=== PATIENT | male | born 1945 | race Caucasian/White ===

== ENCOUNTER → 2017-03-19 16:00 | Outpatient (REF) | payer MEDICARE, OTHER, SELFPAY | LOC: OLS.ACH 16:00 | PROVIDERS: Visit Provider Family Medicine | DX: R48.2 Apraxia (principal) | CPT/HCPCS: 87804 ==

== ENCOUNTER → 2017-07-16 05:00 | Outpatient (REF) | payer MEDICARE, OTHER, SELFPAY ==
[2017-07-16 08:48] LABS: ALB/GLOB Ratio 1.1 RATIO (0.9-2.4); AST(SGOT) 19 U/L (15-37); Alanine Aminotransfer ALT/SGPT 24 U/L (16-61); Albumin, Serum 3.1 g/dL (3.2-5.0); Alkaline Phosphatase 86 U/L (45-117); Anion Gap 7 (5-15); BUN 8 mg/dL (7-18); BUN/Creat Ratio 10.9 RATIO (10-20); Calcium,Total 7.8 mg/dL (8.5-10.1); Chloride 103 mmol/L (98-107); Cholesterol 119 mg/dL (200); Creatinine, Serum 0.74 mg/dL (0.70-1.30); EST Glomerular Filtration Rate 111 mL/min (>60); Est Glom Filt Rate - Afr Amer 135 mL/min (>60); Globulin 2.8 g/dL (2.2-4.2); Glucose 85 mg/dL (74-106); High Density Lipoprotein 38 mg/dL; Potassium 4.1 mmol/L (3.5-5.1); Protein, Total 5.9 g/dL (6.4-8.2); Sodium Level 137 mmol/L (136-145); Triglycerides 84 mg/dL; Very Low Density Lipoprotein 17 mg/dL (5-40)
== END ==
LOC: OLS.ACH 05:00
PROVIDERS: Visit Provider Family Medicine
DX: G35 Multiple sclerosis (principal); E78.00 Pure hypercholesterolemia, unspecified
CPT/HCPCS: 36415; 80053; 80061

== ENCOUNTER 2017-11-07 12:42 | Emergency (ER) | payer MEDICARE, OTHER, MEDICAID, SELFPAY ==
[2017-11-07 12:43] VITALS: BP 149/93; PULSE 58; RESP 18; TEMP 36.6; O2SAT 93; BMI 33.5
--- NOTE | 2017-11-07 13:00 | ED.DCSUM_ITS ---
- ER Visit Summary Date of Service: 11/07/17 Chief Complaint: Fall, head injury with LOC History of Present Illness: The patient is a 72 M who presents after a fall. [facility]mate tried to push his wheelchair and push the patient out of his wheelchair. He did hit the right side of his head on the floor. There was about 30 seconds of loss of consciousness per [facility] staff. Patient complains of minimal pain to the right side of the head. No neck pain. Denies any other symptoms. He does not take any blood thinning medications. Physical Examination: Vital signs reviewed. HEENT exam unremarkable. Head is nontender. Heart is regular rate and rhythm without murmurs. Lungs are clear to auscultation. Abdomen is soft and nontender. Extremities reveal no edema. Skin exam normal. Neurologic exam reveals diffuse muscle weakness secondary to his chronic medical conditions but nothing new. Test Results: CAT scan of the head reveals chronic changes with no acute findings Emergency Department Course and Treatment: Patient had no symptoms here in the emergency department. CAT scan reveals nothing acute. He will be discharged back to his facility Treatment Plan: [] Disposition: Discharge Impression: Concussion with loss of consciousness This note was generated with [employer] dictation software. It may contain incorrect words, spelling, and punctuation that were not noted in review of the chart prior to signing ED Disposition - Plan for ED Patient: Chief Complaint: LOC Referrals: Ricki Eaton MD [Primary Care Provider] -
--- NOTE | 2017-11-07 13:10 | CT_ITS ---
STUDY: CT BRAIN WITHOUT CONTRAST REASON FOR EXAM: Male, 72 years old. Trauma, head injury, status post fall from wheelchair RADIATION DOSAGE (If Supplied By Facility): CTDIvol = ( 44.99 ) mGy, DLP = ( 897.35 ) mGycm TECHNIQUE: Transaxial CT imaging of the brain was performed without administration of intravenous contrast material. Sagittal and coronal reconstructed images are provided and reviewed. Individualized dose optimization techniques were used for this CT. COMPARISON: None. FINDINGS: Normal soft tissue structures. Normal calvarium. The skull appears somewhat scaphocephalic. There is mild cerebral atrophy with widening of the extra-axial spaces and ventricular dilatation. There are areas of decreased attenuation within the white matter tracts of the supratentorial brain, consistent with microvascular disease changes. Normal basal ganglia and thalami. Normal brainstem. Normal cerebellum. There is no intracranial hemorrhage. There are no findings of an acute ischemic infarction. Normal visualized paranasal sinuses. CT/Brain/Head without Contrast IMPRESSION: Chronic involutional changes. No acute intracranial abnormality. Electronically Signed: Michael Woodward DO at 13:48 EDT Tel , Service support ,
--- NOTE | 2017-11-07 13:58 | ED.DEP ---
ED Disposition - Plan for ED Patient: Disposition: Home or Assisted Living Chief Complaint: LOC Instructions: ED Concussion Referrals: Ricki Eaton MD [Primary Care Provider] -
[2017-11-07 14:04] VITALS: BP 143/81; PULSE 64; RESP 18; O2SAT 94
[2017-11-07 15:25] VITALS: BP 140/80; PULSE 65; RESP 18
== END 2017-11-07 18:00 | disposition home or self-care (01) ==
PROVIDERS: Emergency Provider Emergency Medicine; Family Provider Family Medicine; PCP Family Medicine
DX: S06.0X1A Concussion with loss of consciousness of 30 minutes or less, initial encounter (principal); R40.2410 Glasgow coma scale score 13-15, unspecified time; W05.0XXA Fall from non-moving wheelchair, initial encounter; Y93.9 Activity, unspecified; Y92.129 Unspecified place in nursing home as the place of occurrence of the external cause; K21.9 Gastro-esophageal reflux disease without esophagitis; E78.00 Pure hypercholesterolemia, unspecified; F41.9 Anxiety disorder, unspecified; N40.0 Benign prostatic hyperplasia without lower urinary tract symptoms; G35 Multiple sclerosis; Z79.899 Other long term (current) drug therapy
CPT/HCPCS: 70450; 99284

== ENCOUNTER → 2018-01-14 05:00 | Outpatient (REF) | payer MEDICARE, OTHER, MEDICAID, SELFPAY ==
[2018-01-14 09:48] LABS: ALB/GLOB Ratio 0.9 RATIO (0.9-2.4); AST(SGOT) 16 U/L (15-37); Alanine Aminotransfer ALT/SGPT 24 U/L (16-61); Albumin, Serum 3.1 g/dL (3.2-5.0); Alkaline Phosphatase 97 U/L (45-117); Anion Gap 7 (5-15); BUN 12 mg/dL (7-18); BUN/Creat Ratio 15.4 RATIO (10-20); Calcium,Total 8.3 mg/dL (8.5-10.1); Chloride 103 mmol/L (98-107); Cholesterol 121 mg/dL (200); Creatinine, Serum 0.78 mg/dL (0.70-1.30); EST Glomerular Filtration Rate 104 mL/min (>60); Est Glom Filt Rate - Afr Amer 126 mL/min (>60); Globulin 3.3 g/dL (2.2-4.2); Glucose 90 mg/dL (74-106); High Density Lipoprotein 40 mg/dL; Potassium 3.9 mmol/L (3.5-5.1); Protein, Total 6.4 g/dL (6.4-8.2); Sodium Level 138 mmol/L (136-145); Triglycerides 71 mg/dL; Very Low Density Lipoprotein 14 mg/dL (5-40)
[2018-01-14 10:00] LABS: Vitamin D,25 Hydroxy 65.2 ng/mL (29.95-100.01)
== END ==
LOC: OLS.ACH 05:00
PROVIDERS: Visit Provider Family Medicine
DX: G35 Multiple sclerosis (principal); E78.00 Pure hypercholesterolemia, unspecified; M81.0 Age-related osteoporosis without current pathological fracture
CPT/HCPCS: 36415; 80053; 80061; 82306

== ENCOUNTER → 2018-07-15 04:00 | Outpatient (REF) | payer MEDICARE, OTHER, MEDICAID, SELFPAY ==
[2018-07-15 08:37] LABS: AST(SGOT) 19 U/L (15-37); Alanine Aminotransfer ALT/SGPT 27 U/L (16-61); Albumin, Serum 3.1 g/dL (3.2-5.0); Alkaline Phosphatase 92 U/L (45-117); Anion Gap 7 (5-15); BUN 10 mg/dL (7-18); BUN/Creat Ratio 12.7 RATIO (10-20); Calcium,Total 8.1 mg/dL (8.5-10.1); Chloride 102 mmol/L (98-107); Cholesterol 115 mg/dL (200); Creatinine, Serum 0.78 mg/dL (0.70-1.30); EST Glomerular Filtration Rate 103 mL/min (>60); Est Glom Filt Rate - Afr Amer 125 mL/min (>60); Globulin 3.2 g/dL (2.2-4.2); Glucose 89 mg/dL (74-106); High Density Lipoprotein 38 mg/dL; Potassium 3.9 mmol/L (3.5-5.1); Protein, Total 6.3 g/dL (6.4-8.2); Sodium Level 136 mmol/L (136-145); Triglycerides 68 mg/dL; Very Low Density Lipoprotein 14 mg/dL (5-40)
== END ==
LOC: OLS.ACH 04:00
PROVIDERS: Visit Provider Family Medicine
DX: G35 Multiple sclerosis (principal); E78.00 Pure hypercholesterolemia, unspecified
CPT/HCPCS: 36415; 80053; 80061

== ENCOUNTER → 2018-12-12 05:00 | Outpatient (REF) | payer MEDICARE, OTHER, MEDICAID, SELFPAY ==
[2018-12-12 09:51] LABS: Hematocrit 43.8 % (40-54); Hemoglobin 14.1 g/dL (13.0-16.5); Mean Corp Hgb Conc 32.2 g/dL (32-36); Mean Corpuscular Hgb 30.5 pg (27.0-32.0); Mean Corpuscular Volume 94.8 fL (80-94); Platelet Count 249 K/mm3 (150-450); RBC Distribution Width SD 41.6 fl (35.1-43.9); Red Blood Count 4.62 M/mm3 (4.6-6.2); White Blood Count 12.5 K/mm3 (4.4-11.0)
[2018-12-12 10:07] LABS: ALB/GLOB Ratio 0.9 RATIO (0.9-2.4); AST(SGOT) 18 U/L (15-37); Alanine Aminotransfer ALT/SGPT 23 U/L (16-61); Albumin, Serum 3.3 g/dL (3.2-5.0); Alkaline Phosphatase 99 U/L (45-117); Anion Gap 7 (5-15); BUN 9 mg/dL (7-18); BUN/Creat Ratio 12.4 RATIO (10-20); Calcium,Total 8.4 mg/dL (8.5-10.1); Chloride 103 mmol/L (98-107); Creatinine, Serum 0.73 mg/dL (0.70-1.30); EST Glomerular Filtration Rate 113 mL/min (>60); Est Glom Filt Rate - Afr Amer 136 mL/min (>60); Globulin 3.6 g/dL (2.2-4.2); Glucose 89 mg/dL (74-106); Potassium 3.6 mmol/L (3.5-5.1); Protein, Total 6.9 g/dL (6.4-8.2); Sodium Level 137 mmol/L (136-145)
[2018-12-12 11:22] LABS: Color, Urine Yellow (Yellow); Glucose, Dipstick Normal (Normal); Ketone-Dipstick Negative (Negative); Leukocyte Esterase-Dipstick 500 /ul (Negative); Nitrite-Dipstick Negative (Negative); Occult Blood-Urine 25 /ul (Negative); Protein-Dipstick Negative (Negative); Urine Bilirubin Dipstick Negative (Negative); Urine Clarity Sl. Cloudy (Clear); Urine Urobilinogen Normal (Normal)
== END ==
LOC: OLS.ACH 05:00
PROVIDERS: Visit Provider Family Medicine
DX: N39.41 Urge incontinence (principal); M62.81 Muscle weakness (generalized)
CPT/HCPCS: 36415; 80053; 81002; 85027; 87077; 87086; 87088; 87186

== ENCOUNTER → 2018-12-24 04:10 | Outpatient (REF) | payer MEDICARE, OTHER, MEDICAID, SELFPAY ==
[2018-12-23 09:04] VITALS: BMI 33.5
[2018-12-24 07:26] LABS: Color, Urine Yellow (Yellow); Glucose, Dipstick Normal (Normal); Ketone-Dipstick Negative (Negative); Leukocyte Esterase-Dipstick 100 /ul (Negative); Nitrite-Dipstick Negative (Negative); Occult Blood-Urine Negative /ul (Negative); Protein-Dipstick Negative (Negative); Urine Bilirubin Dipstick Negative (Negative); Urine Clarity Clear (Clear); Urine Urobilinogen Normal (Normal)
== END ==
LOC: OLS.ACH 04:10
PROVIDERS: Visit Provider Family Medicine
DX: N39.41 Urge incontinence (principal)
CPT/HCPCS: 81002; 87086

== ENCOUNTER 2018-12-27 15:45 | Emergency (ER) | payer MEDICARE, MEDICAID, SELFPAY ==
[2018-12-27 15:45] VITALS: BMI 33.6
[2018-12-27 15:46] VITALS: BP 138/84; PULSE 60; RESP 12; TEMP 36.4; O2SAT 96; BMI 35.6
--- NOTE | 2018-12-27 16:05 | ED.DCSUM_ITS ---
History of Present Illness Chief Complaint: Abd Pain Informant: Patient, Significant Other Limited by: Dementia Onset: Today Context: Sudden Onset Timing: Continuous Quality: Pain Location: Base of the skull to his ankles Current Severity: Mild Maximum Severity: Moderate Worsened by: Unknown Relieved by: Nothing Associated Symptoms: Unable to determine Narrative: Patient is a 73-year-old male scheduled for cholecystectomy on January 02, 2019. He has history of cholelithiasis with acute on chronic cholecystitis. Plan was to observe and allow for inflammation to improve prior to surgery per Dr. Roy does most recent note. States he is not always accurate with his description and location of pain. He apparently had pancakes with butter this morning. Uncertain what he had for lunch. states he is also been on a bland diet. He resides at nursing facility. She states she lives in an apartment near the nursing facility. Prior similar symptoms: Yes Recent Illness/Hospitalization: No - Past Medical History (1) History of cholelithiasis Status: Acute (2) Depression Status: Chronic (3) HLD (hyperlipidemia) Status: Chronic (4) Multiple sclerosis Status: Chronic (5) Osteoporosis Status: Chronic (6) Urinary incontinence Status: Chronic Past Medical History - Allergies and Home Meds Allergies/Adverse Reactions: Allergies Phenothiazines Allergy (Verified 12/27/18 15:50) Unknown prochlorperazine [From Compazine] Allergy (Verified 12/27/18 15:50) Unknown Sulfa (Sulfonamide Antibiotics) Allergy (Verified 12/27/18 15:50) Unknown Primary Care Physician: Ricki Eaton MD [Primary Care Provider] - Prior records reviewed: Yes Surgical History: noncontributory Lives: [facility] Smoking Status: Never smoker Alcohol: None Drugs: None Review of Systems ROS: Unable to Obtain - Patient reports pain from the base of his skull to his ankles. There is been no documented vomiting. There is no documented diarrhea. He is not a good informant. Physical Exam Vital Signs/Narrative: Vital Signs Temp Pulse Resp BP Pulse Ox 12/27/18 15:46 97.6 F L 60 12 138/84 H 96 Inital Vital Signs reviewed: Yes General: Well nourished, Well developed, Obese, No Acute Distress Head: Normocephalic, Atraumatic Eyes: Perrl, EOMI. Negative for: Pale conjunctiva, Scleral icterus ENT: Moist mucous membranes, No rhinorrhea, TM's clear Neck: Supple, Nontender, No lymphadenopathy, No JVD Cardiovascular: Regular rate, Regular rhythm, No murmurs, Normal S1, Normal S2 Respiratory: No distress, CTA bilaterally, Chest nontender Abdomen: Soft, Nontender, Nondistended, Normal bowel sounds Back: Nontender, Normal Inspection. Negative for: CVA tenderness Extremities: Nontender, No edema. Negative for: Tenderness, Edema Skin: Normal color, No rash, No Trauma. Negative for: Cyanosis, Diaphoresis, Jaundice Neurological: Cranial nerves II-XII grossly intact, Normal Strength, Normal Sensation, Disoriented - According to he is normally disoriented.. Negative for: Oriented x3 Psychological: Normal affect, Normal Mood Diagnostic/Tx/Re-eval Laboratory Results 12/27/18 12/27/18 15:50 15:50 WBC 8.3 RBC 4.20 L Hgb 13.0 Hct 39.8 L MCV 94.8 H MCH 31.0 MCHC 32.7 RDW Std Deviation 41.2 RDW Coeff of Shawn 11.9 Plt Count 341 MPV 9.6 Immature Gran % (Auto) 0.200 Neut % (Auto) 54.9 Lymph % (Auto) 32.8 [place] % (Auto) 7.5 Eos % (Auto) 3.5 Baso % (Auto) 1.1 H Absolute Neuts (auto) 4.5 Absolute Lymphs (auto) 2.71 Nucleated RBC % 0 Total Bilirubin 1.00 Direct Bilirubin 0.27 AST 19 ALT 32 Alkaline Phosphatase 95 Total Protein 6.7 Albumin 3.3 Globulin 3.4 Lipase 55 L White count, liver enzymes and lipase are all normal. Call was placed to the surgeon. - Medical Decision Making Since patient not a reliable informant will obtain baseline blood work and discuss case with surgeon since states plan was to operate on him today. This was discussed with his surgeon, Dr. roy. Since white count is normal as well as liver enzymes and lipase with a benign exam he will be discharged back to [facility] and plan is cholecystectomy as scheduled for January 02. ED Disposition - Plan for ED Patient: Disposition: Home or Assisted Living Diagnosis: Acute pain, Cholelithiasis Referrals: Ricki Eaton MD [Primary Care Provider] - Andrea Roy MD [STAFF PHYSICIAN] - Keep Darshan appointment
[2018-12-27 16:09] VITALS: BP 140/70; PULSE 65; RESP 14; O2SAT 94
[2018-12-27 16:25] LABS: Absolute Lymphocyte Count 2.71 X10^3/uL (0.83-4.51); Absolute Neutrophil Count 4.5 X10^3/uL (2.0-7.7); Basophil# 0.09 X10^3/uL; Basophil% 1.1 % (0-1); Eosinophil# 0.29 X10^3/uL; Eosinophils% 3.5 % (0-5); Hematocrit 39.8 % (40-54); Lymphocyte # 2.71 X10^3/ul (4.0); Lymphocyte % 32.8 % (19-41); Mean Corp Hgb Conc 32.7 g/dL (32-36); Mean Corpuscular Volume 94.8 fL (80-94); Mean Platelet Vol. 9.6 fl (6.2-12.0); Monocyte# 0.62 X10^3/uL; Monocyte% 7.5 % (0-10); NRBC Flagged by Analyzer 0 % (0-5); Neutrophil # 4.54 X10^3/uL (2.7-7.7); Neutrophil % 54.9 % (47-70); Platelet Count 341 K/mm3 (150-450); RBC Distribution Width CV 11.9 % (11.6-14.6); RBC Distribution Width SD 41.2 fl (35.1-43.9); White Blood Count 8.3 K/mm3 (4.4-11.0)
[2018-12-27 16:36] LABS: AST(SGOT) 19 U/L (15-37); Alanine Aminotransfer ALT/SGPT 32 U/L (16-61); Albumin, Serum 3.3 g/dL (3.2-5.0); Alkaline Phosphatase 95 U/L (45-117); Bilirubin, Direct 0.27 mg/dL (0.00-0.30); Globulin 3.4 g/dL (2.2-4.2); Lipase 55 U/L (73-393); Protein, Total 6.7 g/dL (6.4-8.2)
--- NOTE | 2018-12-27 16:59 | ED.VISSUMM ---
- ER Visit Summary Date of Service: 12/27/18 Chief Complaint: [] History of Present Illness: The patient is a 73 M [] Physical Examination: [] Test Results: [] Emergency Department Course and Treatment: [] Treatment Plan: [] Disposition: [] Impression: [] This note was generated with [employer] dictation software. It may contain incorrect words, spelling, and punctuation that were not noted in review of the chart prior to signing ED Disposition - Plan for ED Patient: Disposition: Home or Assisted Living Diagnosis: Acute pain, Cholelithiasis Instructions: BILIARY COLIC with Gallstone (Confirmed) Referrals: Andrea Parra MD [STAFF PHYSICIAN] - Keep Darshan appointment Ricki Eaton MD [Primary Care Provider] -
[2018-12-27 17:23] VITALS: BP 141/78; BP 142/70; PULSE 62; PULSE 65; RESP 14; O2SAT 94; O2SAT 96
--- NOTE | 2018-12-27 17:25 | NURSING ---
CALLED [facility] FOR RIDE TO [facility].
== END 2018-12-27 18:06 | disposition home or self-care (01) ==
PROVIDERS: Emergency Provider Emergency Medicine; Family Provider Family Medicine; PCP Family Medicine
DX: K80.12 Calculus of gallbladder with acute and chronic cholecystitis without obstruction (principal); E66.9 Obesity, unspecified; F32.9 Major depressive disorder, single episode, unspecified; E78.5 Hyperlipidemia, unspecified; G35 Multiple sclerosis; M81.0 Age-related osteoporosis without current pathological fracture; F03.90 Unspecified dementia, unspecified severity, without behavioral disturbance, psychotic disturbance, mood disturbance, and anxiety; Z90.49 Acquired absence of other specified parts of digestive tract; Z79.899 Other long term (current) drug therapy
CPT/HCPCS: 80076; 83690; 85025; 99285; A4216

== ENCOUNTER 2019-01-02 09:00 | Observation (INO) | payer MEDICARE, MEDICAID, OTHER, SELFPAY ==
[2018-12-23 08:54] VITALS: BMI 33.6
--- NOTE | 2018-12-24 01:12 | HP_ITS ---
Intake Vital Signs 12/23/18 Body Mass Index (BMI) 33.5 12/23/18 Height 5 ft 7 in 12/23/18 Weight: 215 lb 12/23/18 Body Mass Index (BMI) 33.6 12/23/18 Blood Pressure 120/72 12/23/18 Blood Pressure Location Rt brachial 12/23/18 Respiratory Rate 18 Intake Visit Reasons: Gallstone US 12/16 Mobile X to bring Chief Complaint: fever Allergies Phenothiazines Allergy (Verified 12/23/18 08:51) Unknown prochlorperazine [From Compazine] Allergy (Verified 12/23/18 08:51) Unknown Sulfa (Sulfonamide Antibiotics) Allergy (Verified 12/23/18 08:51) Unknown Medications Atorvastatin Calcium [Lipitor] 10 mg PO QHS 03/31/16 [History Confirmed 12/23/18] Baclofen 10 mg PO TID 03/31/16 [History Confirmed 12/23/18] Cranberry 400 mg PO BID 03/31/16 [History Confirmed 12/23/18] Ergocalciferol [Vitamin D] 50,000 unit PO Q7D 03/31/16 [History Confirmed 12/23/18] Fluoxetine HCl 60 mg PO DAILY 03/31/16 [History Confirmed 12/23/18] Fluticasone 0.05% [Flonase Nasal [place]] 2 spray NASAL DAILY 03/31/16 [History Confirmed 12/23/18] Multivitamin [Daily Multiple Vitamin] 1 ea PO DAILY 03/31/16 [History Confirmed 12/23/18] Oxybutynin Chloride [Ditropan Xl] 10 mg PO DAILY 03/31/16 [History Confirmed 12/23/18] Polyethylene Glycol 3350 [Miralax] 17 gm PO DAILY 03/31/16 [History Confirmed 12/23/18] Quetiapine Fumarate [Seroquel] 12.5 mg PO BID 03/31/16 [History Confirmed 12/23/18] Quetiapine Fumarate [Seroquel] 25 mg PO QHS 03/31/16 [History Confirmed 12/23/18] Ranitidine [Zantac] 50 mg PO BID 03/31/16 [History Confirmed 12/23/18] Senna [Senokot] 2 tab PO QHS 03/31/16 [History Confirmed 12/23/18] Bisacodyl [Dulcolax] 10 mg RECTAL DAILY PRN PRN 11/26/16 [History Confirmed 12/23/18] Brompheniramine/Pseudoephed/Dm [Bromfed Dm Cough Syrup] 5 - 10 ml PO Q4H 11/26/16 [History Confirmed 12/23/18] Loperamide [Imodium] 2 mg PO Q6H PRN PRN 11/26/16 [History Confirmed 12/23/18] Magnesium Hydroxide [Milk Of Magnesia] 60 ml PO DAILY PRN PRN 11/26/16 [History Confirmed 12/23/18] Clonazepam [Klonopin] 0.5 mg PO BID #20 tab 11/27/16 [Rx] Oxycodone HCl/Acetaminophen [Percocet 5-325] 1 - 2 tab PO Q4H PRN PRN #20 tab 11/27/16 [Rx Confirmed 12/23/18] PFSH Medical History Leukocytosis (Acute) Fever (Acute) Urinary incontinence (Chronic) Osteoporosis (Chronic) Multiple sclerosis (Chronic) HLD (hyperlipidemia) (Chronic) Depression (Chronic) Surgical History s/p lipoma removal (Acute) s/p sebaceous cysts removal (Acute) s/p throat cyst removal (Acute) Family History Father Heart disease Social History (Updated 12/24/18 @ 13:12 by Andrea Parra MD) Smoking Status: Never smoker alcohol intake: never HPI HPI HPI: EYAL PRATT, is a 73 M who presents to the office today for HPI HPI Surgical H&P: Yes HPI: EYAL PRATT, is a 73 M who presents to the office today for gallstones. Patient recently had right upper quadrant pain. He says this has resolved. He said it was after eating that this happened and it was sharp in his right upper quadrant. 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 Cardio Cardiovascular: No murmur, pacemaker, heart disease, atrial fibrillation, high blood pressure, heart attack, heart stent, palpitations, shortness of breat with exertion or chest pain Psych Psychiatric: Yes depression and anxiety Resp Respiratory: No shortness of breath, No sleep apnea, No cough, No COPD, No asthma, No emphysema, No wheezing Gastro Gastrointestinal: Yes abdominal pain, No nausea or vomiting, No diarrhea, No constipation, No blood in stool, No acid reflux, No hemorrhoids, No ulcers, Yes gallbladder problem, No black,tarry stools Dat Hematologic: No blood thinners Exam Const General: cooperative, other (Left-sided paralysis) Orientation: alert, oriented x3 Resp Effort & Inspection: normal respiratory effort Auscultation: clear to auscultation bilaterally Cardio Rate: regular rate Rhythm: regular rhythm Heart Sounds: no murmurs GI Inspection: non-distended Palpation: soft, nontender Assessment & Plan Problems 1. Calculus of gallbladder with chronic cholecystitis without obstruction K80.10 Plan The patient had right upper quadrant pain and at that time he did have leukocytosis. The patient had ultrasound which showed a large gallstone with thickened gallbladder wall. Currently the patient is not experiencing any pain. He likely had acute cholecystitis. I will allow a few more weeks for the inflammation to subside and then perform a cholecystectomy. I advised the patient that if he experiences any further right upper quadrant pain or nausea or vomiting he should present to the emergency room immediately. I discussed the procedure in detail with the patient. I discussed the risks, benefits, and alternatives of the procedure. I discussed the risks including but not limited to bleeding, infection, injury to surrounding organs such as the liver, bile duct, bowels. I did discuss the possibility of having to convert to an open procedure as well as the possibility that if any injuries occurred this may necessitate further surgery at a tertiary care center. Andrea Parra MD Pager: [facility] [address] [place] [address], [address] [place] [address] Office: Coding Level of Care Code Off vis,new,level 3 Diagnoses Calculus of gallbladder with chronic cholecystitis without obstruction K80.10 ??Cholelithiasis location: gallbladder ??Cholecystitis presence: with cholecystitis ??Cholecystitis acuity: chronic ??Biliary obstruction: without biliary obstruction 12/24/18 1312 <Electronically signed by Andrea Calab wilmer MD> Date _ Andrea Parra MD I have re-examined the patient. There are no clinical changes since date of exam.
[2019-01-02] VITALS (12 sets, daily range): BP systolic 114–171; BP diastolic 63–103; PULSE 59–99; RESP 16–18; TEMP 35.9–36.7; O2SAT 93–100; BMI 33.6
--- NOTE | 2019-01-02 05:38 | EKG12_ITS ---
Test Reason : PRE OP Blood Pressure : / mmHG Vent. Rate : 056 BPM Atrial Rate : 056 BPM P-R Int : 328 ms QRS Dur : 106 ms QT Int : 456 ms P-R-T Axes : 072 -40 013 degrees QTc Int : 440 ms Sinus bradycardia with 1st degree A-V block Left axis deviation Septal infarct (cited on or before 02-JAN-2019) Abnormal ECG When compared with ECG of 12-MAR-2002 09:14, QRS duration has increased Questionable change in initial forces of Septal leads Confirmed by IRA MARTINEZ ([id number]), editor at large NICOLE SNYDER ([id number]) on 01/07/2019 1:31:47 PM Referred By: Andrea Parra Confirmed By:IRA MARTINEZ
[2019-01-02] MEDS: Lactated Ringers 1,000 ML 100 ML IV (06:19)
--- NOTE | 2019-01-02 07:30 | RAD_ITS ---
STUDY: INTRAOPERATIVE CHOLANGIOGRAM. REASON FOR EXAM: Male, 73 years old. Laparoscopic cholecystectomy. FLUOROSCOPY TIME (if supplied): ( 17.5 seconds ) minutes/seconds TECHNIQUE: The surgeon performed an intraoperative cholangiogram. Imaging was submitted. COMPARISON: None. FINDINGS: The common bile duct is not dilated. No intraluminal filling defect is seen. There is free flow of contrast into the duodenum. The visualized intrahepatic biliary ducts are unremarkable as well. Status post vertebroplasty of the L1 and L2 vertebrae. RAD/Cholangiogram/ O R,Initial IMPRESSION: Unremarkable intraoperative glandular. Electronically Signed: Steven Gonzalez, at 10:06 EDT , Service support ,
--- NOTE | 2019-01-02 07:30 | GALL_PTH ---
PATIENT: EYAL PRATT LOC: MS3 U#:[id number] AGE/SX: 73/M ROOM: OR304 RE01/02/[address]: Dr. Andrea Parra MD : [id number] BED: 1 DIS: 01/03/2019 SPEC #: [id number] RECD: 01/02/19 09:18 STATUS: SHIREEN ASTRID #: [id number] MARILYN: 01/02/19 07:[address]: Andrea Parra DEPT: SURGICAL PATHOLOGY RECD BY: Tom Du ENTERED: 01/02/19 09:34 SP TYPE: ADRI SEVILLA DR: Dr. Ricki Eaton MD Tissues: Gallbladder, NOS Procedures: Surgery Specimen Level III HEADER OPERATION: Laparoscopic cholecystectomy with IOC PRE-OP DIAGNOSIS: Calculus of gallbladder with chronic cholecystitis TISSUE SUBMITTED: Gallbladder MICROSCOPIC DIAGNOSIS Gallbladder, cholecystectomy: Mild chronic cholecystitis and cholelithiasis. SJ:toma 01/03/19 MICROSCOPIC DESCRIPTION Slides are reviewed. GROSS DESCRIPTION Received is one container labeled with the patient's name and designated gallbladder. The specimen consists of a gallbladder measuring 8.5 cm in length and up to 3.5 cm in diameter. The external surface is pink-flores, smooth and glistening for the most part. Focally it is granular, hemorrhagic and contains cautery artifact. The gallbladder contains green-yellow mucoid bile and multiple black irregular stones and stone fragments measuring in aggregate 1 x 1 x 0.4 cm and 0.1 to 0.8 cm in greatest dimension. The mucosa also shows several yellowish streaks consistent with cholesterolosis. The mucosa is bile-stained and without any mass lesions. The gallbladder wall measures up to 0.3 cm in thickness. A focal area of increased subserosal fat is noted. Infant Babysitter sections from the gallbladder and the cystic duct are submitted in one cassette. / DIANA:toma 01/02/19 TC:3 CPT: 24106
--- NOTE | 2019-01-02 09:03 | OP.PCM_ITS ---
Problem List (1) History of cholelithiasis Status: Acute Report of Operation Date of Procedure: 01/02/19 Pre-Operative Diagnosis: Cholelithiasis Post-Operative Diagnosis: Cholelithiasis Surgery/Procedure Performed:: Laparoscopic cholecystectomy with cholangiogram Description of Surgical Findings:: Patient had a very distended colon including the transverse and sigmoid colon. Partially inflamed gallbladder. Specimen's removed: Gallbladder and contents Description of Procedure: After obtaining informed consent patient was brought back to the operating room. General anesthesia was induced. The abdomen was prepped and draped in usual sterile fashion. A small midline incision was made superior to the umbilicus and deepened to the level of fascia. The fascia was elevated and incised. Next the peritoneum was elevated and incised in the same fashion. Finger sweep was performed and the Newton trocar was placed into the abdomen. The balloon was inflated. The abdomen was inflated to 15 mmHg. Next a camera was introduced into the abdomen and the abdomen was inspected. The patient had a very distended sigmoid and transverse colon. Next under direct visualization three 5-mm ports were placed one subxiphoid and 2 subcostal. Next the gallbladder was elevated and retracted toward the right shoulder. The peritoneum was stripped from the gallbladder. The infundibulum was located and retracted laterally. Next the triangle of Calot was dissected and the cystic duct and cystic artery were identified. Cholangiograms were performed. The Foreman clamp was used to clamp across the infundibulum and the catheter needle was inserted into the gallbladder. Under fluoroscopy contrast was instilled into the gallbladder and the common duct, cystic duct as well as proximal hepatic ducts were identified. There was good filling of the duodenum. There were no filling defects noted in the common bile duct. The clamp was removed as well as the needle and the infundibulum was grasped once more. Three hemolock clips were placed across the cystic duct. The cystic duct was then divided leaving 2 clips on the stump. The cystic artery was clipped and divided in the same fashion. The hook cautery was then used to take the gallbladder off of the gallbladder bed. Hemostasis was obtained. Some bleeding did start in the tissue that was initially dissected free from the gallbladder. In order to better inspect this an additional 5 mm port was placed in the right upper quadrant. Fan retractor was used to retract the omentum and fat inferiorly. The oozing was identified from the fat of the omentum. This eventually slowed down. Gallbladder fossa was irrigated and no active bleeding or bile leakage was noted. Next the camera switched to a 5 mm camera and introduced in the subxiphoid port. An Endopouch bag was placed through the umbilical port and the gallbladder was placed into it. The gallbladder was then removed through the umbilical incision. The camera was then reinserted through the umbilical port. The gallbladder fossa was inspected once more and noted to be hemostatic with no leaking bile. Surg icel powder was injected into the gallbladder fossa and surrounding area. The abdomen was suctioned dry. The 5 mm ports were removed under direct visualization. The umbilical port was then removed and the air was removed from the abdomen. Next using an 0 Vicryl suture the umbilical fascia was closed in a [id number] fashion. The umbilical port site was irrigated local anesthetic was administered to all the incisions. All the incisions were closed with interrupted subcuticular 4-0 Monocryl sutures followed by Steri-Strips and dressings. The patient was awoken and taken to PACU in stable condition. - Admit VTE Documentation VTE Mechan Device Prophylaxis: SCD's
[2019-01-02] MEDS: 0.9% Normal Saline 1,000 ML 75 ML IV (12:05)
[2019-01-02] MEDS: Polyethylene Glycol 3350 17 GM PACKET PO (12:09)
[2019-01-02] MEDS: Tolterodine Tartrate 2 MG CAP.SA PO (12:10)
[2019-01-02] MEDS: Acetaminophen 325 MG Tablet 650 MG PO ×2 (12:11→19:55)
[2019-01-02] MEDS: BENZOCAINE/MENTHOL 1 LOZENGE MUCOUS MEM (14:24)
[2019-01-02] MEDS: Baclofen 10 MG Tablet PO ×2 (14:24→22:56)
--- NOTE | 2019-01-02 14:27 | CASEMGMT ---
Addendum entered by A[place]lia Yoder 01/02/19 15:30: LION met with pt. Pt's present in room. Pt's states pt doesn't have his hearing aides in so this worker will have to get close. LION introduced self and role at [facility] to pt. Pt is alert and orientated x3. Pt confirms that he came from [facility] and his plan is to return. Pt states that Giorgio who runs the transportation for [facility] will be transporting pt back to [facility]. Pt denied additional needs or concerns at this time. LION faxed updated clinicals to [facility]. Plan: Return to [facility] once medically cleared [place] Yoder MSW, WEB APPLICATIONS ADMINISTRATOR Original Note: Social Work Note Pt is listed as being from [facility]. LION placed a call to Felecia at [facility] and asked for update on pt. LION received message from Felecia stating pt is [facility]. Felecia would like to see what pt's needs will be at discharge. LION placed transfer to extended care facility document on pt's chart. Plan: LION will follow up with pt tomorrow to confirm discharge plans. Pt was just admitted to floor today. Pt can likely return to [facility] [place] [facility] [place]. [place] Yoder FEED IN WORKER, WEB APPLICATIONS ADMINISTRATOR
[2019-01-02] MEDS: oxyCODONE 5 MG Tablet PO (15:19)
[2019-01-02] MEDS: clonazePAM 0.5 MG Tablet PO (22:56)
[2019-01-02] MEDS: Atorvastatin Calcium 10 MG Tablet PO (22:56)
[2019-01-02] MEDS: QUEtiapine 25 MG Tablet PO (22:57)
[2019-01-02] MEDS: Senna Tablet 2 TABLET PO (22:57)
[2019-01-03] MEDS: Ondansetron 4 MG/2 ML Vial IV (00:03)
[2019-01-03] MEDS: Fluticasone 0.05% 1 SPRAY NASAL.SRY 2 SPRAY NASAL (00:03)
[2019-01-03] MEDS: oxyCODONE 5 MG Tablet PO ×2 (00:14→14:05)
[2019-01-03] MEDS: 0.9% Normal Saline 1,000 ML 75 ML IV (00:22)
[2019-01-03 00:25] VITALS: BP 122/73; PULSE 85; RESP 18; TEMP 36.4; O2SAT 95
[2019-01-03 03:33] VITALS: BP 104/57; PULSE 77; RESP 18; TEMP 36.7; O2SAT 94
[2019-01-03] MEDS: Baclofen 10 MG Tablet PO ×2 (06:30→14:05)
[2019-01-03 06:38] LABS: Absolute Lymphocyte Count 3.36 X10^3/uL (0.83-4.51); Absolute Neutrophil Count 6.8 X10^3/uL (2.0-7.7); Basophil# 0.03 X10^3/uL; Basophil% 0.3 % (0-1); Eosinophil# 0.03 X10^3/uL; Eosinophils% 0.3 % (0-5); Hematocrit 37.3 % (40-54); Hemoglobin 12.2 g/dL (13.0-16.5); Lymphocyte # 3.36 X10^3/ul (4.0); Lymphocyte % 30.1 % (19-41); Mean Corp Hgb Conc 32.7 g/dL (32-36); Mean Corpuscular Hgb 30.9 pg (27.0-32.0); Mean Corpuscular Volume 94.4 fL (80-94); Mean Platelet Vol. 9.9 fl (6.2-12.0); Monocyte# 0.93 X10^3/uL; Monocyte% 8.3 % (0-10); NRBC Flagged by Analyzer 0 % (0-5); Neutrophil # 6.79 X10^3/uL (2.7-7.7); Neutrophil % 60.7 % (47-70); Platelet Count 286 K/mm3 (150-450); RBC Distribution Width CV 12.1 % (11.6-14.6); RBC Distribution Width SD 42.2 fl (35.1-43.9); Red Blood Count 3.95 M/mm3 (4.6-6.2); White Blood Count 11.2 K/mm3 (4.4-11.0)
[2019-01-03 06:52] LABS: ALB/GLOB Ratio 0.9 RATIO (0.9-2.4); AST(SGOT) 39 U/L (15-37); Alanine Aminotransfer ALT/SGPT 59 U/L (16-61); Albumin, Serum 2.8 g/dL (3.2-5.0); Alkaline Phosphatase 97 U/L (45-117); Anion Gap 9 (5-15); BUN 9 mg/dL (7-18); BUN/Creat Ratio 11.8 RATIO (10-20); Calcium,Total 7.8 mg/dL (8.5-10.1); Chloride 101 mmol/L (98-107); Creatinine, Serum 0.76 mg/dL (0.70-1.30); EST Glomerular Filtration Rate 106 mL/min (>60); Est Glom Filt Rate - Afr Amer 128 mL/min (>60); Estimated Creatinine Clearance 62.43 ml/min; Globulin 3.1 g/dL (2.2-4.2); Glucose 104 mg/dL (74-106); Potassium 4.1 mmol/L (3.5-5.1); Protein, Total 5.9 g/dL (6.4-8.2); Sodium Level 134 mmol/L (136-145)
[2019-01-03 09:30] VITALS: BP 114/69; PULSE 66; RESP 20; TEMP 36.8; O2SAT 93
--- NOTE | 2019-01-03 09:54 | CASEMGMT ---
ELI SCANLON NOTE: ELI SCANLON to room to discuss LUCIO form with pt. Pt resting in bed. Awake/alert/oriented. Reviewed LUCIO form with pt and he denies having any questions. LUCIO form signed by pt and placed on chart. Copy given to pt. Marquita MORTENSEN RN CM
--- NOTE | 2019-01-03 10:01 | DCINST_ITS ---
Discharge Diet: Light diet - advance as tolerated Discharge Activity: Return to Normal Activity, May Shower Additional Activity Instructions:: Pain medication may cause nausea. You should typically eat light foods as you take your pain medications. Pain medication may also cause constipation. If this is a problem for you, please discuss with your doctor. Call your doctor if your incision/area has: Continuous Slow Oozing, Sudden Increased Bleeding, Increased Pain/ Swelling, Increased Redness, Foul Smelling Discharge, Fever of 101 or Higher Call your doctor if you observe: Fever of 101 or Higher Suture Line Care: Avoid Pulling/Pushing, Avoid Pinching/Bending Additional Dressing/Incision Instructions:: Leave operative bandaids on for 2 days. When you remove dressing, leave Steri-Strips on until your follow-up appointment, or until the Steri-Strips fall off on their own. Allergies/Adverse Reactions: Allergies Phenothiazines Allergy (Verified 01/02/19 05:49) Unknown prochlorperazine [From Compazine] Allergy (Verified 01/02/19 05:49) Unknown Sulfa (Sulfonamide Antibiotics) Allergy (Verified 01/02/19 05:49) Unknown Medications to take at Discharge Atorvastatin Calcium [Lipitor] 10 mg PO QHS 03/31/16 Baclofen 10 mg PO TID 03/31/16 Cranberry 400 mg PO BID 03/31/16 Ergocalciferol [Vitamin D] 50,000 unit PO Q7D 03/31/16 Fluoxetine HCl 60 mg PO DAILY 03/31/16 Fluticasone 0.05% [Flonase Nasal [place]] 2 spray NASAL QHS 03/31/16 Multivitamin [Daily Multiple Vitamin] 1 ea PO DAILY 03/31/16 Oxybutynin Chloride [Ditropan Xl] 10 mg PO DAILY 03/31/16 Polyethylene Glycol 3350 [Miralax] 17 gm PO DAILY 03/31/16 Quetiapine Fumarate [Seroquel] 12.5 mg PO DAILY 03/31/16 Quetiapine Fumarate [Seroquel] 25 mg PO QHS 03/31/16 Senna [Senokot] 2 tab PO QHS 03/31/16 Bisacodyl [Dulcolax] 10 mg RECTAL DAILY PRN PRN 11/26/16 Magnesium Hydroxide [Milk Of Magnesia] 60 ml PO DAILY PRN PRN 11/26/16 Clonazepam [Klonopin] 0.5 mg PO BID #20 tab 11/27/16 Acetaminophen [Tylenol] 650 mg PO Q6H PRN 12/30/18 Ondansetron HCl [Zofran] 4 mg PO Q6H PRN 12/30/18 Oxycodone [Oxyir] 5 mg PO Q6H PRN PRN 5 Days #40 tab 01/03/19 The following prescriptions were given: Oxycodone [Oxyir] 5 mg PO Q6H PRN PRN 5 Days #40 tab PRN Reason: Pain Score 6-10/10 Prescription Printed Primary Care Physician: Ricki Eaton MD [Primary Care Provider] - Test Results: Test results from this visit will be discussed in further detail at your follow- up appointment, if applicable. Please Follow Up With: Andrea Parra MD When: Please call to schedule 2 week follow up appointment. [phone]
--- NOTE | 2019-01-03 10:02 | PCM.TXEXTCAR ---
- Diet 01/02/19 09:01 Diet: Regular Diet - Wound(s) ABDOMEN Wound Type: Surgical Incision Dressing Change: Dry Sterile Dressing - Therapies Physical Therapy: Eval and Treat Occupational Therapy: Eval and Treat - Problem/Diagnosis (1) History of cholelithiasis Status: Acute Current Visit: No - Allergies/Procedures Done in Hospital Allergies/Adverse Reactions: Allergies Phenothiazines Allergy (Verified 01/02/19 05:49) Unknown prochlorperazine [From Compazine] Allergy (Verified 01/02/19 05:49) Unknown Sulfa (Sulfonamide Antibiotics) Allergy (Verified 01/02/19 05:49) Unknown Procedures: - - Laparoscopic cholecystectomy - Type of Care/Length of Stay Estimated LOS: More Than 30 Days Type of Care Needed: Retirement/Assisted Living Rehab Potential: Fair Prognosis: Good - Additional Orders/Day of Discharge Day of Discharge: 01/03/19 - Follow Up Care Primary Care Physician: Ricki Eaton MD [Primary Care Provider] - Please Follow Up With: Andrea Parra MD When: Please call to schedule 2 week follow up appointment. [phone]
[2019-01-03] MEDS: QUEtiapine 25 MG Tablet 12.5 MG PO (10:04)
[2019-01-03] MEDS: clonazePAM 0.5 MG Tablet PO (10:04)
[2019-01-03] MEDS: Tolterodine Tartrate 2 MG CAP.SA PO (10:04)
[2019-01-03] MEDS: Polyethylene Glycol 3350 17 GM PACKET PO (10:06)
[2019-01-03] MEDS: Acetaminophen 325 MG Tablet 650 MG PO (10:06)
[2019-01-03] MEDS: Menthol/Lanolin/Calamine/Znox 113 GM Tube 1 APPLIC TOPICAL (10:08)
[2019-01-03 10:34] VITALS: RESP 20; O2SAT 93
--- NOTE | 2019-01-03 10:37 | PCM.PN.SRG ---
Subjective: Patient appears to be doing well this morning. He is tolerating a diet with no nausea or vomiting. He says his abdominal pain is well controlled. - Physical Exam General: Alert, Oriented x3 Lungs: Normal air movement Abdomen: Soft, Non Tender, Non-Distended Vital Signs Temp Pulse Resp BP Pulse Ox 98.3 F 66 20 H 114/69 93 01/03/19 09:30 01/03/19 09:30 01/03/19 09:30 01/03/19 09:30 01/03/19 09:30 Oxygen Flow Rate (L/min) 1 Oxygen Delivery Method Room Air Weight: 215 lb Body Mass Index (BMI) 33.6 Intake and Output for Last 24 Hours 01/01/19 01/02/19 01/03/19 23:59 23:59 23:59 Intake Total 789.58 / 1689.58 2972.5 / 2972.5 Balance 789.58 / 1689.58 2972.5 / 2972.5 Laboratory Tests Past 24 Hrs 01/03/19 01/03/19 06:03 06:03 WBC 11.2 H RBC 3.95 L Hgb 12.2 L Hct 37.3 L MCV 94.4 H MCH 30.9 MCHC 32.7 RDW Std Deviation 42.2 RDW Coeff of Shawn 12.1 Plt Count 286 MPV 9.9 Immature Gran % (Auto) 0.300 Neut % (Auto) 60.7 Lymph % (Auto) 30.1 [place] % (Auto) 8.3 Eos % (Auto) 0.3 Baso % (Auto) 0.3 Absolute Neuts (auto) 6.8 Absolute Lymphs (auto) 3.36 Nucleated RBC % 0 Sodium 134 L Potassium 4.1 Chloride 101 Carbon Dioxide 24.0 Anion Gap 9 BUN 9 Creatinine 0.76 Estim Creat Clear Calc 62.43 Est GFR (MDRD) Af Amer 128 Est GFR (MDRD) Non-Af 106 BUN/Creatinine Ratio 11.8 Glucose 104 Calcium 7.8 L Total Bilirubin 1.20 H AST 39 H ALT 59 Alkaline Phosphatase 97 Total Protein 5.9 L Albumin 2.8 L Globulin 3.1 Albumin/Globulin Ratio 0.9 Medical Necessity - Tobacco Use Smoking Status: Never smoker Tobacco Use: Non-smoker Assessment/Plan All Active Problems (Last Reviewed 12/23/18 @ 08:53 by Carla Baxter) History of cholelithiasis (Acute) Paralysis (Acute) Leukocytosis (Acute) Fever (Acute) 73-year-old male status post laparoscopic cholecystectomy 1. Patient appears to be doing well and his labs are stable this morning. I will DC the patient back to his senior care. Andrea Parra MD Pager: [facility] [address] [place] [address] [address] [place] [address] Office:
--- NOTE | 2019-01-03 12:40 | CASEMGMT ---
Addendum entered by Aurelia Yoder 01/03/19 15:17: SW updated pt on transportation time. Pt gave this worker permission to call his to update her. SW placed a call to pt's Katie and updated her that pt is being discharged today and on transportation time. Original Note: Social Work Note Pt is discharging back to [facility] today terminologist. LION faxed completed discharge paperwork to [facility] including transfer to extended care facility, signed medication list and any scripts. Original in SNF folder and copy on pt's chart. LION spoke with RN who states pt is jessica lift and needs cot transportation. LION placed a call to [facility] and arranged transportation via cot for 4:00pm. Transportation form on SNF folder and copy on pt's chart. RN updated on transportation time. LION placed a call to Felecia at [facility] and updated her on discharge today and transportation time. Plan: Return to [facility] intermediate skilled today with [facility] transporting via cot at 4:00pm Aurelia Yoder ANIMAL CARE TAKER, SPORTS LEADERSHIP INSTRUCTOR
[2019-01-03 13:47] VITALS: BP 104/60; PULSE 76; RESP 18; TEMP 36.9; O2SAT 93
[2019-01-03] MEDS: BENZOCAINE/MENTHOL 1 LOZENGE MUCOUS MEM (14:05)
== END 2019-01-03 16:20 | disposition skilled nursing facility (03) ==
LOC: MS3 11:05 → SDC 11:46 → MS3 01-03 09:59
PROVIDERS: Admitting Provider Surgery; Family Provider Family Medicine; PCP Family Medicine; Referring Provider Surgery; Visit Provider Surgery
PROC: (CPT 47610; principal; 2019-01-02 07:10)
DX: K80.10 Calculus of gallbladder with chronic cholecystitis without obstruction (principal); G35 Multiple sclerosis; E78.5 Hyperlipidemia, unspecified; F32.9 Major depressive disorder, single episode, unspecified; R32 Unspecified urinary incontinence; Z79.899 Other long term (current) drug therapy; F41.9 Anxiety disorder, unspecified; F25.9 Schizoaffective disorder, unspecified
CPT/HCPCS: 47563; 36415; 74300; 76000; 80053; 85025; 88304; 93005; 96361; 96365; 96366; 96375; 99218; J7030; J7120; G0378; G0379; J2405

== ENCOUNTER → 2019-01-20 05:00 | Outpatient (REF) | payer MEDICARE, OTHER, MEDICAID, SELFPAY ==
[2019-01-02 10:49] VITALS: BMI 33.6
[2019-01-20 08:44] LABS: ALB/GLOB Ratio 0.8 RATIO (0.9-2.4); AST(SGOT) 14 U/L (15-37); Alanine Aminotransfer ALT/SGPT 25 U/L (16-61); Alkaline Phosphatase 104 U/L (45-117); Anion Gap 7 (5-15); BUN 10 mg/dL (7-18); BUN/Creat Ratio 14.5 RATIO (10-20); Calcium,Total 8.3 mg/dL (8.5-10.1); Chloride 101 mmol/L (98-107); Cholesterol 121 mg/dL (200); Creatinine, Serum 0.69 mg/dL (0.70-1.30); EST Glomerular Filtration Rate 120 mL/min (>60); Est Glom Filt Rate - Afr Amer 145 mL/min (>60); Globulin 3.6 g/dL (2.2-4.2); Glucose 92 mg/dL (74-106); High Density Lipoprotein 42 mg/dL; Potassium 3.8 mmol/L (3.5-5.1); Protein, Total 6.6 g/dL (6.4-8.2); Sodium Level 134 mmol/L (136-145); Triglycerides 52 mg/dL; Very Low Density Lipoprotein 10 mg/dL (5-40)
[2019-01-20 09:04] LABS: Vitamin D,25 Hydroxy 67.1 ng/mL (29.95-100.01)
== END ==
LOC: OLS.ACH 05:00
PROVIDERS: Visit Provider Family Medicine
DX: G35 Multiple sclerosis (principal); E78.00 Pure hypercholesterolemia, unspecified; M81.0 Age-related osteoporosis without current pathological fracture
CPT/HCPCS: 36415; 80053; 80061; 82306

== ENCOUNTER → 2019-02-12 11:50 | Outpatient (REF) | payer MEDICARE, OTHER, MEDICAID, SELFPAY ==
[2019-01-02 10:49] VITALS: BMI 33.6
[2019-02-12 13:10] LABS: Hematocrit 41.8 % (40-54); Mean Corp Hgb Conc 33.5 g/dL (32-36); Mean Corpuscular Volume 95.7 fL (80-94); Mean Platelet Vol. 9.3 fl (6.2-12.0); Platelet Count 282 K/mm3 (150-450); RBC Distribution Width CV 12.5 % (11.6-14.6); RBC Distribution Width SD 43.4 fl (35.1-43.9); Red Blood Count 4.37 M/mm3 (4.6-6.2); White Blood Count 18.2 K/mm3 (4.4-11.0)
[2019-02-12 13:21] LABS: ALB/GLOB Ratio 0.8 RATIO (0.9-2.4); AST(SGOT) 12 U/L (15-37); Alanine Aminotransfer ALT/SGPT 17 U/L (16-61); Alkaline Phosphatase 101 U/L (45-117); Anion Gap 4 (5-15); BUN 9 mg/dL (7-18); BUN/Creat Ratio 10.8 RATIO (10-20); Calcium,Total 8.3 mg/dL (8.5-10.1); Chloride 101 mmol/L (98-107); Creatinine, Serum 0.83 mg/dL (0.70-1.30); EST Glomerular Filtration Rate 96 mL/min (>60); Est Glom Filt Rate - Afr Amer 117 mL/min (>60); Globulin 3.7 g/dL (2.2-4.2); Glucose 117 mg/dL (74-106); Potassium 4.1 mmol/L (3.5-5.1); Protein, Total 6.7 g/dL (6.4-8.2); Sodium Level 133 mmol/L (136-145)
[2019-02-12 16:11] LABS: Color, Urine Yellow (Yellow); Glucose, Dipstick Normal (Normal); Ketone-Dipstick Negative (Negative); Leukocyte Esterase-Dipstick 500 /ul (Negative); Nitrite-Dipstick Negative (Negative); Occult Blood-Urine 150 /ul (Negative); Protein-Dipstick 30 mg/dl (Negative); Urine Bilirubin Dipstick Negative (Negative); Urine Clarity Cloudy (Clear); Urine Urobilinogen Normal (Normal)
[2019-02-12 18:46] LABS: Absolute Lymphocyte Count 2.52 X10^3/uL (0.83-4.51); Absolute Neutrophil Count 13.7 X10^3/uL (2.0-7.7); Basophil# 0.07 X10^3/uL; Basophil% 0.4 % (0-1); Eosinophil# 0.15 X10^3/uL; Eosinophils% 0.8 % (0-5); Lymphocyte # 2.52 X10^3/ul (4.0); Lymphocyte % 14.2 % (19-41); Monocyte% 7.3 % (0-10); NRBC Flagged by Analyzer 0 % (0-5); Neutrophil # 13.67 X10^3/uL (2.7-7.7); Neutrophil % 76.9 % (47-70)
== END ==
LOC: OLS.ACH 11:50
PROVIDERS: Visit Provider Family Medicine
DX: N31.9 Neuromuscular dysfunction of bladder, unspecified (principal); R50.9 Fever, unspecified; D72.829 Elevated white blood cell count, unspecified
CPT/HCPCS: 36415; 80053; 81002; 85025; 87077; 87086; 87088; 87186; 87804

== ENCOUNTER → 2019-06-21 19:00 | Outpatient (REF) | payer MEDICARE, OTHER, MEDICAID, SELFPAY ==
[2019-01-02 10:49] VITALS: BMI 33.6
[2019-06-21 19:38] LABS: Hematocrit 40.2 % (40-54); Hemoglobin 13.5 g/dL (13.0-16.5); Mean Corp Hgb Conc 33.6 g/dL (32-36); Mean Corpuscular Hgb 32.2 pg (27.0-32.0); Mean Corpuscular Volume 95.9 fL (80-94); Mean Platelet Vol. 9.8 fl (6.2-12.0); Platelet Count 265 K/mm3 (150-450); RBC Distribution Width CV 11.9 % (11.6-14.6); RBC Distribution Width SD 41.8 fl (35.1-43.9); Red Blood Count 4.19 M/mm3 (4.6-6.2); White Blood Count 22.5 K/mm3 (4.4-11.0)
[2019-06-21 19:49] LABS: ALB/GLOB Ratio 0.9 RATIO (0.9-2.4); AST(SGOT) 16 U/L (15-37); Alanine Aminotransfer ALT/SGPT 23 U/L (16-61); Alkaline Phosphatase 101 U/L (45-117); Anion Gap 5 (5-15); BUN 11 mg/dL (7-18); BUN/Creat Ratio 14.3 RATIO (10-20); Calcium,Total 8.2 mg/dL (8.5-10.1); Chloride 102 mmol/L (98-107); Creatinine, Serum 0.77 mg/dL (0.70-1.30); EST Glomerular Filtration Rate 106 mL/min (>60); Est Glom Filt Rate - Afr Amer 128 mL/min (>60); Globulin 3.5 g/dL (2.2-4.2); Glucose 110 mg/dL (74-106); Potassium 4.1 mmol/L (3.5-5.1); Protein, Total 6.5 g/dL (6.4-8.2); Sodium Level 133 mmol/L (136-145)
[2019-06-21 19:56] LABS: Color, Urine Yellow (Yellow); Glucose, Dipstick Normal (Normal); Ketone-Dipstick Negative (Negative); Leukocyte Esterase-Dipstick 500 /ul (Negative); Nitrite-Dipstick Positive (Negative); Occult Blood-Urine 150 /ul (Negative); Protein-Dipstick 100 mg/dl (Negative); Urine Bilirubin Dipstick Negative (Negative); Urine Clarity Cloudy (Clear); Urine Urobilinogen Normal (Normal); Urine pH 6.5 (5.0 - 8.0)
== END ==
LOC: OLS.ACH 19:00
PROVIDERS: PCP Family Medicine; Visit Provider Family Medicine
DX: G35 Multiple sclerosis (principal); R11.10 Vomiting, unspecified; R41.82 Altered mental status, unspecified
CPT/HCPCS: 36415; 80053; 81002; 85027; 87077; 87086; 87088; 87186

== ENCOUNTER → 2019-06-24 05:00 | Outpatient (REF) | payer MEDICARE, OTHER, MEDICAID, SELFPAY ==
[2019-01-02 10:49] VITALS: BMI 33.6
[2019-06-24 07:46] LABS: Absolute Lymphocyte Count 2.84 X10^3/uL (0.83-4.51); Absolute Neutrophil Count 4.4 X10^3/uL (2.0-7.7); Basophil# 0.07 X10^3/uL; Basophil% 0.8 % (0-1); Eosinophil# 0.39 X10^3/uL; Eosinophils% 4.6 % (0-5); Hematocrit 38.1 % (40-54); Hemoglobin 12.7 g/dL (13.0-16.5); Lymphocyte # 2.84 X10^3/ul (4.0); Lymphocyte % 33.7 % (19-41); Mean Corp Hgb Conc 33.3 g/dL (32-36); Mean Corpuscular Hgb 31.2 pg (27.0-32.0); Mean Corpuscular Volume 93.6 fL (80-94); Mean Platelet Vol. 10.1 fl (6.2-12.0); Monocyte# 0.68 X10^3/uL; Monocyte% 8.1 % (0-10); NRBC Flagged by Analyzer 0 % (0-5); Neutrophil # 4.42 X10^3/uL (2.7-7.7); Neutrophil % 52.4 % (47-70); Platelet Count 262 K/mm3 (150-450); RBC Distribution Width CV 11.9 % (11.6-14.6); RBC Distribution Width SD 41.1 fl (35.1-43.9); Red Blood Count 4.07 M/mm3 (4.6-6.2); White Blood Count 8.4 K/mm3 (4.4-11.0)
== END ==
LOC: OLS.ACH 05:00
PROVIDERS: PCP Family Medicine; Referring Provider Family Medicine; Visit Provider Family Medicine
DX: D72.829 Elevated white blood cell count, unspecified (principal); N39.0 Urinary tract infection, site not specified
CPT/HCPCS: 36415; 85025

== ENCOUNTER → 2019-07-21 04:00 | Outpatient (REF) | payer MEDICARE, OTHER, SELFPAY ==
[2019-01-02 10:49] VITALS: BMI 33.6
[2019-07-21 07:38] LABS: AST(SGOT) 24 U/L (15-37); Alanine Aminotransfer ALT/SGPT 35 U/L (16-61); Alkaline Phosphatase 91 U/L (45-117); Anion Gap 7 (5-15); BUN 8 mg/dL (7-18); BUN/Creat Ratio 11.3 RATIO (10-20); Calcium,Total 8.1 mg/dL (8.5-10.1); Chloride 104 mmol/L (98-107); Cholesterol 122 mg/dL (200); Creatinine, Serum 0.71 mg/dL (0.70-1.30); EST Glomerular Filtration Rate 115 mL/min (>60); Est Glom Filt Rate - Afr Amer 140 mL/min (>60); Globulin 3.1 g/dL (2.2-4.2); Glucose 93 mg/dL (74-106); High Density Lipoprotein 41 mg/dL; Potassium 3.8 mmol/L (3.5-5.1); Protein, Total 6.1 g/dL (6.4-8.2); Sodium Level 137 mmol/L (136-145); Triglycerides 73 mg/dL; Very Low Density Lipoprotein 15 mg/dL (5-40)
== END ==
LOC: OLS.ACH 04:00
PROVIDERS: PCP Family Medicine; Visit Provider Family Medicine
DX: G35 Multiple sclerosis (principal); E78.00 Pure hypercholesterolemia, unspecified
CPT/HCPCS: 36415; 80053; 80061

== ENCOUNTER → 2019-08-18 14:40 | Outpatient (REF) | payer MEDICARE, OTHER, MEDICAID, SELFPAY ==
[2019-01-02 10:49] VITALS: BMI 33.6
[2019-08-18 15:50] LABS: Hematocrit 40.7 % (40-54); Hemoglobin 13.1 g/dL (13.0-16.5); Mean Corp Hgb Conc 32.2 g/dL (32-36); Mean Corpuscular Hgb 31.1 pg (27.0-32.0); Mean Corpuscular Volume 96.7 fL (80-94); Mean Platelet Vol. 10.3 fl (6.2-12.0); Platelet Count 269 K/mm3 (150-450); RBC Distribution Width SD 42.6 fl (35.1-43.9); Red Blood Count 4.21 M/mm3 (4.6-6.2); White Blood Count 6.3 K/mm3 (4.4-11.0)
[2019-08-18 16:09] LABS: ALB/GLOB Ratio 0.9 RATIO (0.9-2.4); AST(SGOT) 19 U/L (15-37); Alanine Aminotransfer ALT/SGPT 25 U/L (16-61); Albumin, Serum 3.1 g/dL (3.2-5.0); Alkaline Phosphatase 92 U/L (45-117); Anion Gap 3 (5-15); BUN 11 mg/dL (7-18); BUN/Creat Ratio 13.5 RATIO (10-20); Calcium,Total 8.4 mg/dL (8.5-10.1); Chloride 104 mmol/L (98-107); Creatinine, Serum 0.82 mg/dL (0.70-1.30); EST Glomerular Filtration Rate 99 mL/min (>60); Est Glom Filt Rate - Afr Amer 119 mL/min (>60); Globulin 3.6 g/dL (2.2-4.2); Glucose 94 mg/dL (74-106); Potassium 4.2 mmol/L (3.5-5.1); Protein, Total 6.7 g/dL (6.4-8.2); Sodium Level 136 mmol/L (136-145)
== END ==
LOC: OLS.ACH 14:40
PROVIDERS: PCP Family Medicine; Visit Provider Family Medicine
DX: N31.9 Neuromuscular dysfunction of bladder, unspecified (principal); N40.1 Benign prostatic hyperplasia with lower urinary tract symptoms
CPT/HCPCS: 36415; 80053; 85027

== ENCOUNTER → 2019-12-17 | Outpatient (REF) | payer MEDICARE, OTHER, MEDICAID, SELFPAY ==
[2019-01-02 10:49] VITALS: BMI 33.6
== END | disposition home or self-care (01) ==
LOC: LABSPEC 08:00
PROVIDERS: PCP Family Medicine; Referring Provider Family Medicine; Visit Provider Family Medicine
DX: Z11.59 Encounter for screening for other viral diseases (principal)
CPT/HCPCS: 87635; U0003

== ENCOUNTER → 2019-12-24 05:00 | Outpatient (REF) | payer MEDICARE, OTHER, MEDICAID, SELFPAY ==
[2019-01-02 10:49] VITALS: BMI 33.6
== END ==
LOC: OLS.ACH 05:00
PROVIDERS: PCP Family Medicine; Visit Provider Family Medicine
DX: Z11.59 Encounter for screening for other viral diseases (principal)
CPT/HCPCS: 87635; U0003

== ENCOUNTER → 2019-12-29 10:00 | Outpatient (REF) | payer MEDICARE, OTHER, MEDICAID, SELFPAY ==
[2019-01-02 10:49] VITALS: BMI 33.6
== END ==
LOC: OLS.ACH 10:00
PROVIDERS: PCP Family Medicine; Visit Provider Family Medicine
DX: Z11.59 Encounter for screening for other viral diseases (principal)
CPT/HCPCS: 87635; U0003

== ENCOUNTER → 2020-01-02 14:27 | Outpatient (REF) | payer MEDICARE, OTHER, MEDICAID, SELFPAY ==
[2019-01-02 10:49] VITALS: BMI 33.6
== END ==
LOC: OLS.ACH 14:27
PROVIDERS: PCP Family Medicine; Referring Provider Family Medicine; Visit Provider Family Medicine
DX: Z03.818 Encounter for observation for suspected exposure to other biological agents ruled out (principal)
CPT/HCPCS: 87635; U0003

== ENCOUNTER → 2020-01-05 08:00 | Outpatient (REF) | payer MEDICARE, OTHER, MEDICAID, SELFPAY ==
[2019-01-02 10:49] VITALS: BMI 33.6
== END ==
LOC: OLS.ACH 08:00
PROVIDERS: Referring Provider Family Medicine; Visit Provider Family Medicine
DX: Z03.818 Encounter for observation for suspected exposure to other biological agents ruled out (principal)
CPT/HCPCS: 87635; U0003

== ENCOUNTER → 2020-01-09 12:34 | Outpatient (REF) | payer MEDICARE, OTHER, MEDICAID, SELFPAY ==
[2019-01-02 10:49] VITALS: BMI 33.6
== END ==
LOC: OLS.ACH 12:34
PROVIDERS: Referring Provider Family Medicine; Visit Provider Family Medicine
DX: Z03.818 Encounter for observation for suspected exposure to other biological agents ruled out (principal)
CPT/HCPCS: 87635; U0003

== ENCOUNTER → 2020-01-12 15:49 | Outpatient (REF) | payer MEDICARE, OTHER, MEDICAID, SELFPAY ==
[2019-01-02 10:49] VITALS: BMI 33.6
== END ==
LOC: OLS.ACH 15:49
PROVIDERS: Visit Provider Family Medicine
DX: Z03.818 Encounter for observation for suspected exposure to other biological agents ruled out (principal)
CPT/HCPCS: 87635; U0003

== ENCOUNTER → 2020-01-16 10:01 | Outpatient (REF) | payer MEDICARE, OTHER, MEDICAID, SELFPAY ==
[2019-01-02 10:49] VITALS: BMI 33.6
== END ==
LOC: OLS.ACH 10:01
PROVIDERS: Family Medicine; Referring Provider Family Medicine; Visit Provider Family Medicine
DX: Z03.818 Encounter for observation for suspected exposure to other biological agents ruled out (principal)
CPT/HCPCS: 87635; U0003

== ENCOUNTER → 2020-01-19 04:00 | Outpatient (REF) | payer MEDICARE, OTHER, MEDICAID, SELFPAY ==
[2019-01-02 10:49] VITALS: BMI 33.6
[2020-01-19 09:01] LABS: ALB/GLOB Ratio 0.9 RATIO (0.9-2.4); AST(SGOT) 19 U/L (15-37); Alanine Aminotransfer ALT/SGPT 28 U/L (16-61); Alkaline Phosphatase 97 U/L (45-117); Anion Gap 5 (5-15); BUN 10 mg/dL (7-18); BUN/Creat Ratio 13.4 RATIO (10-20); Calcium,Total 8.3 mg/dL (8.5-10.1); Chloride 104 mmol/L (98-107); Cholesterol 132 mg/dL (200); Creatinine, Serum 0.75 mg/dL (0.70-1.30); EST Glomerular Filtration Rate 109 mL/min (>60); Est Glom Filt Rate - Afr Amer 132 mL/min (>60); Globulin 3.4 g/dL (2.2-4.2); Glucose 88 mg/dL (74-106); High Density Lipoprotein 42 mg/dL; Potassium 3.7 mmol/L (3.5-5.1); Protein, Total 6.4 g/dL (6.4-8.2); Sodium Level 138 mmol/L (136-145); Triglycerides 85 mg/dL; Very Low Density Lipoprotein 17 mg/dL (5-40)
[2020-01-19 11:02] LABS: Vitamin D,25 Hydroxy 81.5 ng/mL
== END ==
LOC: OLS.ACH 04:00
PROVIDERS: Referring Provider Family Medicine; Visit Provider Family Medicine
DX: G35 Multiple sclerosis (principal); E78.00 Pure hypercholesterolemia, unspecified; M81.0 Age-related osteoporosis without current pathological fracture
CPT/HCPCS: 36415; 80053; 80061; 82306

== ENCOUNTER → 2020-01-20 10:45 | Outpatient (REF) | payer MEDICARE, OTHER, MEDICAID, SELFPAY ==
[2019-01-02 10:49] VITALS: BMI 33.6
== END ==
LOC: OLS.ACH 10:45
PROVIDERS: Family Medicine; Referring Provider Family Medicine; Visit Provider Family Medicine
DX: Z03.818 Encounter for observation for suspected exposure to other biological agents ruled out (principal)
CPT/HCPCS: 87635; U0003

== ENCOUNTER → 2020-01-23 11:26 | Outpatient (REF) | payer MEDICARE, OTHER, MEDICAID, SELFPAY ==
[2019-01-02 10:49] VITALS: BMI 33.6
== END ==
LOC: OLS.ACH 11:26
PROVIDERS: Referring Provider Family Medicine; Visit Provider Family Medicine
DX: Z03.818 Encounter for observation for suspected exposure to other biological agents ruled out (principal)
CPT/HCPCS: 87635; U0003

== ENCOUNTER → 2020-01-27 16:04 | Outpatient (REF) | payer MEDICARE, OTHER, MEDICAID, SELFPAY ==
[2019-01-02 10:49] VITALS: BMI 33.6
== END ==
LOC: OLS.ACH 16:04
PROVIDERS: Visit Provider Family Medicine
DX: Z03.818 Encounter for observation for suspected exposure to other biological agents ruled out (principal)
CPT/HCPCS: 87635; U0003

== ENCOUNTER → 2020-02-03 07:51 | Outpatient (REF) | payer MEDICARE, OTHER, MEDICAID, SELFPAY ==
[2019-01-02 10:49] VITALS: BMI 33.6
== END ==
LOC: OLS.ACH 07:51
PROVIDERS: Referring Provider Family Medicine; Visit Provider Family Medicine
DX: Z03.818 Encounter for observation for suspected exposure to other biological agents ruled out (principal)
CPT/HCPCS: 87635; U0003

== ENCOUNTER → 2020-02-10 13:21 | Outpatient (REF) | payer MEDICARE, OTHER, MEDICAID, SELFPAY ==
[2019-01-02 10:49] VITALS: BMI 33.6
== END ==
LOC: OLS.ACH 13:21
PROVIDERS: Visit Provider Family Medicine
DX: Z03.818 Encounter for observation for suspected exposure to other biological agents ruled out (principal)
CPT/HCPCS: 87635; U0003

== ENCOUNTER → 2020-02-17 12:06 | Outpatient (REF) | payer MEDICARE, OTHER, MEDICAID, SELFPAY ==
[2019-01-02 10:49] VITALS: BMI 33.6
== END ==
LOC: OLS.ACH 12:06
PROVIDERS: PCP Family Medicine; Referring Provider Family Medicine; Visit Provider Family Medicine
DX: Z03.818 Encounter for observation for suspected exposure to other biological agents ruled out (principal)
CPT/HCPCS: 87635; U0003

== ENCOUNTER → 2020-03-02 10:21 | Outpatient (REF) | payer MEDICARE, OTHER, MEDICAID, SELFPAY ==
[2019-01-02 10:49] VITALS: BMI 33.6
== END ==
LOC: OLS.ACH 10:21
PROVIDERS: PCP Family Medicine; Referring Provider Family Medicine; Visit Provider Family Medicine
DX: Z03.818 Encounter for observation for suspected exposure to other biological agents ruled out (principal)
CPT/HCPCS: 87635; U0003

== ENCOUNTER → 2020-03-16 08:16 | Outpatient (REF) | payer MEDICARE, OTHER, MEDICAID, SELFPAY ==
[2019-01-02 10:49] VITALS: BMI 33.6
== END ==
LOC: OLS.ACH 08:16
PROVIDERS: PCP Family Medicine; Referring Provider Family Medicine; Visit Provider Family Medicine
DX: Z03.818 Encounter for observation for suspected exposure to other biological agents ruled out (principal)
CPT/HCPCS: 87635; U0003

== ENCOUNTER → 2020-03-30 07:42 | Outpatient (REF) | payer MEDICARE, OTHER, MEDICAID, SELFPAY ==
[2019-01-02 10:49] VITALS: BMI 33.6
== END ==
LOC: OLS.ACH 07:42
PROVIDERS: PCP Family Medicine; Referring Provider Family Medicine; Visit Provider Family Medicine
DX: Z03.818 Encounter for observation for suspected exposure to other biological agents ruled out (principal)
CPT/HCPCS: 87635; U0003

== ENCOUNTER → 2020-04-20 04:47 | Outpatient (REF) | payer MEDICARE, OTHER, MEDICAID, SELFPAY ==
[2019-01-02 10:49] VITALS: BMI 33.6
[2020-04-21 07:40] LABS: Bacteria 0 SEEN /hpf (None Seen); Mucous, Urine 0 SEEN /hpf (<or=2+); Red Blood Cells-Urine 0 SEEN /hpf (0-5); Squamous Epithelial Cells - UA 0 SEEN /hpf (0-5); White Blood Cells 0 SEEN /hpf (0-5)
[2020-04-21 07:54] LABS: Color, Urine Yellow (Yellow); Glucose, Dipstick Normal (Normal); Ketone-Dipstick Negative (Negative); Leukocyte Esterase-Dipstick Negative /ul (Negative); Nitrite-Dipstick Negative (Negative); Occult Blood-Urine Negative /ul (Negative); Protein-Dipstick Negative (Negative); Specific Gravity, Urine 1.005 (1.002-1.030); Urine Bilirubin Dipstick Negative (Negative); Urine Clarity Clear (Clear); Urine Urobilinogen Normal (Normal)
== END ==
LOC: OLS.ACH 04:47
PROVIDERS: PCP Family Medicine; Referring Provider Family Medicine; Visit Provider Family Medicine
DX: N39.0 Urinary tract infection, site not specified (principal)
CPT/HCPCS: 81001; 87086

== ENCOUNTER → 2020-04-28 05:00 | Outpatient (REF) | payer MEDICARE, OTHER, MEDICAID, SELFPAY ==
[2019-01-02 10:49] VITALS: BMI 33.6
[2020-04-28 07:04] LABS: Absolute Lymphocyte Count 3.99 X10^3/uL (0.83-4.51); Absolute Neutrophil Count 5.8 X10^3/uL (2.0-7.7); Basophil# 0.04 X10^3/uL; Basophil% 0.4 % (0-1); Eosinophil# 0.18 X10^3/uL; Eosinophils% 1.7 % (0-5); Hematocrit 39.8 % (40-54); Hemoglobin 13.2 g/dL (13.0-16.5); Lymphocyte # 3.99 X10^3/ul (4.0); Lymphocyte % 36.8 % (19-41); Mean Corp Hgb Conc 33.2 g/dL (32-36); Mean Corpuscular Hgb 31.1 pg (27.0-32.0); Mean Corpuscular Volume 93.9 fL (80-94); Mean Platelet Vol. 9.3 fl (6.2-12.0); Monocyte# 0.81 X10^3/uL; Monocyte% 7.5 % (0-10); NRBC Flagged by Analyzer 0 % (0-5); Neutrophil # 5.76 X10^3/uL (2.7-7.7); Platelet Count 417 K/mm3 (150-450); RBC Distribution Width CV 11.8 % (11.6-14.6); RBC Distribution Width SD 40.6 fl (35.1-43.9); Red Blood Count 4.24 M/mm3 (4.6-6.2); White Blood Count 10.8 K/mm3 (4.4-11.0)
[2020-04-28 07:31] LABS: ALB/GLOB Ratio 0.7 RATIO (0.9-2.4); AST(SGOT) 12 U/L (15-37); Alanine Aminotransfer ALT/SGPT 17 U/L (16-61); Albumin, Serum 2.5 g/dL (3.2-5.0); Alkaline Phosphatase 114 U/L (45-117); Anion Gap 5 (5-15); BUN 12 mg/dL (7-18); BUN/Creat Ratio 17.5 RATIO (10-20); Calcium,Total 7.9 mg/dL (8.5-10.1); Chloride 102 mmol/L (98-107); Creatinine, Serum 0.68 mg/dL (0.70-1.30); EST Glomerular Filtration Rate 120 mL/min (>60); Est Glom Filt Rate - Afr Amer 146 mL/min (>60); Globulin 3.4 g/dL (2.2-4.2); Glucose 82 mg/dL (74-106); Potassium 3.7 mmol/L (3.5-5.1); Protein, Total 5.9 g/dL (6.4-8.2); Sodium Level 134 mmol/L (136-145)
== END ==
LOC: OLS.ACH 05:00
PROVIDERS: PCP Family Medicine; Referring Provider Family Medicine; Visit Provider Family Medicine
DX: Z79.899 Other long term (current) drug therapy (principal); Z86.16 Personal history of COVID-19
CPT/HCPCS: 36415; 80053; 85025

== ENCOUNTER 2020-05-06 19:28 | Emergency (ER) | payer MEDICARE, OTHER, MEDICAID, SELFPAY ==
[2019-01-02 10:49] VITALS: BMI 33.6
[2020-05-06] VITALS (7 sets, daily range): BP systolic 115–143; BP diastolic 71–82; PULSE 64–68; RESP 16–18; TEMP 36.3; O2SAT 96–98; BMI 36.3
--- NOTE | 2020-05-06 19:38 | EKG12_ITS ---
Test Reason : CP Blood Pressure : / mmHG Vent. Rate : 063 BPM Atrial Rate : 063 BPM P-R Int : 286 ms QRS Dur : 124 ms QT Int : 454 ms P-R-T Axes : 069 -42 048 degrees QTc Int : 464 ms Sinus rhythm with 1st degree A-V block Left axis deviation Left bundle branch block Abnormal ECG Confirmed by CHARLOTTE MCCRARY, CRISTINA ([id number]), tape editor CELE SOLIS ([id number]) on 05/07/2020 11:26:25 AM Referred By: DEONNA Confirmed By:CRISTINA PORTER MD
--- NOTE | 2020-05-06 19:45 | ED.DCSUM_ITS ---
- ER Visit Summary Date of Service: 05/06/20 Chief Complaint: Chest pain History of Present Illness: The patient is a 75 M who presents with chest pain. The pain started 2 days ago. He describes an intermittent tightness and heaviness in his chest. Is in the substernal region. It does not radiate. Nothing makes it better or worse. He denies any shortness of breath, nausea or vomiting. He did test positive for coronavirus on April 12 but has improved. He denies any cough or shortness of breath currently. He is a DNR Comfort Care arrest. He lives in a long-term. He has a history of MS and has neurologic deficits at baseline. Physical Examination: Vital signs reviewed. HEENT exam unremarkable. Heart is regular rate and rhythm without murmurs. Lungs are clear to auscultation. Abdomen is soft and nontender. Extremities reveal no edema. Skin exam normal. Neurologic exam shows diffuse overall weakness of the legs. His left arm is contractured. He does answer all questions appropriately. Test Results: EKG is normal sinus rhythm with rate of 63. Patient is a left bundle branch block. There are no other ST changes. EKG is unchanged from previous one performed in December 2018. Chest x-ray is unremarkable. Laboratory studies are unremarkable aside for a sodium of 133 and a glucose of 118. Troponin is normal Emergency Department Course and Treatment: The patient was given aspirin. I calculated his heart score and it comes out to 4, mostly due to his age and his 1 risk factor. However, he has had 2 days of pain and I doubt that this is cardiac in nature. I will order a repeat troponin in 3 hours. If this repeat troponin is negative I feel the patient can be discharged back to his facility as he has no cardiovascular history. She will be signed out to the oncoming physician for reevaluation. Treatment Plan: [] Disposition: Pending Impression: Chest pain This note was generated with [employer] dictation software. It may contain incorrect words, spelling, and punctuation that were not noted in review of the chart prior to signing ED Disposition - Plan for ED Patient: Referrals: Gamal Correa [[facility]] -
--- NOTE | 2020-05-06 19:50 | RAD_ITS ---
STUDY: X-RAY CHEST REASON FOR EXAM: Male, 75 years old. Patient with constant chest pain that started a couple days ago. TECHNIQUE: Single frontal view of the chest. COMPARISON: 11/27/2015. FINDINGS: There is no new focal consolidation. There is stable perihilar fullness. Normal size heart. Normal visualized aortic arch and descending thoracic aorta. There are diffuse degenerative changes of the visualized thoracic spine. Normal visualized ribs, clavicles, and shoulders. There is no demonstrated abnormality of the visualized soft tissue structures of the upper abdomen. RAD/Chest 1 View (Portable) IMPRESSION: No acute cardiopulmonary processes. Electronically Signed: Ramona Rubi MD at 20:20 EST Tel , Service support ,
[2020-05-06] MEDS: Aspirin 81 MG TAB.CHEW 324 MG PO (20:10)
[2020-05-06 20:22] LABS: Absolute Lymphocyte Count 1.96 X10^3/uL (0.83-4.51); Absolute Neutrophil Count 5.6 X10^3/uL (2.0-7.7); Basophil# 0.03 X10^3/uL; Basophil% 0.4 % (0-1); Eosinophil# 0.14 X10^3/uL; Eosinophils% 1.7 % (0-5); Hematocrit 42.3 % (40-54); Hemoglobin 13.8 g/dL (13.0-16.5); Lymphocyte # 1.96 X10^3/ul (4.0); Lymphocyte % 23.6 % (19-41); Mean Corp Hgb Conc 32.6 g/dL (32-36); Mean Corpuscular Hgb 30.8 pg (27.0-32.0); Mean Corpuscular Volume 94.4 fL (80-94); Mean Platelet Vol. 9.5 fl (6.2-12.0); NRBC Flagged by Analyzer 0 % (0-5); Neutrophil # 5.63 X10^3/uL (2.7-7.7); Neutrophil % 67.9 % (47-70); Platelet Count 311 K/mm3 (150-450); RBC Distribution Width CV 11.9 % (11.6-14.6); RBC Distribution Width SD 41.1 fl (35.1-43.9); Red Blood Count 4.48 M/mm3 (4.6-6.2); White Blood Count 8.3 K/mm3 (4.4-11.0)
[2020-05-06 20:39] LABS: Anion Gap 5 (5-15); BUN 14 mg/dL (7-18); BUN/Creat Ratio 16.6 RATIO (10-20); Calcium,Total 8.9 mg/dL (8.5-10.1); Chloride 101 mmol/L (98-107); Creatinine, Serum 0.84 mg/dL (0.70-1.30); EST Glomerular Filtration Rate 95 mL/min (>60); Est Glom Filt Rate - Afr Amer 115 mL/min (>60); Estimated Creatinine Clearance 72.13 ml/min; Glucose 118 mg/dL (74-106); Potassium 4.1 mmol/L (3.5-5.1); Sodium Level 133 mmol/L (136-145)
[2020-05-07 01:25] VITALS: PULSE 68; RESP 18
== END 2020-05-07 02:12 | disposition home or self-care (01) ==
PROVIDERS: Emergency Provider Emergency Medicine; PCP Family Medicine
DX: R07.89 Other chest pain (principal); I44.7 Left bundle-branch block, unspecified; G35 Multiple sclerosis; K21.9 Gastro-esophageal reflux disease without esophagitis; E78.00 Pure hypercholesterolemia, unspecified; Z66 Do not resuscitate; Z86.16 Personal history of COVID-19; Z79.82 Long term (current) use of aspirin; Z79.899 Other long term (current) drug therapy
CPT/HCPCS: 71045; 80048; 84484; 85025; 93005; 99285; A4216

== ENCOUNTER → 2020-07-19 04:00 | Outpatient (REF) | payer MEDICARE, OTHER, SELFPAY ==
[2020-05-19 10:22] VITALS: BMI 36.3
[2020-07-19 08:02] LABS: AST(SGOT) 18 U/L (15-37); Alanine Aminotransfer ALT/SGPT 20 U/L (16-61); Albumin, Serum 2.9 g/dL (3.2-5.0); Alkaline Phosphatase 96 U/L (45-117); Anion Gap 5 (5-15); BUN 9 mg/dL (7-18); BUN/Creat Ratio 12.9 RATIO (10-20); Calcium,Total 8.1 mg/dL (8.5-10.1); Chloride 102 mmol/L (98-107); Cholesterol 126 mg/dL (200); EST Glomerular Filtration Rate 118 mL/min (>60); Est Glom Filt Rate - Afr Amer 143 mL/min (>60); Glucose 89 mg/dL (74-106); High Density Lipoprotein 42 mg/dL; Protein, Total 5.9 g/dL (6.4-8.2); Sodium Level 134 mmol/L (136-145); Triglycerides 71 mg/dL; Very Low Density Lipoprotein 14 mg/dL (5-40)
== END ==
LOC: OLS.ACH 04:00
PROVIDERS: PCP Family Medicine; Visit Provider Family Medicine
DX: G35 Multiple sclerosis (principal); E78.00 Pure hypercholesterolemia, unspecified
CPT/HCPCS: 36415; 80053; 80061

== ENCOUNTER → 2020-10-28 05:00 | Outpatient (REF) | payer MEDICARE, OTHER, SELFPAY ==
[2020-05-19 10:22] VITALS: BMI 36.3
[2020-10-28 08:14] LABS: Hematocrit 37.7 % (40-54); Hemoglobin 12.6 g/dL (13.0-16.5); Mean Corp Hgb Conc 33.4 g/dL (32-36); Mean Corpuscular Hgb 31.1 pg (27.0-32.0); Mean Corpuscular Volume 93.1 fL (80-94); Mean Platelet Vol. 9.9 fl (6.2-12.0); Platelet Count 295 K/mm3 (150-450); RBC Distribution Width CV 12.3 % (11.6-14.6); RBC Distribution Width SD 42.2 fl (35.1-43.9); Red Blood Count 4.05 M/mm3 (4.6-6.2)
[2020-10-28 08:30] LABS: ALB/GLOB Ratio 0.9 RATIO (0.9-2.4); AST(SGOT) 19 U/L (15-37); Alanine Aminotransfer ALT/SGPT 34 U/L (16-61); Alkaline Phosphatase 93 U/L (45-117); Anion Gap 8 (5-15); BUN 10 mg/dL (7-18); BUN/Creat Ratio 14.8 RATIO (10-20); Chloride 97 mmol/L (98-107); Creatinine, Serum 0.68 mg/dL (0.70-1.30); EST Glomerular Filtration Rate 122 mL/min (>60); Est Glom Filt Rate - Afr Amer 148 mL/min (>60); Globulin 3.2 g/dL (2.2-4.2); Glucose 91 mg/dL (74-106); Potassium 3.4 mmol/L (3.5-5.1); Protein, Total 6.2 g/dL (6.4-8.2); Sodium Level 132 mmol/L (136-145)
== END ==
LOC: OLS.ACH 05:00
PROVIDERS: PCP Family Medicine; Referring Provider Family Medicine; Visit Provider Family Medicine
DX: R53.83 Other fatigue (principal); Z79.899 Other long term (current) drug therapy
CPT/HCPCS: 36415; 80053; 85027

== ENCOUNTER 2020-11-05 12:19 | Emergency (ER) | payer MEDICARE, OTHER, MEDICAID, SELFPAY ==
[2020-05-19 10:22] VITALS: BMI 36.3
[2020-11-05 12:20] VITALS: BP 143/85; PULSE 67; RESP 16; TEMP 36.6; O2SAT 96; BMI 30.1
[2020-11-05] MEDS: Acetaminophen 325 MG Tablet 650 MG PO (12:35)
--- NOTE | 2020-11-05 12:35 | EDS_ITS ---
HPI History of Present Illness Chief Complaint: Head Injury Informant: patient and EMS Onset/Context/Timing Onset: Today (JPTA) Mechanism/Context: Fall Location of pain/injuries: - (head) Current Severity: Mild Maximum Severity: Mild Worsened by: nothing Relieved by: nothing Associated Symptoms Associated Symptoms: Negative for Parasthesias and Weakness Narrative Narrative: Patient has left hemiparesis and is wheelchair-bound, his wheelchair broke when he put his right hand on it, causing him to fall out of it today and hit his head on the floor. He thinks he might of blacked out briefly. He denies any other injuries, his head hurts though. [facility] Medical History (Updated 11/05/20 @ 15:[address] Kilo Taylor MD) Depression Fever First degree AV block History of cholelithiasis History of COVID-19 (04/12/20) HLD (hyperlipidemia) Left bundle branch block Leukocytosis Multiple sclerosis Osteoporosis Paralysis Schizophrenia Urinary incontinence Home Medications atorvastatin 10 mg PO QHS 03/31/16 [History Last Taken 04/04/16] baclofen 10 mg PO TID 03/31/16 [History Last Taken 11/25/16 20:00] cranberry 400 mg PO BID 03/31/16 [History Last Taken 11/25/16 20:00] ergocalciferol (vitamin D2) 50,000 unit PO Q7D 03/31/16 [History Last Taken 11/19/16] fluoxetine 60 mg PO DAILY 03/31/16 [History Last Taken 04/04/16] fluticasone propionate 2 spray NASAL QHS 03/31/16 [History Last Taken 04/04/16] multivitamin 1 ea PO DAILY 03/31/16 [History Last Taken 11/25/16] quetiapine 37.5 mg PO QHS 03/31/16 [History Last Taken 11/25/16 20:00] sennosides 2 tab PO QHS 03/31/16 [History Last Taken 11/25/16] bisacodyl 10 mg RECTAL DAILY PRN PRN 11/26/16 [History Last Taken Unknown] magnesium hydroxide 60 ml PO DAILY PRN PRN 11/26/16 [History Last Taken Unknown] clonazepam 0.5 mg PO BID #20 tab 11/27/16 [Rx Last Taken Unknown] acetaminophen 650 mg PO Q6H PRN 12/30/18 [History Last Taken Unknown] ondansetron HCl 4 mg PO Q6H PRN 12/30/18 [History Last Taken Unknown] ascorbic acid (vitamin C) 500 mg PO DAILY 05/06/20 [History Last Taken Unknown] aspirin 325 mg PO DAILY 05/06/20 [History Last Taken Unknown] calcium carbonate-vitamin D3 2 ea PO DAILY 05/06/20 [History Last Taken Unknown] aeju-liwH-quqcnvl-FOS-bromeln 30 ml PO DAILY 05/06/20 [History Last Taken Unknown] dextromethorphan-guaifenesin 10 ml PO Q6H PRN 05/06/20 [History Last Taken Unknown] famotidine 40 mg PO DAILY 05/06/20 [History Last Taken Unknown] loperamide 2 mg PO BID PRN 05/06/20 [History Last Taken Unknown] meclizine 25 mg PO Q8H PRN 05/06/20 [History Last Taken Unknown] melatonin-pyridoxine HCl (B6) 1 ea PO QHS PRN 05/06/20 [History Last Taken Unknown] menthol-aloe vera extract 49 gm TP BID 05/06/20 [History Last Taken Unknown] silodosin 8 mg PO QHS 05/06/20 [History Last Taken Unknown] simethicone 180 mg PO 4X/DAY PRN 05/06/20 [History Last Taken Unknown] zinc 1 tab PO DAILY 05/06/20 [History Last Taken Unknown] Allergy/AdvReac Type Severity Reaction Status Date / Time Phenothiazines Allergy Unknown Verified 11/05/20 12:28 prochlorperazine Allergy Unknown Verified 11/05/20 12:28 [From Compazine] Sulfa (Sulfonamide Allergy Unknown Verified 11/05/20 12:28 Antibiotics) Family History Father Heart disease Surgical History History of laparoscopic cholecystectomy (~12/2018) Status post excision of lipoma Social History Smoking Status: Former smoker alcohol intake: never ROS ROS ED Constitutional Constitutional ED: Denies chills or fever(s) Eyes Eyes: Denies change in vision or diplopia ENT ENT ED: Denies ear pain, epistaxis, facial pain or rhinorrhea Cardiovascular Cardiovascular: Denies chest pain or palpitations Respiratory/Chest Respiratory/Chest: Denies cough or dyspnea Gastrointestinal Gastrointestinal: Denies abdominal pain, diarrhea, melena, nausea or vomiting Genitourinary Genitourinary ED: Denies dysuria or hematuria Musculoskeletal Musculoskeletal: Denies back pain, extremity pain or neck pain Integumentary Denies abscess, Abrasions, laceration or rash Neurologic Neurologic: Reports headache(s) and weakness; Denies confusion or paresthesias EXAM Physical Exam Const Vital Signs: 11/05/20 12:20 11/05/20 12:36 Temperature 98 F Temperature Source Temporal Pulse Rate 67 Respiratory Rate 16 Respiratory Effort Normal Non-Labored Respiratory Depth Normal Respiratory Pattern Normal Blood Pressure 143/85 H Blood Pressure Mean 104 Pulse Ox 96 Oxygen Delivery Method Room Air Positive well nourished and well developed General Appearance ED: well developed and NAD HEENT Reports TM's clear and nasal mucous membranes and turbinates normal HEENT Narrative: Contusion and tenderness right parietal scalp without crepitance or depression or laceration. No hematoma. Face and Sinus: Negative for facial tenderness Tympanic Membrane ED: Yes TM's clear Eyes PERRL and EOMs intact bilaterally Visual Acuity: other Other Details: no entrapment or pain with extraocular movements Neck full ROM and supple General: Negative for tenderness Chest Wall inspection of chest normal and palpation of chest normal Chest: symmetrical chest wall rise; Negative for crepitus or tenderness Resp normal respiratory effort and clear to auscultation bilaterally Percussion: other equal BS bilat Cardio no murmurs Rate: regular rate Rhythm: regular rhythm GI normal to inspection, nondistended, normoactive bowel sounds, soft to palpation and non-tender Back/Spine normal ROM Cervical Spine: Negative for cervical spine tenderness Thoracic Spine / Upper Back: Negative for thoracic spinal tenderness Lumbar Spine / Lower Back: Negative for lumbar spinal tenderness Extremity normal to inspection and full ROM General Extremety ED: Negative for tenderness Neuro oriented x3, CN's II-XII intact bilaterally and no sensory deficits noted Neuro Narrative: Left hemiparesis Salvatore Coma Scale: document GCS findings Spontaneous Obeys Commands Oriented 15 Sensorium / Orientation: awake and alert Psych mental status grossly normal and thought process normal Skin no wounds Lesions: no lesions Rashes: no rashes MDM MDM MDM Narrative Medical decision making narrative: CT head was obtained and is negative. Patient's headache was treated, he has no other clinical injuries and is stable for discharge back to his halfway. Radiography Diagnostic Testing: Radiology Impression Brain CT 11/05/20 12:45 IMPRESSION: Chronic involutional changes of the brain. Electronically Signed: Yoel Perla MD at 13:30 EDT Tel , Service support , Discharge Plan Triage Chief Complaint: Head Injury ED Provider: Kilo Taylor Dx/Rx/DC Orders Clinical Impression: Closed head injury, Accidental fall from wheelchair Instructions: ED Head Injury (Adult) Prescriptions: No Action multivitamin 1 EACH tablet 1 ea PO DAILY RF: 0 quetiapine 25 MG tablet 37.5 mg PO QHS RF: 0 sennosides 1 TABLET tablet 2 tab PO QHS RF: 0 atorvastatin 10 MG tablet 10 mg PO QHS RF: 0 baclofen 10 MG tablet 10 mg PO TID RF: 0 fluoxetine 20 MG tablet 60 mg PO DAILY RF: 0 cranberry 400 MG capsule 400 mg PO BID RF: 0 ergocalciferol (vitamin D2) 50,000 UNIT capsule 50,000 unit PO Q7D RF: 0 fluticasone propionate 1 SPRAY spray,suspension 2 spray NASAL QHS RF: 0 magnesium hydroxide 30 ML suspension 60 ml PO DAILY PRN PRN (Reason: Constipation) RF: 0 bisacodyl 10 MG suppository 10 mg RECTAL DAILY PRN PRN (Reason: Constipation) RF: 0 clonazepam 0.5 MG tablet 0.5 mg PO BID Qty: 20 RF: 0 acetaminophen 325 MG tablet 650 mg PO Q6H PRN (Reason: Pain Score 1-10/10) RF: 0 ondansetron HCl 4 MG tablet 4 mg PO Q6H PRN (Reason: Nausea) RF: 0 loperamide 2 MG capsule 2 mg PO BID PRN (Reason: Diarrhea) RF: 0 aspirin 325 MG tablet 325 mg PO DAILY RF: 0 simethicone 180 MG capsule 180 mg PO 4X/DAY PRN (Reason: Gas) RF: 0 famotidine 40 MG tablet 40 mg PO DAILY RF: 0 dextromethorphan-guaifenesin 5 ML syrup 10 ml PO Q6H PRN (Reason: Cough) RF: 0 meclizine 25 MG tablet 25 mg PO Q8H PRN (Reason: Vertigo) RF: 0 zinc 50 MG tablet 1 tab PO DAILY RF: 0 melatonin-pyridoxine HCl (B6) 1 EACH tablet 1 ea PO QHS PRN (Reason: Sleep) RF: 0 calcium carbonate-vitamin D3 1 EACH tablet,chewable 2 ea PO DAILY RF: 0 wnce-ozhD-wjlhkly-FOS-bromeln 3,875 MG/30 ML liquid 30 ml PO DAILY RF: 0 silodosin 8 MG capsule 8 mg PO QHS RF: 0 menthol-aloe vera extract 49 GM gel 49 gm TP BID RF: 0 ascorbic acid (vitamin C) 500 MG capsule 500 mg PO DAILY RF: 0 Primary Care Provider: Ricki Eaton Referrals: Ricki Eaton MD [Primary Care Provider] - 1 Week if not improving Disposition Disposition: Home, Self Care
--- NOTE | 2020-11-05 12:45 | CT_ITS ---
STUDY: CT BRAIN WITHOUT CONTRAST REASON FOR EXAM: Male, 75 years old. injury RADIATION DOSAGE (If Supplied By Facility): CTDIvol = ( 44.99 ) mGy, DLP = ( 931.09 ) mGycm TECHNIQUE: Transaxial CT imaging of the brain was performed without administration of intravenous contrast material. Individualized dose optimization techniques were used for this CT. COMPARISON: 11/07/2017 FINDINGS: Normal soft tissue structures. Normal calvarium. There is mild cerebral atrophy with widening of the extra-axial spaces and ventricular dilatation. There are areas of decreased attenuation within the white matter tracts of the supratentorial brain, consistent with microvascular disease changes. Normal basal ganglia and thalami. Normal brainstem. Normal cerebellum. There is no intracranial hemorrhage. There are no findings of an acute ischemic infarction. Normal visualized paranasal sinuses. CT/Brain/Head without Contrast IMPRESSION: Chronic involutional changes of the brain. Electronically Signed: Yoel Perla MD at 13:30 EDT Tel , Service support ,
[2020-11-05 15:25] VITALS: BP 141/75; PULSE 64; RESP 16
== END 2020-11-05 17:13 | disposition home or self-care (01) ==
PROVIDERS: Emergency Provider Emergency Medicine; PCP Family Medicine
DX: S00.03XA Contusion of scalp, initial encounter (principal); W05.0XXA Fall from non-moving wheelchair, initial encounter; Y93.9 Activity, unspecified; Y92.9 Unspecified place or not applicable; G81.94 Hemiplegia, unspecified affecting left nondominant side; E78.5 Hyperlipidemia, unspecified; F20.9 Schizophrenia, unspecified; F32.9 Major depressive disorder, single episode, unspecified; G35 Multiple sclerosis; I44.7 Left bundle-branch block, unspecified; M81.0 Age-related osteoporosis without current pathological fracture; Z99.3 Dependence on wheelchair; Z87.19 Personal history of other diseases of the digestive system; Z86.16 Personal history of COVID-19; Z79.82 Long term (current) use of aspirin; Z79.899 Other long term (current) drug therapy; Z87.891 Personal history of nicotine dependence
CPT/HCPCS: 70450; 99283

== ENCOUNTER → 2020-11-16 00:30 | Outpatient (REF) | payer MEDICARE, OTHER, MEDICAID, SELFPAY ==
[2020-11-05 12:20] VITALS: BMI 30.1
[2020-11-16 07:31] LABS: Mucous, Urine 0 SEEN /hpf (<or=2+); Red Blood Cells-Urine 0 SEEN /hpf (0-5)
[2020-11-16 07:42] LABS: Color, Urine Yellow (Yellow); Glucose, Dipstick Normal (Normal); Ketone-Dipstick Negative (Negative); Leukocyte Esterase-Dipstick 500 /ul (Negative); Nitrite-Dipstick Positive (Negative); Occult Blood-Urine 10 /ul (Negative); Protein-Dipstick Negative (Negative); Urine Bilirubin Dipstick Negative (Negative); Urine Clarity Sl. Cloudy (Clear); Urine Urobilinogen Normal (Normal)
[2020-11-16 07:49] LABS: Bacteria 2+ /hpf (None Seen); Squamous Epithelial Cells - UA 0-5 SEEN /hpf (0-5); White Blood Cells 25-50 SEEN /hpf (0-5)
== END ==
LOC: OLS.ACH 00:30
PROVIDERS: PCP Family Medicine; Visit Provider Family Medicine
DX: G35 Multiple sclerosis (principal); Z79.899 Other long term (current) drug therapy
CPT/HCPCS: 81001; 87077; 87086; 87088; 87186

== ENCOUNTER → 2021-01-03 05:00 | Outpatient (REF) | payer MEDICARE, OTHER, MEDICAID, SELFPAY ==
[2021-01-03 09:15] LABS: ALB/GLOB Ratio 0.7 RATIO (0.9-2.4); AST(SGOT) 18 U/L (15-37); Alanine Aminotransfer ALT/SGPT 38 U/L (16-61); Albumin, Serum 2.7 g/dL (3.2-5.0); Alkaline Phosphatase 194 U/L (45-117); Anion Gap 8 (5-15); BUN 14 mg/dL (7-18); BUN/Creat Ratio 21.4 RATIO (10-20); Calcium,Total 8.4 mg/dL (8.5-10.1); Chloride 97 mmol/L (98-107); Cholesterol 169 mg/dL (200); Creatinine, Serum 0.65 mg/dL (0.70-1.30); EST Glomerular Filtration Rate 126 mL/min (>60); Est Glom Filt Rate - Afr Amer 153 mL/min (>60); Glucose 87 mg/dL (74-106); High Density Lipoprotein 51 mg/dL; Protein, Total 6.7 g/dL (6.4-8.2); Sodium Level 132 mmol/L (136-145); Triglycerides 75 mg/dL; Very Low Density Lipoprotein 15 mg/dL (5-40)
== END ==
LOC: OLS.ACH 05:00
PROVIDERS: PCP Family Medicine; Visit Provider Family Medicine
DX: G35 Multiple sclerosis (principal); E78.00 Pure hypercholesterolemia, unspecified
CPT/HCPCS: 36415; 80053; 80061

== ENCOUNTER → 2021-01-05 07:15 | Outpatient (REF) | payer MEDICARE, OTHER, MEDICAID, SELFPAY ==
[2021-01-05 10:09] LABS: Prealbumin 26.8 mg/dL (20.0-40.0)
== END ==
LOC: OLS.ACH 07:15
PROVIDERS: PCP Family Medicine; Visit Provider Family Medicine
DX: N40.1 Benign prostatic hyperplasia with lower urinary tract symptoms (principal); E78.00 Pure hypercholesterolemia, unspecified
CPT/HCPCS: 36415; 84134

== ENCOUNTER → 2021-01-17 04:00 | Outpatient (REF) | payer MEDICARE, OTHER, MEDICAID, SELFPAY ==
[2021-01-17 10:59] LABS: Vitamin D,25 Hydroxy 71.4 ng/mL
== END ==
LOC: OLS.ACH 04:00
PROVIDERS: PCP Family Medicine; Visit Provider Family Medicine
DX: E55.9 Vitamin D deficiency, unspecified (principal)
CPT/HCPCS: 36415; 82306

== ENCOUNTER → 2021-06-20 | Outpatient (REF) | payer MEDICARE, OTHER, MEDICAID, SELFPAY ==
[2021-06-20 09:17] LABS: ALB/GLOB Ratio 0.9 RATIO (0.9-2.4); AST(SGOT) 21 U/L (15-37); Alanine Aminotransfer ALT/SGPT 30 U/L (16-61); Albumin, Serum 2.9 g/dL (3.2-5.0); Alkaline Phosphatase 80 U/L (45-117); Anion Gap 3 (5-15); BUN 12 mg/dL (7-18); BUN/Creat Ratio 15.7 RATIO (10-20); Calcium,Total 8.4 mg/dL (8.5-10.1); Chloride 104 mmol/L (98-107); Cholesterol 137 mg/dL (200); Creatinine, Serum 0.76 mg/dL (0.70-1.30); EST Glomerular Filtration Rate 106 mL/min (>60); Est Glom Filt Rate - Afr Amer 128 mL/min (>60); Globulin 3.2 g/dL (2.2-4.2); Glucose 102 mg/dL (74-106); High Density Lipoprotein 32 mg/dL; Potassium 3.8 mmol/L (3.5-5.1); Protein, Total 6.1 g/dL (6.4-8.2); Sodium Level 134 mmol/L (136-145); Triglycerides 112 mg/dL; Very Low Density Lipoprotein 22 mg/dL (5-40)
== END | disposition home or self-care (01) ==
LOC: OLS.ACH 05:00
PROVIDERS: PCP Family Medicine; Visit Provider Family Medicine
DX: E78.00 Pure hypercholesterolemia, unspecified (principal); G35 Multiple sclerosis
CPT/HCPCS: 36415; 80053; 80061

== ENCOUNTER → 2021-12-06 | Outpatient (REF) | payer MEDICARE, OTHER, MEDICAID, SELFPAY ==
[2021-12-06 09:58] LABS: Albumin, Serum 2.9 g/dL (3.2-5.0); BUN 11 mg/dL (7-18); BUN/Creat Ratio 15.5 RATIO (10-20); Creatinine, Serum 0.71 mg/dL (0.70-1.30); EST Glomerular Filtration Rate 115 mL/min (>60); Est Glom Filt Rate - Afr Amer 139 mL/min (>60); Glucose 81 mg/dL (74-106); Protein, Total 6.3 g/dL (6.4-8.2)
[2021-12-06 09:59] LABS: ALB/GLOB Ratio 0.9 RATIO (0.9-2.4); AST(SGOT) 20 U/L (15-37); Alanine Aminotransfer ALT/SGPT 27 U/L (16-61); Alkaline Phosphatase 76 U/L (45-117); Anion Gap 11 (5-15); Calcium,Total 8.2 mg/dL (8.5-10.1); Chloride 101 mmol/L (98-107); Cholesterol 124 mg/dL (200); Globulin 3.4 g/dL (2.2-4.2); High Density Lipoprotein 33 mg/dL; Potassium 3.8 mmol/L (3.5-5.1); Sodium Level 138 mmol/L (136-145); Triglycerides 125 mg/dL; Very Low Density Lipoprotein 25 mg/dL (5-40)
== END ==
LOC: OLS.ACH 05:00
PROVIDERS: PCP Family Medicine; Visit Provider Family Medicine
DX: G35 Multiple sclerosis (principal); F20.9 Schizophrenia, unspecified; E78.00 Pure hypercholesterolemia, unspecified
CPT/HCPCS: 36415; 80053; 80061

== ENCOUNTER → 2022-01-16 | Outpatient (REF) | payer MEDICARE, OTHER, MEDICAID, SELFPAY ==
[2022-01-16 08:38] LABS: Vitamin D,25 Hydroxy 80.1 ng/mL
== END ==
LOC: OLS.ACH 05:00
PROVIDERS: PCP Family Medicine; Visit Provider Family Medicine
DX: E55.9 Vitamin D deficiency, unspecified (principal)
CPT/HCPCS: 36415; 82306

== ENCOUNTER → 2022-01-19 | Outpatient (CLI) | payer MEDICARE, OTHER, MEDICAID, SELFPAY ==
--- NOTE | 2022-01-19 13:32 | CT_ITS ---
EXAM: CT HEAD WITHOUT INTRAVENOUS CONTRAST CLINICAL INDICATION: PAIN W SERGO LIFT TECHNIQUE: Multiple axial images were obtained of the head without intravenous contrast. This CT exam was performed using one or more of the following dose reduction techniques: automated exposure control, adjustment of the mA and/or kV according to patient size, and/or use of iterative reconstruction technique. This report was created using [employer] report generation technology. RADIATION DOSE: CTDIvol = 44.99 mGy, DLP = 964.84 mGy-cm COMPARISON: CT head without contrast 11/05/2020. FINDINGS: BRAIN AND EXTRA-AXIAL SPACES: Hypodensities in the white matter of both cerebral hemispheres are chronic white matter ischemic changes. No intra- or extra-axial hemorrhage. No intracranial mass or mass effect. Posterior fossa structures are unremarkable. Ventricles are appropriate for age. No hydrocephalus. Basal cisterns are patent. BONES/JOINTS: Unremarkable. No discrete lytic or blastic abnormalities. SINUSES: Unremarkable as visualized. Clear. MASTOID AIR CELLS: Unremarkable. Clear. ORBITS: Visualized globes, extraocular muscles, optic nerves and retrobulbar fat appear unremarkable. OTHER FINDINGS: Markedly tilted head positioning. CT/Brain/Head without Contrast IMPRESSION: 1. No acute findings in the head/brain. 2. Chronic white matter ischemic changes in both cerebral hemispheres. 3. No interval change when compared to 11/04/2020. Electronically Signed: Serafin Herman MD at 15:01 EDT ,
== END | disposition home or self-care (01) ==
PROVIDERS: PCP Family Medicine; Referring Provider Family Medicine; Visit Provider Family Medicine
DX: R51.9 Headache, unspecified (principal)
CPT/HCPCS: 70450

== ENCOUNTER → 2022-02-16 | Outpatient (REF) | payer MEDICARE, OTHER, MEDICAID, SELFPAY ==
[2022-02-16 09:14] LABS: Erythrocyte Sedimentation Rate 37 mm/hr (0-20)
[2022-02-16 09:23] LABS: CRP 7.41 mg/L (0.0-3.0)
[2022-02-16 09:45] LABS: Vitamin B12 572 pg/mL (211-911)
== END ==
LOC: OLS.ACH 05:00
PROVIDERS: PCP Family Medicine; Visit Provider Family Medicine
DX: R51.9 Headache, unspecified (principal)
CPT/HCPCS: 36415; 82607; 85652; 86140

== ENCOUNTER → 2022-04-04 | Outpatient (CLI) | payer MEDICARE, OTHER, MEDICAID, SELFPAY ==
--- NOTE | 2022-04-04 08:30 | MRI_ITS ---
HISTORY: Headache, history of multiple sclerosis. TECHNIQUE: Multiplanar and multisequence MR images of the brain were obtained without contrast. 287 images. COMPARISON: CT 01/19/2022. FINDINGS: Motion artifact lowers the sensitivity of examination. BRAIN PARENCHYMA: Moderate foci and small zones of increased T2 FLAIR signal in the bilateral cerebral white matter and in the christopher. No abnormal focus of restricted diffusion. No acute intracranial hemorrhage identified. CSF SPACES: Generalized volume loss. No significant midline shift or other mass effect.No extra-axial fluid collection. VASCULAR SYSTEM: Major intracranial flow voids are maintained. PARANASAL SINUSES AND MASTOID AIR CELLS: No significant air fluid levels. ORBITS: Symmetric contents. MRI/Brain without Contrast IMPRESSION: Moderate chronic involutional and white matter changes, which may be secondary to chronic small vessel ischemic gliosis or sequela of demyelinating disease. No evidence for acute infarct. Electronically Signed: Lynette Gutiérrez MD at 11:36 EST ,
== END | disposition home or self-care (01) ==
PROVIDERS: PCP Family Medicine; Referring Provider Psychiatry & Neurology Neurology; Visit Provider Psychiatry & Neurology Neurology
DX: R51.9 Headache, unspecified (principal)
CPT/HCPCS: 70551

== ENCOUNTER → 2022-05-22 | Outpatient (REF) | payer MEDICARE, OTHER, MEDICAID, SELFPAY ==
[2022-05-22 07:44] LABS: ALB/GLOB Ratio 0.9 RATIO (0.9-2.4); AST(SGOT) 18 U/L (15-37); Alanine Aminotransfer ALT/SGPT 25 U/L (16-61); Albumin, Serum 2.9 g/dL (3.2-5.0); Alkaline Phosphatase 74 U/L (45-117); Anion Gap 6 (5-15); BUN 12 mg/dL (7-18); BUN/Creat Ratio 16.8 RATIO (10-20); Calcium,Total 8.6 mg/dL (8.5-10.1); Chloride 103 mmol/L (98-107); Cholesterol 129 mg/dL (200); Creatinine, Serum 0.71 mg/dL (0.70-1.30); EST Glomerular Filtration Rate 114 mL/min (>60); Est Glom Filt Rate - Afr Amer 138 mL/min (>60); Globulin 3.1 g/dL (2.2-4.2); Glucose 95 mg/dL (74-106); High Density Lipoprotein 37 mg/dL; Potassium 3.9 mmol/L (3.5-5.1); Sodium Level 137 mmol/L (136-145); Triglycerides 107 mg/dL; Very Low Density Lipoprotein 21 mg/dL (5-40)
[2022-05-23 05:19] LABS: Prealbumin 23.9 mg/dL (20.0-40.0)
== END ==
LOC: OLS.ACH 05:00
PROVIDERS: PCP Family Medicine; Visit Provider Family Medicine
DX: G35 Multiple sclerosis (principal); E78.00 Pure hypercholesterolemia, unspecified
CPT/HCPCS: 36415; 80053; 80061; 84134

== ENCOUNTER → 2022-07-11 | Outpatient (REF) | payer MEDICARE, OTHER, MEDICAID, SELFPAY ==
[2022-07-11 18:07] LABS: Hematocrit 41.1 % (40-54); Hemoglobin 13.3 g/dL (13.0-16.5); Mean Corp Hgb Conc 32.4 g/dL (32-36); Mean Corpuscular Hgb 31.9 pg (27.0-32.0); Mean Corpuscular Volume 98.6 fL (80-94); Mean Platelet Vol. 9.5 fl (6.2-12.0); Platelet Count 331 K/mm3 (150-450); RBC Distribution Width CV 11.9 % (11.6-14.6); RBC Distribution Width SD 43.1 fl (35.1-43.9); Red Blood Count 4.17 M/mm3 (4.6-6.2); White Blood Count 9.1 K/mm3 (4.4-11.0)
[2022-07-11 18:51] LABS: ALB/GLOB Ratio 0.9 RATIO (0.9-2.4); AST(SGOT) 22 U/L (15-37); Alanine Aminotransfer ALT/SGPT 31 U/L (16-61); Albumin, Serum 3.3 g/dL (3.2-5.0); Alkaline Phosphatase 80 U/L (45-117); Anion Gap 5 (5-15); BUN 14 mg/dL (7-18); BUN/Creat Ratio 19.9 RATIO (10-20); Calcium,Total 8.6 mg/dL (8.5-10.1); Chloride 101 mmol/L (98-107); EST Glomerular Filtration Rate 116 mL/min (>60); Est Glom Filt Rate - Afr Amer 140 mL/min (>60); Globulin 3.5 g/dL (2.2-4.2); Glucose 107 mg/dL (74-106); Potassium 4.2 mmol/L (3.5-5.1); Protein, Total 6.8 g/dL (6.4-8.2); Sodium Level 133 mmol/L (136-145)
== END ==
LOC: OLS.ACH 16:55
PROVIDERS: PCP Family Medicine; Visit Provider Family Medicine
DX: N40.1 Benign prostatic hyperplasia with lower urinary tract symptoms (principal); I44.7 Left bundle-branch block, unspecified
CPT/HCPCS: 36415; 80053; 85027

== ENCOUNTER → 2022-11-06 | Outpatient (REF) | payer MEDICARE, OTHER, MEDICAID, SELFPAY ==
[2022-11-06 10:27] LABS: ALB/GLOB Ratio 0.8 RATIO (0.9-2.4); AST(SGOT) 18 U/L (15-37); Alanine Aminotransfer ALT/SGPT 30 U/L (16-61); Albumin, Serum 2.8 g/dL (3.2-5.0); Alkaline Phosphatase 74 U/L (45-117); Anion Gap 5 (5-15); BUN 15 mg/dL (7-18); BUN/Creat Ratio 20.9 RATIO (10-20); Calcium,Total 8.2 mg/dL (8.5-10.1); Chloride 102 mmol/L (98-107); Cholesterol 129 mg/dL (200); Creatinine, Serum 0.72 mg/dL (0.70-1.30); EST Glomerular Filtration Rate 113 mL/min (>60); Est Glom Filt Rate - Afr Amer 137 mL/min (>60); Globulin 3.6 g/dL (2.2-4.2); Glucose 90 mg/dL (74-106); High Density Lipoprotein 38 mg/dL; Protein, Total 6.4 g/dL (6.4-8.2); Sodium Level 133 mmol/L (136-145); Triglycerides 153 mg/dL; Very Low Density Lipoprotein 31 mg/dL (5-40)
== END ==
LOC: OLS.ACH 04:00
PROVIDERS: PCP Family Medicine; Referring Provider Family Medicine; Visit Provider Family Medicine
DX: E78.00 Pure hypercholesterolemia, unspecified (principal); G35 Multiple sclerosis
CPT/HCPCS: 36415; 80053; 80061

== ENCOUNTER → 2022-12-15 | Outpatient (REF) | payer MEDICARE, OTHER, MEDICAID, SELFPAY ==
[2022-12-15 18:47] LABS: Mucous, Urine 0 SEEN /hpf (<or=2+); Squamous Epithelial Cells - UA 0 SEEN /hpf (0-5)
[2022-12-15 18:54] LABS: Hematocrit 38.6 % (40-54); Hemoglobin 12.5 g/dL (13.0-16.5); Mean Corp Hgb Conc 32.4 g/dL (32-36); Mean Corpuscular Volume 98.7 fL (80-94); Mean Platelet Vol. 9.7 fl (6.2-12.0); Platelet Count 325 K/mm3 (150-450); RBC Distribution Width SD 43.6 fl (35.1-43.9); Red Blood Count 3.91 M/mm3 (4.6-6.2)
[2022-12-15 18:55] LABS: Color, Urine Yellow (Yellow); Glucose, Dipstick Normal (Normal); Ketone-Dipstick Negative (Negative); Leukocyte Esterase-Dipstick 500 /ul (Negative); Nitrite-Dipstick Positive (Negative); Occult Blood-Urine 25 /ul (Negative); Protein-Dipstick 30 mg/dl (Negative); Specific Gravity, Urine 1.015 (1.002-1.030); Urine Bilirubin Dipstick Negative (Negative); Urine Clarity Cloudy (Clear); Urine Urobilinogen Normal (Normal)
[2022-12-15 19:05] LABS: Bacteria 2+ /hpf (None Seen); White Blood Cells >100 SEEN /hpf (0-5)
[2022-12-15 19:06] LABS: Red Blood Cells-Urine 0-5 SEEN /hpf (0-5)
== END ==
LOC: OLS.ACH 18:00
PROVIDERS: PCP Family Medicine; Visit Provider Family Medicine
DX: N39.41 Urge incontinence (principal); Z86.14 Personal history of Methicillin resistant Staphylococcus aureus infection
CPT/HCPCS: 36415; 81001; 85027

== ENCOUNTER → 2023-01-15 | Outpatient (REF) | payer MEDICARE, OTHER, MEDICAID, SELFPAY | LOC: OLS.ACH 04:00 | PROVIDERS: PCP Family Medicine; Referring Provider Family Medicine; Visit Provider Family Medicine | DX: M81.0 Age-related osteoporosis without current pathological fracture (principal) | CPT/HCPCS: 36415; 82306 ==

== ENCOUNTER → 2023-04-23 | Outpatient (REF) | payer MEDICARE, OTHER, MEDICAID, SELFPAY ==
--- OUTSIDE RECORDS SUMMARY | 2023-04-23 05:13 | XMS RPT_ITS | CCD ---
Author Name Unknown Address [address] [place] [address] Organization [facility] Care Team Providers Care Processor [employer] Name Role Phone Uma MCCRARY, Ricki Trinh Primary Care Provider Allergies Allergy Classification Reported Allergen(s) Allergy Type Date of Onset Reaction(s) Facility (1 source) Phenothiazine Propensity to adverse reactions to drug 1 [facility] (1 source) Prochlorperazine Drug Allergy 9 [facility] (1 source) Sulfonamides (Antibiotic) Propensity to adverse reactions to drug 9 [facility] Medications Current Medications Medication Drug Class(es) Dates Sig (Normalized) Sig (Original) acetaminophen 325 mg oral tablet (1 source) take 2 tablets by mouth every six hours as needed for pain acetaminophen (TYLENOL) 325 MG tablet Take 650 mg by mouth every 6 hours as needed for Pain 0 Active acetaminophen 325 mg / oxyCODONE hydrochloride 5 mg oral tablet (1 source) Opioid Agonist Start: 11-27-2016 oxyCODONE-acetamino phen (PERCOCET) 5-325 MG per tablet 24 hr alfuzosin hydrochloride 10 mg extended release oral tablet (1 source) alpha-Adrenergic Ashok Start: 03-17-2019 take 1 tablet by mouth once daily alfuzosin (UROXATRAL) 10 MG extended release tablet Indications: Benign prostatic hyperplasia with urinary retention Take 1 tablet by mouth daily 30 tablet 3 03/17/2019 Active atorvastatin 10 mg oral tablet (1 source) HMG-CoA Reductase Inhibitor Start: 11-27-2016 atorvastatin (LIPITOR) 10 MG tablet baclofen 10 mg oral tablet (1 source) gamma-Aminobutyric Acid-ergic Agonist Start: 11-27-2016 baclofen (LIORESAL) 10 MG tablet bisacodyl 10 mg rectal suppository (1 source) Stimulant Laxative take 10 mg rectal route once daily as needed for constipation bisacodyl (DULCOLAX) [address] 10 mg rectally daily as needed for Constipation 0 Active cephalexin 500 mg oral capsule (1 source) Cephalosporin Antibacterial Start: 11-27-2016 cephALEXin (KEFLEX) 500 MG capsule clonazePAM 0.5 mg oral tablet (1 source) Benzodiazepine Start: 10-09-2017 take 1 tablet by mouth twice daily as needed for anxiety clonazePAM (KLONOPIN) 0.5 MG tablet Indications: Anxiety Take 1 tablet by mouth 2 times daily as needed for Anxiety for up to 30 days.. 60 tablet 5 10/09/2017 Active Cranberry preparation (1 source) Non-Standardized Food Allergenic Extract, Non-Standardized Plant Allergenic Extract Start: 03-31-2016 Cranberry 400 MG CAPS TWICE A DAY 0 03/31/2016 Active CRANBERRY-VITAMIN C-INULIN PO (1 source) take 30 mL by mouth once daily CRANBERRY-VITAMIN C-INULIN PO Take 30 mLs by mouth daily 0 Active docusate sodium 50 mg / sennosides, [facility] 8.6 mg oral tablet (1 source) take 2 tablets by mouth once daily sennosides-docusate sodium (SENOKOT-S) 8.6-50 MG tablet Take 2 tablets by mouth nightly 0 Active ergocalciferol 1.25 mg oral capsule (1 source) Provitamin D2 Compound take 1 capsule by mouth every week ergocalciferol (ERGOCALCIFEROL) 1.25 MG (46405 UT) capsule Take 50,000 Units by mouth once a week 0 Active FLUoxetine 20 mg oral capsule (2 sources) Serotonin Reuptake Inhibitor take 1 capsule by mouth once daily FLUoxetine (PROZAC) 20 MG capsule Take 20 mg by mouth daily 0 Active Problems Active Problems Problem Classification Problem Date Documented Da te Episodic/Chronic Hyperplasia of prostate (1 source) Benign prostatic hypertrophy with outflow obstruction Chronic Past or Other Problems Problem Classification Problem Date Documented Da te Episodic/Chronic Urinary tract infections (1 source) Recurrent urinary tract infection Episodic Results Test Name Value Interpretation Reference Range Facil ity Encounters Encounter Date Encounter Type Care Provider Facility Start: 03-20-2019 End: 03-20-2019 Subsequent hospital visit by physician Cristhian White CNP Work Phone: [facility] Procedures Date Procedure Procedure Detail Performing Clinician Start: 03-20-2019 Us retroperitoneal r eal time w/image limited Cristhian Logan EXPLOSIVES DETONATOR - ELECTROMECHANICAL EQUIPMENT TESTER Work Phone: Plan of Treatment Date Care Activity Detail Author Start: 04-21-2019 End: 04-21-2019 Patient encounter procedure 04/21/2019 Office Visit Urology Logan Cristhian, ALIS - ELECTROMECHANICAL EQUIPMENT TESTER [address] [place] [address] [phone] [facility] [employer] [facility] Urology FABIOLA Start: 12-01-2018 Influenza vaccination Flu vaccine (#1) [facility] Work Phone: Start: 09-19-2018 Annual Wellness Visit (AWV) Annual Wellness Visit (AWV) [facility] Work Phone: Start: 2011 Pneumococcal 65+ years Vaccine (1 of 1 - PPSV23) Pneumococcal 65+ years Vaccine (1 of 1 - PPSV23) [facility] Work Phone: Start: 1996 Colon cancer screen colonoscopy Colon cancer screen colonoscopy [facility] Work Phone: Start: 1996 Shingles Vaccine (1 of 2) Shingles Vaccine (1 of 2) [facility] Work Phone: Start: 1957 DTaP/Tdap/Td vaccine (1 - Tdap) DTaP/Tdap/Td vaccine (1 - Tdap) [facility] Work Phone: Start: 1956 Lipid screen Lipid screen [facility] Work Phone: Start: 1946 AAA screen AAA screen [facility] Work Phone: Start: 1946 Hepatitis C screen Hepatitis C screen [facility] Work Phone: Payers Date Payer Category Payer Medicare MEDICARE MEDICAR E PART A AND B xxxxxxxxxxx 2014-Present [phone] [place] [address] xxxxxxxxxxx [id number] 2014 Unknown xxxxxxxxxxxx [id number] Social History Date Type Detail Facility Start: 03-17-2019 Tobacco smoking stat us [facility] Former smoker [facility] Work Phone: Start: 03-17-2019 Alcohol intake Ex-drinker (finding) [employer] Work Phone: Sex Assigned At Not on file [facility] Work Phone: Clinical Notes 05-26-2020 to 04-17-2023 Note Date & Type Note Facility 04-17-2023 Note snf visit c ompleted by provider. See progress note in [facility] 03-21-2023 Note snf visit c ompleted by provider. See progress note in [facility] 02-20-2023 Note snf visit c ompleted by provider. See progress note in [facility] 01-17-2023 Note snf visit c ompleted by provider. See progress note in [facility] 12-19-2022 Note snf visit c ompleted by provider. See progress note in [facility] 11-14-2022 Note snf visit c ompleted by provider. See progress note in [facility] 10-11-2022 Note snf visit c ompleted by provider. See progress note in [facility] 09-13-2022 Note snf visit c ompleted by provider. See progress note in [facility] 08-15-2022 Note snf visit c ompleted by provider. See progress note in [facility] 07-18-2022 Note snf visit c ompleted by provider. See progress note in [facility] 06-20-2022 Note snf visit c ompleted by provider. See progress note in [facility] 05-24-2022 Note snf visit c ompleted by provider. See progress note in senior media planner [facility] 05-26-2020 Note Patient Outreach ([place] VAMN) EYAL PRATT ([id number]) 1945 M BLD Date Time Provider Department 05/26/20 WEATHERS, BRIAN FRIAS During your visit today, we recorded the following information about you: Allergies As of Date: 05/26/2020 Noted Allergy Reaction COMPAZINE (PROCHLORPERAZINE EDISY*01/04/2005 PHENOTHIAZINES 08/15/2000 Comments: hives SULFA (SULFONAMIDE ANTIBIOTICS) 03/29/2016 16 - Unknown Date Reviewed: 12/18/2018 Reviewed by: Miriam Daniel Ma - Fully Assessed Order(s):SARS-COVID VACCINE 1ST DOSE APPT [[id number]] Order #: [id number] FUTURE Prescriptions as of 05/26/2020 Sig: MULTI-VITAMIN ORAL Take by mouth. SENNOSIDES 8.6 MG-DOCUSATE SO* Take 1 tablet by mouth once d* POLYETHYLENE GLYCOL 3350 17 G* Take 17 g by mouth once daily. LOPERAMIDE 2 MG TABLET Take 2 mg by mouth as needed. ONDANSETRON 4 MG DISINTEGRATI* Take 4 mg by mouth every 8 ho* RANITIDINE 150 MG CAPSULE Take 150 mg by mouth twice da* OXYBUTYNIN CHLORIDE ER 10 MG * Take 10 mg by mouth once aida* FLUTICASONE PROPIONATE 50 MCG* Inhale 1 Puff as instructed t* ALENDRONATE 70 MG TABLET Take 1 tablet by mouth once e* ATORVASTATIN 10 MG TABLET Take 1 tablet by mouth once d* CLONAZEPAM 0.5 MG DISINTEGRAT* Take 1 tablet by mouth twice * QUETIAPINE 25 MG TABLET Take 1 tablet by mouth three * PERCOCET ORAL Take by mouth. 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 HYPERLIPIDEMIA NEC/NOS [E78.5] 01/04/2005 OSTEOPOROSIS NOS [M81.0] 01/04/2005 CONSTIPATION NOS [K59.00] 01/04/2005 DIVERTICULITIS OF COLON W/O BLEED [K57.32] 01/04/2005 HYPERTROPHY PROSTATE W/O OBST [N40.0] 01/04/2005 HEMORRHOIDS NOS [K64.9] 01/04/2005 OVERWEIGHT [E66.9] 07/18/2005 DEBILITY NOS [R53.81] 02/07/2006 DIZZINESS AND GIDDINESS [R42] 03/15/2007 PROSTATIC DISORDER NOS [N42.9] 03/15/2007 ABNORMALITY OF GAIT [R26.9] 07/30/2008 Backache [M54.9] 01/06/2009 Sebaceous Cyst [L72.3] 06/09/2009 Vitamin D deficiency [E55.9] Vision loss [H54.7] 06/26/2012 Legally blind [H54.8] 06/26/2012 Encounter Status:Closed by KARISHMA PRODUSER on 05/31/20 [facility] documented in this encounter [facility] Work Phone: Summary Purpose Family History No Family History Records FoundNo Family History Records FoundNo Family History Records Found Advance Directives No Advanced Directives Records FoundDocuments on File Type Date Recorded Patient Chief Compliance Officer Expl anation Advance Directives and Living Will Power of Post Acute Care Nurse Additional Source Comments (unrecognized sect ion and content) No Status Records FoundNo Status Records FoundNo Status Records Found INFORMATION SOURCE (unrecogn ized section and content) DATE CREATED AUTHOR AUTHOR'S PREM ATION 04/28/2021 [facility] DATE CREATED AUTHOR AUTHOR'S ORGANIZ ATION 04/18/2023 [facility] FOR RECORDS PERTAINING TO PATIENTS WHO ARE OR HAVE BEEN ENROLLED IN A CHEMICAL DEPENDENCY/SUBSTANCEABUSE PROGRAM, SOME INFORMATION MAY BE OMITTED. This clinical summary was aggregated from multiple sources. Caution should be exercised in using it in the provision of clinical care. This summary normalizes information from multiple sources, and as a consequence, information in this document may materially change the coding, format and clinical context of patient data. In addition, data may be omitted in some cases. CLINICAL DECISIONS SHOULD BE BASED ON THE PRIMARY CLINICAL RECORDS. [employer] provides no warranty or guarantee of the accuracy or completeness of information in this document.
[2023-04-23 10:25] LABS: ALB/GLOB Ratio 0.8 RATIO (0.9-2.4); AST(SGOT) 23 U/L (15-37); Alanine Aminotransfer ALT/SGPT 33 U/L (16-61); Albumin, Serum 2.9 g/dL (3.2-5.0); Alkaline Phosphatase 81 U/L (45-117); Anion Gap 7 (5-15); BUN 14 mg/dL (7-18); BUN/Creat Ratio 20.4 RATIO (10-20); Calcium,Total 8.7 mg/dL (8.5-10.1); Chloride 102 mmol/L (98-107); Cholesterol 152 mg/dL (200); Creatinine, Serum 0.68 mg/dL (0.70-1.30); EST Glomerular Filtration Rate 119 mL/min (>60); Est Glom Filt Rate - Afr Amer 144 mL/min (>60); Globulin 3.6 g/dL (2.2-4.2); Glucose 102 mg/dL (74-106); High Density Lipoprotein 39 mg/dL; Potassium 4.1 mmol/L (3.5-5.1); Protein, Total 6.5 g/dL (6.4-8.2); Sodium Level 133 mmol/L (136-145); Triglycerides 121 mg/dL; Very Low Density Lipoprotein 24 mg/dL (5-40)
== END ==
LOC: OLS.ACH 05:00
PROVIDERS: PCP Family Medicine; Visit Provider Family Medicine
DX: G35 Multiple sclerosis (principal); E78.00 Pure hypercholesterolemia, unspecified
CPT/HCPCS: 36415; 80053; 80061

== ENCOUNTER → 2023-04-27 | Outpatient (REF) | payer MEDICARE, OTHER, MEDICAID, SELFPAY ==
[2023-04-27 10:11] LABS: Hematocrit 38.7 % (40-54); Hemoglobin 12.5 g/dL (13.0-16.5); Mean Corp Hgb Conc 32.3 g/dL (32-36); Mean Corpuscular Hgb 31.1 pg (27.0-32.0); Mean Corpuscular Volume 96.3 fL (80-94); Mean Platelet Vol. 9.6 fl (6.2-12.0); Platelet Count 303 K/mm3 (150-450); RBC Distribution Width CV 12.4 % (11.6-14.6); RBC Distribution Width SD 43.8 fl (35.1-43.9); Red Blood Count 4.02 M/mm3 (4.6-6.2); White Blood Count 7.4 K/mm3 (4.4-11.0)
[2023-04-27 10:43] LABS: Anion Gap 8 (5-15); BUN 15 mg/dL (7-18); BUN/Creat Ratio 20.6 RATIO (10-20); Calcium,Total 8.6 mg/dL (8.5-10.1); Chloride 101 mmol/L (98-107); Creatinine, Serum 0.73 mg/dL (0.70-1.30); EST Glomerular Filtration Rate 111 mL/min (>60); Est Glom Filt Rate - Afr Amer 135 mL/min (>60); Glucose 101 mg/dL (74-106); Sodium Level 131 mmol/L (136-145)
== END ==
LOC: OLS.ACH 05:00
PROVIDERS: PCP Family Medicine; Visit Provider Family Medicine
DX: N40.1 Benign prostatic hyperplasia with lower urinary tract symptoms (principal); G35 Multiple sclerosis
CPT/HCPCS: 36415; 80048; 85027

== ENCOUNTER 2023-08-13 13:57 | Inpatient (IN) | payer MEDICARE, OTHER, MEDICAID, SELFPAY ==
[2023-08-13] VITALS (14 sets, daily range): BP systolic 127–153; BP diastolic 67–89; PULSE 80–109; RESP 18–25; TEMP 36.9–37.8; O2SAT 85–100; BMI 31.8; BMI 34.1
--- NOTE | 2023-08-13 14:24 | EDS_ITS ---
HPI History of Present Illness Chief Complaint: Fever Informant: patient and SNF Narrative Narrative: Patient sent in from local ECF secondary to fever. They reported that his urine has a strong odor to it. Patient reported had a temperature of 99.1 and was given Tylenol prior to transport. Patient is unable to tell me how long he has been sick. He complains of allover body aches. He denies cough or shortness of breath. He denies vomiting or diarrhea. After looking through paperwork from the group home it appears his temperature was 101.6 with a heart rate of 105. O2 sat was 93% on 2 L. It appears the patient was given tramadol, Tylenol, and ibuprofen prior to arrival. They did note him to be hypoxic but I cannot find documentation of whether he is on oxygen at baseline. He reported he had a COVID test that was negative. [facility] Medical History (Updated 08/13/23 @ 15:[address] Janelle Bourgeois MD) BPH (benign prostatic hyperplasia) Depression Fever First degree AV block History of cholelithiasis History of COVID-19 (04/12/20) HLD (hyperlipidemia) Left bundle branch block Leukocytosis Multiple sclerosis Osteoporosis Paralysis Schizophrenia Urinary incontinence Home Medications atorvastatin 10 mg tablet 10 mg PO QHS 03/31/16 [History Last Taken 04/04/16] cranberry 400 mg capsule 400 mg PO BID 03/31/16 [History Last Taken 08/13/23] ergocalciferol (vitamin D2) 1,250 mcg (50,000 unit) capsule 50,000 unit PO Q7D 03/31/16 [History Last Taken 08/09/23] fluoxetine 20 mg tablet 80 mg PO DAILY 03/31/16 [History Last Taken 08/13/23] fluticasone propionate 50 mcg/actuation nasal spray,suspension 2 spray NASAL QHS 03/31/16 [History Last Taken 08/12/23] multivitamin 1 ea PO DAILY 03/31/16 [History Last Taken 08/13/23] quetiapine 25 mg tablet 25 mg PO QHS 03/31/16 [History Last Taken 08/13/23] sennosides 8.6 mg tablet 2 tab PO QHS 03/31/16 [History Last Taken 08/12/23] magnesium hydroxide 400 mg/5 mL oral suspension 60 ml PO DAILY PRN PRN Constipation 11/26/16 [History Last Taken Unknown] clonazepam 0.5 mg tablet 0.5 mg PO BID #20 tabs 11/27/16 [Rx Last Taken 08/13/23] acetaminophen 325 mg tablet 1,000 mg PO Q6H PRN Pain Score 1-01/0912/30/18 [History Last Taken 08/13/23] ondansetron HCl 4 mg tablet 4 mg PO Q6H PRN Nausea 12/30/18 [History Last Taken Unknown] calcium carbonate 500 mg-vitamin D3 10 mcg (400 unit) chewable tablet 2 ea PO DAILY 05/06/20 [History Last Taken 08/13/23] dextromethorphan-guaifenesin 10 mg-100 mg/5 mL oral syrup 10 ml PO Q6H PRN Cough 05/06/20 [History Last Taken Unknown] famotidine 40 mg tablet 40 mg PO DAILY 05/06/20 [History Last Taken 08/12/23] loperamide 2 mg capsule 2 mg PO BID PRN Diarrhea 05/06/20 [History Last Taken Unknown] silodosin 8 mg capsule 8 mg PO QHS 05/06/20 [History Last Taken 08/12/23] simethicone 180 mg capsule 180 mg PO 4X/DAY PRN Gas 05/06/20 [History Last Taken Unknown] cranberry conc-vit G-nfivctv-XGE-bromelain 3,875 mg/30 mL oral liquid (UTI-Stat) 30 ml PO DAILY 08/13/23 [History Last Taken 08/13/23] cyclobenzaprine 5 mg tablet 5 mg PO QHS 08/13/23 [History Last Taken 08/12/23] melatonin 3 mg capsule 3 mg PO QHS 08/13/23 [History Last Taken 08/12/23] quetiapine 50 mg tablet (Seroquel) 50 mg PO QHS 08/13/23 [History Last Taken 08/12/23] Allergy/AdvReac Type Severity Reaction Status Date / Time Phenothiazines Allergy Unknown Verified 08/13/23 14:06 prochlorperazine Allergy Unknown Verified 08/13/23 14:06 [From Compazine] Sulfa (Sulfonamide Allergy Unknown Verified 08/13/23 14:06 Antibiotics) Family History Father Heart disease Surgical History History of laparoscopic cholecystectomy (~12/2018) Status post excision of lipoma Social History Smoking Status: Former smoker alcohol intake: never ROS ROS ED Constitutional Constitutional ED: Reports fever(s); Denies chills Eyes Eyes: Denies change in vision or discharge from eye(s) ENT ENT ED: Denies discharge from eye(s), rhinorrhea or sore throat Cardiovascular Cardiovascular: Denies chest pain or palpitations Respiratory/Chest Respiratory/Chest: Denies cough or dyspnea Gastrointestinal Gastrointestinal: Denies abdominal pain, diarrhea, nausea or vomiting Musculoskeletal Musculoskeletal: Reports extremity pain and myalgias; Denies back pain Integumentary Reports rash; Denies Abrasions Neurologic Neurologic: Reports weakness; Denies headache(s) Allergic/Immunologic Allergic/Immunologic ED: Denies lip swelling or urticaria EXAM Physical Exam Const Vital Signs: 08/13/23 13:59 08/13/23 14:03 08/13/23 14:06 Temperature 98.5 F 98.5 F Temperature Source Oral Oral Pulse Rate 109 H 100 Respiratory Rate 23 H 25 H Respiratory Effort Respiratory Pattern Blood Pressure 151/70 H 151/70 H Blood Pressure Mean 97 97 Pulse Ox 85 88 93 Oxygen Delivery Method Room Air Room Air Nasal Cannula Oxygen Flow Rate (L/min) 2 08/13/23 14:07 08/13/23 14:12 08/13/23 15:11 Temperature 99.0 F Temperature Source Oral Pulse Rate 94 Respiratory Rate 24 H Respiratory Effort Normal Respiratory Pattern Normal Blood Pressure 147/75 H Blood Pressure Mean 99 Pulse Ox 100 98 Oxygen Delivery Method Nasal Cannula Nasal Cannula Oxygen Flow Rate (L/min) 3 3 08/13/23 15:11 Temperature 99.0 F Temperature Source Oral Pulse Rate 94 Respiratory Rate 24 H Respiratory Effort Respiratory Pattern Blood Pressure 147/75 H Blood Pressure Mean 99 Pulse Ox 97 Oxygen Delivery Method Nasal Cannula Oxygen Flow Rate (L/min) 3 Positive well nourished and well developed General Appearance ED: well developed HEENT Reports moist mucous membranes Eyes EOMs intact bilaterally Neck no lymphadenopathy Chest Wall inspection of chest normal and palpation of chest normal Resp normal respiratory effort and clear to auscultation bilaterally Cardio regular rate and regular rhythm GI non-tender Auscultation: normoactive bowel sounds Palpation: soft Extremity Extremity Narrative: Erythema and excessive warmth to the skin along the medial aspect of the left thigh consistent with cellulitis. Few superficial abrasions are noted along the medial proximal thigh. Neuro Neuro Narrative: Patient is alert answers questions appropriately. Skin Skin Narrative: Left lower extremity cellulitis as noted above. MDM MDM MDM Narrative Medical decision making narrative: Patient placed on cardiac nurse specialist. EKG obtained to evaluate for cardiac arrhythmia/ischemia. IV line established. Labwork obtained to evaluate for leukocytosis, anemia, and electrolyte derangement. Urinalysis obtained to evaluate for infection/hematuria. Blood and urine cultures were obtained. Swab for COVID, influenza, and RSV will be obtained. Chest x-ray obtained to evaluate for acute lung pathology, cardiac size, or mediastinal abnormality. History & Record Review Discussion w/independent historian: Patient and Family Additional record(s) reviewed:: Prior inpatient record, Prior ED visit and Prior labs Lab Data Attestation: I reviewed the patient's lab results. Labs: Laboratory Results - last 24 hr 08/13/23 08/13/23 14:15 15:10 WBC 21.6 H RBC 4.60 Hgb 14.1 Hct 44.1 MCV 95.9 H MCH 30.7 MCHC 32.0 RDW Std Deviation 42.9 RDW Coeff of Shawn 12.2 Plt Count 335 MPV 9.5 Immature Gran % (Auto) 0.800 Neut % (Auto) 83.4 H Lymph % (Auto) 9.8 L [place] % (Auto) 5.8 Eos % (Auto) 0.0 Baso % (Auto) 0.2 Absolute Neuts (auto) 18.0 H Absolute Lymphs (auto) 2.12 Nucleated RBC % 0 PT 14.9 INR 1.2 APTT 32.1 Sodium 130 L Potassium 4.1 Chloride 97 L Carbon Dioxide 26.0 Anion Gap 7 BUN 11 Creatinine 0.93 Estim Creat Clear Calc 83.89 Est GFR (MDRD) Af Amer 101 Est GFR (MDRD) Non-Af 83 BUN/Creatinine Ratio 11.8 Glucose 126 H Lactic Acid 1.9 Calcium 8.9 Total Bilirubin 1.10 H AST 22 ALT 31 Alkaline Phosphatase 96 Total Protein 7.7 Albumin 3.2 Globulin 4.5 H Albumin/Globulin Ratio 0.7 L Urine Color Yellow Urine Clarity Cloudy Urine pH 8.0 Ur Specific [place] 1.015 Urine Protein 30 H Urine Glucose (UA) Normal Urine Ketones Negative Urine Occult Blood 50 H Urine Nitrite Positive H Urine Bilirubin Negative Urine Urobilinogen Normal Ur Leukocyte Esterase 500 H Urine RBC 0-5 SEEN Urine WBC 25-50 SEEN Ur Squamous Epith Cells 0 SEEN Urine Bacteria 3+ Urine Mucus 0 SEEN Radiography Chest X-Ray - ED: 1 View, Read by ED Physician and Chronic Changes Diagnostic Testing: Clinical Impression(s) from Imaging Studies Chest X-Ray 08/13/23 14:45 IMPRESSION: No acute thoracic pathology. Electronically Signed: Bj Arzola MD at 15:06 EDT , EKG Initial EKG: Attestation: I personally reviewed and interpreted this EKG as follows: Interpretation: Sinus Rhythm (Sinus at 98 with left bundle branch block. No acute ischemia.) Treatment and Re-Evaluation :: CBC was a white count 21.6 with 83% neutrophils. Hemoglobin is 14.1. Coags are unremarkable. Chemistry studies reveal a sodium of 130 which is chronic and unchanged from patient's baseline. Renal function is normal. LFTs significant for a total bili of 1.1. Lactic acid is normal at 1.9. Urinalysis is positive for nitrites with 3+ bacteria and 25-50 white cells. Swab for COVID, influenza, and RSV is negative. Portable chest x-ray per my interpretation was chronic changes with no obvious infiltrate. Radiology interpretation reviewed and agrees. EKG is sinus rhythm with no ischemia. Blood and urine cultures are currently pending. Patient does have a history of MRSA. In light of this he is given both Rocephin and vancomycin for his UTI as well his his cellulitis of the left lower extremity. is now at bedside and test results are discussed with her. She states he is not typically on oxygen at baseline, although he advised nursing staff that he does wear intermittently. He is currently complaining of some chest heaviness. I will add troponin with repeat to be drawn in 2 hours. I will speak with hospitalist regarding admission. Discharge Plan Triage Chief Complaint: Fever ED Provider: Janelle Bourgeois Dx/Rx/DC Orders Clinical Impression: UTI (urinary tract infection), History of MRSA infection, Cellulitis Prescriptions: No Action multivitamin 1 EACH tablet 1 ea PO DAILY quetiapine 25 MG tablet 25 mg PO QHS sennosides 1 TABLET tablet 2 tab PO QHS Patient Comments: stool softener atorvastatin 10 MG tablet 10 mg PO QHS Patient Comments: cholesterol fluoxetine 20 MG tablet 80 mg PO DAILY cranberry 400 MG capsule 400 mg PO BID ergocalciferol (vitamin D2) 50,000 UNIT capsule 50,000 unit PO Q7D Patient Comments: fluticasone propionate 1 SPRAY spray,suspension 2 spray NASAL QHS magnesium hydroxide 30 ML suspension 60 ml PO DAILY PRN PRN (Reason: Constipation) clonazepam 0.5 MG tablet 0.5 mg PO BID Qty: 20 0RF acetaminophen 325 MG tablet 1,000 mg PO Q6H PRN (Reason: Pain Score 1-10/10) ondansetron HCl 4 MG tablet 4 mg PO Q6H PRN (Reason: Nausea) loperamide 2 MG capsule 2 mg PO BID PRN (Reason: Diarrhea) simethicone 180 MG capsule 180 mg PO 4X/DAY PRN (Reason: Gas) famotidine 40 MG tablet 40 mg PO DAILY dextromethorphan-guaifenesin 5 ML syrup 10 ml PO Q6H PRN (Reason: Cough) calcium carbonate-vitamin D3 1 EACH tablet,chewable 2 ea PO DAILY silodosin 8 MG capsule 8 mg PO QHS cyclobenzaprine 5 mg tablet 5 mg PO QHS melatonin 3 mg capsule 3 mg PO QHS quetiapine [Seroquel] 50 mg tablet 50 mg PO QHS UTI-Stat 3,875 mg/30 mL liquid 30 ml PO DAILY Primary Care Provider: Ricki Eaton Referrals: Ricki Eaton MD [Primary Care Provider] -
--- NOTE | 2023-08-13 14:45 | RAD_ITS ---
STUDY: X-RAY CHEST REASON FOR EXAM: Male, 78 years old. Fever TECHNIQUE: Frontal view of the chest COMPARISON: None. FINDINGS: The lungs are clear. There are no pleural effusions. There is no pneumothorax. The heart is normal in size. The visualized osseous structures are within normal limits. RAD/Chest 1 View (Portable) IMPRESSION: No acute thoracic pathology. Electronically Signed: Bj Arzola MD at 15:06 EDT ,
[2023-08-13 14:52] LABS: Absolute Lymphocyte Count 2.12 X10^3/uL (0.83-4.51); Basophil# 0.04 X10^3/uL; Basophil% 0.2 % (0-1); Eosinophil# 0.01 X10^3/uL; Hematocrit 44.1 % (40-54); Hemoglobin 14.1 g/dL (13.0-16.5); Lymphocyte # 2.12 X10^3/ul (0.83-4.51); Lymphocyte % 9.8 % (19-41); Mean Corpuscular Hgb 30.7 pg (27.0-32.0); Mean Corpuscular Volume 95.9 fL (80-94); Mean Platelet Vol. 9.5 fl (6.2-12.0); Monocyte# 1.26 X10^3/uL; Monocyte% 5.8 % (0-10); NRBC Flagged by Analyzer 0 % (0-5); Neutrophil # 17.98 X10^3/uL (2.7-7.7); Neutrophil % 83.4 % (47-70); Platelet Count 335 K/mm3 (150-450); RBC Distribution Width CV 12.2 % (11.6-14.6); RBC Distribution Width SD 42.9 fl (35.1-43.9); White Blood Count 21.6 K/mm3 (4.4-11.0)
[2023-08-13 15:03] LABS: International Normalized Ratio 1.2; Partial Thromboplast Time 32.1 Seconds (24.1-36.2); Prothrombin Time (Protime)PT. 14.9 SECONDS (11.7-14.9)
[2023-08-13 15:08] LABS: Lactic Acid 1.9 mmol/L (0.4-1.9)
[2023-08-13 15:10] LABS: ALB/GLOB Ratio 0.7 RATIO (0.9-2.4); AST(SGOT) 22 U/L (15-37); Alanine Aminotransfer ALT/SGPT 31 U/L (16-61); Albumin, Serum 3.2 g/dL (3.2-5.0); Alkaline Phosphatase 96 U/L (45-117); Anion Gap 7 (5-15); BUN 11 mg/dL (7-18); BUN/Creat Ratio 11.8 RATIO (10-20); Calcium,Total 8.9 mg/dL (8.5-10.1); Chloride 97 mmol/L (98-107); Creatinine, Serum 0.93 mg/dL (0.70-1.30); EST Glomerular Filtration Rate 83 mL/min (>60); Est Glom Filt Rate - Afr Amer 101 mL/min (>60); Estimated Creatinine Clearance 83.89 ml/min; Globulin 4.5 g/dL (2.2-4.2); Glucose 126 mg/dL (74-106); Potassium 4.1 mmol/L (3.5-5.1); Protein, Total 7.7 g/dL (6.4-8.2); Sodium Level 130 mmol/L (136-145)
[2023-08-13 15:13] LABS: Mucous, Urine 0 SEEN /hpf (<or=2+); Squamous Epithelial Cells - UA 0 SEEN /hpf (0-5)
[2023-08-13 15:20] LABS: Color, Urine Yellow (Yellow); Glucose, Dipstick Normal (Normal); Ketone-Dipstick Negative (Negative); Leukocyte Esterase-Dipstick 500 /ul (Negative); Nitrite-Dipstick Positive (Negative); Occult Blood-Urine 50 /ul (Negative); Protein-Dipstick 30 mg/dl (Negative); Specific Gravity, Urine 1.015 (1.002-1.030); Urine Bilirubin Dipstick Negative (Negative); Urine Clarity Cloudy (Clear); Urine Urobilinogen Normal (Normal)
[2023-08-13 15:27] LABS: Red Blood Cells-Urine 0-5 SEEN /hpf (0-5); White Blood Cells 25-50 SEEN /hpf (0-5)
[2023-08-13 15:30] LABS: Bacteria 3+ /hpf (None Seen)
[2023-08-13] MEDS: 0.9% Normal Saline (250mL Bag) 250 ML 15 ML IV (16:00)
[2023-08-13] MEDS: Ceftriaxone 1 GM/50 ML BAG IV (16:02)
[2023-08-13 16:27] LABS: Troponin-I HS (w/2H Reflex) 10 pg/mL (3.0-78.0)
[2023-08-13] MEDS: Acetaminophen 500 MG Tablet 1000 MG PO (16:47)
--- NOTE | 2023-08-13 16:47 | PCM.HP.STD ---
HPI - General General Date of Admission: 08/13/23 Date of Service: 08/13/23 Chief Complaint: Foul urine, confusion, fever. HPI Narrative The patient is a 78 y/o M w/ PMHx: HTN, HLD, BPH, Anxiety and Depression/Schizophrenia, Multiple sclerosis with L sided hemiparalysis, Obesity who presents to the [facility] ED on 08/13/23 with history of fever at his skilled facility with strong foul-smelling urine with elevated temperature with confusion and fatigue and body aches reported prompting transition to the ED for evaluation with reported foul-smelling urine and upon ED arrival noted left lower extremity erythema from mid thigh to mid calf region with increased warmth to touch. Workup in the ED included T98. however Tmax in the ED 100.1 5, heart rate 109, BP 151/70, respiratory rate 23, initially 85% on room air with most recent repeat vital signs with heart rate 96, BP 140 for 69, respiratory rate 25, 99% on 2 L nasal cannula, CBC with WBC 21.6, hemoglobin 14.1, platelet 335 with left shift, unremarkable coags, CMP with sodium 130, chloride 97, glucose 126, T. bili 1.10 otherwise hepatic profile unremarkable, troponin 10, lactic acid 1.9, UA with cloudy appearing urine, specific gravity 1.015, protein 30, occult blood 50, positive nitrate, leukocyte Estrace 500 with urine WBCs 25-50 with 3+ urine bacteria, urine culture pending per ED, blood culture x 2 pending per ED, rapid SARS COVID/influenza/RSV PCR negative, chest x-ray with no acute cardiopulmonary findings. In the ED patient ministered IV vancomycin, IV Rocephin 1 g x 1, Tylenol 1000 mg p.o. x 1. Most recent noted micro with urine catheterized specimen 11/16/2020 with corny bacterium, Proteus and Staphylococcus with only Staphylococcus greater than 100,000 colony-forming units but it was sensitive to vancomycin however resistant to Levaquin and and sensitive to moxifloxacin. [facility] Medical History Anxiety and depression BPH (benign prostatic hyperplasia) First degree AV block Former tobacco use Hemiparesis of left nondominant side History of COVID-19 (04/12/20) HLD (hyperlipidemia) Left bundle branch block Multiple sclerosis Obesity Osteoporosis Schizophrenia Urinary incontinence Home Medications atorvastatin 10 mg tablet 10 mg PO QHS 03/31/16 [History Last Taken 04/04/16] cranberry 400 mg capsule 400 mg PO BID 03/31/16 [History Last Taken 08/13/23] ergocalciferol (vitamin D2) 1,250 mcg (50,000 unit) capsule 50,000 unit PO Q7D 03/31/16 [History Last Taken 08/09/23] fluoxetine 20 mg tablet 80 mg PO DAILY 03/31/16 [History Last Taken 08/13/23] fluticasone propionate 50 mcg/actuation nasal spray,suspension 2 spray NASAL QHS 03/31/16 [History Last Taken 08/12/23] multivitamin 1 ea PO DAILY 03/31/16 [History Last Taken 08/13/23] quetiapine 25 mg tablet 25 mg PO QHS 03/31/16 [History Last Taken 08/13/23] sennosides 8.6 mg tablet 2 tab PO QHS 03/31/16 [History Last Taken 08/12/23] magnesium hydroxide 400 mg/5 mL oral suspension 60 ml PO DAILY PRN PRN Constipation 11/26/16 [History Last Taken Unknown] clonazepam 0.5 mg tablet 0.5 mg PO BID #20 tabs 11/27/16 [Rx Last Taken 08/13/23] acetaminophen 325 mg tablet 1,000 mg PO Q6H PRN Pain Score 1-01/0912/30/18 [History Last Taken 08/13/23] ondansetron HCl 4 mg tablet 4 mg PO Q6H PRN Nausea 12/30/18 [History Last Taken Unknown] calcium carbonate 500 mg-vitamin D3 10 mcg (400 unit) chewable tablet 2 ea PO DAILY 05/06/20 [History Last Taken 08/13/23] dextromethorphan-guaifenesin 10 mg-100 mg/5 mL oral syrup 10 ml PO Q6H PRN Cough 05/06/20 [History Last Taken Unknown] famotidine 40 mg tablet 40 mg PO DAILY 05/06/20 [History Last Taken 08/12/23] loperamide 2 mg capsule 2 mg PO BID PRN Diarrhea 05/06/20 [History Last Taken Unknown] silodosin 8 mg capsule 8 mg PO QHS 05/06/20 [History Last Taken 08/12/23] simethicone 180 mg capsule 180 mg PO 4X/DAY PRN Gas 05/06/20 [History Last Taken Unknown] cranberry conc-vit D-avrnphf-AJU-bromelain 3,875 mg/30 mL oral liquid (UTI-Stat) 30 ml PO DAILY 08/13/23 [History Last Taken 08/13/23] cyclobenzaprine 5 mg tablet 5 mg PO QHS 08/13/23 [History Last Taken 08/12/23] melatonin 3 mg capsule 3 mg PO QHS 08/13/23 [History Last Taken 08/12/23] quetiapine 50 mg tablet (Seroquel) 50 mg PO QHS 08/13/23 [History Last Taken 08/12/23] Allergy/AdvReac Type Severity Reaction Status Date / Time Phenothiazines Allergy Unknown Verified 08/13/23 14:06 prochlorperazine Allergy Unknown Verified 08/13/23 14:06 [From Compazine] Sulfa (Sulfonamide Allergy Unknown Verified 08/13/23 14:06 Antibiotics) Family History Father Heart disease Mother No problems noted. Surgical History History of laparoscopic cholecystectomy (~12/2018) Status post excision of lipoma Social History (Updated 08/13/23 @ 19:[address] Vida Ponce MD) household members: none housing: long-term Smoking Status: Former smoker how long ago did patient quit smoking: Smoked in his youth, short-term from description, unclear daily amount. alcohol intake: never substance use type: does not use ROS ROS Narrative Admission Review of Systems: CONSTITUTIONAL: No weight loss, chills, + fever, weakness or fatigue. HEENT: Eyes: No visual loss, blurred vision, double vision or yellow sclerae. Ears, Nose, Throat: No hearing loss, sneezing, congestion, runny nose or sore throat. SKIN: No rash or itching, lesions, wounds except + notable left lower extremity erythema extending from the mid left calf to the upper thigh extending inwardly medially up toward the groin with increased warmth to touch. CARDIOVASCULAR: No chest pain, chest pressure or chest discomfort, palpitations, edema, orthopnea, syncopal events. RESPIRATORY: No shortness of breath, cough or sputum, wheezing, hemoptysis. GASTROINTESTINAL: No anorexia, nausea, vomiting or diarrhea, abdominal pain, melena, BRBPR. GENITOURINARY: No dysuria, frequency, urgency or retention. NEUROLOGICAL: + Multiple sclerosis with left-sided chronic hemiparesis. No headache, dizziness, syncope, ataxia, change in bowel or bladder control, seizure. MUSCULOSKELETAL: + muscle, back pain, joint pain or stiffness. HEMATOLOGIC: No anemia, bleeding or bruising. LYMPHATICS: No enlarged nodes. No history of splenectomy. PSYCHIATRIC: + History of anxiety and depression. ENDOCRINOLOGIC: No reports of sweating, cold or heat intolerance. No polyuria or polydipsia. ALLERGIES: + History of allergic rhinitis. Vital Signs Vital Signs Vital Signs: 08/13/23 13:59 08/13/23 14:03 08/13/23 14:06 Temperature 98.5 F 98.5 F Temperature Source Oral Oral Pulse Rate 109 H 100 Respiratory Rate 23 H 25 H Respiratory Effort Respiratory Pattern Blood Pressure 151/70 H 151/70 H Blood Pressure Mean 97 97 Pulse Ox 85 88 93 Oxygen Delivery Method Room Air Room Air Nasal Cannula Oxygen Flow Rate (L/min) 2 08/13/23 14:07 08/13/23 14:12 08/13/23 15:11 Temperature 99.0 F Temperature Source Oral Pulse Rate 94 Respiratory Rate 24 H Respiratory Effort Normal Respiratory Pattern Normal Blood Pressure 147/75 H Blood Pressure Mean 99 Pulse Ox 100 98 Oxygen Delivery Method Nasal Cannula Nasal Cannula Oxygen Flow Rate (L/min) 3 3 08/13/23 15:11 08/13/23 16:04 08/13/23 16:04 Temperature 99.0 F 100.1 F H Temperature Source Oral Oral Pulse Rate 94 98 96 Respiratory Rate 24 H 25 H 25 H Respiratory Effort Respiratory Pattern Blood Pressure 147/75 H 140/69 H 140/69 H Blood Pressure Mean 99 92 92 Pulse Ox 97 97 99 Oxygen Delivery Method Nasal Cannula Nasal Cannula Nasal Cannula Oxygen Flow Rate (L/min) 3 3 2 Weight Weight: 234 lb 12.677 oz Body Mass Index (BMI) 31.8 Physical Exam Narrative Physical Examination: General: Awake, alert, oriented x 3 and cooperative, seated upright in the ED bed in no apparent distress, fatigued appearing, hard of hearing. Skin: Normal color, normal turgor, no icterus, no cyanosis. HEENT: AT/NC, EOMI, PERRLA, mildly dry MM, no carotid bruits or JVD noted; however, thickened neck makes evaluation difficult. Lungs: Diminished, distant, mildly increased RR but no distress, no appreciated rales, ronchi or wheezing. Heart: Mildly tachycardic with regular rhythm; no gallop, rub audible. Abdomen: Soft, obese, NTTP,, distant mildly hyperactive BS, no appreciated marked distention or HSM; however, habitus makes evaluation difficult. Extremities: No cyanosis, no clubbing, mild BL ankle not marked pitting edema, see skin, LUE wrist/arm brace in place for contracture prevention. Neurological: Patient awake, alert, oriented as noted, cognitive function intact; pupils equally reactive to light and accommodation, cranial nerves grossly normal, chronic L sided hemiparesis with underlying MS, strength severely globally decreased secondary to acute presentation and underlying comorbidities. Psychiatric: Affect appears fatigued otherwise normal, no acute evidence of depressive or anxiety feelings. Results Lab / Micro Data 08/13/23 14:15 08/13/23 14:15 Labs: Laboratory Results - last 24 hr 08/13/23 14:15: WBC 21.6 H, RBC 4.60, Hgb 14.1, Hct 44.1, MCV 95.9 H, MCH 30.7, MCHC 32.0, RDW Std Deviation 42.9, RDW Coeff of Shawn 12.2, Plt Count 335, MPV 9.5, Immature Gran % (Auto) 0.800, Neut % (Auto) 83.4 H, Lymph % (Auto) 9.8 L, [place] % (Auto) 5.8, Eos % (Auto) 0.0, Baso % (Auto) 0.2, Absolute Neuts (auto) 18.0 H, Absolute Lymphs (auto) 2.12, Nucleated RBC % 0, PT 14.9, INR 1.2, APTT 32.1, Sodium 130 L, Potassium 4.1, Chloride 97 L, Carbon Dioxide 26.0, Anion Gap 7, BUN 11, Creatinine 0.93, Estim Creat Clear Calc 83.89, Est GFR (MDRD) Af Amer 101, Est GFR (MDRD) Non-Af 83, BUN/Creatinine Ratio 11.8, Glucose 126 H, Lactic Acid 1.9, Calcium 8.9, Total Bilirubin 1.10 H, AST 22, ALT 31, Alkaline Phosphatase 96, Troponin I High Sens 10, Total Protein 7.7, Albumin 3.2, Globulin 4.5 H, Albumin/Globulin Ratio 0.7 L 08/13/23 15:10: Urine Color Yellow, Urine Clarity Cloudy, Urine pH 8.0, Ur Specific [place] 1.015, Urine Protein 30 H, Urine Glucose (UA) Normal, Urine Ketones Negative, Urine Occult Blood 50 H, Urine Nitrite Positive H, Urine Bilirubin Negative, Urine Urobilinogen Normal, Ur Leukocyte Esterase 500 H, Urine RBC 0-5 SEEN, Urine WBC 25-50 SEEN, Ur Squamous Epith Cells 0 SEEN, Urine Bacteria 3+, Urine Mucus 0 SEEN Micro: Microbiology 08/13/23 14:25 Mucosa - Nasopharyngeal SARS-CoV-2, Influenza & RSV (PCR) - Final Imaging Radiology Impression Chest X-Ray 08/13/23 14:45 IMPRESSION: No acute thoracic pathology. Electronically Signed: Bj Arzola MD at 15:06 EDT Reading Location ID and State: [facility] / [place] Tel , Service support , Assessment & Plan Assessment/Plan (1) Cellulitis: (2) UTI (urinary tract infection): PLAN: Plan The patient is a 78 y/o M w/ PMHx: HTN, HLD, BPH, Anxiety and Depression/Schizophrenia, Multiple sclerosis with L sided hemiparalysis, Obesity who presents to the [facility] ED on 08/13/23 with history of fever at his skilled facility with strong foul-smelling urine with elevated temperature with confusion and fatigue and body aches reported prompting transition to the ED for evaluation with reported foul-smelling urine and upon ED arrival noted left lower extremity erythema from mid thigh to mid calf region with increased warmth to touch. #1. Acute Complicated Urinary Tract Infection and Acute LLE Cellulitis w/ Hx MRSA: Will admit to [facility] U[facility] upon ED evaluation remarkable, pending UCx, continue IVFs, monitor I/Os, continue IV Rocephin and given MRSA history will also cover with IV Vanc but de-escalate if able w/ transition as able pending sensitivities and speciation, continue affected extremity elevation above heart when seated and in bed, monitor erythema outline with VS checks, will obtain LLE duplex US to assure no DVT concurrently. Bld cx x 2 obtained in the ED. PT/OT/CM consultation for discharge planning. #2. Anxiety depression/schizophrenia unclear specific type: We will continue patient home clonazepam, fluoxetine, Seroquel home regimen however will hold for sedation as needed. #3. Multiple sclerosis w/ chronic L sided hemiparesis: Complicates presentation, will cautiously continue nightly cyclobenzaprine but hold for sedation and also continue scheduled clonazepam, offloading, PT/OT/case management consulted for discharge planning. #4. Hypertension: Noted history however per current list does not appear to be on regimen, clarifying will add if appropriate, as needed IV hydralazine in interim. #5. Hyperlipidemia: We will continue patient low-dose statin therapy. #6. Allergic rhinitis: We will continue patient home fluticasone regimen. #7. Obesity: Weight loss and lifestyle changes encouraged. #8. GERD: We will continue patient home famotidine regimen. #9. DVT prophylaxis: Lovenox. #10. CODE status: Patient CARMEN is his who is present and living will is currently in place. Discussed CODE status at length including difference between FULL code, DNR-CCA and DNR-CC status. Following discussions about the differences in these status, requested DNR-CCA, no intubation status but she notes willingness to utilize central line and pressor therapy if needed. Advanced Care Planning Face to Face Time: 16 minutes. Charges/Coding Visit Charges Inpatient E&M: 84272 Init Hosp L3 Procedures Hospitalists Procedures: 59819 Advncd Care Plan 30 Min
[2023-08-13] MEDS: Vancomycin HCl 1,500 MG in 0.9% Normal Saline (500mL Bag) 500 ML 250 MG IV (16:55)
--- NOTE | 2023-08-13 18:01 | VDLE_ITS ---
Reason For Study: swelling Procedure LEFT This is a venous duplex using B-mode, color GSV is normal. flow and spectral Doppler. CFV is compressible, spontaneous, phasic, Exam performed portable in patient room. competent, and demonstrates normal The exam was abbreviated due to the COVID 19 augmentation. protocol. FV is compressible, spontaneous, phasic, The exam was of fair technical quality due competent and demonstrates normal to pt positioning. augmentation. A preliminary report was called and/or faxed POP V is compressible, spontaneous, phasic, to MS3 charge entry clerk. competent and demonstrates normal augmentation. T/P Trunk is compressible. PTV is compressible. LT PerV is compressible. VL/Venous Duplex US, Unilateral Interpretation Summary Deep veins of the left lower extremity are patent and compressible segmentally. There is no evidence of left lower extremity deep vein thrombosis. The left great saphenous vein satish ears patent and compressible segmentally. Ordering Physician: Vida Ponce Performed By: Josep Posadas RVT
[2023-08-13 18:09] LABS: Reflex Troponin-HS? (from REC) Y
[2023-08-13 18:50] LABS: Troponin-I HS 12 pg/mL (3.0-78.0)
[2023-08-13] MEDS: 0.9% Saline Lock 10 ML Syringe IV (21:11)
[2023-08-13] MEDS: 0.9% Normal Saline (1000mL) 1,000 ML 100 ML IV (21:11)
--- NOTE | 2023-08-13 22:09 | PCM.RX.CS ---
Consult Antibiotic Management Pharmacy has been consulted to manage selected antibiotic: Vancomycin Type of Intervention Type of Consult: New start Suspected Infection Suspected Infection: Skin/Soft tissue Labs Labs: Sodium 130 mmol/L (136-145) L 08/13/23 14:15 Potassium 4.1 mmol/L (3.5-5.1) 08/13/23 14:15 Chloride 97 mmol/L (98-107) L 08/13/23 14:15 Carbon Dioxide 26.0 mmol/L (21.0-32.0) 08/13/23 14:15 Anion Gap 7 (5-15) 08/13/23 14:15 BUN 11 mg/dL (7-18) 08/13/23 14:15 Creatinine 0.93 mg/dL (0.70-1.30) 08/13/23 14:15 Est GFR (MDRD) Af Amer 101 mL/min (>60) 08/13/23 14:15 Est GFR (MDRD) Non-Af 83 mL/min (>60) 08/13/23 14:15 BUN/Creatinine Ratio 11.8 RATIO (10-20) 08/13/23 14:15 Glucose 126 mg/dL (74-106) H 08/13/23 14:15 Microbiology Microbiology: Microbiology 08/13/23 14:25 Mucosa - Nasopharyngeal SARS-CoV-2, Influenza & RSV (PCR) - Final Dosing Weight Weight used for dosin.7 kg Estimated Creatinine Clearance Estimated Creatinine Clearance: 76.9 Goal Trough Goal Trough: 15-20 mcg/mL Pharmacy Plan for Drug Dosing Pharmacy Plan for Drug Dosing: NEW START IV VANCOMYCIN Consulting Physician: Dr. Ponce Indication: LLE cellulitis (hx of MRSA) Goal Trough: 15-20 SrCr: 0.93 CrCl: 76.9 ml/min (AdjBW 81.7 kg) Comments: Received initial dose Vancomycin 1500mg x1 @ 16:55 08/13/23 Vancomycin Dose: Vancomycin 1250mg Q12H to start at 05:00 08/14/23 Pending Level: Vancomycin trough @ 04:30 08/15/23 Pharmacy Service will continue to monitor and adjust dosing as required. Follow-Up Labs Follow-Up Labs: Trough: Vancomycin (04:30 08/15/23)
[2023-08-13] MEDS: Menthol/Lanolin/Calamine/Znox 113 GM Tube 1 APPLIC TOPICAL (22:19)
[2023-08-13] MEDS: Nystatin Powder 15gm Bottle 1 APPLIC TOPICAL (22:19)
[2023-08-13] MEDS: Fluticasone 0.05% 1 SPRAY NASAL.SRY 2 SPRAY NASAL (22:20)
[2023-08-13] MEDS: cycloBENZAPRine HCl 5 MG TABLET PO (22:23)
[2023-08-13] MEDS: MELATONIN 3 MG TABLET PO (22:23)
[2023-08-13] MEDS: Atorvastatin Calcium 10 MG Tablet PO (22:23)
[2023-08-13] MEDS: clonazePAM 0.5 MG Tablet PO (22:23)
[2023-08-13] MEDS: Senna Tablet 2 TABLET PO (22:24)
[2023-08-13] MEDS: QUEtiapine 25 MG Tablet 75 MG PO (22:24)
[2023-08-13 23:32] LABS: M R Staph aureus DNA By PCR Negative (Negative); Probe Check PASS; Specimen Processing Control PASS
[2023-08-14 00:02] VITALS: BP 109/53; PULSE 74; RESP 18; TEMP 36.8; O2SAT 95
[2023-08-14 05:26] VITALS: BMI 34.0
[2023-08-14] MEDS: Vancomycin HCl 1,250 MG in 0.9% Normal Saline (250mL Bag) 250 ML 167 MG IV ×2 (05:29→17:47)
[2023-08-14 05:51] VITALS: BP 116/55; PULSE 67; RESP 18; TEMP 36.4; O2SAT 97
[2023-08-14 07:18] LABS: Absolute Lymphocyte Count 2.34 X10^3/uL (0.83-4.51); Absolute Neutrophil Count 9.5 X10^3/uL (2.0-7.7); Basophil# 0.04 X10^3/uL; Basophil% 0.3 % (0-1); Eosinophil# 0.06 X10^3/uL; Eosinophils% 0.5 % (0-5); Hematocrit 40.8 % (40-54); Hemoglobin 12.8 g/dL (13.0-16.5); Lymphocyte # 2.34 X10^3/ul (0.83-4.51); Lymphocyte % 17.6 % (19-41); Mean Corp Hgb Conc 31.4 g/dL (32-36); Mean Corpuscular Hgb 31.2 pg (27.0-32.0); Mean Corpuscular Volume 99.5 fL (80-94); Mean Platelet Vol. 9.4 fl (6.2-12.0); Monocyte# 1.29 X10^3/uL; Monocyte% 9.7 % (0-10); NRBC Flagged by Analyzer 0 % (0-5); Neutrophil # 9.54 X10^3/uL (2.7-7.7); Neutrophil % 71.4 % (47-70); Platelet Count 229 K/mm3 (150-450); RBC Distribution Width CV 12.4 % (11.6-14.6); RBC Distribution Width SD 45.6 fl (35.1-43.9); White Blood Count 13.3 K/mm3 (4.4-11.0)
[2023-08-14 07:35] VITALS: O2SAT 94
[2023-08-14 07:50] LABS: ALB/GLOB Ratio 0.8 RATIO (0.9-2.4); AST(SGOT) 28 U/L (15-37); Alanine Aminotransfer ALT/SGPT 30 U/L (16-61); Albumin, Serum 2.5 g/dL (3.2-5.0); Alkaline Phosphatase 80 U/L (45-117); Anion Gap 9 (5-15); BUN 15 mg/dL (7-18); BUN/Creat Ratio 19.1 RATIO (10-20); Calcium,Total 7.8 mg/dL (8.5-10.1); Chloride 101 mmol/L (98-107); Creatinine, Serum 0.78 mg/dL (0.70-1.30); EST Glomerular Filtration Rate 102 mL/min (>60); Est Glom Filt Rate - Afr Amer 123 mL/min (>60); Estimated Creatinine Clearance 89.38 ml/min; Globulin 3.2 g/dL (2.2-4.2); Glucose 102 mg/dL (74-106); Potassium 4.1 mmol/L (3.5-5.1); Protein, Total 5.7 g/dL (6.4-8.2); Sodium Level 130 mmol/L (136-145)
[2023-08-14 08:32] VITALS: BP 114/62; PULSE 78; RESP 18; TEMP 36.6; O2SAT 96
[2023-08-14] MEDS: 0.9% Normal Saline (1000mL) 1,000 ML 100 ML IV (08:36)
[2023-08-14] MEDS: Famotidine 20 MG Tablet 40 MG PO (08:38)
[2023-08-14] MEDS: Tamsulosin HCl 0.4 MG Capsule 0.8 MG PO (08:38)
[2023-08-14] MEDS: clonazePAM 0.5 MG Tablet PO ×2 (08:38→21:02)
[2023-08-14] MEDS: Menthol/Lanolin/Calamine/Znox 113 GM Tube 1 APPLIC TOPICAL (08:39)
[2023-08-14] MEDS: Fluoxetine HCl 40 MG CAPSULE 80 MG PO (08:39)
[2023-08-14] MEDS: Nystatin Powder 15gm Bottle 1 APPLIC TOPICAL ×2 (08:39→21:03)
[2023-08-14] MEDS: Ceftriaxone 1 GM/50 ML BAG IV (09:38)
[2023-08-14] MEDS: Enoxaparin 40 MG/0.4 ML Syringe SC (09:39)
--- NOTE | 2023-08-14 10:12 | PCM.PN.HOSP ---
Reason for Visit Reason for Visit: Diagnoses Cellulitis, unspecified (08/13/23) Urinary tract infection, site not specified (08/13/23) Objective Data Objective Data Vital Signs: Vital Signs Temp Pulse Resp BP Pulse Ox O2 Del Method O2 Flow Rate 97.8 F 78 18 114/62 96 Room Air 2 08/14/23 08:32 08/14/23 08:32 08/14/23 08:32 08/14/23 08:32 08/14/23 08:32 08/14/23 08:32 08/13/23 22:30 Oxygen Flow Rate (L/min) 2 Oxygen Delivery Method Room Air Weight: 224 lb 3.362 oz Body Mass Index (BMI) 34.0 Intake & Output: Intake and Output for Last 24 Hours 08/12/23 08/13/23 08/14/23 23:59 23:59 23:59 Intake Total 980.5 / 980.5 1415.00 / 1415.00 Output Total 400 / 400 Balance 580.5 / 580.5 1415.00 / 1415.00 Lab / Micro Data 08/14/23 06:40 08/14/23 06:40 Labs: Laboratory Results - last 24 hr 08/13/23 14:15: WBC 21.6 H, RBC 4.60, Hgb 14.1, Hct 44.1, MCV 95.9 H, MCH 30.7, MCHC 32.0, RDW Std Deviation 42.9, RDW Coeff of Shawn 12.2, Plt Count 335, MPV 9.5, Immature Gran % (Auto) 0.800, Neut % (Auto) 83.4 H, Lymph % (Auto) 9.8 L, [place] % (Auto) 5.8, Eos % (Auto) 0.0, Baso % (Auto) 0.2, Absolute Neuts (auto) 18.0 H, Absolute Lymphs (auto) 2.12, Nucleated RBC % 0, PT 14.9, INR 1.2, APTT 32.1, Sodium 130 L, Potassium 4.1, Chloride 97 L, Carbon Dioxide 26.0, Anion Gap 7, BUN 11, Creatinine 0.93, Estim Creat Clear Calc 83.89, Est GFR (MDRD) Af Amer 101, Est GFR (MDRD) Non-Af 83, BUN/Creatinine Ratio 11.8, Glucose 126 H, Lactic Acid 1.9, Calcium 8.9, Total Bilirubin 1.10 H, AST 22, ALT 31, Alkaline Phosphatase 96, Troponin I High Sens 10, Total Protein 7.7, Albumin 3.2, Globulin 4.5 H, Albumin/Globulin Ratio 0.7 L 08/13/23 15:10: Urine Color Yellow, Urine Clarity Cloudy, Urine pH 8.0, Ur Specific [place] 1.015, Urine Protein 30 H, Urine Glucose (UA) Normal, Urine Ketones Negative, Urine Occult Blood 50 H, Urine Nitrite Positive H, Urine Bilirubin Negative, Urine Urobilinogen Normal, Ur Leukocyte Esterase 500 H, Urine RBC 0-5 SEEN, Urine WBC 25-50 SEEN, Ur Squamous Epith Cells 0 SEEN, Urine Bacteria 3+, Urine Mucus 0 SEEN 08/13/23 18:24: Troponin I High Sens 12 08/13/23 21:15: MRSA (PCR) Negative 08/14/23 06:40: WBC 13.3 H, RBC 4.10 L, Hgb 12.8 L, Hct 40.8, MCV 99.5 H, MCH 31.2, MCHC 31.4 L, RDW Std Deviation 45.6 H, RDW Coeff of Shawn 12.4, Plt Count 229, MPV 9.4, Immature Gran % (Auto) 0.500, Neut % (Auto) 71.4 H, Lymph % (Auto) 17.6 L, [place] % (Auto) 9.7, Eos % (Auto) 0.5, Baso % (Auto) 0.3, Absolute Neuts (auto) 9.5 H, Absolute Lymphs (auto) 2.34, Nucleated RBC % 0, Sodium 130 L, Potassium 4.1, Chloride 101, Carbon Dioxide 20.0 L, Anion Gap 9, BUN 15, Creatinine 0.78, Estim Creat Clear Calc 89.38, Est GFR (MDRD) Af Amer 123, Est GFR (MDRD) Non-Af 102, BUN/Creatinine Ratio 19.1, Glucose 102, Calcium 7.8 L, Total Bilirubin 1.00, AST 28, ALT 30, Alkaline Phosphatase 80, Total Protein 5.7 L, Albumin 2.5 L, Globulin 3.2, Albumin/Globulin Ratio 0.8 L Micro: Microbiology 08/13/23 15:10 Urine, Catheterized Urine Culture - Preliminary Staphylococcus aureus 08/13/23 14:25 Mucosa - Nasopharyngeal SARS-CoV-2, Influenza & RSV (PCR) - Final Radiography Diagnostic Testing: Radiology Impression Chest X-Ray 08/13/23 14:45 IMPRESSION: No acute thoracic pathology. Electronically Signed: Bj Arzola MD at 15:06 EDT , Physical Exam Narrative Seen and examined. Patient has history of MS and schizophrenia. residential resident.. History of MRSA infection in the past. Wheelchair-bound. Admitted from detention for fever. Temperature 99.1 ?F. On multiple asking patient said he does not have burning micturition. He is urinary incontinent Physical exam General: Alert, Oriented x3, Cooperative HEENT: Atraumatic, PERRLA, EOMI, Normocephalic Oral: No Gingival or Mucosal Lesions/ Ulcerations Neck: Supple, No JVD, Negative Carotid Bruits Chest wall/Lungs: Air entry diminished in bilateral lung bases. No crepitation/rhonchi Cardiovascular: Regular rate, Regular Rhythm, Normal S1, Normal S2, No M/G/R Abdomen: Bowel Sounds Present, Soft, Non Tender, Non-Distended : Pure wick catheter. no dysuria. No renal angle tenderness. No suprapubic tenderness. Extremities: No edema, Capillary Refill Less than 3 Seconds Skin: Erythema and redness to the left thigh with mild tenderness and induration. Consistent with cellulitis. Musculoskeletal: No Tenderness to Palpation of Joints or Extremities Neurological: Cranial nerves II-XII grossly intact, DTR 2+/4. No acute focal neurological deficit. Psych/Mental Status: Normal Affect, Appropriate. Assessment & Plan Assessment/Plan (1) Cellulitis: (2) UTI (urinary tract infection): PLAN: Plan The patient is a 78 y/o M was admitted on 08/13/23 with history of fever at his skilled facility with strong foul-smelling urine with elevated temperature with confusion and fatigue and body aches #1. Acute Complicated Urinary Tract Infection and Acute LLE Cellulitis w/ Hx MRSA: Admitted to MedSurg floor. On IV antibiotic. Vancomycin and ceftriaxone. Improvement in the left upper thigh cellulitis. Venous duplex negative for DVT. Prelim urine culture shows Staph aureus. PT/OT/CM consultation for discharge planning. #2. Anxiety depression/schizophrenia unclear specific type: continue patient home clonazepam, fluoxetine, Seroquel home regimen however will hold for sedation as needed. #3. Multiple sclerosis w/ chronic L sided hemiparesis: Wheelchair-bound. Has not walked for many years. PT and OT and nursing care #4. Hypertension: Noted history however per current list does not appear to be on regimen, clarifying will add if appropriate, as needed IV hydralazine in interim. #5. Hyperlipidemia: We will continue patient low-dose statin therapy. #6. Allergic rhinitis: We will continue patient home fluticasone regimen. #7. Obesity: Weight loss and lifestyle changes encouraged. #8. GERD: We will continue patient home famotidine regimen. #9. DVT prophylaxis: Lovenox. #10. CODE status: Patient CARMEN is his who is present and living will is currently in place. Discussed CODE status at length including difference between FULL code, DNR-CCA and DNR-CC status. Following discussions about the differences in these status, requested DNR-CCA, no intubation status but she notes willingness to utilize central line and pressor therapy if needed. Charges/Coding Visit Charges Inpatient E&M: 07535 Subs Hosp L2
--- NOTE | 2023-08-14 11:07 | CASEMGMT ---
Social Work- SW called and left a message for pt regarding d/c plans. ZOIE Lanza
--- NOTE | 2023-08-14 11:46 | CASEMGMT ---
Social Work- SW spoke with pt who states the intent is for pt to return to [facility] upon d/c. ZOIE Lanza
--- NOTE | 2023-08-14 11:52 | CASEMGMT ---
Discharge Planning Updates sent via [facility] to [facility]. Princess Reddy DC Planning Asst.
[2023-08-14 13:56] VITALS: BP 120/60; PULSE 84; RESP 18; TEMP 36.6; O2SAT 97
[2023-08-14] MEDS: 0.9% Saline Lock 10 ML Syringe IV ×2 (15:00→17:53)
--- NOTE | 2023-08-14 15:28 | CHAPLAIN ---
Type of Pastoral Visit _x__ Initial Visit ___ Follow-up Visit ___ On-call Visit ___ General Patient Visit ___ Spiritual Assessment ___ Family Conference ___ Bereavement ___ Rapid Response ___ Code Blue ___ Other (describe below) Pastoral Care Referral From _x__ Patient ___ Family ___ Nurse ___ Physician ___ Risk Compliance Analyst ___ Core Analyst ___ Other (describe below) Sacrament/Intervention _x__ Active listening ___ Anointing ___ Congregational ___ Bereavement ___ Communion _x__ Savanna exploration ___ _x__ Life review _x__ Prayer ___ Reconciliation ___ Sacrament of Sick _x__ Supportive presence ___ Wedding ___ Other (describe below) Pastoral Comments patient is welcoming and expressive gratitude for having a line up examiner and someone to talk with during his admission; pt gives some life review and expresses his savanna journey; pt has had limited physical abilities but is grateful for support and care at this hospital; pt wants prayer and presence of line up examiner
[2023-08-14] MEDS: Ondansetron 4 MG/2 ML Vial IV (17:53)
[2023-08-14] MEDS: SimETHICONE 80 MG Chewable Tablet PO (17:53)
[2023-08-14 20:54] VITALS: BP 147/83; PULSE 93; RESP 20; TEMP 37.1; O2SAT 96
[2023-08-14] MEDS: Fluticasone 0.05% 1 SPRAY NASAL.SRY 2 SPRAY NASAL (21:02)
[2023-08-14] MEDS: cycloBENZAPRine HCl 5 MG TABLET PO (21:02)
[2023-08-14] MEDS: MELATONIN 3 MG TABLET PO (21:03)
[2023-08-14] MEDS: Senna Tablet 2 TABLET PO (21:03)
[2023-08-14] MEDS: Atorvastatin Calcium 10 MG Tablet PO (21:03)
[2023-08-14] MEDS: QUEtiapine 25 MG Tablet 75 MG PO (21:04)
[2023-08-14 22:35] VITALS: BMI 34.3
[2023-08-15 03:45] VITALS: BP 117/67; PULSE 91; RESP 18; TEMP 36.6; O2SAT 97
[2023-08-15 05:33] LABS: Vancomycin, Trough Level 12.6 ug/mL (5.0-15.0)
[2023-08-15] MEDS: Vancomycin HCl 1,500 MG in 0.9% Normal Saline (500mL Bag) 500 ML 250 MG IV ×2 (05:55→17:37)
--- NOTE | 2023-08-15 06:06 | PCM.RX.CS ---
Consult Antibiotic Management Pharmacy has been consulted to manage selected antibiotic: Vancomycin Type of Intervention Type of Consult: Follow-up Suspected Infection Suspected Infection: Skin/Soft tissue Labs Labs: Sodium 130 mmol/L (136-145) L 08/14/23 06:40 Potassium 4.1 mmol/L (3.5-5.1) 08/14/23 06:40 Chloride 101 mmol/L (98-107) 08/14/23 06:40 Carbon Dioxide 20.0 mmol/L (21.0-32.0) L 08/14/23 06:40 Anion Gap 9 (5-15) 08/14/23 06:40 BUN 15 mg/dL (7-18) 08/14/23 06:40 Creatinine 0.78 mg/dL (0.70-1.30) 08/14/23 06:40 Est GFR (MDRD) Af Amer 123 mL/min (>60) 08/14/23 06:40 Est GFR (MDRD) Non-Af 102 mL/min (>60) 08/14/23 06:40 BUN/Creatinine Ratio 19.1 RATIO (10-20) 08/14/23 06:40 Glucose 102 mg/dL (74-106) 08/14/23 06:40 Vancomycin Trough 12.6 ug/mL (5.0-15.0) 08/15/23 04:38 Microbiology Microbiology: Microbiology 08/13/23 15:10 Urine, Catheterized Urine Culture - Preliminary Staphylococcus aureus 08/13/23 14:25 Mucosa - Nasopharyngeal SARS-CoV-2, Influenza & RSV (PCR) - Final Goal Trough Goal Trough: 15-20 mcg/mL Pharmacy Plan for Drug Dosing Pharmacy Plan for Drug Dosing: VANCOMYCIN LEVEL RECEIVED Current Vancomycin Dose: Vancomycin 1250mg Q12H Number of Doses Received: 1250mg x2, 1500mg x1 Vancomycin Level: 12.6 Hours Since Last Dose: 10.5 Renal Function: sCr 0.78 Renal Function Trend: stable Vancomycin Plan/Comments: Increase Vancomycin dosing regimen to 1500mg Q12H Pending Level: Vancomycin trough @ 1730 08/16/23 Pharmacy Service will continue to monitor and adjust dosing as required.
[2023-08-15 06:58] VITALS: O2SAT 95
[2023-08-15 08:24] VITALS: BP 118/63; PULSE 89; RESP 18; TEMP 37.3; O2SAT 95
[2023-08-15] MEDS: Ceftriaxone 1 GM/50 ML BAG IV (09:52)
[2023-08-15] MEDS: Fluoxetine HCl 40 MG CAPSULE 80 MG PO (09:53)
[2023-08-15] MEDS: Famotidine 20 MG Tablet 40 MG PO (09:53)
[2023-08-15] MEDS: Menthol/Lanolin/Calamine/Znox 113 GM Tube 1 APPLIC TOPICAL ×2 (09:53→22:30)
[2023-08-15] MEDS: Nystatin Powder 15gm Bottle 1 APPLIC TOPICAL ×2 (09:54→22:30)
[2023-08-15] MEDS: Enoxaparin 40 MG/0.4 ML Syringe SC (09:54)
[2023-08-15] MEDS: Tamsulosin HCl 0.4 MG Capsule 0.8 MG PO (09:54)
[2023-08-15] MEDS: clonazePAM 0.5 MG Tablet PO ×2 (09:55→22:38)
[2023-08-15 14:42] VITALS: BP 117/65; PULSE 73; RESP 18; TEMP 36.9; O2SAT 95
--- NOTE | 2023-08-15 15:18 | PCM.PN.HOSP ---
Reason for Visit Reason for Visit: Diagnoses Cellulitis, unspecified (08/13/23) Urinary tract infection, site not specified (08/13/23) Objective Data Objective Data Vital Signs: Vital Signs Temp Pulse Resp BP Pulse Ox O2 Del Method O2 Flow Rate 98.4 F 73 18 117/65 95 Room Air 2 08/15/23 14:42 08/15/23 14:42 08/15/23 14:42 08/15/23 14:42 08/15/23 14:42 08/15/23 14:42 08/13/23 22:30 Oxygen Flow Rate (L/min) 2 Oxygen Delivery Method Room Air Weight: 226 lb 10.163 oz Body Mass Index (BMI) 34.3 Intake & Output: Intake and Output for Last 24 Hours 08/13/23 08/14/23 08/15/23 23:59 23:59 23:59 Intake Total 980.5 / 980.5 2211.67 / 2211.67 940 / 940 Output Total 400 / 400 1550 / 1550 1050 / 1050 Balance 580.5 / 580.5 661.67 / 661.67 -110 / -110 Lab / Micro Data 08/14/23 06:40 08/14/23 06:40 Labs: Laboratory Results - last 24 hr 08/15/23 04:38: Vancomycin Trough 12.6 Micro: Microbiology 08/13/23 14:30 Blood Culture (Wb) - Arm Left Blood Culture - Preliminary No growth in 48 hours. 08/13/23 14:15 Blood Culture (Wb) - Arm Right Blood Culture - Preliminary No growth in 48 hours. 08/13/23 15:10 Urine, Catheterized Urine Culture - Preliminary Staphylococcus species 08/13/23 14:25 Mucosa - Nasopharyngeal SARS-CoV-2, Influenza & RSV (PCR) - Final Physical Exam Narrative Seen and examined. present in the room. No fever. Redness pain is better. As per patient's , patient does not have indwelling Quigley catheter in shelter. Denies burning micturition. Patient has history of MS and schizophrenia. [facility] resident. History of MRSA infection in the past. Wheelchair-bound. Patient was admitted from shelter for fever. Temperature 99.1 ?F. Physical exam General: Alert, Oriented x3, Cooperative HEENT: Atraumatic, PERRLA, EOMI, Normocephalic Oral: No Gingival or Mucosal Lesions/ Ulcerations Neck: Supple, No JVD, Negative Carotid Bruits Chest wall/Lungs: Air entry diminished in bilateral lung bases. No crepitation/rhonchi Cardiovascular: Regular rate, Regular Rhythm, Normal S1, Normal S2, No M/G/R Abdomen: Bowel Sounds Present, Soft, Non Tender, Non-Distended : Pure wick catheter. no dysuria. No renal angle tenderness. No suprapubic tenderness. Extremities: No edema, Capillary Refill Less than 3 Seconds Skin: erythema over left thigh with mild tenderness and induration improving. Consistent with cellulitis. Musculoskeletal: No Tenderness to Palpation of Joints or Extremities Neurological: Cranial nerves II-XII grossly intact, DTR 2+/4. No acute focal neurological deficit. Psych/Mental Status: Normal Affect, Appropriate. Assessment & Plan Assessment/Plan (1) Cellulitis: (2) UTI (urinary tract infection): PLAN: Plan The patient is a 78 y/o M was admitted on 08/13/23 with history of fever at his skilled facility with strong foul-smelling urine with elevated temperature with confusion and fatigue and body aches #1. Acute Complicated Urinary Tract Infection and Acute LLE Cellulitis w/ Hx MRSA: Admitted to MedSurg floor. On IV antibiotic. Vancomycin and ceftriaxone. Improvement in the left upper thigh cellulitis. Venous duplex negative for DVT. Prelim urine culture shows Staph aureus. PT/OT/CM consultation for discharge planning. 08/14: Blood culture negative for 48 hours. Preliminary catheterized urine shows Staph species more than 100,000 colonies. Full culture sensitive pending. IV ceftriaxone changed to cefazolin. #2. Anxiety depression/schizophrenia unclear specific type: continue patient home clonazepam, fluoxetine, Seroquel home regimen however will hold for sedation as needed. #3. Multiple sclerosis w/ chronic L sided hemiparesis: Wheelchair-bound. Has not walked for many years. PT and OT and nursing care #4. Hypertension: Noted history however per current list does not appear to be on regimen, clarifying will add if appropriate, as needed IV hydralazine in interim. #5. Hyperlipidemia: We will continue patient low-dose statin therapy. #6. Allergic rhinitis: We will continue patient home fluticasone regimen. #7. Obesity: Weight loss and lifestyle changes encouraged. #8. GERD: We will continue patient home famotidine regimen. #9. DVT prophylaxis: Lovenox. #10. CODE status: Patient CARMEN is his who is present and living will is currently in place. Discussed CODE status at length including difference between FULL code, DNR-CCA and DNR-CC status. Following discussions about the differences in these status, requested DNR-CCA, no intubation status but she notes willingness to utilize central line and pressor therapy if needed. Microbiology Past 72 Hours 08/13/23 14:30 Blood Culture (Wb) - Arm Left Blood Culture - Preliminary No growth in 48 hours. 08/13/23 14:15 Blood Culture (Wb) - Arm Right Blood Culture - Preliminary No growth in 48 hours. 08/13/23 15:10 Urine, Catheterized Urine Culture - Preliminary Staphylococcus species 08/13/23 14:25 Mucosa - Nasopharyngeal SARS-CoV-2, Influenza & RSV (PCR) - Final Laboratory Results 08/15/23 04:38: Vancomycin Trough 12.6 Charges/Coding Visit Charges Inpatient E&M: 07518 Subs Hosp L2
[2023-08-15] MEDS: Cefazolin 1 GM/50 ML BAG IV ×2 (16:48→22:43)
[2023-08-15] MEDS: 0.9% Saline Lock 10 ML Syringe IV (16:48)
[2023-08-15 22:30] VITALS: BP 131/77; PULSE 77; RESP 18; TEMP 37.2; O2SAT 96
[2023-08-15] MEDS: cycloBENZAPRine HCl 5 MG TABLET PO (22:31)
[2023-08-15] MEDS: MELATONIN 3 MG TABLET PO (22:32)
[2023-08-15] MEDS: Atorvastatin Calcium 10 MG Tablet PO (22:32)
[2023-08-15] MEDS: Senna Tablet 2 TABLET PO (22:32)
[2023-08-15] MEDS: QUEtiapine 25 MG Tablet 75 MG PO (22:34)
[2023-08-15] MEDS: Fluticasone 0.05% 1 SPRAY NASAL.SRY 2 SPRAY NASAL (22:39)
[2023-08-15 23:48] VITALS: BMI 36.0
[2023-08-16 04:00] VITALS: BP 140/75; PULSE 70; RESP 18; TEMP 37; O2SAT 95
[2023-08-16] MEDS: Cefazolin 1 GM/50 ML BAG IV (05:04)
[2023-08-16] MEDS: Vancomycin HCl 1,500 MG in 0.9% Normal Saline (500mL Bag) 500 ML 250 MG IV (05:47)
[2023-08-16 07:56] LABS: Absolute Lymphocyte Count 3.69 X10^3/uL (0.83-4.51); Absolute Neutrophil Count 5.3 X10^3/uL (2.0-7.7); Basophil# 0.02 X10^3/uL; Basophil% 0.2 % (0-1); Eosinophil# 0.25 X10^3/uL; Eosinophils% 2.4 % (0-5); Hematocrit 33.7 % (40-54); Lymphocyte # 3.69 X10^3/ul (0.83-4.51); Mean Corp Hgb Conc 32.6 g/dL (32-36); Mean Corpuscular Hgb 31.5 pg (27.0-32.0); Mean Corpuscular Volume 96.6 fL (80-94); Mean Platelet Vol. 9.9 fl (6.2-12.0); Monocyte# 0.93 X10^3/uL; Monocyte% 9.1 % (0-10); NRBC Flagged by Analyzer 0 % (0-5); Neutrophil # 5.33 X10^3/uL (2.7-7.7); Neutrophil % 51.9 % (47-70); Platelet Count 260 K/mm3 (150-450); RBC Distribution Width CV 12.4 % (11.6-14.6); RBC Distribution Width SD 44.1 fl (35.1-43.9); Red Blood Count 3.49 M/mm3 (4.6-6.2); White Blood Count 10.3 K/mm3 (4.4-11.0)
[2023-08-16 08:23] LABS: Anion Gap 5 (5-15); BUN 11 mg/dL (7-18); BUN/Creat Ratio 14.9 RATIO (10-20); Calcium,Total 8.1 mg/dL (8.5-10.1); Chloride 102 mmol/L (98-107); Creatinine, Serum 0.74 mg/dL (0.70-1.30); EST Glomerular Filtration Rate 109 mL/min (>60); Est Glom Filt Rate - Afr Amer 132 mL/min (>60); Estimated Creatinine Clearance 92.09 ml/min; Glucose 105 mg/dL (74-106); Potassium 3.9 mmol/L (3.5-5.1); Sodium Level 131 mmol/L (136-145)
[2023-08-16] MEDS: Menthol/Lanolin/Calamine/Znox 113 GM Tube 1 APPLIC TOPICAL (08:56)
[2023-08-16] MEDS: Famotidine 20 MG Tablet 40 MG PO (08:57)
[2023-08-16] MEDS: Fluoxetine HCl 40 MG CAPSULE PO (08:57)
[2023-08-16] MEDS: Nystatin Powder 15gm Bottle 1 APPLIC TOPICAL (08:58)
[2023-08-16] MEDS: Tamsulosin HCl 0.4 MG Capsule 0.8 MG PO (08:58)
[2023-08-16] MEDS: Enoxaparin 40 MG/0.4 ML Syringe SC (08:58)
[2023-08-16] MEDS: clonazePAM 0.5 MG Tablet PO (09:05)
[2023-08-16 10:21] VITALS: BP 133/65; PULSE 86; RESP 18; TEMP 36.6; O2SAT 94
--- NOTE | 2023-08-16 11:47 | PCM.TXEXTCAR ---
Diet Diet Order/Speech Therapy: 08/13/23 20:09 Diet: Cardiac - Heart Healthy Food consistency:: Regular Liquid Consistency:: Regular/Thin Is pt able to select menu?: No Wound(s) left shoulder: Wound Type: scattered abrasions Therapies Weight Bearing: Weight bearing as tolerated Physical Therapy: Eval and Treat Occupational Therapy: Eval and Treat Speech Therapy: Eval and Treat Problem/Diagnosis (1) Cellulitis: Status: Acute Code(s): L03.90 - Cellulitis, unspecified (2) UTI (urinary tract infection): Status: Acute Code(s): N39.0 - Urinary tract infection, site not specified Plan The patient is a 78 y/o M was admitted on 08/13/23 with history of fever at his skilled facility with strong foul-smelling urine with elevated temperature with confusion and fatigue and body aches #1. Acute Complicated Urinary Tract Infection and Acute LLE Cellulitis w/ Hx MRSA: Admitted to MedSur floor. On IV antibiotic. Vancomycin and ceftriaxone. Improvement in the left upper thigh cellulitis. Venous duplex negative for DVT. Prelim urine culture shows Staph aureus. PT/OT/CM consultation for discharge planning. 08/14: Blood culture negative for 48 hours. Preliminary catheterized urine shows Staph species more than 100,000 colonies. Full culture sensitive pending. IV ceftriaxone changed to cefazolin. #2. Anxiety depression/schizophrenia unclear specific type: continue patient home clonazepam, fluoxetine, Seroquel home regimen however will hold for sedation as needed. #3. Multiple sclerosis w/ chronic L sided hemiparesis: Wheelchair-bound. Has not walked for many years. PT and OT and nursing care #4. Hypertension: Noted history however per current list does not appear to be on regimen, clarifying will add if appropriate, as needed IV hydralazine in interim. #5. Hyperlipidemia: We will continue patient low-dose statin therapy. #6. Allergic rhinitis: We will continue patient home fluticasone regimen. #7. Obesity: Weight loss and lifestyle changes encouraged. #8. GERD: We will continue patient home famotidine regimen. #9. DVT prophylaxis: Lovenox. #10. CODE status: Patient CARMEN is his who is present and living will is currently in place. Discussed CODE status at length including difference between FULL code, DNR-CCA and DNR-CC status. Following discussions about the differences in these status, requested DNR-CCA, no intubation status but she notes willingness to utilize central line and pressor therapy if needed. Microbiology Past 72 Hours 08/13/23 14:30 Blood Culture (Wb) - Arm Left Blood Culture - Preliminary No growth in 48 hours. 08/13/23 14:15 Blood Culture (Wb) - Arm Right Blood Culture - Preliminary No growth in 48 hours. 08/13/23 15:10 Urine, Catheterized Urine Culture - Preliminary Staphylococcus species 08/13/23 14:25 Mucosa - Nasopharyngeal SARS-CoV-2, Influenza & RSV (PCR) - Final Laboratory Results 08/15/23 04:38: Vancomycin Trough 12.6 Allergies/Procedures Done in Hospital Allergies Phenothiazines Allergy (Verified 08/13/23 14:06) Unknown prochlorperazine (From Compazine) Allergy (Verified 08/13/23 14:06) Unknown Sulfa (Sulfonamide Antibiotics) Allergy (Verified 08/13/23 14:06) Unknown Type of Care/Length of Stay Estimated LOS: Convalescent Care Less Than 30 days Type of Care Needed: Intermediate Rehab Potential: Fair Prognosis: Fair Additional Orders/Day of Discharge Day of Discharge: 08/16/23 Discharge Plan Admission Admit Date/Time: 08/13/23 16:55 Primary Reason for Your Visit: Cellulitis and MSSA UTI Attending Provider: Efrain Reyna Primary Care Provider: Ricki Eaton Consulting Providers: Vida Ponce Discharge Orders/Prescriptions Prescriptions: New fluoxetine 40 mg Capsule 40 mg PO DAILY Qty: 0 0RF menthol-zinc oxide [Calmoseptine] 0.44-20.6 % Ointment 1 applic topical 4X/DAY Qty: 0 0RF Protocol: *Topical Application Instructions APPLICATION INSTRUCTIONS: apply to affected region polyethylene glycol 3350 [Miralax] 17 gram/dose powder 17 g PO DAILY Qty: 510 0RF cephalexin 500 mg capsule 500 mg PO TID 7 Days Qty: 21 0RF Continued multivitamin 1 EACH tablet 1 ea PO DAILY quetiapine 25 MG tablet 25 mg PO QHS sennosides 1 TABLET tablet 2 tab PO QHS Patient Comments: stool softener atorvastatin 10 MG tablet 10 mg PO QHS Patient Comments: cholesterol cranberry 400 MG capsule 400 mg PO BID ergocalciferol (vitamin D2) 50,000 UNIT capsule 50,000 unit PO Q7D Patient Comments: fluticasone propionate 1 SPRAY spray,suspension 2 spray NASAL QHS clonazepam 0.5 MG tablet 0.5 mg PO BID Qty: 20 0RF ondansetron HCl 4 MG tablet 4 mg PO Q6H PRN (Reason: Nausea) loperamide 2 MG capsule 2 mg PO BID PRN (Reason: Diarrhea) simethicone 180 MG capsule 180 mg PO 4X/DAY PRN (Reason: Gas) famotidine 40 MG tablet 40 mg PO DAILY dextromethorphan-guaifenesin 5 ML syrup 10 ml PO Q6H PRN (Reason: Cough) calcium carbonate-vitamin D3 1 EACH tablet,chewable 2 ea PO DAILY silodosin 8 MG capsule 8 mg PO QHS cyclobenzaprine 5 mg tablet 5 mg PO QHS melatonin 3 mg capsule 3 mg PO QHS quetiapine [Seroquel] 50 mg tablet 50 mg PO QHS UTI-Stat 3,875 mg/30 mL liquid 30 ml PO DAILY Changed acetaminophen 325 MG tablet 1,000 mg PO Q8H PRN (Reason: Pain Score 1-10/10) 30 Days Qty: 0 0RF Discontinued fluoxetine 20 MG tablet 80 mg PO DAILY magnesium hydroxide 30 ML suspension 60 ml PO DAILY PRN PRN (Reason: Constipation) Referrals / Follow Up: Ricki Eaton MD [Primary Care Provider] - Within 1 Week Phil Lindsey MD [Med Staff - Active Staff] - Within 1 Month (As needed as needed for cellulitis/UTI) Disposition Disposition (needs filled in before D/C Order can be placed): NonSkilled NH/Intermed Care
--- NOTE | 2023-08-16 11:58 | PCM.DC.SUM ---
Providers Date of Admission: 08/13/23 Date of Discharge: 08/16/23 Primary Care Physician: Dr. Ricki Eaton MD Reason For Visit: COMPLICATED UTI, LLE CELLULITIS Diagnosis Discharge Diagnosis (1) Cellulitis: Status: Acute Code(s): L03.90 - Cellulitis, unspecified (2) UTI (urinary tract infection): Status: Acute Code(s): N39.0 - Urinary tract infection, site not specified Plan The patient is a 78 y/o M was admitted on 08/13/23 with history of fever at his skilled facility with strong foul-smelling urine with elevated temperature with confusion and fatigue and body aches #1. Acute Complicated Urinary Tract Infection and Acute LLE Cellulitis w/ Hx MRSA: Admitted to MedSur floor. On IV antibiotic. Vancomycin and ceftriaxone. Improvement in the left upper thigh cellulitis. Venous duplex negative for DVT. Prelim urine culture shows Staph aureus. PT/OT/CM consultation for discharge planning. 08/14: Blood culture negative for 48 hours. Preliminary catheterized urine shows Staph species more than 100,000 colonies. Full culture sensitive pending. IV ceftriaxone changed to cefazolin. 08/15 for culture report available. Urine culture shows MSSA more than 100,000 colonies. Discussed with ID. Prescription Keflex 500 mg 3 times daily for 7 more days will cover cellulitis and UTI. #2. Anxiety depression/schizophrenia unclear specific type: continue patient home clonazepam, fluoxetine, Seroquel home regimen however will hold for sedation as needed. #3. Multiple sclerosis w/ chronic L sided hemiparesis: Wheelchair-bound. Has not walked for many years. PT and OT and nursing care #4. Hypertension: Noted history however per current list does not appear to be on regimen, clarifying will add if appropriate, as needed IV hydralazine in interim. #5. Hyperlipidemia: We will continue patient low-dose statin therapy. #6. Allergic rhinitis: We will continue patient home fluticasone regimen. #7. Obesity: Weight loss and lifestyle changes encouraged. #8. GERD: We will continue patient home famotidine regimen. #9. DVT prophylaxis: Lovenox. #10. CODE status: Patient CARMEN is his who is present and living will is currently in place. Discussed CODE status at length including difference between FULL code, DNR-CCA and DNR-CC status. Following discussions about the differences in these status, requested DNR-CCA, no intubation status but she notes willingness to utilize central line and pressor therapy if needed. Discharge med list sent. Discharge medication reconciliation done. Discharge follow-up instructions completed. Discharge process discussed with the patient and all questions were answered to patient's satisfaction. Follow with PCP in 1 to 2 weeks Total time spent, exact 35 minutes on discharge meds reconciliation, examination, coordination of care with nurses and ancillary staff, review of imaging and blood test and discussion with the patient on follow-up instructions. Microbiology Past 72 Hours 08/13/23 15:10 Urine, Catheterized Urine Culture - Final Staphylococcus aureus 08/13/23 14:30 Blood Culture (Wb) - Arm Left Blood Culture - Preliminary No growth in 48 hours. 08/13/23 14:15 Blood Culture (Wb) - Arm Right Blood Culture - Preliminary No growth in 48 hours. 08/13/23 14:25 Mucosa - Nasopharyngeal SARS-CoV-2, Influenza & RSV (PCR) - Final Laboratory Results 08/16/23 06:49: WBC 10.3, RBC 3.49 L, Hgb 11.0 L, Hct 33.7 L, MCV 96.6 H, MCH 31.5, MCHC 32.6, RDW Std Deviation 44.1 H, RDW Coeff of Shawn 12.4, Plt Count 260, MPV 9.9, Immature Gran % (Auto) 0.400, Neut % (Auto) 51.9, Lymph % (Auto) 36.0, Story % (Auto) 9.1, Eos % (Auto) 2.4, Baso % (Auto) 0.2, Absolute Neuts (auto) 5.3, Absolute Lymphs (auto) 3.69, Nucleated RBC % 0, Sodium 131 L, Potassium 3.9, Chloride 102, Carbon Dioxide 24.0, Anion Gap 5, BUN 11, Creatinine 0.74, Estim Creat Clear Calc 92.09, Est GFR (MDRD) Af Amer 132, Est GFR (MDRD) Non-Af 109, BUN/Creatinine Ratio 14.9, Glucose 105, Calcium 8.1 L Medications at Discharge Home Medications atorvastatin 10 mg tablet 10 mg PO QHS 03/31/16 cranberry 400 mg capsule 400 mg PO BID 03/31/16 ergocalciferol (vitamin D2) 1,250 mcg (50,000 unit) capsule 50,000 unit PO Q7D 03/31/16 fluticasone propionate 50 mcg/actuation nasal spray,suspension 2 spray NASAL QHS 03/31/16 multivitamin 1 ea PO DAILY 03/31/16 quetiapine 25 mg tablet 25 mg PO QHS 03/31/16 sennosides 8.6 mg tablet 2 tab PO QHS 03/31/16 clonazepam 0.5 mg tablet 0.5 mg PO BID #20 tabs 11/27/16 ondansetron HCl 4 mg tablet 4 mg PO Q6H PRN Nausea 12/30/18 calcium carbonate 500 mg-vitamin D3 10 mcg (400 unit) chewable tablet 2 ea PO DAILY 05/06/20 dextromethorphan-guaifenesin 10 mg-100 mg/5 mL oral syrup 10 ml PO Q6H PRN Cough 05/06/20 famotidine 40 mg tablet 40 mg PO DAILY 05/06/20 loperamide 2 mg capsule 2 mg PO BID PRN Diarrhea 05/06/20 silodosin 8 mg capsule 8 mg PO QHS 05/06/20 simethicone 180 mg capsule 180 mg PO 4X/DAY PRN Gas 05/06/20 cranberry conc-vit H-oowcupa-WWF-bromelain 3,875 mg/30 mL oral liquid (UTI-Stat) 30 ml PO DAILY 08/13/23 cyclobenzaprine 5 mg tablet 5 mg PO QHS 08/13/23 melatonin 3 mg capsule 3 mg PO QHS 08/13/23 quetiapine 50 mg tablet (Seroquel) 50 mg PO QHS 08/13/23 acetaminophen 325 mg tablet 1,000 mg (3.0769 x 325 mg) PO Q8H PRN Pain Score 1-10/10 30 days #0 tabs 08/16/23 cephalexin 500 mg capsule 500 mg PO TID 7 days #21 caps 08/16/23 fluoxetine 40 mg capsule 40 mg PO DAILY #0 caps 08/16/23 menthol 0.44 %-zinc oxide 20.6 % topical ointment (Calmoseptine) 1 applic topical 4X/DAY #0 grams 08/16/23 polyethylene glycol 3350 17 gram/dose oral powder (Miralax) 17 g PO DAILY #510 grams 08/16/23 Physical Exam Narrative Seen and examined. No fever. Heart rate and blood pressure controlled. MSSA UTI. Redness pain is better. As per patient's , patient does not have indwelling Quigley catheter in residential. Denies burning micturition. Patient has history of MS and schizophrenia. correction resident. History of MRSA infection in the past. Wheelchair-bound. Physical exam General: Alert, Oriented x3, Cooperative HEENT: Atraumatic, PERRLA, EOMI, Normocephalic Oral: No Gingival or Mucosal Lesions/ Ulcerations Neck: Supple, No JVD, Negative Carotid Bruits Chest wall/Lungs: Air entry diminished in bilateral lung bases. No crepitation/rhonchi Cardiovascular: Regular rate, Regular Rhythm, Normal S1, Normal S2, No M/G/R Abdomen: Bowel Sounds Present, Soft, Non Tender, Non-Distended : Pure wick catheter. no dysuria. No renal angle tenderness. No suprapubic tenderness. Extremities: No edema, Capillary Refill Less than 3 Seconds Skin: erythema over left thigh with mild tenderness and induration improving. Consistent with cellulitis. Musculoskeletal: No Tenderness to Palpation of Joints or Extremities. 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 Neurological: Cranial nerves II-XII grossly intact, DTR 2+/4. No acute focal neurological deficit. Psych/Mental Status: Normal Affect, Appropriate. Weight / BMI Weight Weight: 237 lb 14.06 oz Body Mass Index (BMI) 36.0 ABG / Lab / Microbiology Data 08/16/23 06:49 08/16/23 06:49 Laboratory: Laboratory Results - last 24 hr 08/16/23 06:49: WBC 10.3, RBC 3.49 L, Hgb 11.0 L, Hct 33.7 L, MCV 96.6 H, MCH 31.5, MCHC 32.6, RDW Std Deviation 44.1 H, RDW Coeff of Shawn 12.4, Plt Count 260, MPV 9.9, Immature Gran % (Auto) 0.400, Neut % (Auto) 51.9, Lymph % (Auto) 36.0, Story % (Auto) 9.1, Eos % (Auto) 2.4, Baso % (Auto) 0.2, Absolute Neuts (auto) 5.3, Absolute Lymphs (auto) 3.69, Nucleated RBC % 0, Sodium 131 L, Potassium 3.9, Chloride 102, Carbon Dioxide 24.0, Anion Gap 5, BUN 11, Creatinine 0.74, Estim Creat Clear Calc 92.09, Est GFR (MDRD) Af Amer 132, Est GFR (MDRD) Non-Af 109, BUN/Creatinine Ratio 14.9, Glucose 105, Calcium 8.1 L Microbiology: Microbiology 08/13/23 15:10 Urine, Catheterized Urine Culture - Final Staphylococcus aureus 08/13/23 14:30 Blood Culture (Wb) - Arm Left Blood Culture - Preliminary No growth in 48 hours. 08/13/23 14:15 Blood Culture (Wb) - Arm Right Blood Culture - Preliminary No growth in 48 hours. 08/13/23 14:25 Mucosa - Nasopharyngeal SARS-CoV-2, Influenza & RSV (PCR) - Final Meaningful Use Info Meaningful Use Meaningful Use Diagnoses (Choose all that apply): None applicable Ischemic Stroke Statin Dosing Therapy Reference: STATIN DOSE THERAPY REFERENCE: * Patients > 75 years receive moderate or high dose statin therapy. * Patients 75 years or YOUNGER should receive HIGH intensity statin dose unless contraindicated. You will be required to document reason for non-treatment if statin daily dose does not meet guidelines. HIGH DOSE STATIN THERAPY DAILY Atorvastatin > than or = to 40 mg Rosuvastatin > than or = to 20 mg Amlodipine + Atorvastatin > than or = to 2.5/40 mg Ezetimibe + Simvastatin 10/80 mg Simvastatin 80mg Discharge Plan Admission Admit Date/Time: 08/13/23 16:55 Primary Reason for Your Visit: Cellulitis and MSSA UTI Attending Provider: Efrain Reyna Primary Care Provider: Ricki Eaton Consulting Providers: Vida Ponce Discharge Orders/Prescriptions Prescriptions: New fluoxetine 40 mg Capsule 40 mg PO DAILY Qty: 0 0RF menthol-zinc oxide [Calmoseptine] 0.44-20.6 % Ointment 1 applic topical 4X/DAY Qty: 0 0RF Protocol: *Topical Application Instructions APPLICATION INSTRUCTIONS: apply to affected region polyethylene glycol 3350 [Miralax] 17 gram/dose powder 17 g PO DAILY Qty: 510 0RF cephalexin 500 mg capsule 500 mg PO TID 7 Days Qty: 21 0RF Continued multivitamin 1 EACH tablet 1 ea PO DAILY quetiapine 25 MG tablet 25 mg PO QHS sennosides 1 TABLET tablet 2 tab PO QHS Patient Comments: stool softener atorvastatin 10 MG tablet 10 mg PO QHS Patient Comments: cholesterol cranberry 400 MG capsule 400 mg PO BID ergocalciferol (vitamin D2) 50,000 UNIT capsule 50,000 unit PO Q7D Patient Comments: fluticasone propionate 1 SPRAY spray,suspension 2 spray NASAL QHS clonazepam 0.5 MG tablet 0.5 mg PO BID Qty: 20 0RF ondansetron HCl 4 MG tablet 4 mg PO Q6H PRN (Reason: Nausea) loperamide 2 MG capsule 2 mg PO BID PRN (Reason: Diarrhea) simethicone 180 MG capsule 180 mg PO 4X/DAY PRN (Reason: Gas) famotidine 40 MG tablet 40 mg PO DAILY dextromethorphan-guaifenesin 5 ML syrup 10 ml PO Q6H PRN (Reason: Cough) calcium carbonate-vitamin D3 1 EACH tablet,chewable 2 ea PO DAILY silodosin 8 MG capsule 8 mg PO QHS cyclobenzaprine 5 mg tablet 5 mg PO QHS melatonin 3 mg capsule 3 mg PO QHS quetiapine [Seroquel] 50 mg tablet 50 mg PO QHS UTI-Stat 3,875 mg/30 mL liquid 30 ml PO DAILY Changed acetaminophen 325 MG tablet 1,000 mg PO Q8H PRN (Reason: Pain Score 1-10/10) 30 Days Qty: 0 0RF Discontinued fluoxetine 20 MG tablet 80 mg PO DAILY magnesium hydroxide 30 ML suspension 60 ml PO DAILY PRN PRN (Reason: Constipation) Referrals / Follow Up: Ricki Eaton MD [Primary Care Provider] - Within 1 Week Phil Lindsey MD [Med Staff - Active Staff] - Within 1 Month (As needed as needed for cellulitis/UTI) Disposition Disposition (needs filled in before D/C Order can be placed): NonSkilled NH/Intermed Care Charges/Coding Visit Charges Inpatient E&M: 52800 Disch Hosp >30min
--- NOTE | 2023-08-16 13:55 | CASEMGMT ---
Social Work- ?Physician updated and pt is ready for discharge today.?Diischarge orders to [facility] via [facility].? Transportation arranged with [facility] for 3:00pm pickup via ground ambulance.? SW met with pt and they are agreeable to discharge plan as stated above.? Pt and bedside nurse notified of discharge time. Disposition:?[facility]
[2023-08-16 15:32] VITALS: BP 151/76; PULSE 75; RESP 18; TEMP 36.8; O2SAT 98
== END 2023-08-16 15:07 | disposition skilled nursing facility (03) | DRG 603 ==
LOC: ED 14:50 → MS3 20:02
PROVIDERS: Admitting Provider Family Medicine; Emergency Provider Emergency Medicine; PCP Family Medicine; Visit Provider Internal Medicine
DX: L03.116 Cellulitis of left lower limb (principal); G81.94 Hemiplegia, unspecified affecting left nondominant side; N39.0 Urinary tract infection, site not specified; G35 Multiple sclerosis; F20.9 Schizophrenia, unspecified; I10 Essential (primary) hypertension; J30.9 Allergic rhinitis, unspecified; E78.5 Hyperlipidemia, unspecified; K21.9 Gastro-esophageal reflux disease without esophagitis; F41.8 Other specified anxiety disorders; E66.9 Obesity, unspecified; Z87.891 Personal history of nicotine dependence; Z86.16 Personal history of COVID-19; Z86.14 Personal history of Methicillin resistant Staphylococcus aureus infection; Z68.34 Body mass index [BMI] 34.0-34.9, adult; B95.61 Methicillin susceptible Staphylococcus aureus infection as the cause of diseases classified elsewhere
CPT/HCPCS: 36415; 71045; 80048; 80053; 80202; 81001; 83605; 84484; 85025; 85610; 85730; 87040; 87077; 87086; 87088; 87186; 87426; 87631; 87641; 93005; 93971; 94668; 99285; J7030; J7040; J7050; A4216; J2405

== ENCOUNTER → 2023-08-20 | Outpatient (REF) | payer MEDICARE, OTHER, MEDICAID, SELFPAY ==
[2023-08-20 10:24] LABS: Hemoglobin 11.6 g/dL (13.0-16.5); Mean Corp Hgb Conc 32.2 g/dL (32-36); Mean Corpuscular Hgb 31.4 pg (27.0-32.0); Mean Corpuscular Volume 97.3 fL (80-94); Mean Platelet Vol. 9.2 fl (6.2-12.0); Platelet Count 420 K/mm3 (150-450); RBC Distribution Width CV 12.1 % (11.6-14.6); RBC Distribution Width SD 43.2 fl (35.1-43.9); White Blood Count 9.7 K/mm3 (4.4-11.0)
[2023-08-20 10:48] LABS: ALB/GLOB Ratio 0.7 RATIO (0.9-2.4); AST(SGOT) 21 U/L (15-37); Alanine Aminotransfer ALT/SGPT 30 U/L (16-61); Albumin, Serum 2.6 g/dL (3.2-5.0); Alkaline Phosphatase 66 U/L (45-117); Anion Gap 5 (5-15); BUN 13 mg/dL (7-18); BUN/Creat Ratio 18.7 RATIO (10-20); Calcium,Total 8.7 mg/dL (8.5-10.1); Chloride 103 mmol/L (98-107); EST Glomerular Filtration Rate 117 mL/min (>60); Est Glom Filt Rate - Afr Amer 142 mL/min (>60); Globulin 3.6 g/dL (2.2-4.2); Glucose 96 mg/dL (74-106); Potassium 4.1 mmol/L (3.5-5.1); Protein, Total 6.2 g/dL (6.4-8.2); Sodium Level 134 mmol/L (136-145)
== END ==
LOC: OLS.ACH 05:00
PROVIDERS: PCP Family Medicine; Visit Provider Family Medicine
DX: L03.116 Cellulitis of left lower limb (principal); N39.0 Urinary tract infection, site not specified
CPT/HCPCS: 36415; 80053; 85027

== ENCOUNTER → 2023-08-28 05:00 | Outpatient (REF) | payer MEDICARE, OTHER, MEDICAID, SELFPAY ==
[2023-08-28 09:34] LABS: Hematocrit 38.4 % (40-54); Hemoglobin 12.3 g/dL (13.0-16.5)
== END ==
LOC: OLS.ACH 05:00
PROVIDERS: PCP Family Medicine; Visit Provider Family Medicine
DX: D64.9 Anemia, unspecified (principal)
CPT/HCPCS: 36415; 85014; 85018

== ENCOUNTER → 2023-09-19 04:00 | Outpatient (REF) | payer MEDICARE, OTHER, MEDICAID, SELFPAY ==
[2023-09-19 09:40] LABS: ALB/GLOB Ratio 0.9 RATIO (0.9-2.4); AST(SGOT) 19 U/L (15-37); Alanine Aminotransfer ALT/SGPT 25 U/L (16-61); Alkaline Phosphatase 83 U/L (45-117); Anion Gap 5 (5-15); BUN 13 mg/dL (7-18); BUN/Creat Ratio 18.4 RATIO (10-20); CPK Total, Creatine Kinase 54 U/L (39-308); Calcium,Total 8.8 mg/dL (8.5-10.1); Chloride 103 mmol/L (98-107); Creatinine, Serum 0.71 mg/dL (0.70-1.30); EST Glomerular Filtration Rate 115 mL/min (>60); Est Glom Filt Rate - Afr Amer 139 mL/min (>60); Globulin 3.5 g/dL (2.2-4.2); Glucose 93 mg/dL (74-106); Protein, Total 6.5 g/dL (6.4-8.2); Sodium Level 135 mmol/L (136-145)
[2023-09-19 10:03] LABS: Hematocrit 38.8 % (40-54); Hemoglobin 12.5 g/dL (13.0-16.5); Mean Corp Hgb Conc 32.2 g/dL (32-36); Mean Corpuscular Hgb 31.3 pg (27.0-32.0); Mean Corpuscular Volume 97.2 fL (80-94); Mean Platelet Vol. 9.9 fl (6.2-12.0); Platelet Count 331 K/mm3 (150-450); RBC Distribution Width CV 12.4 % (11.6-14.6); RBC Distribution Width SD 44.8 fl (35.1-43.9); Red Blood Count 3.99 M/mm3 (4.6-6.2); White Blood Count 8.7 K/mm3 (4.4-11.0)
== END ==
LOC: OLS.ACH 04:00
PROVIDERS: PCP Family Medicine; Referring Provider Internal Medicine; Visit Provider Internal Medicine
DX: G35 Multiple sclerosis (principal); E78.00 Pure hypercholesterolemia, unspecified; E87.1 Hypo-osmolality and hyponatremia
CPT/HCPCS: 36415; 80053; 82550; 85027

== ENCOUNTER 2023-09-25 17:09 | Emergency (ER) | payer MEDICARE, OTHER, MEDICAID, SELFPAY ==
[2023-09-25 17:10] VITALS: BP 161/88; PULSE 65; RESP 16; TEMP 36.3; O2SAT 98
[2023-09-25 17:13] VITALS: BMI 35.8
[2023-09-25 17:45] LABS: Bacteria 0 SEEN /hpf (None Seen); Mucous, Urine 0 SEEN /hpf (<or=2+); Red Blood Cells-Urine 0 SEEN /hpf (0-5); Squamous Epithelial Cells - UA 0 SEEN /hpf (0-5); White Blood Cells 0 SEEN /hpf (0-5)
[2023-09-25 17:55] LABS: Absolute Lymphocyte Count 3.24 X10^3/uL (0.83-4.51); Absolute Neutrophil Count 4.5 X10^3/uL (2.0-7.7); Basophil# 0.04 X10^3/uL; Basophil% 0.5 % (0-1); Eosinophil# 0.28 X10^3/uL; Eosinophils% 3.3 % (0-5); Hematocrit 39.8 % (40-54); Hemoglobin 12.9 g/dL (13.0-16.5); Lymphocyte # 3.24 X10^3/ul (0.83-4.51); Lymphocyte % 37.7 % (19-41); Mean Corp Hgb Conc 32.4 g/dL (32-36); Mean Corpuscular Hgb 31.2 pg (27.0-32.0); Mean Corpuscular Volume 96.1 fL (80-94); Mean Platelet Vol. 9.6 fl (6.2-12.0); Monocyte# 0.54 X10^3/uL; Monocyte% 6.3 % (0-10); NRBC Flagged by Analyzer 0 % (0-5); Neutrophil # 4.46 X10^3/uL (2.7-7.7); Neutrophil % 51.9 % (47-70); Platelet Count 330 K/mm3 (150-450); RBC Distribution Width CV 12.3 % (11.6-14.6); RBC Distribution Width SD 43.3 fl (35.1-43.9); Red Blood Count 4.14 M/mm3 (4.6-6.2); White Blood Count 8.6 K/mm3 (4.4-11.0)
[2023-09-25 17:56] LABS: Color, Urine Yellow (Yellow); Glucose, Dipstick Normal (Normal); Ketone-Dipstick Negative (Negative); Leukocyte Esterase-Dipstick 25 /ul (Negative); Nitrite-Dipstick Negative (Negative); Occult Blood-Urine Negative /ul (Negative); Protein-Dipstick Negative (Negative); Specific Gravity, Urine 1.005 (1.002-1.030); Urine Bilirubin Dipstick Negative (Negative); Urine Clarity Clear (Clear); Urine Urobilinogen Normal (Normal)
[2023-09-25 18:04] LABS: ALB/GLOB Ratio 0.8 RATIO (0.9-2.4); AST(SGOT) 22 U/L (15-37); Alanine Aminotransfer ALT/SGPT 34 U/L (16-61); Albumin, Serum 3.2 g/dL (3.2-5.0); Alkaline Phosphatase 90 U/L (45-117); Anion Gap 4 (5-15); BUN 15 mg/dL (7-18); Calcium,Total 8.7 mg/dL (8.5-10.1); Chloride 101 mmol/L (98-107); Creatinine, Serum 0.71 mg/dL (0.70-1.30); EST Glomerular Filtration Rate 114 mL/min (>60); Est Glom Filt Rate - Afr Amer 138 mL/min (>60); Estimated Creatinine Clearance 91.61 ml/min; Globulin 3.8 g/dL (2.2-4.2); Glucose 98 mg/dL (74-106); Sodium Level 132 mmol/L (136-145)
--- NOTE | 2023-09-25 18:29 | ED.VIS.GI ---
HPI HPI - GI History of Present Illness Chief Complaint: Abd Pain Informant: patient, EMS and SNF Narrative Narrative: 78-year-old male with previous medical history of multiple sclerosis left-sided paralysis and frequent UTIs presenting to the emergency room for abdominal pain. Per SNF/EMS reports patient has had abdominal pain for 4 to 5 days. Reportedly the patient underwent abdominal x-ray today that per the radiologist read shows dilated loops of air-filled large bowel. There is no increased stool burden there is no mass or pathologic calcification there is no acute osseous abnormalities or suspicious bony lesions. Impression: Findings most consistent with colonic ileus without evidence disfavor distal colonic obstruction. It is because of this x-ray that the patient was sent to the emergency room to rule out bowel obstruction patient is a DNR [employer] arrest. Patient tells me that he was given a pain medication helped but he does not know what it is. Per custodial report he received 50 mg of tramadol around noon. Patient states he was told he had a bowel movement last evening. He denies any nausea or vomiting. He states he had breakfast and dinner today. PFSH [facility] Medical History Dysphagia, pharyngeal phase GERD (gastroesophageal reflux disease) Former tobacco use Hemiparesis of left nondominant side Obesity Anxiety and depression Cellulitis UTI (urinary tract infection) BPH (benign prostatic hyperplasia) Schizophrenia First degree AV block Left bundle branch block History of COVID-19 (04/12/20) Urinary incontinence Osteoporosis Multiple sclerosis HLD (hyperlipidemia) Home Medications ?Medication ?Instructions ?Recorded ?Last Taken ?Type atorvastatin 10 mg tablet 10 mg PO QHS 03/31/16 04/04/16 History cranberry 400 mg capsule 400 mg PO BID 03/31/16 08/13/23 History ergocalciferol (vitamin D2) 1,250 50,000 unit PO Q7D 03/31/16 08/09/23 History mcg (50,000 unit) capsule fluticasone propionate 50 2 spray NASAL QHS 03/31/16 08/12/23 History mcg/actuation nasal spray,suspension multivitamin 1 ea PO DAILY 03/31/16 08/13/23 History quetiapine 25 mg tablet 25 mg PO QHS 03/31/16 08/13/23 History sennosides 8.6 mg tablet 2 tab PO QHS 03/31/16 08/12/23 History clonazepam 0.5 mg tablet 0.5 mg PO BID #20 tabs 11/27/16 08/13/23 Rx ondansetron HCl 4 mg tablet 4 mg PO Q6H PRN Nausea 12/30/18 Unknown History calcium carbonate 500 mg-vitamin 2 ea PO DAILY 05/06/20 08/13/23 History D3 10 mcg (400 unit) chewable tablet dextromethorphan-guaifenesin 10 10 ml PO Q6H PRN Cough 05/06/20 Unknown History mg-100 mg/5 mL oral syrup famotidine 40 mg tablet 40 mg PO DAILY 05/06/20 08/12/23 History loperamide 2 mg capsule 2 mg PO BID PRN Diarrhea 05/06/20 Unknown History silodosin 8 mg capsule 8 mg PO QHS 05/06/20 08/12/23 History simethicone 180 mg capsule 180 mg PO 4X/DAY PRN Gas 05/06/20 Unknown History cranberry conc-vit 30 ml PO DAILY 08/13/23 08/13/23 History B-fbgouru-JZM-bromelain 3,875 mg/30 mL oral liquid (UTI-Stat) cyclobenzaprine 5 mg tablet 5 mg PO QHS 08/13/23 08/12/23 History melatonin 3 mg capsule 3 mg PO QHS 08/13/23 08/12/23 History quetiapine 50 mg tablet (Seroquel) 50 mg PO DAILY 08/13/23 08/12/23 History acetaminophen 325 mg tablet 1,000 mg (3.0769 x 325 mg) PO Q8H 08/16/23 08/13/23 Rx PRN Pain Score 1-10/10 30 days #0 tabs menthol 0.44 %-zinc oxide 20.6 % 1 applic topical 4X/DAY #0 grams 08/16/23 Unknown Rx topical ointment (Calmoseptine) polyethylene glycol 3350 17 17 g PO DAILY #510 grams 08/16/23 Unknown Rx gram/dose oral powder (Miralax) fluoxetine 40 mg capsule 80 mg PO DAILY 09/25/23 Unknown History magnesium citrate 300 ml PO X1 PRN constipation #1 09/25/23 Unknown Rx BOTTLE tramadol 50 mg tablet 50 mg PO TID PRN PRN pain 09/25/23 Unknown History Allergy/AdvReac Type Severity Reaction Status Date / Time Phenothiazines Allergy Unknown Verified 09/25/23 17:13 prochlorperazine (From Allergy Unknown Verified 09/25/23 17:13 Compazine) Sulfa (Sulfonamide Allergy Unknown Verified 09/25/23 17:13 Antibiotics) Family History Father Heart disease Mother No problems noted. Surgical History Status post excision of lipoma History of laparoscopic cholecystectomy (~12/2018) Social History household members: none housing: custodial Smoking Status: Former smoker how long ago did patient quit smoking: Smoked in his youth, short-term from description, unclear daily amount. alcohol intake: never substance use type: does not use ROS ROS ED Constitutional Constitutional ED: Denies chills, fever(s) or weight loss Eyes Eyes: Denies change in vision or diplopia ENT ENT ED: Denies ear pain, rhinorrhea or sore throat Cardiovascular Cardiovascular: Denies chest pain, orthopnea, palpitations or racing heartbeat Respiratory/Chest Respiratory/Chest: Denies cough, dyspnea or orthopnea Gastrointestinal Gastrointestinal: Reports abdominal pain; Denies diarrhea, nausea or vomiting Genitourinary Genitourinary ED: Denies dysuria, hematuria or urinary frequency Musculoskeletal Musculoskeletal: Denies arthralgias or myalgias Integumentary Denies abscess or rash Neurologic Neurologic: Denies headache(s) or weakness Psychiatric Psychiatric: Denies anxiety, depression, suicidal ideation or suicidal thoughts Endocrine Endocrinology: Denies polydipsia, polyphagia or polyuria Allergic/Immunologic Allergic/Immunologic ED: Denies mouth swelling, tongue swelling or urticaria EXAM Physical Exam Const Vital Signs: 09/25/23 17:10 09/25/23 19:09 09/25/23 21:00 Temperature 97.4 F L 97.8 F Temperature Source Temporal Temporal Pulse Rate 65 64 87 Respiratory Rate 16 16 18 Blood Pressure 161/88 H 167/90 H 168/97 H Blood Pressure Mean 112 115 120 Pulse Ox 98 95 95 Oxygen Delivery Method Room Air Room Air Room Air Positive well nourished, well developed and obese General Appearance ED: well developed and NAD Nutritional Appearance: obese HEENT Reports normocephalic, head/scalp atraumatic and moist mucous membranes Eyes PERRL and EOMs intact bilaterally Neck no lymphadenopathy, supple and no JVD Resp normal respiratory effort and clear to auscultation bilaterally Cardio regular rate, regular rhythm and no murmurs GI normal to inspection, nondistended, normoactive bowel sounds and non-tender GI Narrative: The abdomen is not firm. I would not characterize this abdominal exam as surgical in nature. Inspection: Negative for abdominal distention Auscultation: normoactive bowel sounds Palpation: soft; Negative for tender, guarding or rebound tenderness present Back/Spine no CVA tenderness and normal ROM Extremity normal to inspection General Extremety ED: Negative for edema General Extremity: Negative for edema Neuro oriented x3 and CN's II-XII intact bilaterally Neuro Narrative: Chronic neurologic changes associated with the patient's previous medical history. Patient notes no change from baseline. Sensorium / Orientation: alert Psych mental status grossly normal Mood & Affect: Negative for depressed or tearful Skin no rashes or lesions noted and no wounds MDM MDM MDM Narrative Medical decision making narrative: Differential diagnosis includes but not limited to small bowel obstruction ileus, volvulus fecal impaction colitis perforated viscus. Basic blood work shows a white count of 8.6 hemoglobin 12.9. BMP with a glucose of 98 creatinine 0.71 with a BUN of 15 anion gap is 4 CO2 is 27 sodium noted to be 132. Urinalysis shows no obvious infection. CT of the abdomen pelvis was obtained. This does not demonstrate any obvious small bowel obstruction. No volvulus seen. There is increased stool burden with gaseous distention. Patient had a liquid bowel movement here but not the formed stool that I can see on the CT. I do not see any perforated viscus. No evidence of colitis. Patient will be given a dose of magnesium citrate. 1 dose as needed if no formed bowel movement in 12 hours. He has not had any vomiting here. Return if worsening or concerns. History & Record Review Discussion w/independent historian: Patient Lab Data Attestation: I reviewed the patient's lab results. Labs: Laboratory Results - last 24 hr 09/25/23 17:35 WBC 8.6 RBC 4.14 L Hgb 12.9 L Hct 39.8 L MCV 96.1 H MCH 31.2 MCHC 32.4 RDW Std Deviation 43.3 RDW Coeff of Shawn 12.3 Plt Count 330 MPV 9.6 Immature Gran % (Auto) 0.300 Neut % (Auto) 51.9 Lymph % (Auto) 37.7 [place] % (Auto) 6.3 Eos % (Auto) 3.3 Baso % (Auto) 0.5 Absolute Neuts (auto) 4.5 Absolute Lymphs (auto) 3.24 Nucleated RBC % 0 Sodium 132 L Potassium 4.0 Chloride 101 Carbon Dioxide 27.0 Anion Gap 4 L BUN 15 Creatinine 0.71 Estim Creat Clear Calc 91.61 Est GFR (MDRD) Af Amer 138 Est GFR (MDRD) Non-Af 114 BUN/Creatinine Ratio 21.0 H Glucose 98 Calcium 8.7 Total Bilirubin 0.70 AST 22 ALT 34 Alkaline Phosphatase 90 Total Protein 7.0 Albumin 3.2 Globulin 3.8 Albumin/Globulin Ratio 0.8 L Urine Color Yellow Urine Clarity Clear Urine pH 7.0 Ur Specific [place] 1.005 Urine Protein Negative Urine Glucose (UA) Normal Urine Ketones Negative Urine Occult Blood Negative Urine Nitrite Negative Urine Bilirubin Negative Urine Urobilinogen Normal Ur Leukocyte Esterase 25 H Urine RBC 0 SEEN Urine WBC 0 SEEN Ur Squamous Epith Cells 0 SEEN Urine Bacteria 0 SEEN Urine Mucus 0 SEEN Radiography Diagnostic Testing: Clinical Impression(s) from Imaging Studies Abdomen/Pelvis CT 09/25/23 18:36 IMPRESSION: Abundant stool. No obstruction. Electronically Signed: Kilo Whitlock MD at 21:04 EDT Reading Location ID and State: [address] [place] [address] , Service support , Discharge Plan Triage Chief Complaint: Abd Pain ED Provider: Shakir Garrido Dx/Rx/DC Orders Clinical Impression: Abdominal pain, Constipation Instructions: ED Constipation (Adult) Prescriptions: New magnesium citrate Solution 300 ml PO X1 PRN (Reason: constipation) Qty: 1 0RF No Action multivitamin 1 EACH tablet 1 ea PO DAILY quetiapine 25 MG tablet 25 mg PO QHS sennosides 1 TABLET tablet 2 tab PO QHS Patient Comments: stool softener atorvastatin 10 MG tablet 10 mg PO QHS Patient Comments: cholesterol cranberry 400 MG capsule 400 mg PO BID ergocalciferol (vitamin D2) 50,000 UNIT capsule 50,000 unit PO Q7D Patient Comments: fluticasone propionate 1 SPRAY spray,suspension 2 spray NASAL QHS clonazepam 0.5 MG tablet 0.5 mg PO BID Qty: 20 0RF ondansetron HCl 4 MG tablet 4 mg PO Q6H PRN (Reason: Nausea) loperamide 2 MG capsule 2 mg PO BID PRN (Reason: Diarrhea) simethicone 180 MG capsule 180 mg PO 4X/DAY PRN (Reason: Gas) famotidine 40 MG tablet 40 mg PO DAILY dextromethorphan-guaifenesin 5 ML syrup 10 ml PO Q6H PRN (Reason: Cough) calcium carbonate-vitamin D3 1 EACH tablet,chewable 2 ea PO DAILY silodosin 8 MG capsule 8 mg PO QHS cyclobenzaprine 5 mg tablet 5 mg PO QHS melatonin 3 mg capsule 3 mg PO QHS quetiapine [Seroquel] 50 mg tablet 50 mg PO DAILY UTI-Stat 3,875 mg/30 mL liquid 30 ml PO DAILY menthol-zinc oxide [Calmoseptine] 0.44-20.6 % Ointment 1 applic topical 4X/DAY Qty: 0 0RF Protocol: *Topical Application Instructions APPLICATION INSTRUCTIONS: apply to affected region polyethylene glycol 3350 [Miralax] 17 gram/dose powder 17 g PO DAILY Qty: 510 0RF acetaminophen 325 MG tablet 1,000 mg PO Q8H PRN (Reason: Pain Score 1-10/10) 30 Days Qty: 0 0RF tramadol 50 mg tablet 50 mg PO TID PRN PRN (Reason: pain) fluoxetine 40 mg Capsule 80 mg PO DAILY Primary Care Provider: Doroteo Peñaloza,Scott Referrals: Ricki Eaton MD [Non-Staff] - Activity Restrictions/Additional Instructions: You were given magnesium citrate here in the department. If you do not have a formed bowel movement in the next 12 hours I would recommend taking a second bottle of magnesium citrate. Print Language: Senegalese Disposition Disposition: Home, Self Care
--- NOTE | 2023-09-25 18:36 | CT_ITS ---
STUDY: CT ABDOMEN AND PELVIS WITH CONTRAST REASON FOR EXAM: Male, 78 years old. Abdominal pain concern for bowel obstruction RADIATION DOSAGE (If Supplied By Facility): CTDIvol = ( 20.32 ) mGy, DLP = ( 1346.88 ) mGycm TECHNIQUE: Transaxial images were obtained from the dome of the diaphragm to the symphysis pubis without oral contrast. IV 100mL Isovue-300 was administered. Sagittal and coronal images were reconstructed. Individualized dose optimization techniques were used for this CT. COMPARISON: None. FINDINGS: The visualized lung bases are unremarkable. The visualized portions of the heart are within normal limits. Normal liver. Normal gallbladder and extrahepatic biliary system. Normal spleen. Normal pancreas. Normal bilateral adrenal glands. Normal right kidney. There are at least 4 cysts of the left kidney measuring up to 2.5 cm. Normal visualized stomach. Normal small intestine. Normal colon. There is abundant stool. There is non-visualization of the appendix. There is diffuse atherosclerotic calcification of the abdominal aorta, without a demonstrated aneurysm. Normal inferior vena cava. Normal retroperitoneum. Normal urinary bladder. There is no free fluid in the abdomen or pelvis. Normal abdominal wall. There is degenerative change of the spine. There are compression fractures of the lower thoracic and upper lumbar spine. CT/Abdomen/Pelvis W IV Cont ONLY IMPRESSION: Abundant stool. No obstruction. Electronically Signed: Kilo Whitlock MD at 21:04 EDT ,
[2023-09-25 19:09] VITALS: BP 167/90; PULSE 64; RESP 16; TEMP 36.6; O2SAT 95
[2023-09-25 21:00] VITALS: BP 168/97; PULSE 87; RESP 18; O2SAT 95
[2023-09-25 23:00] VITALS: BP 161/92; PULSE 79; RESP 19; TEMP 36.6; O2SAT 95
--- NOTE | 2023-09-25 23:09 | ED.RN ---
Report given to [facility], Lise.
[2023-09-26 01:00] VITALS: RESP 16
[2023-09-26] MEDS: Magnesium Citrate 300 ML PO (01:37)
== END 2023-09-26 02:00 | disposition home or self-care (01) ==
PROVIDERS: Emergency Provider Emergency Medicine; PCP Internal Medicine; Visit Provider Emergency Medicine
DX: R10.9 Unspecified abdominal pain (principal); F20.9 Schizophrenia, unspecified; Z87.891 Personal history of nicotine dependence; K59.00 Constipation, unspecified; E78.5 Hyperlipidemia, unspecified; Z79.899 Other long term (current) drug therapy; F41.8 Other specified anxiety disorders; Z90.49 Acquired absence of other specified parts of digestive tract
CPT/HCPCS: 74177; 80053; 81001; 85025; 99283; Q9967; A4216

== ENCOUNTER → 2023-09-26 05:00 | Outpatient (REF) | payer MEDICARE, OTHER, MEDICAID, SELFPAY ==
[2023-09-26 08:23] LABS: Hematocrit 41.2 % (40-54); Hemoglobin 13.3 g/dL (13.0-16.5); Mean Corp Hgb Conc 32.3 g/dL (32-36); Mean Corpuscular Hgb 31.4 pg (27.0-32.0); Mean Corpuscular Volume 97.2 fL (80-94); Mean Platelet Vol. 9.8 fl (6.2-12.0); Platelet Count 334 K/mm3 (150-450); RBC Distribution Width CV 12.5 % (11.6-14.6); RBC Distribution Width SD 44.6 fl (35.1-43.9); Red Blood Count 4.24 M/mm3 (4.6-6.2); White Blood Count 8.5 K/mm3 (4.4-11.0)
[2023-09-26 08:46] LABS: ALB/GLOB Ratio 0.8 RATIO (0.9-2.4); AST(SGOT) 21 U/L (15-37); Alanine Aminotransfer ALT/SGPT 32 U/L (16-61); Albumin, Serum 3.2 g/dL (3.2-5.0); Alkaline Phosphatase 89 U/L (45-117); Anion Gap 5 (5-15); BUN 14 mg/dL (7-18); BUN/Creat Ratio 19.6 RATIO (10-20); Calcium,Total 8.7 mg/dL (8.5-10.1); Chloride 102 mmol/L (98-107); Creatinine, Serum 0.71 mg/dL (0.70-1.30); EST Glomerular Filtration Rate 114 mL/min (>60); Est Glom Filt Rate - Afr Amer 138 mL/min (>60); Globulin 3.8 g/dL (2.2-4.2); Glucose 101 mg/dL (74-106); Potassium 3.8 mmol/L (3.5-5.1); Sodium Level 134 mmol/L (136-145)
== END ==
LOC: OLS.ACH 05:00
PROVIDERS: PCP Internal Medicine; Visit Provider Internal Medicine
DX: E87.1 Hypo-osmolality and hyponatremia (principal); F29 Unspecified psychosis not due to a substance or known physiological condition; K21.9 Gastro-esophageal reflux disease without esophagitis; R10.9 Unspecified abdominal pain
CPT/HCPCS: 36415; 80053; 85027

== ENCOUNTER 2023-10-02 13:52 | Inpatient (IN) | payer MEDICARE, OTHER, MEDICAID, SELFPAY ==
[2023-10-02] VITALS (13 sets, daily range): BP systolic 138–159; BP diastolic 66–85; PULSE 65–76; RESP 16–18; TEMP 37; O2SAT 93–99; BMI 36.6
--- NOTE | 2023-10-02 14:33 | CT_ITS ---
STUDY: CT ABDOMEN AND PELVIS WITH CONTRAST REASON FOR EXAM: Male, 78 years old. abdominal distention RADIATION DOSAGE (If Supplied By Facility): CTDIvol = ( 39.65 ) mGy, DLP = ( 1802.50 ) mGycm TECHNIQUE: Transaxial images were obtained from the dome of the diaphragm to the symphysis pubis without oral contrast. IV 100mL Isovue-370 was administered. Sagittal and coronal images were reconstructed. Individualized dose optimization techniques were used for this CT. COMPARISON: 09/25/2023 FINDINGS: The visualized lung bases are unremarkable. The visualized portions of the heart are within normal limits. Normal liver. There is non-visualization of the gallbladder, which may be secondary to either contraction or a prior cholecystectomy. Normal spleen. Normal pancreas. Normal bilateral adrenal glands. Normal right kidney. Normal left kidney. Multiple small left renal cyst. Normal visualized stomach. Normal small intestine. Unusual appearance of the colon which extends superiorly into the upper abdomen with moderately dilated (6 cm) air-filled sigmoid colon and with the remainder of the colon filled with stool suggestive of a degree of obstruction possibly from sigmoid volvulus or internal hernia. No evidence of bowel wall thickening or pneumatosis to suggest ischemia. No pneumoperitoneum to 6 disc perforation. There is non-visualization of the appendix. Normal abdominal aorta. Normal inferior vena cava. Normal retroperitoneum. Normal urinary bladder. Small bilateral inguinal hernias containing fat. Chronic compression fractures of the thoracic lumbar spine treated with vertebroplasty. CT/Abdomen/Pelvis W IV Cont ONLY IMPRESSION: Suspect mild or intermittent obstruction of the sigmoid colon which is moderately distended and air-filled extending into the upper abdomen possibly from sigmoid volvulus or internal hernia. No evidence of ischemia or perforation. N.B. : The above Results were Read Back by Yoel Perla MD to Aubrey Sheikh DO, and understanding confirmed on 10/02/2023 16:27:00 (ET). Electronically Signed: Yoel Perla MD at 16:29 EDT ,
--- NOTE | 2023-10-02 14:34 | ED.VIS.GI ---
HPI HPI - GI History of Present Illness Chief Complaint: Abd Pain Detail of Chief Complaint: Constipation and abdominal distention Informant: patient and family Narrative Narrative: Patient presents to the emergency department via EMS from the [facility] with concern for abdominal distention and lack of bowel movements. Patient apparently was seen for constipation over a week ago. They have been trying enemas and got a repeat x-ray which shows worsening ileus that he was diagnosed with. Enema only producing water and no formed stool. Patient denies abdominal pain. He had no vomiting. He had no fever. He denies urinary symptoms. [facility] Medical History Dysphagia, pharyngeal phase GERD (gastroesophageal reflux disease) Former tobacco use Hemiparesis of left nondominant side Obesity Anxiety and depression Cellulitis UTI (urinary tract infection) BPH (benign prostatic hyperplasia) Schizophrenia First degree AV block Left bundle branch block History of COVID-19 (04/12/20) Urinary incontinence Osteoporosis Multiple sclerosis HLD (hyperlipidemia) Home Medications ?Medication ?Instructions ?Recorded ?Last Taken ?Type atorvastatin 10 mg tablet 10 mg PO QHS CHOLESTEROL 03/31/16 09/17/23 History fluticasone propionate 50 2 spray NASAL QHS ALLERGIES 03/31/16 10/01/23 History mcg/actuation nasal spray,suspension quetiapine 25 mg tablet 25 mg PO QHS PSYCHOSIS 03/31/16 10/01/23 History sennosides 8.6 mg tablet 2 tab PO QHS STOOL SOFTENER 03/31/16 10/01/23 History clonazepam 0.5 mg tablet 0.5 mg PO BID ANXIETY #20 tabs 11/27/16 10/02/23 Rx ondansetron HCl 4 mg tablet 4 mg PO Q6H PRN NAUSEA/VOMITING 12/30/18 Unknown History calcium carbonate 500 mg-vitamin 2 ea PO DAILY ANTACID 05/06/20 10/02/23 History D3 10 mcg (400 unit) chewable tablet famotidine 40 mg tablet 40 mg PO DAILY GI DISTRESS 05/06/20 10/02/23 History silodosin 8 mg capsule 8 mg PO QHS PROSTATE 05/06/20 10/01/23 History simethicone 180 mg capsule 180 mg PO DAILY PRN GAS 05/06/20 09/30/23 History cyclobenzaprine 5 mg tablet 5 mg PO QHS MUSCLE SPASMS 08/13/23 10/01/23 History melatonin 3 mg capsule 3 mg PO QHS INSOMNIA 08/13/23 10/01/23 History quetiapine 50 mg tablet (Seroquel) 50 mg PO QHS PSYCHOSIS 08/13/23 10/01/23 History polyethylene glycol 3350 17 17 g PO DAILY CONSTIPATION #510 08/16/23 10/02/23 Rx gram/dose oral powder (Miralax) grams fluoxetine 40 mg capsule 80 mg PO DAILY DEPRESSION 09/25/23 10/02/23 History tramadol 50 mg tablet 50 mg PO Q8H PRN PAIN 09/25/23 09/30/23 History acetaminophen 500 mg tablet 1,000 mg PO BID LEG PAIN 10/02/23 10/02/23 History (Acetaminophen Extra Strength) amino acids-protein hydrolysate 16 30 ml PO DAILY SUPPLEMENT 10/02/23 10/02/23 History gram-100 kcal/30 mL oral liquid (Liquacel) cranberry conc-vit 30 ml PO DAILY UTI PREVENTION 10/02/23 10/02/23 History G-wnraxht-DOL-bromelain 3,875 mg/30 mL oral liquid (UTI-Stat) cranberry extract 200 mg capsule 400 mg PO BID SUPPLEMENT 10/02/23 10/02/23 History magnesium hydroxide 400 mg/5 mL 60 ml PO DAILY PRN CONSTIPATION 10/02/23 09/30/23 History oral suspension (Milk of Magnesia) multivitamin (Daily-Lai tablet) 1 tab PO DAILY HEALTH MAINTENANCE 10/02/23 10/02/23 History Allergy/AdvReac Type Severity Reaction Status Date / Time Phenothiazines Allergy Unknown Verified 10/02/23 14:13 prochlorperazine (From Allergy Unknown Verified 10/02/23 14:13 Compazine) Sulfa (Sulfonamide Allergy Unknown Verified 10/02/23 14:13 Antibiotics) Family History Father Heart disease Mother No problems noted. Surgical History Status post excision of lipoma History of laparoscopic cholecystectomy (~12/2018) Social History household members: none housing: correction Smoking Status: Former smoker how long ago did patient quit smoking: Smoked in his youth, short-term from description, unclear daily amount. alcohol intake: never substance use type: does not use ROS ROS ED Review of Systems ROS Unobtainable: other Constitutional Constitutional ED: Reports lethargy; Denies chills, fever(s), sweats or weight loss Eyes Eyes: Denies blurry vision, change in vision or diplopia ENT ENT ED: Denies rhinorrhea or sore throat Cardiovascular Cardiovascular: Denies chest pain, orthopnea or racing heartbeat Respiratory/Chest Respiratory/Chest: Denies cough, dyspnea, dyspnea on exertion, orthopnea or sputum Gastrointestinal Gastrointestinal: Reports abdominal pain, constipation and other Details: Abdominal distention ; Denies diarrhea, nausea or vomiting Genitourinary Genitourinary ED: Denies dysuria, hematuria or urinary frequency Musculoskeletal Musculoskeletal: Denies arthralgias, back pain, myalgias or neck pain Integumentary Denies abscess, Abrasions or rash Neurologic Neurologic: Denies headache(s) or weakness Psychiatric Psychiatric: Denies anxiety, depression or suicidal thoughts Endocrine Endocrinology: Denies polydipsia, polyphagia or polyuria Hematologic/Lymphatic Hematologic/Lymphatic: Denies easy bleeding, easy bruising or lymphadenopathy Allergic/Immunologic Allergic/Immunologic ED: Denies mouth swelling, tongue swelling or urticaria EXAM Physical Exam Const Vital Signs: 10/02/23 14:06 10/02/23 16:00 10/02/23 18:00 Temperature 98.6 F Temperature Source Temporal Pulse Rate 67 76 76 Respiratory Rate 16 16 16 Blood Pressure 159/85 H 138/78 H 155/66 H Blood Pressure Mean 109 98 95 Pulse Ox 99 93 97 Oxygen Delivery Method Room Air 10/02/23 20:00 Temperature Temperature Source Pulse Rate 65 Respiratory Rate 17 Blood Pressure 141/74 H Blood Pressure Mean 96 Pulse Ox 96 Oxygen Delivery Method Room Air Positive well nourished and well developed General Appearance ED: well developed and NAD HEENT Reports TM's clear and moist mucous membranes normocephalic and atraumatic; Negative for trauma or tenderness Tympanic Membrane ED: Yes TM's clear Eyes PERRL and EOMs intact bilaterally General Eye ED: Negative for pale conjunctiva or scleral icterus Neck no lymphadenopathy, supple and no JVD General: Negative for tenderness Chest Wall inspection of chest normal and palpation of chest normal Chest: Negative for tenderness Resp normal respiratory effort and clear to auscultation bilaterally Effort and Inspection: Negative for respiratory distress or pain with movement Auscultation: Negative for rhonchi, wheezes or diminished lung sounds Cardio regular rate, regular rhythm, S1 normal heart sound, S2 normal heart sound and no murmurs Peripheral Pulses: pulses 2+ throughout GI normal to inspection, nondistended, normoactive bowel sounds, soft to palpation and no masses; Negative for non-tender GI Narrative: Patient with some diffuse abdominal distention. Mild diffuse tenderness. Hyperactive bowel sounds. No rebound, rigidity, or. Signs. Back/Spine no CVA tenderness and no thoracic nor lumbar tenderness Extremity normal to inspection General Extremety ED: Negative for edema General Extremity: Negative for edema Neuro oriented x3, CN's II-XII intact bilaterally, no sensory deficits noted and gait normal Sensorium / Orientation: awake, alert, oriented to person, oriented to place and oriented to time Motor Exam: strength 5/5 throughout and strength abnormal Psych mental status grossly normal Skin no rashes or lesions noted and no wounds MDM MDM MDM Narrative Medical decision making narrative: Patient presents with abdominal distention and no bowel movements. In the differential would be bowel obstruction versus ileus versus obstipation or rectal impaction. On digital rectal exam there was no stool in the rectal vault. IV line established. CBC with differential obtained for white count 7.3 with hemoglobin 13 and platelet count of 322. Chemistries unremarkable. Lactate normal at 1.2. Urinalysis was normal. CT scan of the abdomen pelvis was obtained with IV contrast which was read by radiology as abnormal: With suspected intermittent obstruction of the sigmoid colon which is moderately distended air-filled extending into the upper abdomen possibly from sigmoid volvulus or internal hernia. No evidence of perforation or ischemia. I did discuss case with general surgeon on-call Dr. Parra who discussed case with cable splicer assistant Dr. Bolaños and they evaluated the CT scan and recommended transfer to tertiary care center. Patient's would like to go to [facility]. Discussed case with the transfer center and our surgeon spoke with Dr. Hudson their surgeon and patient was accepted for transfer to their facility. Care of patient will be turned over to evening physician awaiting transfer. Lab Data Attestation: I reviewed the patient's lab results. Labs: Laboratory Results - last 24 hr 10/02/23 10/02/23 14:20 15:48 WBC 7.3 RBC 4.14 L Hgb 13.0 Hct 40.1 MCV 96.9 H MCH 31.4 MCHC 32.4 RDW Std Deviation 43.8 RDW Coeff of Shawn 12.2 Plt Count 322 MPV 9.6 Immature Gran % (Auto) 0.100 Neut % (Auto) 46.1 L Lymph % (Auto) 42.6 H Harding % (Auto) 6.8 Eos % (Auto) 4.0 Baso % (Auto) 0.4 Absolute Neuts (auto) 3.4 Absolute Lymphs (auto) 3.12 Nucleated RBC % 0 Sodium 133 L Potassium 3.9 Chloride 102 Carbon Dioxide 26.0 Anion Gap 5 BUN 15 Creatinine 0.72 Estim Creat Clear Calc 92.62 Est GFR (MDRD) Af Amer 136 Est GFR (MDRD) Non-Af 113 BUN/Creatinine Ratio 20.9 H Glucose 109 H Lactic Acid 1.2 Calcium 8.6 Total Bilirubin 0.50 AST 23 ALT 36 Alkaline Phosphatase 84 Total Protein 6.8 Albumin 3.0 L Globulin 3.8 Albumin/Globulin Ratio 0.8 L Urine Color Yellow Urine Clarity Clear Urine pH 7.0 Ur Specific [place] 1.010 Urine Protein Negative Urine Glucose (UA) Normal Urine Ketones Negative Urine Occult Blood Negative Urine Nitrite Negative Urine Bilirubin Negative Urine Urobilinogen Normal Ur Leukocyte Esterase 25 H Urine RBC 0 SEEN Urine WBC 0-5 SEEN Ur Squamous Epith Cells 0-5 SEEN Amorphous Sediment 1+ Urine Bacteria 0 SEEN Urine Mucus 0 SEEN Radiography Diagnostic Testing: Clinical Impression(s) from Imaging Studies Abdomen/Pelvis CT 10/02/23 14:33 IMPRESSION: Suspect mild or intermittent obstruction of the sigmoid colon which is moderately distended and air-filled extending into the upper abdomen possibly from sigmoid volvulus or internal hernia. No evidence of ischemia or perforation. N.B. : The above Results were Read Back by Yoel Perla MD to Aubrey Sheikh DO, and understanding confirmed on 10/02/2023 16:27:00 (ET). Electronically Signed: Yoel Perla MD at 16:29 EDT , ADDENDUM: 10/02/23 1636 IMPRESSION: Suspect mild or intermittent obstruction of the sigmoid colon which is moderately distended and air-filled extending into the upper abdomen possibly from sigmoid volvulus or internal hernia. No evidence of ischemia or perforation. N.B. : The above Results were Read Back by Yoel Perla MD to Aubrey Sheikh DO, and understanding confirmed on 10/02/2023 16:27:00 (ET). Electronically Signed: Yoel Perla MD at 16:29 EDT , Discharge Plan Triage Chief Complaint: Abd Pain ED Provider: Aubrey Sheikh Dx/Rx/DC Orders Clinical Impression: Constipation, Abdominal pain Prescriptions: No Action quetiapine 25 MG tablet 25 mg PO QHS sennosides 1 TABLET tablet 2 tab PO QHS atorvastatin 10 MG tablet 10 mg PO QHS Patient Comments: PER MAY, ON HOLD FROM 09/18/23 - 10/01/23 fluticasone propionate 1 SPRAY spray,suspension 2 spray NASAL QHS clonazepam 0.5 MG tablet 0.5 mg PO BID Qty: 20 0RF ondansetron HCl 4 MG tablet 4 mg PO Q6H PRN (Reason: NAUSEA/VOMITING ) simethicone 180 MG capsule 180 mg PO DAILY PRN (Reason: GAS) famotidine 40 MG tablet 40 mg PO DAILY calcium carbonate-vitamin D3 1 EACH tablet,chewable 2 ea PO DAILY silodosin 8 MG capsule 8 mg PO QHS multivitamin [Daily-Lai] Tablet 1 tab PO DAILY Liquacel 16-100 gram-kcal/30 mL liquid 30 ml PO DAILY UTI-Stat 3,875 mg/30 mL liquid 30 ml PO DAILY cranberry extract 200 mg capsule 400 mg PO BID acetaminophen [Acetaminophen Extra Strength] 500 mg tablet 1,000 mg PO BID magnesium hydroxide [Milk of Magnesia] 400 mg/5 mL suspension 60 ml PO DAILY PRN (Reason: CONSTIPATION ) cyclobenzaprine 5 mg tablet 5 mg PO QHS melatonin 3 mg capsule 3 mg PO QHS quetiapine [Seroquel] 50 mg tablet 50 mg PO QHS polyethylene glycol 3350 [Miralax] 17 gram/dose powder 17 g PO DAILY Qty: 510 0RF tramadol 50 mg tablet 50 mg PO Q8H PRN (Reason: PAIN ) fluoxetine 40 mg Capsule 80 mg PO DAILY Primary Care Provider: Scott Sadler Sr. Referrals: Doroteo Peñaloza,DO Scott [Primary Care Provider] - Print Language: Frisian Disposition Disposition: DC/Tx to Another Type of HCF
[2023-10-02] MEDS: 0.9% Normal Saline (1000mL) 1,000 ML 125 ML IV (14:58)
[2023-10-02 14:59] LABS: Absolute Lymphocyte Count 3.12 X10^3/uL (0.83-4.51); Absolute Neutrophil Count 3.4 X10^3/uL (2.0-7.7); Basophil# 0.03 X10^3/uL; Basophil% 0.4 % (0-1); Eosinophil# 0.29 X10^3/uL; Hematocrit 40.1 % (40-54); Lymphocyte # 3.12 X10^3/ul (0.83-4.51); Lymphocyte % 42.6 % (19-41); Mean Corp Hgb Conc 32.4 g/dL (32-36); Mean Corpuscular Hgb 31.4 pg (27.0-32.0); Mean Corpuscular Volume 96.9 fL (80-94); Mean Platelet Vol. 9.6 fl (6.2-12.0); Monocyte% 6.8 % (0-10); NRBC Flagged by Analyzer 0 % (0-5); Neutrophil # 3.38 X10^3/uL (2.7-7.7); Neutrophil % 46.1 % (47-70); Platelet Count 322 K/mm3 (150-450); RBC Distribution Width CV 12.2 % (11.6-14.6); RBC Distribution Width SD 43.8 fl (35.1-43.9); Red Blood Count 4.14 M/mm3 (4.6-6.2); White Blood Count 7.3 K/mm3 (4.4-11.0)
[2023-10-02 15:11] LABS: ALB/GLOB Ratio 0.8 RATIO (0.9-2.4); AST(SGOT) 23 U/L (15-37); Alanine Aminotransfer ALT/SGPT 36 U/L (16-61); Alkaline Phosphatase 84 U/L (45-117); Anion Gap 5 (5-15); BUN 15 mg/dL (7-18); BUN/Creat Ratio 20.9 RATIO (10-20); Calcium,Total 8.6 mg/dL (8.5-10.1); Chloride 102 mmol/L (98-107); Creatinine, Serum 0.72 mg/dL (0.70-1.30); EST Glomerular Filtration Rate 113 mL/min (>60); Est Glom Filt Rate - Afr Amer 136 mL/min (>60); Estimated Creatinine Clearance 92.62 ml/min; Globulin 3.8 g/dL (2.2-4.2); Glucose 109 mg/dL (74-106); Potassium 3.9 mmol/L (3.5-5.1); Protein, Total 6.8 g/dL (6.4-8.2); Sodium Level 133 mmol/L (136-145)
[2023-10-02 15:20] LABS: Lactic Acid 1.2 mmol/L (0.4-1.9)
[2023-10-02 15:56] LABS: Bacteria 0 SEEN /hpf (None Seen); Mucous, Urine 0 SEEN /hpf (<or=2+); Red Blood Cells-Urine 0 SEEN /hpf (0-5)
[2023-10-02 16:02] LABS: Color, Urine Yellow (Yellow); Glucose, Dipstick Normal (Normal); Ketone-Dipstick Negative (Negative); Leukocyte Esterase-Dipstick 25 /ul (Negative); Nitrite-Dipstick Negative (Negative); Occult Blood-Urine Negative /ul (Negative); Protein-Dipstick Negative (Negative); Urine Bilirubin Dipstick Negative (Negative); Urine Clarity Clear (Clear); Urine Urobilinogen Normal (Normal)
[2023-10-02 16:10] LABS: Amorphous Sediment 1+; Squamous Epithelial Cells - UA 0-5 SEEN /hpf (0-5); White Blood Cells 0-5 SEEN /hpf (0-5)
--- NOTE | 2023-10-02 17:25 | NURSING ---
CALLED [facility] FOR TRANSFER
[2023-10-02] MEDS: Morphine 4 MG/ML Syringe IV (17:30)
[2023-10-02] MEDS: Ondansetron 4 MG/2 ML Vial IV (17:30)
[2023-10-03] VITALS (31 sets, daily range): BP systolic 116–168; BP diastolic 72–99; PULSE 65–119; RESP 14–18; TEMP 36.3–36.9; O2SAT 91–99; BMI 36.6; BMI 35.2
[2023-10-03] MEDS: 0.9% Normal Saline (1000mL) 1,000 ML 125 ML IV ×2 (00:32→15:40)
--- NOTE | 2023-10-03 06:42 | ED.RN ---
called [facility] transfer line for update, was told that there is still no bed for patient. Possibility of bed availability late afternoon today
[2023-10-03 07:39] LABS: Absolute Lymphocyte Count 3.33 X10^3/uL (0.83-4.51); Absolute Neutrophil Count 4.7 X10^3/uL (2.0-7.7); Basophil# 0.06 X10^3/uL; Basophil% 0.7 % (0-1); Eosinophil# 0.32 X10^3/uL; Eosinophils% 3.6 % (0-5); Hematocrit 41.9 % (40-54); Hemoglobin 13.4 g/dL (13.0-16.5); Lymphocyte # 3.33 X10^3/ul (0.83-4.51); Lymphocyte % 37.1 % (19-41); Mean Corpuscular Hgb 31.2 pg (27.0-32.0); Mean Corpuscular Volume 97.4 fL (80-94); Mean Platelet Vol. 9.4 fl (6.2-12.0); Monocyte# 0.57 X10^3/uL; Monocyte% 6.4 % (0-10); NRBC Flagged by Analyzer 0 % (0-5); Neutrophil # 4.66 X10^3/uL (2.7-7.7); Neutrophil % 51.9 % (47-70); Platelet Count 321 K/mm3 (150-450); RBC Distribution Width CV 12.3 % (11.6-14.6); RBC Distribution Width SD 44.4 fl (35.1-43.9)
--- NOTE | 2023-10-03 07:44 | PCM.PRE.AN2 ---
ASA Classification* ASA Classification ASA Classification: 3 and E Assessment & Plan Anesthesia* Anesthesia Assessment Anesthesia Assessment: Discussed sedation and/or anesthesia options, risks, benefits, and alternatives with patient/parents/legal guardian/POA. Questions invited. The patient/parents/legal guardian/POA seems to understand and agrees to proceed with anesthesia plan. Reviewed the physical assessment, medical history, allergy history and patient home medications list prior to surgery/procedure/anesthetic and documented any changes. Performed airway and anesthesia risk assessments. Anesthesia Type Anesthesia Type: General (see written pre anesthesia record for full assessment) Anesthesia Focused Assessment* Temperature: 97.8 F Pulse Rate: 88 Blood Pressure: 153/78 Respiratory Rate: 18 Pulse Ox: 97 Airway Assessment Mouth opens: >3 cm Mallampati Score: II Focused Labs Anesthesia Preop lab: CBC WBC 9.0 K/mm3 (4.4-11.0) 10/03/23 07:27 RBC 4.30 M/mm3 (4.6-6.2) L 10/03/23 07:27 Hgb 13.4 g/dL (13.0-16.5) 10/03/23 07:27 Hct 41.9 % (40-54) 10/03/23 07:27 Plt Count 321 K/mm3 (150-450) 10/03/23 07:27 CHEMISTRY Potassium 3.9 mmol/L (3.5-5.1) 10/02/23 14:20 Sodium 133 mmol/L (136-145) L 10/02/23 14:20 Magnesium 2.0 mg/dL (1.8-2.4) 11/27/16 08:46 BUN 15 mg/dL (7-18) 10/02/23 14:20 Creatinine 0.72 mg/dL (0.70-1.30) 10/02/23 14:20 Glucose 109 mg/dL (74-106) H 10/02/23 14:20 TSH 2.46 uIU/mL (0.358-3.74) 08/26/15 05:08 COAG PT 14.9 SECONDS (11.7-14.9) 08/13/23 14:15 Pre-Assessment Diagnosis/Proposed Procedure Planned Operative Procedure(s): exp lap Anesthesia History Anesthesia History - hand former helper: Anesthesia History - hand former helper Hx Hospitalization No: NONE RECENT 05/06/20 19:38 Any Problems With Anesthesia No 12/30/18 16:30 Cholinesterase deficiency No 12/30/18 16:30 You/Your Family Experience No 12/30/18 16:30 fever (hyperthermia) with Relationship Recent Exposure to Contagious No 01/02/19 05:50 Disease Does patient have nerve No 12/30/18 16:30 stimulator Patient instructed to have device shut off --Does patient have Pacemaker or ICD? When Was Last Pacemaker Check QUESTION #4 FULL TEXT: You/Your Family Experience fever (hyperthermia) with Anesthesia Last Oral Intake Last Oral intake: Last Oral Intake NPO since Meds taken in AM with sips of water? Meds patient instructed to take am of surgery PONV PONV - hand former helper: PONV - hand former helper Female HX of Motion Sickness HX of N/V After Surgery Non-Smoker Duration of Surgery greater than 60 minutes Number of Risk Factors PONV Score Height & Weight Height & Weight: Anesthesia: Height & Weight Height 5 ft 8 in 10/02/23 14:06 Weight: 109.1 kg 10/02/23 14:06 Body Mass Index (BMI) 36.6 10/02/23 14:06 Respiratory Assessment Respiratory Assessment - hand former helper: Respiratory Tract Infection Hx - hand former helper Hx Respiratory Tract Infection No 12/30/18 16:30 STOP Sleep Apnea STOP Sleep Apnea - hand former helper: STOP Sleep Apnea - hand former helper Hx Hypertension No 08/13/23 20:21 Hx Sleep Apnea No 08/13/23 20:21 CPAP BIPAP Do you snore loudly (louder than talking or can be heard Do you often feel tired/ fatigued/ sleepy during daytime? Has anyone observed you stop breathing during sleep? STOP Results QUESTION #5 FULL TEXT : Do you snore loudly (louder than talking or can be heard through closed doors)? Tobacco Use History Tobacco Use History - hand former helper: Tobacco Use History - hand former helper Tobacco Use Smoking Status Former smoker 10/02/23 16:49 Hx Tobacco Use No 08/13/23 20:21 Years Smoking Packs Smoked per Day Smoking Cessation Date was No - quit smoking greater 10/02/23 16:49 within the last 15 years than 15 years ago Hx Smoking Cessation Date 06/22/02 10/02/23 16:49 Hx Smoking Cessation No 10/02/23 16:49 Counseling Hematologic Medial History Hematologic Hx - hand former helper: Hematologic Medical Hx - documentation billing clerk Hx of Blood Transfusion Hx of Transfusion in last 3 Months Date of Last Transfusion (if within last 3 months) Ever experience any problems with transfusion(s)? Specify any problems Hx of Preganancy in last 3 Months Nurse Filling Out Transfusion & Questions: Date: Time: Patient unable to answer at this time (ie. confused, unrespo /Reproduction History /Reproductive History - hand former helper: /Reproductive Hx- hand former helper Hx Now Gestational Age (in weeks): EDC: Hx Hx Para Hx Section SAB Active Medications Active Medications: Current Medications Generic Name Dose Route Start Last Admin Trade Name Freq PRN Reason Stop Dose Admin Sodium Chloride 1,000 mls @ 125 mls/hr 10/02/23 14:35 10/03/23 00:32 IV 125 mls/hr .Q8H DOMO Administration PFSH Medical History Dysphagia, pharyngeal phase GERD (gastroesophageal reflux disease) Former tobacco use Hemiparesis of left nondominant side Obesity Anxiety and depression Cellulitis UTI (urinary tract infection) BPH (benign prostatic hyperplasia) Schizophrenia First degree AV block Left bundle branch block History of COVID-19 (04/12/20) Urinary incontinence Osteoporosis Multiple sclerosis HLD (hyperlipidemia) Home Medications ?Medication ?Instructions ?Recorded ?Last Taken ?Type atorvastatin 10 mg tablet 10 mg PO QHS CHOLESTEROL 03/31/16 09/17/23 History fluticasone propionate 50 2 spray NASAL QHS ALLERGIES 03/31/16 10/01/23 History mcg/actuation nasal spray,suspension quetiapine 25 mg tablet 25 mg PO QHS PSYCHOSIS 03/31/16 10/01/23 History sennosides 8.6 mg tablet 2 tab PO QHS STOOL SOFTENER 03/31/16 10/01/23 History clonazepam 0.5 mg tablet 0.5 mg PO BID ANXIETY #20 tabs 11/27/16 10/02/23 Rx ondansetron HCl 4 mg tablet 4 mg PO Q6H PRN NAUSEA/VOMITING 12/30/18 Unknown History calcium carbonate 500 mg-vitamin 2 ea PO DAILY ANTACID 05/06/20 10/02/23 History D3 10 mcg (400 unit) chewable tablet famotidine 40 mg tablet 40 mg PO DAILY GI DISTRESS 05/06/20 10/02/23 History silodosin 8 mg capsule 8 mg PO QHS PROSTATE 05/06/20 10/01/23 History simethicone 180 mg capsule 180 mg PO DAILY PRN GAS 05/06/20 09/30/23 History cyclobenzaprine 5 mg tablet 5 mg PO QHS MUSCLE SPASMS 08/13/23 10/01/23 History melatonin 3 mg capsule 3 mg PO QHS INSOMNIA 08/13/23 10/01/23 History quetiapine 50 mg tablet (Seroquel) 50 mg PO QHS PSYCHOSIS 08/13/23 10/01/23 History polyethylene glycol 3350 17 17 g PO DAILY CONSTIPATION #510 08/16/23 10/02/23 Rx gram/dose oral powder (Miralax) grams fluoxetine 40 mg capsule 80 mg PO DAILY DEPRESSION 09/25/23 10/02/23 History tramadol 50 mg tablet 50 mg PO Q8H PRN PAIN 09/25/23 09/30/23 History acetaminophen 500 mg tablet 1,000 mg PO BID LEG PAIN 10/02/23 10/02/23 History (Acetaminophen Extra Strength) amino acids-protein hydrolysate 16 30 ml PO DAILY SUPPLEMENT 10/02/23 10/02/23 History gram-100 kcal/30 mL oral liquid (Liquacel) cranberry conc-vit 30 ml PO DAILY UTI PREVENTION 10/02/23 10/02/23 History D-nexzbew-UBE-bromelain 3,875 mg/30 mL oral liquid (UTI-Stat) cranberry extract 200 mg capsule 400 mg PO BID SUPPLEMENT 10/02/23 10/02/23 History magnesium hydroxide 400 mg/5 mL 60 ml PO DAILY PRN CONSTIPATION 10/02/23 09/30/23 History oral suspension (Milk of Magnesia) multivitamin (Daily-Lai tablet) 1 tab PO DAILY HEALTH MAINTENANCE 10/02/23 10/02/23 History Allergy/AdvReac Type Severity Reaction Status Date / Time Phenothiazines Allergy Unknown Verified 10/02/23 14:13 prochlorperazine (From Allergy Unknown Verified 10/02/23 14:13 Compazine) Sulfa (Sulfonamide Allergy Unknown Verified 10/02/23 14:13 Antibiotics) Family History Father Heart disease Mother No problems noted. Surgical History Status post excision of lipoma History of laparoscopic cholecystectomy (~12/2018) Social History household members: none housing: alf Smoking Status: Former smoker how long ago did patient quit smoking: Smoked in his youth, short-term from description, unclear daily amount. alcohol intake: never substance use type: does not use Review of Systems (Anesthesia) ROS Narrative System reviewed and no additional complaints, except as documented.
[2023-10-03 07:47] LABS: Anion Gap 5 (5-15); BUN 11 mg/dL (7-18); BUN/Creat Ratio 15.7 RATIO (10-20); Calcium,Total 8.5 mg/dL (8.5-10.1); Chloride 103 mmol/L (98-107); EST Glomerular Filtration Rate 116 mL/min (>60); Est Glom Filt Rate - Afr Amer 140 mL/min (>60); Estimated Creatinine Clearance 92.62 ml/min; Glucose 99 mg/dL (74-106); Potassium 4.2 mmol/L (3.5-5.1); Sodium Level 133 mmol/L (136-145)
--- NOTE | 2023-10-03 07:48 | EKG12_ITS ---
Test Reason : PRE OP Blood Pressure : / mmHG Vent. Rate : 073 BPM Atrial Rate : 073 BPM P-R Int : 288 ms QRS Dur : 136 ms QT Int : 440 ms P-R-T Axes : 079 -46 101 degrees QTc Int : 484 ms Sinus rhythm with 1st degree A-V block with Premature supraventricular complexes Left axis deviation Left bundle branch block Abnormal ECG Confirmed by [place] MCCRARY, JENELLE ([id number]), art editor YARELI RAYMUNDO ([id number]) on 10/05/2023 9:25:41 AM Referred By: Confirmed By:JENELLE HO MD
--- NOTE | 2023-10-03 07:50 | PCM.HP.STD ---
HPI - General HPI Narrative EYAL PRATT, is a 78 M who presents with abdominal pain and constipation. The patient was recently admitted with constipation. He was discharged home and has not had a bowel movement since. The [facility] he has had estimates has been at least 8 days since his last bowel movement. He is complaining of some mild abdominal pain. Denies passing any flatus. Denies nausea or vomiting. [facility] Medical History Dysphagia, pharyngeal phase GERD (gastroesophageal reflux disease) Former tobacco use Hemiparesis of left nondominant side Obesity Anxiety and depression Cellulitis UTI (urinary tract infection) BPH (benign prostatic hyperplasia) Schizophrenia First degree AV block Left bundle branch block History of COVID-19 (04/12/20) Urinary incontinence Osteoporosis Multiple sclerosis HLD (hyperlipidemia) Home Medications ?Medication ?Instructions ?Recorded ?Last Taken ?Type atorvastatin 10 mg tablet 10 mg PO QHS CHOLESTEROL 03/31/16 09/17/23 History fluticasone propionate 50 2 spray NASAL QHS ALLERGIES 03/31/16 10/01/23 History mcg/actuation nasal spray,suspension quetiapine 25 mg tablet 25 mg PO QHS PSYCHOSIS 03/31/16 10/01/23 History sennosides 8.6 mg tablet 2 tab PO QHS STOOL SOFTENER 03/31/16 10/01/23 History clonazepam 0.5 mg tablet 0.5 mg PO BID ANXIETY #20 tabs 11/27/16 10/02/23 Rx ondansetron HCl 4 mg tablet 4 mg PO Q6H PRN NAUSEA/VOMITING 12/30/18 Unknown History calcium carbonate 500 mg-vitamin 2 ea PO DAILY ANTACID 05/06/20 10/02/23 History D3 10 mcg (400 unit) chewable tablet famotidine 40 mg tablet 40 mg PO DAILY GI DISTRESS 05/06/20 10/02/23 History silodosin 8 mg capsule 8 mg PO QHS PROSTATE 05/06/20 10/01/23 History simethicone 180 mg capsule 180 mg PO DAILY PRN GAS 05/06/20 09/30/23 History cyclobenzaprine 5 mg tablet 5 mg PO QHS MUSCLE SPASMS 08/13/23 10/01/23 History melatonin 3 mg capsule 3 mg PO QHS INSOMNIA 08/13/23 10/01/23 History quetiapine 50 mg tablet (Seroquel) 50 mg PO QHS PSYCHOSIS 08/13/23 10/01/23 History polyethylene glycol 3350 17 17 g PO DAILY CONSTIPATION #510 08/16/23 10/02/23 Rx gram/dose oral powder (Miralax) grams fluoxetine 40 mg capsule 80 mg PO DAILY DEPRESSION 09/25/23 10/02/23 History tramadol 50 mg tablet 50 mg PO Q8H PRN PAIN 09/25/23 09/30/23 History acetaminophen 500 mg tablet 1,000 mg PO BID LEG PAIN 10/02/23 10/02/23 History (Acetaminophen Extra Strength) amino acids-protein hydrolysate 16 30 ml PO DAILY SUPPLEMENT 10/02/23 10/02/23 History gram-100 kcal/30 mL oral liquid (Liquacel) cranberry conc-vit 30 ml PO DAILY UTI PREVENTION 10/02/23 10/02/23 History G-ednjeay-CFU-bromelain 3,875 mg/30 mL oral liquid (UTI-Stat) cranberry extract 200 mg capsule 400 mg PO BID SUPPLEMENT 10/02/23 10/02/23 History magnesium hydroxide 400 mg/5 mL 60 ml PO DAILY PRN CONSTIPATION 10/02/23 09/30/23 History oral suspension (Milk of Magnesia) multivitamin (Daily-Lai tablet) 1 tab PO DAILY HEALTH MAINTENANCE 10/02/23 10/02/23 History Allergy/AdvReac Type Severity Reaction Status Date / Time Phenothiazines Allergy Unknown Verified 10/02/23 14:13 prochlorperazine (From Allergy Unknown Verified 10/02/23 14:13 Compazine) Sulfa (Sulfonamide Allergy Unknown Verified 10/02/23 14:13 Antibiotics) Family History Father Heart disease Mother No problems noted. Surgical History Status post excision of lipoma History of laparoscopic cholecystectomy (~12/2018) Social History household members: none housing: [facility] Smoking Status: Former smoker how long ago did patient quit smoking: Smoked in his youth, short-term from description, unclear daily amount. alcohol intake: never substance use type: does not use Vital Signs Vital Signs Vital Signs: 10/02/23 14:06 10/02/23 16:00 10/02/23 18:00 Temperature 98.6 F Temperature Source Temporal Pulse Rate 67 76 76 Respiratory Rate 16 16 16 Blood Pressure 159/85 H 138/78 H 155/66 H Blood Pressure Mean 109 98 95 Pulse Ox 99 93 97 Oxygen Delivery Method Room Air 10/02/23 19:13 10/02/23 19:30 10/02/23 20:00 Temperature Temperature Source Pulse Rate 65 Respiratory Rate 17 Blood Pressure 141/74 H Blood Pressure Mean 96 Pulse Ox 96 96 96 Oxygen Delivery Method Room Air 10/02/23 20:00 10/02/23 20:30 10/02/23 21:00 Temperature Temperature Source Pulse Rate Respiratory Rate Blood Pressure 141/74 H 154/74 H Blood Pressure Mean 94 99 Pulse Ox 96 97 98 Oxygen Delivery Method 10/02/23 21:30 10/02/23 22:00 10/02/23 22:00 Temperature Temperature Source Pulse Rate 66 Respiratory Rate 18 Blood Pressure 150/75 H 150/75 H Blood Pressure Mean 100 99 Pulse Ox 96 97 97 Oxygen Delivery Method Room Air 10/02/23 22:30 10/02/23 23:00 10/02/23 23:30 Temperature Temperature Source Pulse Rate Respiratory Rate Blood Pressure 147/78 H Blood Pressure Mean 98 Pulse Ox 96 96 95 Oxygen Delivery Method 10/03/23 00:00 10/03/23 00:00 10/03/23 00:30 Temperature Temperature Source Pulse Rate 66 Respiratory Rate 18 Blood Pressure 139/74 H 139/74 H Blood Pressure Mean 95 93 Pulse Ox 96 96 95 Oxygen Delivery Method Room Air 10/03/23 01:00 10/03/23 01:30 10/03/23 02:00 Temperature Temperature Source Pulse Rate 96 Respiratory Rate 18 Blood Pressure 153/80 H 132/99 H Blood Pressure Mean 102 106 Pulse Ox 96 97 95 Oxygen Delivery Method Room Air 10/03/23 04:00 10/03/23 06:00 10/03/23 07:28 Temperature 97.8 F Temperature Source Pulse Rate 65 68 88 Respiratory Rate 16 16 18 Blood Pressure 120/74 145/78 H 153/78 H Blood Pressure Mean 89 100 103 Pulse Ox 94 98 97 Oxygen Delivery Method Room Air Room Air 10/03/23 07:45 Temperature 97.8 F Temperature Source Pulse Rate 88 Respiratory Rate 18 Blood Pressure 153/78 H Blood Pressure Mean Pulse Ox 97 Oxygen Delivery Method Weight Weight: 240 lb 8.389 oz Body Mass Index (BMI) 36.6 Physical Exam Const oriented x3 Resp normal respiratory effort GI soft to palpation Inspection: abdominal distention Palpation: tender Extremity normal to inspection Results Lab / Micro Data 10/03/23 07:27 10/03/23 07:27 Labs: Laboratory Results - last 24 hr 10/02/23 14:20: WBC 7.3, RBC 4.14 L, Hgb 13.0, Hct 40.1, MCV 96.9 H, MCH 31.4, MCHC 32.4, RDW Std Deviation 43.8, RDW Coeff of Shawn 12.2, Plt Count 322, MPV 9.6, Immature Gran % (Auto) 0.100, Neut % (Auto) 46.1 L, Lymph % (Auto) 42.6 H, Worth % (Auto) 6.8, Eos % (Auto) 4.0, Baso % (Auto) 0.4, Absolute Neuts (auto) 3.4, Absolute Lymphs (auto) 3.12, Nucleated RBC % 0, Sodium 133 L, Potassium 3.9, Chloride 102, Carbon Dioxide 26.0, Anion Gap 5, BUN 15, Creatinine 0.72, Estim Creat Clear Calc 92.62, Est GFR (MDRD) Af Amer 136, Est GFR (MDRD) Non-Af 113, BUN/Creatinine Ratio 20.9 H, Glucose 109 H, Lactic Acid 1.2, Calcium 8.6, Total Bilirubin 0.50, AST 23, ALT 36, Alkaline Phosphatase 84, Total Protein 6.8, Albumin 3.0 L, Globulin 3.8, Albumin/Globulin Ratio 0.8 L 10/02/23 15:48: Urine Color Yellow, Urine Clarity Clear, Urine pH 7.0, Ur Specific [place] 1.010, Urine Protein Negative, Urine Glucose (UA) Normal, Urine Ketones Negative, Urine Occult Blood Negative, Urine Nitrite Negative, Urine Bilirubin Negative, Urine Urobilinogen Normal, Ur Leukocyte Esterase 25 H, Urine RBC 0 SEEN, Urine WBC 0-5 SEEN, Ur Squamous Epith Cells 0-5 SEEN, Amorphous Sediment 1+, Urine Bacteria 0 SEEN, Urine Mucus 0 SEEN 10/03/23 07:27: WBC 9.0, RBC 4.30 L, Hgb 13.4, Hct 41.9, MCV 97.4 H, MCH 31.2, MCHC 32.0, RDW Std Deviation 44.4 H, RDW Coeff of Shawn 12.3, Plt Count 321, MPV 9.4, Immature Gran % (Auto) 0.300, Neut % (Auto) 51.9, Lymph % (Auto) 37.1, Worth % (Auto) 6.4, Eos % (Auto) 3.6, Baso % (Auto) 0.7, Absolute Neuts (auto) 4.7, Absolute Lymphs (auto) 3.33, Nucleated RBC % 0, Sodium 133 L, Potassium 4.2, Chloride 103, Carbon Dioxide 25.0, Anion Gap 5, BUN 11, Creatinine 0.70, Estim Creat Clear Calc 92.62, Est GFR (MDRD) Af Amer 140, Est GFR (MDRD) Non-Af 116, BUN/Creatinine Ratio 15.7, Glucose 99, Calcium 8.5 Imaging Radiology Impression Abdomen/Pelvis CT 10/02/23 14:33 IMPRESSION: Suspect mild or intermittent obstruction of the sigmoid colon which is moderately distended and air-filled extending into the upper abdomen possibly from sigmoid volvulus or internal hernia. No evidence of ischemia or perforation. N.B. : The above Results were Read Back by Yoel Perla MD to Aubrey Sheikh DO, and understanding confirmed on 10/02/2023 16:27:00 (ET). Electronically Signed: Yoel Perla MD at 16:29 EDT , ADDENDUM: 10/02/23 0746 IMPRESSION: Suspect mild or intermittent obstruction of the sigmoid colon which is moderately distended and air-filled extending into the upper abdomen possibly from sigmoid volvulus or internal hernia. No evidence of ischemia or perforation. N.B. : The above Results were Read Back by Yoel Perla MD to Aubrey Sheikh DO, and understanding confirmed on 10/02/2023 16:27:00 (ET). Electronically Signed: Yoel Perla MD at 16:29 EDT , Assessment & Plan Assessment/Plan (1) Colon obstruction: PLAN: The patient has CT scan that shows obstructed colon. It was read as possible internal hernia or volvulus. I discussed the case last night with GI and the ER doctor and we decided to transfer the patient to attempt colonoscopy elsewhere for decompression. He was accepted to [facility] but was unable to get a bed. I do not believe he can wait much longer before perforating so I would like to take him to surgery today. I discussed exploratory laparoscopy. I discussed possible resection of what ever is blocked with end colostomy. I do not believe an anastomosis would be possible. Patient is also wheelchair-bound with MS. I discussed the procedure with the patient and his and his daughter. I discussed the risks including but not limited to bleeding, infection, need for colostomy, need for transfusion. Patient understands the risks and is willing to proceed. Andrea Parra MD Pager: [facility] [address] [place] [address], [address] [place] [address] Office:
[2023-10-03] MEDS: Ondansetron 4 MG/2 ML Vial IV (10:38)
[2023-10-03] MEDS: Morphine 4 MG/ML Syringe IV (10:38)
[2023-10-03] MEDS: Cefotetan 2 GM in 0.9% Normal Saline (100mL MB+) 100 ML IV ×2 (11:49→16:18)
--- NOTE | 2023-10-03 12:00 | COL_PTH ---
PATIENT: EYAL PRATT LOC: [facility] U#:[id number] AGE/SX: 78/M ROOM: [facility] RE10/03/[address]: Dr. Braulio Pereira DO : 1945 BED: 1 DIS: 10/13/2023 SPEC #: [id number] RECD: 10/03/23 14:08 STATUS: SHIREEN ASTRID #: [id number] MARILYN: 10/03/23 12:[address]: Andrea Parra DEPT: SURGICAL PATHOLOGY RECD BY: Jerry Mitchell ENTERED: 10/05/23 06:58 SP TYPE: COLON OTHR DR: Dr. Scott Sadler Sr., DO Dr. Alize Montes, DO Dr. Karen Altamirano MD Tissues: Colon, NOS Procedures: Surgery Specimen Level V HEADER OPERATION: Laparotomy, sigmoid colectomy, end colostomy PRE-OP DIAGNOSIS: Colon obstruction TISSUE SUBMITTED: Sigmoid colon- suture chirinos distal margin MICROSCOPIC DIAGNOSIS Sigmoid colon, colectomy: Tubular adenoma (0.5cm in greatest dimension). Markedly dilated segment of colon. Five benign pericolonic lymph nodes. [facility] 10/08/2023 MICROSCOPIC DESCRIPTION Slides are reviewed. GROSS DESCRIPTION Received in fixative is one container labeled with the patient's name and designated Sigmoid colon. The specimen consists of a dilated segment of colon measuring 33.0cm in length and 6.0 to 12.0cm in diameter. Resection margins are stapled. Lumen does not contain any material. Mucosa is flattened. A small round brown mucosal polyp is noted measuring 0.5 x 0.5 x 0.2cm and this is 6.0cm away from the proximal resection margin. Polyp does not invade into the underlying bowel wall. Sections of pericolonic adipose tissue reveal a few small possible lymph nodes, largest measuring 0.3cm in greatest dimension. Soil Technician sections are submitted in six cassettes as follows: 1-Proximal and distal resection margins (distal resection inked black), 2- dilated portion of the colon, 3- other areas of the colon, 4- Mucosal polyp with underlying wall (entirely submitted), 5- Pericolonic adipose tissue, 6- Possible lymph nodes. TC:1 [facility] 10/05/2023 CPT:[id number] ADDENDUM ADDENDUM ADDENDUM ADDENDUM ADDENDUM ADDENDUM ADDENDUM ADDENDUM ADDENDUM ADDENDUM ADDENDUM 10/19/2023 11:35 ADDENDUM 10/19/2023 11:35 ADDENDUM 10/19/2023 11:35 ADDENDUM 10/19/2023 11:35 ADDENDUM 10/19/2023 11:35 Sigmoid colon, colectomy: Decreased number of nerve bundles and ganglion cells are noted in the myenteric and submucsal plexuses suggestive of Hirchsprung's disease. Patient's multiple sclerosis history is also noted. This case is discussed with Dr. Garibay by Dr. Willett. Case has been reviewed in consultation with Dr. Willett who concurs with the above diagnosis. IDC:[id number] ORTIZ/ 10/19/2023
[2023-10-03] MEDS: Bupivacaine Mpf 0.5% 30 ML VIAL (13:22)
--- NOTE | 2023-10-03 14:05 | PCM.POST.ANE ---
Anesthesia: Postop Eval I Current Vital Signs Temperature: 97.8 F Pulse Rate: 86 Blood Pressure: 168/85 Respiratory Rate: 18 Pulse Ox: 99 Oxygen Delivery Method: Simple Mask Oxygen Flow Rate (L/min): 6 Assessment Airway patent: Yes Spontaneous unlabored respirations: Yes Mental status: Awake and Calm nausea: No Vomiting: No Anesthesia Complication: No Fluid Hydration Crystalloid volume administer (ml): 1,500 Total IV fluid infused: 1,500 Progress Note Anesthesia document: Postop Eval 1 completed: Yes
--- NOTE | 2023-10-03 14:32 | PCM.OPRPT ---
Report of Operation Date of Procedure: 10/03/23 Pre-Operative Diagnosis: Colonic obstruction Post-Operative Diagnosis: Same Surgery/Procedure Performed:: Laparotomy with resection of sigmoid colon and end colostomy Type of Anesthesia: General/Regional Specimen's removed: Sigmoid colon with suture marking the distal margin Estimated Blood Loss (mL): 10 Description of Procedure: Patient was brought back to the operating room and general anesthesia was induced. A Quigley catheter was placed. The abdomen was prepped and draped in usual sterile fashion. A midline incision was marked and then incised using scalpel. Electrocautery was used to dissect down to the fascia. The fascia was elevated and sharply incised. Finger sweep was performed and then using finger to protect the bowel the electrocautery was used to open the fascia throughout the length of the incision. A wound protector was placed. The sigmoid colon was grossly distended but did not appear ischemic. I evaluated the sigmoid colon it did not appear torsed. There was no volvulus. It seemed as though the colon proximal and distal to this area of sigmoid was nondistended. There did not appear to be obstruction in any of the bowel or any mass. There is no firm area to suggest stricture or mass in the bowel. This may be due to his MS. We decided to resect the sigmoid colon and bring out the end colostomy. The proximal sigmoid was divided with a LANIE stapler just proximal to this distention where the bowel was still peristalsing. The LigaSure impact was used to take down the mesentery back to the sigmoid pedicle. The sigmoid pedicle was clipped and then divided using LigaSure. Once the distal rectum was encountered it was stapled across using a LANIE stapler. The rectal stump looked good with good hemostasis. Next the specimen was marked and sent for pathology. The abdomen was irrigated and suctioned dry and inspected once more. Next the colostomy was made in the left mid abdomen. An area of skin was removed and the fat was divided until the fascia was encountered and a cruciate incision was made in the fat and the muscle split and a cruciate incision was made in the posterior rectus sheath. The colostomy was brought through this and sutured to the fascia using 3-0 Vicryl suture. Next the fascia was closed with running PDS suture from the top and bottom meeting in the middle and the subcutaneous tissue was irrigated and suctioned dry. The incision was anesthetized and closed with interrupted 4-0 Monocryl sutures. Steri-Strips and bandages were applied. Next the stoma was matured. The staple line was removed with electrocautery and in a Michelle fashion the mucosa and serosa of the colon were sutured to the skin. After the colon was matured the ostomy appliance was applied. Patient was then awoken and taken to PACU in stable condition with Quigley in place. Admit VTE Documentation VTE Mechan Device Prophylaxis: SCD's
--- NOTE | 2023-10-03 14:47 | POSTOPAN2_ITS ---
Anesthesia Postop Eval I Sum Postop Eval Completion status Anesthesia document: Postop Eval 1 completed: Yes Anesthesia Postop Eval I Summary Anesthesia Postop Eval I Summary: Anesthesia Postop Eval I: Assessment Summary Airway patent Yes 10/03/23 14:06 BAGGAGE [email or web address].[email or web address] Spontaneous unlabored Yes 10/03/23 14:06 BAGGAGE HANDLER.ANDRE respirations Mental status Awake,Calm 10/03/23 14:06 BAGGAGE HANDLER.[email or web address] nausea No 10/03/23 14:06 BAGGAGE HANDLER.ANDRE Vomiting No 10/03/23 14:06 BAGGAGE HANDLER.ANDRE Anesthesia Postop Eval I: Fluid Summary Crystalloid volume administer 1,500 10/03/23 14:06 BAGGAGE HANDLER.GREGORIOOBY (ml) Colloids volume administered ( ml) Blood Product volume administered (ml) Total IV fluid infused 1,500 10/03/23 14:06 BAGGAGE HANDLER.ANDRE Anesthesia Postop Eval I: Summary Notes Anesthesia Complication No 10/03/23 14:06 BAGGAGE HANDLERCARL Anesthesia Complication Comment: Post-operative progress note Anesthesia: Postop Eval II Evaluation Mental status: Awake and Calm Pain Level: 4 nausea: No Vomiting: No Complications Anesthesia Complication: No
--- NOTE | 2023-10-03 14:47 | PCM.POSTANE2 ---
Anesthesia Postop Eval I Sum Postop Eval Completion status Anesthesia document: Postop Eval 1 completed: Yes Anesthesia Postop Eval I Summary Anesthesia Postop Eval I Summary: Anesthesia Postop Eval I: Assessment Summary Airway patent Yes 10/03/23 14:06 MED CARE MANAGER.[email or web address] Spontaneous unlabored Yes 10/03/23 14:06 MED CARE MANAGER.ANDRE respirations Mental status Awake,Calm 10/03/23 14:06 MED CARE MANAGER.GREGORIOOBLoan nausea No 10/03/23 14:06 MED CARE MANAGER.ANDRE Vomiting No 10/03/23 14:06 MED CARE MANAGER.ANDRE Anesthesia Postop Eval I: Fluid Summary Crystalloid volume administer 1,500 10/03/23 14:06 MED CARE MANAGER.GREGORIOOBY (ml) Colloids volume administered ( ml) Blood Product volume administered (ml) Total IV fluid infused 1,500 10/03/23 14:06 MED CARE MANAGER.ANDRE Anesthesia Postop Eval I: Summary Notes Anesthesia Complication No 10/03/23 14:06 MED CARE MANAGERCARL Anesthesia Complication Comment: Post-operative progress note Anesthesia: Postop Eval II Evaluation Mental status: Awake and Calm Pain Level: 4 nausea: No Vomiting: No Complications Anesthesia Complication: No
--- NOTE | 2023-10-03 14:52 | CASEMGMT ---
Discharge Planning Updates sent to [facility]. Clemente placed on chart. SW updated. Princess Reddy DC Planning Asst.
--- NOTE | 2023-10-03 15:20 | CASEMGMT ---
Social Work SW met with pt's and introduced self and role of SW. [facility] he is a termite exterminator helper pt. Pt's confirms plan is for pt to return to [facility] when medically ready. DC clinical assistant aware and updates sent to [facility]. Plan: [facility], return when medically ready ZOIE Olivier
[2023-10-03] MEDS: BENZOCAINE/MENTHOL 1 LOZENGE MUCOUS MEM ×2 (16:46→22:14)
[2023-10-03] MEDS: 0.9% Saline Lock 10 ML Syringe IV ×3 (17:30→18:28)
[2023-10-03] MEDS: Morphine 2 MG/ML Syringe IV ×2 (17:31→17:45)
--- NOTE | 2023-10-03 17:32 | NURSING ---
Dr Valdez texted about pt's chest pain and heart rate.
--- NOTE | 2023-10-03 18:04 | ECHOCS_ITS ---
Reason For Study: abn ekg Procedure This was a 2D Doppler, Color Flow transthoracic echocardiogram. The study was technically difficult. Contrast injection was performed. Exam performed in department. Left Ventricle Normal LV size. Mild concentric left ventricular hypertrophy. Left ventricular systolic function is normal. The left ventricular ejection fraction is 60 %. Stage 1 diastolic dysfunction. No regional wall motion abnormalities noted. Right Ventricle Normal RV size. Normal systolic function. Atria Normal left atrium. Normal right atrium. Mitral Valve There is mild mitral annular calcification. Tricuspid Valve Normal tricuspid valve. Aortic Valve Trisinus/trileaflet aortic valve. Mild focal aortic valve calcification. Pulmonic Valve The pulmonic valve is not well visualized. Great Vessels Normal aortic root. The pulmonary artery is normal size. Pericardium/Pleural No pericardial effusion. Medication Diluted definity 1ml given slow IV push to enhance endocardial definition. MMode/2D Measurements & Calculations LVIDd: 3.4 cm IVSd: 1.3 cm Ao root diam: 3.7 cm LVIDs: 2.7 cm LVPWd: 1.5 cm FS: 19.0 % LAV(MOD-sp4): 34.6 ml LA A4 area: 13.8 cm2 LA dimension(2D): 3.3 cm RA A4 area: 12.4 cm2 Time Measurements MV dec time: 0.11 sec Doppler Measurements & Calculations MV E max evangelista: 83.4 cm/sec Lat Peak E' Evangelista: 9.8 cm/sec Med Peak E' Evangelista: 6.0 cm/sec MV A max evangelista: 93.1 cm/sec E/E' lat: 8.5 E/E' med: 13.8 MV E/A: 0.90 MV V2 max: 94.3 cm/sec MV dec slope: 757.4 cm/sec2 Ao V2 max: 125.2 cm/sec MV max P.6 mmHg Ao max P.3 mmHg MV V2 mean: 66.8 cm/sec Ao V2 mean: 87.2 cm/sec MV mean P.1 mmHg Ao mean P.5 mmHg MV V2 VTI: 22.4 cm Ao V2 VTI: 26.7 cm AV (velocity ratio): 0.87 LV V1 max: 120.2 cm/sec PA V2 max: 133.5 cm/sec LV V1 max P.8 mmHg PA V2 mean: 74.0 cm/sec LV V1 mean P.0 mmHg LV V1 mean: 79.5 cm/sec LV V1 VTI: 23.3 cm ECHO/Echo Complete W/ Contrast Interpretation Summary Normal LV size. Mild concentric left ventricular hypertrophy. Left ventricular systolic function is normal. The left ventricular ejection fraction is 60 %. Stage 1 diastolic dysfunction. Contrast injection was performed. Ordering Physician: Karen Altamirano Referring Physician: deperro gallo Performed By: Shantel Zhao RCS
--- NOTE | 2023-10-03 18:05 | PN.HOSP_ITS ---
Reason for Visit Reason for Visit: Diagnoses Unspecified intestinal obstruction, unspecified as to partial versus complete obstruction (10/03/23) Subjective Subjective Patient is a 78-year-old male with history of multiple sclerosis with left-sided deficits and schizophrenia who presented to [facility] ED 10/02/2023 with abdominal pain and constipation. CT demonstrated colonic obstruction with possible internal hernia or volvulus. There was an attempt to transfer patient elsewhere however unable to get bed so patient was taken to surgery for ex lap with resection of sigmoid colon and end colostomy. Patient taken back to MedSurg unit in stable condition however he developed wide-complex tachycardia with heart rate 110s to 120s and complained of chest pain so hospitalist consulted for admission. Saw patient at bedside, patient reported a little bit of pain in his chest and abdominal pain but denied any other acute complaints, denied any heart history. Objective Data Objective Data Vital Signs: Vital Signs Temp Pulse Resp BP Pulse Ox O2 Del Method O2 Flow Rate 98.2 F 112 H 18 133/84 H 95 Nasal Cannula 2 10/03/23 17:17 10/03/23 17:17 10/03/23 17:17 10/03/23 17:17 10/03/23 17:17 10/03/23 17:17 10/03/23 17:17 Oxygen Flow Rate (L/min) 2 Oxygen Delivery Method Nasal Cannula Weight: 104.871 kg Body Mass Index (BMI) 35.2 Intake & Output: Intake and Output for Last 24 Hours 10/01/23 10/02/23 10/03/23 23:59 23:59 23:59 Intake Total 3270.83 / 3270.83 Output Total 1575 / 1575 Balance 1695.83 / 1695.83 Lab / Micro Data 10/03/23 07:27 10/03/23 07:27 Labs: Laboratory Results - last 24 hr 10/03/23 07:27: WBC 9.0, RBC 4.30 L, Hgb 13.4, Hct 41.9, MCV 97.4 H, MCH 31.2, MCHC 32.0, RDW Std Deviation 44.4 H, RDW Coeff of Shawn 12.3, Plt Count 321, MPV 9.4, Immature Gran % (Auto) 0.300, Neut % (Auto) 51.9, Lymph % (Auto) 37.1, Leon % (Auto) 6.4, Eos % (Auto) 3.6, Baso % (Auto) 0.7, Absolute Neuts (auto) 4.7, Absolute Lymphs (auto) 3.33, Nucleated RBC % 0, Sodium 133 L, Potassium 4.2, Chloride 103, Carbon Dioxide 25.0, Anion Gap 5, BUN 11, Creatinine 0.70, Estim Creat Clear Calc 92.62, Est GFR (MDRD) Af Amer 140, Est GFR (MDRD) Non-Af 116, BUN/Creatinine Ratio 15.7, Glucose 99, Calcium 8.5 Physical Exam Narrative General: Alert, oriented, no apparent distress HEENT: Atraumatic, normocephalic Eyes: Anicteric, normal conjunctiva, extraocular movements grossly intact Neck: Supple Respiratory: Clear to auscultation bilaterally, normal respiratory effort Cardiovascular: Heart rate 1 10-1 20 GI: Status post surgery Extremities: No edema Musculoskeletal: Persistent left-sided deficits from MS Neuro: No overt focal neurological deficits Skin: No rashes appreciated Psych: Attempts to be cooperative Assessment & Plan Assessment/Plan (1) Wide-complex tachycardia: (2) Colon obstruction: (3) Schizophrenia: (4) Multiple sclerosis: PLAN: Plan #Wide complex tachycardia -Seen on EKG -Patient on Seroquel and had Zofran ordered as well- these have been held -Ordered amio bolus, magnesium IV and DC'd Seroquel and Zofran -Troponins ordered -Echocardiogram ordered -Heart rate improved into normal range with magnesium and Amio the patient was transferred to PCU for closer monitoring -First troponin negative -Monitor on telemetry # History of schizophrenia -Holding Seroquel given arrhythmia -Discussed this with family # History of MS -Chronic left-sided deficits -Supportive care #DVT ppx: Timing per primary Karen Altamirano MD Time spent in the patient's overall evaluation,decision-making process, review of diagnostic data, adjustment of management, discussion with other providers, nursing nursing and ancillary staff involved in patient's care documentation, 41 Minutes Charges/Coding Visit Charges Office Visits / Consults: 24272 OV L5 Est 40min
--- NOTE | 2023-10-03 18:07 | NURSING ---
This nurse spoke with Reyna auditor in charge nurse in pcu, who said she will talk to Darlene about transferring pt or keeping pt on this unit. She was informed that pt's heart generally runs in the 60's and now is 112 to 120.
[2023-10-03] MEDS: Magnesium Sulfate 2 GM in Dextrose 5%-Water (100mL Bag) 100 ML IV (18:12)
--- NOTE | 2023-10-03 18:21 | NURSING ---
1753- talked with Dr. Altamirano clarified wants 300mg iv amiodorone bolus. also clarified that this medication requires step down or icu. states will transfer to pcu but wants this medication started before transfer. discussed that would require her to stay bedside while administering. talked with rx, warehouse trainer. talked with PCU charge nurse regarding transfer and request for step down monitor for administration of amio with Dr. altamirano. aware per Reyna PCU charge nurse, PCU nurse Azalea would be up to administer medication. Per Dr. Altamirano the need for drip would be dependent on how responds to this bolus. PCU Charge nurse informed of this. Per PCU charge nurse she was talking with warehouse trainer regarding if would in deed need to transfer patient to pcu or would keep on medsurg after bolus was completed. This was discussed with Dr. Altamirano she stated she was fine with patient staying on medsurg if no additional infusions/bolus would be needed, but states high likelyhood will need another bolus. Discussed with warehouse trainer. Aware pt to stay on Medsurg3 with PCU nurse Azalea treating like step down patient at this time. will go to pcu 125 if needs transfer.
[2023-10-03] MEDS: Amiodarone 300 MG in Dextrose 5%-Water (100mL Bag) 100 ML 600 MG IV BOLUS (18:25)
--- NOTE | 2023-10-03 18:30 | NURSING ---
Azalea BENITEZ from [facility] is with pt in 316 currently, she will administer the amiodarone.
--- NOTE | 2023-10-03 18:52 | NURSING ---
1600 Dr Valdez text pt is complaining of rapid heart rate, 112, states is usually is in the 60's, temp is 98.4, bp is 133/84, chest pain is 5/10 and getting worse, described it as constant. getting an Ekg.
--- NOTE | 2023-10-03 19:13 | EKG12_ITS ---
Test Reason : RYTHM CHANGE Blood Pressure : / mmHG Vent. Rate : 097 BPM Atrial Rate : 097 BPM P-R Int : 216 ms QRS Dur : 142 ms QT Int : 366 ms P-R-T Axes : 000 -35 120 degrees QTc Int : 464 ms Sinus rhythm with 1st degree A-V block Left axis deviation Left bundle branch block Abnormal ECG When compared with ECG of 03-OCT-2023 17:21, MANUAL COMPARISON REQUIRED, DATA IS UNCONFIRMED Confirmed by [place] MCCRARY, JENELLE ([id number]), editor continuity and script YARELI RAYMUNDO ([id number]) on 10/08/2023 10:31:24 AM Referred By: Confirmed By:JENELLE HO MD
[2023-10-03 19:29] LABS: Troponin-I HS 8 pg/mL (3.0-78.0)
--- NOTE | 2023-10-03 19:34 | NURSING ---
discussed with dr. lobato post amio infusion ekg. order to go ahead and transfer to pcu in light of this event of wide complex tachycardia. housekeeping supervisor hotel informed. charge ornamental brick installer notified.
[2023-10-03 21:42] LABS: Troponin-I HS 8 pg/mL (3.0-78.0)
[2023-10-03] MEDS: Senna Tablet 2 TABLET PO (22:13)
[2023-10-03] MEDS: clonazePAM 0.5 MG Tablet PO (22:14)
[2023-10-03] MEDS: Atorvastatin Calcium 10 MG Tablet PO (22:14)
[2023-10-03] MEDS: Tamsulosin HCl 0.4 MG Capsule 0.8 MG PO (22:14)
[2023-10-03] MEDS: cycloBENZAPRine HCl 5 MG TABLET PO (22:14)
[2023-10-03] MEDS: Fluticasone 0.05% 1 SPRAY NASAL.SRY 2 SPRAY NASAL (22:14)
[2023-10-04] VITALS (9 sets, daily range): BP systolic 115–142; BP diastolic 62–75; PULSE 74–90; RESP 16–18; TEMP 36.5–37.1; O2SAT 91–98
[2023-10-04] MEDS: 0.9% Normal Saline (1000mL) 1,000 ML 100 ML IV (02:56)
[2023-10-04 07:11] LABS: Absolute Lymphocyte Count 3.13 X10^3/uL (0.83-4.51); Absolute Neutrophil Count 14.3 X10^3/uL (2.0-7.7); Basophil# 0.03 X10^3/uL; Basophil% 0.2 % (0-1); Hematocrit 37.6 % (40-54); Hemoglobin 11.9 g/dL (13.0-16.5); Lymphocyte # 3.13 X10^3/ul (0.83-4.51); Lymphocyte % 16.3 % (19-41); Mean Corp Hgb Conc 31.6 g/dL (32-36); Mean Corpuscular Hgb 30.8 pg (27.0-32.0); Mean Corpuscular Volume 97.4 fL (80-94); Mean Platelet Vol. 9.7 fl (6.2-12.0); Monocyte# 1.58 X10^3/uL; Monocyte% 8.2 % (0-10); NRBC Flagged by Analyzer 0 % (0-5); Neutrophil # 14.33 X10^3/uL (2.7-7.7); Neutrophil % 74.8 % (47-70); POSITIVE DIFFERENTIAL YES; Platelet Count 325 K/mm3 (150-450); RBC Distribution Width CV 12.4 % (11.6-14.6); RBC Distribution Width SD 44.5 fl (35.1-43.9); Red Blood Count 3.86 M/mm3 (4.6-6.2); White Blood Count 19.2 K/mm3 (4.4-11.0)
--- NOTE | 2023-10-04 07:37 | PCM.PN.SRG ---
Subjective Subjective Patient complains of abdominal pain. Last had pain meds yesterday evening. Colostomy beefy red no gas Objective Data Objective Data Vital Signs: Vital Signs Temp Pulse Resp BP Pulse Ox O2 Del Method O2 Flow Rate 98.4 F 90 18 142/75 H 97 Room Air 3 10/04/23 02:42 10/04/23 03:00 10/04/23 02:42 10/04/23 02:42 10/04/23 02:42 10/04/23 03:00 10/04/23 03:00 Oxygen Flow Rate (L/min) 3 Oxygen Delivery Method Room Air Weight: 231 lb 3.2 oz Body Mass Index (BMI) 35.2 Intake & Output: Intake and Output for Last 24 Hours 10/02/23 10/03/23 10/04/23 23:59 23:59 23:59 Intake Total 3675.83 / 3675.83 Output Total 1575 / 1575 Balance 2100.83 / 2100.83 Lab / Micro Data 10/04/23 06:32 10/04/23 06:32 Labs: Laboratory Results - last 24 hr 10/03/23 07:27: WBC 9.0, RBC 4.30 L, Hgb 13.4, Hct 41.9, MCV 97.4 H, MCH 31.2, MCHC 32.0, RDW Std Deviation 44.4 H, RDW Coeff of Shawn 12.3, Plt Count 321, MPV 9.4, Immature Gran % (Auto) 0.300, Neut % (Auto) 51.9, Lymph % (Auto) 37.1, Bates % (Auto) 6.4, Eos % (Auto) 3.6, Baso % (Auto) 0.7, Absolute Neuts (auto) 4.7, Absolute Lymphs (auto) 3.33, Nucleated RBC % 0, Sodium 133 L, Potassium 4.2, Chloride 103, Carbon Dioxide 25.0, Anion Gap 5, BUN 11, Creatinine 0.70, Estim Creat Clear Calc 92.62, Est GFR (MDRD) Af Amer 140, Est GFR (MDRD) Non-Af 116, BUN/Creatinine Ratio 15.7, Glucose 99, Calcium 8.5 10/03/23 18:05: Troponin I High Sens 8 10/03/23 20:00: Troponin I High Sens 8 Physical Exam Const no apparent distress Resp normal respiratory effort Cardio regular rate GI GI Narrative: Incision clean and intact with Steri-Strips, colostomy beefy-red no gas in the bag or stool Assessment & Plan Assessment/Plan (1) Status post Ron procedure: (2) Colon obstruction: PLAN: Plan Postop day 1 from Romero's procedure. Await bowel function continue n.p.o. except meds Leukocytosis 19.2 will check a chest x-ray?read as multifocal pneumonitis did talk with Dr. Montes question of this could be some heart failure she is checking a BNP and an echo is pending due to his previous wide-complex tachycardia and UA. Appreciate medicine's assistance Casandra Mata M.D. Pager: [phone] [facility] [address] [place] [address], [facility], [address] [place] [address] Office: [phone]
--- NOTE | 2023-10-04 07:41 | PCM.PN.HOSP ---
Reason for Visit Reason for Visit: Abdominal pain/constipation Subjective Subjective Patient admitted yesterday from the emergency department after CT showed colonic obstruction with possible internal hernia or volvulus. Transfer was attempted however unable to get a bed so he was taken to surgery for an ex lap with resection of the sigmoid colon and end colostomy. Postoperatively he was taken to the MedSurg unit where he was stable however he developed a wide-complex tachycardia with a heart rate of 110-120s and complaint of chest pain so he was transferred to the PCU and we were consulted. Patient does indicate he is not feeling well due to abdominal pain postoperatively. States he has not been on oxygen at home and only started wearing oxygen here. Encourage incentive spirometry to avoid pneumonia. Discussed with nursing and they states has been good about using I-S as long as he is assistance to do so. Objective Data Objective Data Vital Signs: Vital Signs Temp Pulse Resp BP Pulse Ox O2 Del Method O2 Flow Rate 98.4 F 90 18 142/75 H 97 Room Air 3 10/04/23 02:42 10/04/23 03:00 10/04/23 02:42 10/04/23 02:42 10/04/23 02:42 10/04/23 03:00 10/04/23 03:00 Oxygen Flow Rate (L/min) 3 Oxygen Delivery Method Room Air Weight: 104.871 kg Body Mass Index (BMI) 35.2 Intake & Output: Intake and Output for Last 24 Hours 10/02/23 10/03/23 10/04/23 23:59 23:59 23:59 Intake Total 3675.83 / 3675.83 Output Total 1575 / 1575 Balance 2100.83 / 2100.83 Lab / Micro Data 10/04/23 06:32 10/04/23 06:32 Labs: Laboratory Results - last 24 hr 10/03/23 07:27: Sodium 133 L, Potassium 4.2, Chloride 103, Carbon Dioxide 25.0, Anion Gap 5, BUN 11, Creatinine 0.70, Estim Creat Clear Calc 92.62, Est GFR (MDRD) Af Amer 140, Est GFR (MDRD) Non-Af 116, BUN/Creatinine Ratio 15.7, Glucose 99, Calcium 8.5 10/03/23 18:05: Troponin I High Sens 8 10/03/23 20:00: Troponin I High Sens 8 Physical Exam Const alert, oriented x3, no apparent distress and well nourished; Negative for average body habitus or healthy appearing Constitutional Narrative: Obese, older, white male, lying in bed, eyes are closed but he is awake, appears slightly uncomfortable due to pain postoperatively but nontoxic HEENT head/scalp atraumatic and moist oral mucous membranes HEENT Narrative: Mallampati 3, no thrush Head and Scalp: normocephalic Resp normal respiratory effort, no retractions, no use of accessory muscles and No clear to auscultation bilaterally Resp Narrative: Few scattered crackles most notably at the bases bilaterally, currently on 2 L nasal cannula Auscultation: crackles; Negative for rhonchi or wheezes Cardio regular rate, regular rhythm, S1 normal heart sound, S2 normal heart sound, no rub, no gallops and no clicks; Negative for no murmurs Cardio Narrative: 3 out of 6 systolic murmur loudest at left lower sternal border GI GI Narrative: Abdomen diffusely tender, ostomy pink with no output in ostomy bag, bowel sounds are hypoactive, no significant distention, abdomen is soft Extremity no clubbing, cyanosis or edema Extremity Narrative: Radial and pedal pulses are 2+ Neuro oriented x3, moves all extremities and no focal motor deficits Psych Psych Narrative: Affect is very flat and mood seems depressed, patient seems to desire being minimally interactive at this time Assessment & Plan Assessment/Plan (1) Status post Ron procedure: (2) Wide-complex tachycardia: (3) Colon obstruction: (4) Hypoxia: (5) Leukocytosis: PLAN: Plan Colonic obstruction -Postop day 1 laparotomy with sigmoid colon resection and end colostomy -Management per primary service -Currently n.p.o. -Continue IV fluids at 100 cc for now -Continue antibiotics per primary service -Continue antiemetics and pain medication per primary service Wide-complex tachycardia -Cardiac enzymes cycled unremarkable -Echocardiogram performed and shows concentric LVH with normal LV wall motion, EF of 60% and stage I diastolic dysfunction -When I reviewed his EKG he has a chronic left bundle and to his EKG from when he was tachycardic appeared to be just his baseline QRS complex with an advanced rate highly suspect this was tachycardia with an underlying left bundle branch block -Repeat EKG after treatment last evening shows normalized rate, remaining LBBB and normal QTc -Patient was given a 300 mg bolus of IV amiodarone and IV mag -Avoid further QT prolonging drug if possible Hypoxia -Echo done and shows diastolic dysfunction but otherwise unremarkable -BNP is elevated -Suspect related to volume overload -Chest x-ray appears to be consistent with volume overload -Give Lasix IV push x 1 dose -stop IV fluids next-repeat chest x-ray in a.m. Leukocytosis -Highly suspect reactive postoperatively -No signs of acute infection Infant will continue to monitor and repeat CBC in a.m. 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
--- NOTE | 2023-10-04 07:45 | RAD_ITS ---
STUDY: X-RAY CHEST REASON FOR EXAM: Male, 78 years old. Hypoxia TECHNIQUE: Single AP portable view of the chest. COMPARISON: 08/13/2023 FINDINGS: EKG leads overlie the chest Lungs are underexpanded with patchy diffuse opacifications throughout both lung hercules suggesting multifocal pneumonitis. No demonstrated effusions. Normal size heart. Normal mediastinum and aida. Normal visualized pulmonary arteries. There is atherosclerotic calcification of the aortic arch with tortuosity. There are diffuse degenerative changes of the visualized thoracic spine. There is degenerative osteoarthritis of the bilateral shoulders. There is no demonstrated abnormality of the visualized soft tissue structures of the upper abdomen. RAD/Chest 1 View (Portable) IMPRESSION: Underexpanded lungs with patchy opacifications in both lung hercules suggesting multifocal pneumonitis. Follow-up recommended to ensure resolution Electronically Signed: Donavon Miller MD at 8:27 EDT ,
[2023-10-04 07:46] LABS: Anion Gap 6 (5-15); BUN 12 mg/dL (7-18); Calcium,Total 8.2 mg/dL (8.5-10.1); Chloride 103 mmol/L (98-107); EST Glomerular Filtration Rate 100 mL/min (>60); Est Glom Filt Rate - Afr Amer 120 mL/min (>60); Estimated Creatinine Clearance 90.77 ml/min; Glucose 120 mg/dL (74-106); Magnesium 2.7 mg/dL (1.6-2.6); Phosphorus 2.4 mg/dL (2.5-4.9); Potassium 4.4 mmol/L (3.5-5.1); Sodium Level 133 mmol/L (136-145)
[2023-10-04 07:54] LABS: Differential Indicated SCAN CRITERIA MET
[2023-10-04 08:16] LABS: Differential Comment SCANNED
[2023-10-04] MEDS: Morphine 2 MG/ML Syringe IV ×4 (08:23→21:09)
[2023-10-04] MEDS: Acetaminophen 325 MG Tablet 650 MG PO ×2 (08:27→16:56)
[2023-10-04] MEDS: Fluoxetine HCl 40 MG CAPSULE 80 MG PO (08:29)
[2023-10-04] MEDS: clonazePAM 0.5 MG Tablet PO ×2 (08:33→21:07)
[2023-10-04] MEDS: Furosemide 40 MG/4 ML Vial IV (10:43)
[2023-10-04] MEDS: Pantoprazole Sodium 40 MG in 0.9% Normal Saline (100mL MB+) 100 ML 330 MG IV (10:43)
[2023-10-04 10:50] LABS: BNP,B-Type NATRIURETIC PEPTIDE 270.4 pg/mL (0-100)
[2023-10-04] MEDS: Ipratropium/Albuterol Sulfate 3 ML AMPUL.NEB INHALATION ×2 (13:54→19:36)
[2023-10-04] MEDS: 0.9% Saline Lock 10 ML Syringe IV (15:27)
[2023-10-04] MEDS: BENZOCAINE/MENTHOL 1 LOZENGE MUCOUS MEM ×2 (15:27→21:20)
[2023-10-04] MEDS: cycloBENZAPRine HCl 5 MG TABLET PO (21:06)
[2023-10-04] MEDS: Tamsulosin HCl 0.4 MG Capsule 0.8 MG PO (21:07)
[2023-10-04] MEDS: Senna Tablet 2 TABLET PO (21:08)
[2023-10-04] MEDS: Atorvastatin Calcium 10 MG Tablet PO (21:08)
[2023-10-04] MEDS: Fluticasone 0.05% 1 SPRAY NASAL.SRY 2 SPRAY NASAL (21:08)
[2023-10-05] VITALS (11 sets, daily range): BP systolic 131–150; BP diastolic 69–86; PULSE 80–98; RESP 16–24; TEMP 36.1–36.6; O2SAT 94–97
[2023-10-05] MEDS: Morphine 2 MG/ML Syringe IV ×3 (00:49→16:40)
--- NOTE | 2023-10-05 05:55 | RAD_ITS ---
INDICATION: hypoxia EXAMINATION/TECHNIQUE: X-RAY - XR Chest 1 View COMPARISON: October 04, 2023. FINDINGS: LINES/DEVICES: Multiple overlying telemetry leads. LUNGS: Unchanged low lung volumes. Persistent patchy opacities in the bilateral lung bases.. No florid edema. Cannot exclude trace effusions. No pneumothorax. MEDIASTINUM AND CARDIOVASCULAR STRUCTURES: Cardiac silhouette not enlarged. BONES AND SOFT TISSUES: Unremarkable. RAD/Chest 1 View (Portable) IMPRESSION: No significant interval change from prior exam. Electronically Signed: Skyler Mendez MD at 8:06 EDT ,
[2023-10-05] MEDS: Ipratropium/Albuterol Sulfate 3 ML AMPUL.NEB INHALATION ×3 (06:58→19:40)
[2023-10-05 07:03] LABS: Absolute Lymphocyte Count 2.93 X10^3/uL (0.83-4.51); Absolute Neutrophil Count 9.7 X10^3/uL (2.0-7.7); Basophil# 0.05 X10^3/uL; Basophil% 0.4 % (0-1); Eosinophil# 0.14 X10^3/uL; Hematocrit 38.9 % (40-54); Hemoglobin 12.5 g/dL (13.0-16.5); Lymphocyte # 2.93 X10^3/ul (0.83-4.51); Lymphocyte % 20.9 % (19-41); Mean Corp Hgb Conc 32.1 g/dL (32-36); Mean Corpuscular Hgb 31.4 pg (27.0-32.0); Mean Corpuscular Volume 97.7 fL (80-94); Mean Platelet Vol. 9.8 fl (6.2-12.0); Monocyte# 1.19 X10^3/uL; Monocyte% 8.5 % (0-10); NRBC Flagged by Analyzer 0 % (0-5); Neutrophil # 9.65 X10^3/uL (2.7-7.7); Neutrophil % 68.9 % (47-70); Platelet Count 318 K/mm3 (150-450); RBC Distribution Width CV 12.7 % (11.6-14.6); RBC Distribution Width SD 45.7 fl (35.1-43.9); Red Blood Count 3.98 M/mm3 (4.6-6.2)
[2023-10-05 07:15] LABS: Anion Gap 7 (5-15); BUN 15 mg/dL (7-18); Calcium,Total 8.4 mg/dL (8.5-10.1); Chloride 100 mmol/L (98-107); Creatinine, Serum 0.75 mg/dL (0.70-1.30); EST Glomerular Filtration Rate 107 mL/min (>60); Est Glom Filt Rate - Afr Amer 130 mL/min (>60); Estimated Creatinine Clearance 90.77 ml/min; Glucose 107 mg/dL (74-106); Sodium Level 131 mmol/L (136-145)
[2023-10-05] MEDS: Furosemide 40 MG/4 ML Vial IV ×3 (08:03→17:20)
[2023-10-05] MEDS: Fluoxetine HCl 40 MG CAPSULE 80 MG PO (08:04)
[2023-10-05] MEDS: Pantoprazole Sodium 40 MG in 0.9% Normal Saline (100mL MB+) 100 ML 330 MG IV (08:04)
[2023-10-05] MEDS: clonazePAM 0.5 MG Tablet PO ×2 (08:04→21:13)
[2023-10-05] MEDS: 0.9% Saline Lock 10 ML Syringe IV ×5 (08:04→17:21)
[2023-10-05 09:34] LABS: Pathologist Review Reviewed
--- NOTE | 2023-10-05 10:44 | PN.SURG_ITS ---
Subjective Subjective The patient reports he is having some abdominal pain where his stoma is. He denies nausea or vomiting. Objective Data Objective Data Vital Signs: Vital Signs Temp Pulse Resp BP Pulse Ox O2 Del Method O2 Flow Rate 97.5 F L 94 18 149/85 H 96 Nasal Cannula 2 10/05/23 08:00 10/05/23 08:00 10/05/23 08:00 10/05/23 08:00 10/05/23 08:00 10/05/23 08:00 10/05/23 08:00 Oxygen Flow Rate (L/min) 2 Oxygen Delivery Method Nasal Cannula Weight: 231 lb 3.2 oz Body Mass Index (BMI) 35.2 Intake & Output: Intake and Output for Last 24 Hours 10/03/23 10/04/23 10/05/23 23:59 23:59 23:59 Intake Total 3675.83 / 3675.83 1026.67 / 1026.67 110 / 110 Output Total 1575 / 1575 575 / 575 Balance 2100.83 / 2100.83 451.67 / 451.67 110 / 110 Lab / Micro Data 10/05/23 06:10 10/05/23 06:10 Labs: Laboratory Results - last 24 hr 10/04/23 06:32: Diff Path Review Reviewed 10/04/23 09:37: B-Natriuretic Peptide 270.4 H 10/05/23 06:10: WBC 14.0 H, RBC 3.98 L, Hgb 12.5 L, Hct 38.9 L, MCV 97.7 H, MCH 31.4, MCHC 32.1, RDW Std Deviation 45.7 H, RDW Coeff of Shawn 12.7, Plt Count 318, MPV 9.8, Immature Gran % (Auto) 0.300, Neut % (Auto) 68.9, Lymph % (Auto) 20.9, [place] % (Auto) 8.5, Eos % (Auto) 1.0, Baso % (Auto) 0.4, Absolute Neuts (auto) 9.7 H, Absolute Lymphs (auto) 2.93, Nucleated RBC % 0, Sodium 131 L, Potassium 4.0, Chloride 100, Carbon Dioxide 24.0, Anion Gap 7, BUN 15, Creatinine 0.75, Estim Creat Clear Calc 90.77, Est GFR (MDRD) Af Amer 130, Est GFR (MDRD) Non-Af 107, BUN/Creatinine Ratio 20.0, Glucose 107 H, Calcium 8.4 L Radiography Diagnostic Testing: Radiology Impression Echocardiogram 10/03/23 18:04 Interpretation Summary Normal LV size. Mild concentric left ventricular hypertrophy. Left ventricular systolic function is normal. The left ventricular ejection fraction is 60 %. Stage 1 diastolic dysfunction. Contrast injection was performed. Ordering Physician: Karen Altamirano Referring Physician: kartik holder Performed By: Shantel Zhao RCS Chest X-Ray 10/05/23 05:55 IMPRESSION: No significant interval change from prior exam. Electronically Signed: Skyler Mendez MD at 8:06 EDT Reading Location ID and State: [facility] / [place] Tel , Service support , Physical Exam Const oriented x3 and no apparent distress Resp normal respiratory effort GI soft to palpation Inspection: Negative for abdominal distention Palpation: tender Assessment & Plan Assessment/Plan (1) Status post Ron procedure: PLAN: The patient had resection of the sigmoid colon for extreme dilation. The colostomy is pink and there is Some fluid and gas in the bag. I will advance him to a clear liquid diet today. Advance as tolerated to regular. Continue inpatient care. Andrea Parra MD Pager: [facility] [address] [place] [address], [address] [place] [address] Office:
--- NOTE | 2023-10-05 11:44 | PN.HOSP_ITS ---
Reason for Visit Reason for Visit: Abdominal pain/constipation Subjective Subjective Patient only complains of abdominal pain at this point. Nursing states he has been using his incentive spirometer. Currently lying in bed flat however. Denies any shortness of breath or cough. Objective Data Objective Data Vital Signs: Vital Signs Temp Pulse Resp BP Pulse Ox O2 Del Method O2 Flow Rate 97.9 F 97 16 136/82 H 95 Nasal Cannula 2 10/05/23 11:20 10/05/23 11:20 10/05/23 11:20 10/05/23 11:20 10/05/23 11:20 10/05/23 11:20 10/05/23 11:20 Oxygen Flow Rate (L/min) 2 Oxygen Delivery Method Nasal Cannula Weight: 104.871 kg Body Mass Index (BMI) 35.2 Intake & Output: Intake and Output for Last 24 Hours 10/03/23 10/04/23 10/05/23 23:59 23:59 23:59 Intake Total 3675.83 / 3675.83 1026.67 / 1026.67 110 / 110 Output Total 1575 / 1575 575 / 575 Balance 2100.83 / 2100.83 451.67 / 451.67 110 / 110 Lab / Micro Data 10/05/23 06:10 10/05/23 06:10 Labs: Laboratory Results - last 24 hr 10/04/23 06:32: Diff Path Review Reviewed 10/05/23 06:10: WBC 14.0 H, RBC 3.98 L, Hgb 12.5 L, Hct 38.9 L, MCV 97.7 H, MCH 31.4, MCHC 32.1, RDW Std Deviation 45.7 H, RDW Coeff of Shawn 12.7, Plt Count 318, MPV 9.8, Immature Gran % (Auto) 0.300, Neut % (Auto) 68.9, Lymph % (Auto) 20.9, [place] % (Auto) 8.5, Eos % (Auto) 1.0, Baso % (Auto) 0.4, Absolute Neuts (auto) 9.7 H, Absolute Lymphs (auto) 2.93, Nucleated RBC % 0, Sodium 131 L, Potassium 4.0, Chloride 100, Carbon Dioxide 24.0, Anion Gap 7, BUN 15, Creatinine 0.75, Estim Creat Clear Calc 90.77, Est GFR (MDRD) Af Amer 130, Est GFR (MDRD) Non-Af 107, BUN/Creatinine Ratio 20.0, Glucose 107 H, Calcium 8.4 L Radiography Diagnostic Testing: Radiology Impression Echocardiogram 10/03/23 18:04 Interpretation Summary Normal LV size. Mild concentric left ventricular hypertrophy. Left ventricular systolic function is normal. The left ventricular ejection fraction is 60 %. Stage 1 diastolic dysfunction. Contrast injection was performed. Ordering Physician: Karen Altamirano Referring Physician: kartik holder Performed By: Shantel Zhao RCS Chest X-Ray 10/05/23 05:55 IMPRESSION: No significant interval change from prior exam. Electronically Signed: Skyler Mendez MD at 8:06 EDT , Physical Exam Const alert, oriented x3, no apparent distress and well nourished; Negative for average body habitus or healthy appearing Constitutional Narrative: Obese, older, white male, lying in bed, eyes are closed but he is awake, appears comfortable, nontoxic HEENT head/scalp atraumatic and moist oral mucous membranes HEENT Narrative: Mallampati is 3, no thrush, patient is extraordinarily hard of hearing Head and Scalp: normocephalic Resp normal respiratory effort, no retractions, no use of accessory muscles and No clear to auscultation bilaterally Resp Narrative: Still with few scattered crackles Auscultation: crackles; Negative for rhonchi or wheezes Cardio regular rate, regular rhythm, S1 normal heart sound, S2 normal heart sound, no rub, no gallops and no clicks; Negative for no murmurs Cardio Narrative: 3 out of 6 systolic murmur loudest at left lower sternal border GI GI Narrative: Abdomen diffusely tender, ostomy pink with still no no output in ostomy bag, bowel sounds are hypoactive but present, no significant distention, abdomen is soft Extremity no clubbing, cyanosis or edema Extremity Narrative: Radial and pedal pulses are 2+ Skin Skin Narrative: Pale Neuro oriented x3, moves all extremities and no focal motor deficits Psych Psych Narrative: Affect still flat but less flat than previous, better interaction today Assessment & Plan Assessment/Plan (1) Status post Ron procedure: (2) Wide-complex tachycardia: (3) Colon obstruction: (4) Hypoxia: (5) Leukocytosis: PLAN: Plan Colonic obstruction -Postop day 2 laparotomy with sigmoid colon resection and end colostomy -Management per primary service -Diet advanced to clear liquids -Maintain off IV fluids -Continue antibiotics per primary service -Continue antiemetics and pain medication per primary service Wide-complex tachycardia -Cardiac enzymes cycled unremarkable -Echocardiogram performed and shows concentric LVH with normal LV wall motion, EF of 60% and stage I diastolic dysfunction -When I reviewed his EKG he has a chronic left bundle and to his EKG from when he was tachycardic appeared to be just his baseline QRS complex with an advanced rate highly suspect this was tachycardia with an underlying left bundle branch block Hypoxia -Echo done and shows diastolic dysfunction but otherwise unremarkable -BNP is elevated -Suspect related to volume overload -Chest x-ray appears to be consistent with volume overload --Will schedule Lasix twice daily IV push -stop IV fluids next-repeat chest x-ray in a.m. Leukocytosis -Trending down likely reactive from postoperative -No signs of acute infection -continue to monitor and repeat CBC in a.m. 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
[2023-10-05] MEDS: Ondansetron 4 MG/2 ML Vial IV (16:07)
--- NOTE | 2023-10-05 17:29 | EKG12_ITS ---
Test Reason : CP Blood Pressure : / mmHG Vent. Rate : 107 BPM Atrial Rate : 107 BPM P-R Int : 176 ms QRS Dur : 134 ms QT Int : 386 ms P-R-T Axes : -20 -18 109 degrees QTc Int : 515 ms Sinus tachycardia Left bundle branch block Left axis deviation Abnormal ECG When compared with ECG of 05-OCT-2023 17:35, MANUAL COMPARISON REQUIRED, DATA IS UNCONFIRMED Confirmed by Armando Morales ([id number]), news copy editor YARELI RAYMUNDO ([id number]) on 10/09/2023 7:48:31 AM Referred By: Pereira Confirmed By:Armando Morales
--- NOTE | 2023-10-05 17:35 | EKG12_ITS ---
Test Reason : Blood Pressure : / mmHG Vent. Rate : 096 BPM Atrial Rate : 096 BPM P-R Int : 232 ms QRS Dur : 136 ms QT Int : 388 ms P-R-T Axes : 000 -49 103 degrees QTc Int : 490 ms Sinus rhythm with 1st degree A-V block Left axis deviation Left bundle branch block Abnormal ECG When compared with ECG of 03-OCT-2023 19:09, MANUAL COMPARISON REQUIRED, DATA IS UNCONFIRMED Confirmed by Armando Morales ([id number]), editor farm journal YARELI RAYMUNDO ([id number]) on 10/09/2023 7:52:47 AM Referred By: Confirmed By:Armando Morales
[2023-10-05] MEDS: Lidocaine 2% Viscous15 ML UDC 15 ML PO (18:37)
[2023-10-05] MEDS: Mag Hydrox/Al Hydrox/Simeth 30 ML UDC PO (18:37)
[2023-10-05 19:09] LABS: Troponin-I HS 7 pg/mL (3.0-78.0)
[2023-10-05] MEDS: Tamsulosin HCl 0.4 MG Capsule 0.8 MG PO (21:13)
[2023-10-05] MEDS: Fluticasone 0.05% 1 SPRAY NASAL.SRY 2 SPRAY NASAL (21:13)
[2023-10-05] MEDS: Senna Tablet 2 TABLET PO (21:13)
[2023-10-05] MEDS: cycloBENZAPRine HCl 5 MG TABLET PO (21:13)
[2023-10-05] MEDS: Atorvastatin Calcium 10 MG Tablet PO (21:14)
[2023-10-05 21:24] LABS: Troponin-I HS 7 pg/mL (3.0-78.0)
--- NOTE | 2023-10-05 22:43 | EKG12_ITS ---
Test Reason : CP Blood Pressure : / mmHG Vent. Rate : 115 BPM Atrial Rate : 000 BPM P-R Int : 000 ms QRS Dur : 136 ms QT Int : 386 ms P-R-T Axes : 000 -47 114 degrees QTc Int : 533 ms Sinus tachycardia Left axis deviation Left bundle branch block Abnormal ECG When compared with ECG of 03-OCT-2023 07:58, MANUAL COMPARISON REQUIRED, DATA IS UNCONFIRMED Confirmed by [place] MCCRARY, JENELLE ([id number]), writer editor YARELI RAYMUNDO ([id number]) on 10/08/2023 10:31:43 AM Referred By: ALFREDO Confirmed By:JENELLE HO MD
[2023-10-06] VITALS (7 sets, daily range): BP systolic 110–164; BP diastolic 68–92; PULSE 96–105; RESP 16–24; TEMP 36.7–37.1; O2SAT 90–95
[2023-10-06 01:35] LABS: Troponin-I HS 8 pg/mL (3.0-78.0)
--- NOTE | 2023-10-06 05:40 | RAD_ITS ---
STUDY: X-RAY CHEST REASON FOR EXAM: Male, 78 years old. SOB TECHNIQUE: Single AP portable view of the chest. COMPARISON: April 06, 2023. FINDINGS: There are monitoring and support devices. There are worsening right perihilar and left lower lung opacities There is no demonstrated pleural abnormality. Normal size heart. Normal mediastinum and aida. Normal visualized pulmonary arteries. Normal visualized aortic arch and descending thoracic aorta. There is a levoscoliosis of the thoracic spine. There is kyphoplasty of the lower spine. Normal visualized ribs, clavicles, and shoulders. There is no demonstrated abnormality of the visualized soft tissue structures of the upper abdomen. RAD/Chest 1 View (Portable) IMPRESSION: Worsening bilateral pneumonia or edema. Electronically Signed: Kilo Whitlock MD at 10:38 EDT ,
[2023-10-06 06:27] LABS: Absolute Lymphocyte Count 1.51 X10^3/uL (0.83-4.51); Absolute Neutrophil Count 22.1 X10^3/uL (2.0-7.7); Basophil# 0.03 X10^3/uL; Basophil% 0.1 % (0-1); Hematocrit 45.4 % (40-54); Hemoglobin 15.2 g/dL (13.0-16.5); Lymphocyte # 1.51 X10^3/ul (0.83-4.51); Lymphocyte % 6.1 % (19-41); Mean Corp Hgb Conc 33.5 g/dL (32-36); Mean Corpuscular Hgb 31.6 pg (27.0-32.0); Mean Corpuscular Volume 94.4 fL (80-94); Mean Platelet Vol. 9.6 fl (6.2-12.0); Monocyte# 1.07 X10^3/uL; Monocyte% 4.3 % (0-10); NRBC Flagged by Analyzer 0 % (0-5); Neutrophil # 22.09 X10^3/uL (2.7-7.7); Neutrophil % 88.9 % (47-70); POSITIVE DIFFERENTIAL YES; Platelet Count 457 K/mm3 (150-450); RBC Distribution Width CV 12.4 % (11.6-14.6); RBC Distribution Width SD 42.9 fl (35.1-43.9); Red Blood Count 4.81 M/mm3 (4.6-6.2); White Blood Count 24.9 K/mm3 (4.4-11.0)
[2023-10-06 06:32] LABS: Differential Indicated SCAN CRITERIA MET
[2023-10-06 07:07] LABS: Anion Gap 8 (5-15); BUN 17 mg/dL (7-18); BUN/Creat Ratio 21.2 RATIO (10-20); Calcium,Total 9.2 mg/dL (8.5-10.1); Chloride 96 mmol/L (98-107); EST Glomerular Filtration Rate 99 mL/min (>60); Est Glom Filt Rate - Afr Amer 120 mL/min (>60); Estimated Creatinine Clearance 90.77 ml/min; Glucose 164 mg/dL (74-106); Potassium 3.4 mmol/L (3.5-5.1); Sodium Level 131 mmol/L (136-145)
[2023-10-06] MEDS: Ondansetron 4 MG/2 ML Vial IV (08:31)
--- NOTE | 2023-10-06 09:02 | RAD_ITS ---
STUDY: X-RAY - ABDOMEN/PELVIS REASON FOR EXAM: Male, 78 years old. abd distension TECHNIQUE: 4 views COMPARISON: None. FINDINGS: The stomach is air-filled and abnormally distended. Abnormally distended air-filled loops of bowel predominantly in the left upper quadrant and mid abdomen concerning for an obstructive process. There is retained stool in the ascending and transverse colon. No demonstrated free air. The visualized liver, spleen and kidneys are grossly normal in size and morphology. Normal soft tissue structures. There are diffuse degenerative changes of the visualized lumbar spine, with chronic compression fractures at T12 and L1 have undergone previous vertebroplasty. RAD/Abdomen Single View (Portable) IMPRESSION: Abnormally distended air-filled loops of small bowel and stomach suggestive of an obstructive process. Transition point not clearly identified. There is retained stool in ascending and transverse colon No free air Degenerative bony changes Electronically Signed: Donavon Miller MD at 10:56 EDT ,
[2023-10-06] MEDS: Pantoprazole Sodium 40 MG in 0.9% Normal Saline (100mL MB+) 100 ML 330 MG IV (09:06)
[2023-10-06 09:39] LABS: Differential Comment SCANNED
[2023-10-06] MEDS: Vancomycin HCl 1,500 MG in 0.9% Normal Saline (500mL Bag) 500 ML 250 MG IV (10:05)
--- NOTE | 2023-10-06 10:05 | PN.SURG_ITS ---
Subjective Subjective Patient was nauseated yesterday still nauseated this morning. Chest x-ray looks worse on the right also shows a large likely stomach?KUB from this morning shows a dilated stomach stool and some dilated small bowel. Objective Data Objective Data Vital Signs: Vital Signs Temp Pulse Resp BP Pulse Ox O2 Del Method O2 Flow Rate 98.2 F 104 H 18 164/92 H 94 Nasal Cannula 2 10/06/23 08:29 10/06/23 08:29 10/06/23 08:10/06/23 08:10/06/23 08:10/06/23 08:10/06/23 09:11 Oxygen Flow Rate (L/min) 2 Oxygen Delivery Method Nasal Cannula Weight: 231 lb 3.2 oz Body Mass Index (BMI) 35.2 Intake & Output: Intake and Output for Last 24 Hours 10/04/23 10/05/23 10/06/23 23:59 23:59 23:59 Intake Total 1026.67 / 1026.67 600 / 600 200 / 200 Output Total 575 / 575 2600 / 2600 Balance 451.67 / 451.67 -1999 / -1999 200 / 200 Lab / Micro Data 10/06/23 06:03 10/06/23 06:03 Labs: Laboratory Results - last 24 hr 10/05/23 18:20: Troponin I High Sens 7 10/05/23 20:30: Troponin I High Sens 7 10/06/23 00:45: Troponin I High Sens 8 10/06/23 06:03: WBC 24.9 H, RBC 4.81, Hgb 15.2, Hct 45.4, MCV 94.4 H, MCH 31.6, MCHC 33.5, RDW Std Deviation 42.9, RDW Coeff of Shawn 12.4, Plt Count 457 H, MPV 9.6, Immature Gran % (Auto) 0.600, Neut % (Auto) 88.9 H, Lymph % (Auto) 6.1 L, [place] % (Auto) 4.3, Eos % (Auto) 0.0, Baso % (Auto) 0.1, Absolute Neuts (auto) 22.1 H, Absolute Lymphs (auto) 1.51, Nucleated RBC % 0, Differential Comment SCANNED, Sodium 131 L, Potassium 3.4 L, Chloride 96 L, Carbon Dioxide 27.0, Anion Gap 8, BUN 17, Creatinine 0.80, Estim Creat Clear Calc 90.77, Est GFR (MDRD) Af Amer 120, Est GFR (MDRD) Non-Af 99, BUN/Creatinine Ratio 21.2 H, G lucose 164 H, Calcium 9.2 Physical Exam Const oriented x3 and no apparent distress Resp normal respiratory effort Cardio regular rate GI GI Narrative: Distended/firm, tender near incision incision clean dry and intact with Steri- Strips, colostomy beefy red with only bloody drainage Assessment & Plan Assessment/Plan (1) Status post Ron procedure: PLAN: The patient had resection of the sigmoid colon for extreme dilation. Patient has been nauseated KUB showed distended stomach will place NG tube to low intermittent suction and await more bowel function as patient had quite a bit of stool in his colon prior to surgery. Casandra Mata M.D. Pager: [phone] [facility] [address] [place] [address], [facility], [address] [place] [address] Office: [phone]
--- NOTE | 2023-10-06 10:07 | RAD_ITS ---
STUDY: X-RAY - ABDOMEN/PELVIS REASON FOR EXAM: Male, 78 years old. NG placement -- KUB with both diaphragms for NG/OG Verifi-portable TECHNIQUE: Single AP view of the abdomen / pelvis. COMPARISON: Including earlier the same day FINDINGS: There are mild lower lobe increased opacity. Feeding tube extends to the stomach in the left upper abdomen. There is air in loops of bowel. There is no demonstrated free abdominal air. There is degenerative change of the spine and prior kyphoplasty. RAD/Abdomen Single View (Portable) IMPRESSION: Feeding tube extends to the stomach. Electronically Signed: Kilo Whitlock MD at 11:58 EDT ,
--- NOTE | 2023-10-06 10:21 | PCM.RX.CS ---
Consult Antibiotic Management Pharmacy has been consulted to manage selected antibiotic: Vancomycin Type of Intervention Type of Consult: New start Suspected Infection Suspected Infection: Other (INTRA-ABDOMINAL INFECTION) Prior Doses of Antibiotics Prior Doses of Antibiotics Received/Current Regimen: Vancomycin 1500 mg IV x 1 given 10/06/23 @ 1005, patient is also receiving piperacillin/tazobactam 3.375 grams Q8H Labs Labs: Sodium 131 mmol/L (136-145) L 10/06/23 06:03 Potassium 3.4 mmol/L (3.5-5.1) L 10/06/23 06:03 Chloride 96 mmol/L (98-107) L 10/06/23 06:03 Carbon Dioxide 27.0 mmol/L (21.0-32.0) 10/06/23 06:03 Anion Gap 8 (5-15) 10/06/23 06:03 BUN 17 mg/dL (7-18) 10/06/23 06:03 Creatinine 0.80 mg/dL (0.70-1.30) 10/06/23 06:03 Est GFR (MDRD) Af Amer 120 mL/min (>60) 10/06/23 06:03 Est GFR (MDRD) Non-Af 99 mL/min (>60) 10/06/23 06:03 BUN/Creatinine Ratio 21.2 RATIO (10-20) H 10/06/23 06:03 Glucose 164 mg/dL (74-106) H 10/06/23 06:03 Dosing Weight Weight used for dosin kg Estimated Creatinine Clearance Estimated Creatinine Clearance: ~91 Goal Trough Goal Trough: 15-20 mcg/mL Pharmacy Plan for Drug Dosing Pharmacy Plan for Drug Dosing: Vancomycin 1500 mg IV x 1, followed by 2000 mg IV Q12H Pharmacy Service will continue to monitor and adjust dosing as required. Follow-Up Labs Follow-Up Labs: Trough: Vancomycin Date/Time Labs Ordered Labs to be done on [date and time ordered]: 10/07/23 @ 6654
[2023-10-06] MEDS: Potassium Chloride 10mEq/100mL 10 MEQ/100 ML IV.SOLN. 100 MEQ IV BOLUS ×4 (10:24→14:36)
[2023-10-06] MEDS: Piperacil/Tazobactam 3.375 GM in 0.9% Normal Saline (50mL MB+) 50 ML IV ×3 (10:26→21:00)
[2023-10-06] MEDS: Ipratropium/Albuterol Sulfate 3 ML AMPUL.NEB INHALATION ×2 (13:06→19:48)
--- NOTE | 2023-10-06 14:01 | PN.HOSP_ITS ---
Reason for Visit Reason for Visit: Abdominal pain/constipation Subjective Subjective Patient denies any cough, sputum production, fever or chills. He does complain of some nausea. Some dyspepsia associated with his clear liquid diet. Discussed with general surgery and they plan on dropping an NG. Objective Data Objective Data Vital Signs: Vital Signs Temp Pulse Resp BP Pulse Ox O2 Del Method O2 Flow Rate 98.2 F 96 16 164/92 H 94 Nasal Cannula 2 10/06/23 08:10/06/23 13:10/06/23 13:10/06/23 08:29 10/06/23 08:29 10/06/23 08:29 10/06/23 09:11 Oxygen Flow Rate (L/min) 2 Oxygen Delivery Method Nasal Cannula Weight: 104.871 kg Body Mass Index (BMI) 35.2 Intake & Output: Intake and Output for Last 24 Hours 10/04/23 10/05/23 10/06/23 23:59 23:59 23:59 Intake Total 1026.67 / 1026.67 600 / 600 510 / 510 Output Total 575 / 575 2600 / 2600 Balance 451.67 / 451.67 -1999 / 510 / 510 Lab / Micro Data 10/06/23 06:03 10/06/23 06:03 Labs: Laboratory Results - last 24 hr 10/05/23 18:20: Troponin I High Sens 7 10/05/23 20:30: Troponin I High Sens 7 10/06/23 00:45: Troponin I High Sens 8 10/06/23 06:03: WBC 24.9 H, RBC 4.81, Hgb 15.2, Hct 45.4, MCV 94.4 H, MCH 31.6, MCHC 33.5, RDW Std Deviation 42.9, RDW Coeff of Shawn 12.4, Plt Count 457 H, MPV 9.6, Immature Gran % (Auto) 0.600, Neut % (Auto) 88.9 H, Lymph % (Auto) 6.1 L, [place] % (Auto) 4.3, Eos % (Auto) 0.0, Baso % (Auto) 0.1, Absolute Neuts (auto) 22.1 H, Absolute Lymphs (auto) 1.51, Nucleated RBC % 0, Differential Comment SCANNED, Sodium 131 L, Potassium 3.4 L, Chloride 96 L, Carbon Dioxide 27.0, Anion Gap 8, BUN 17, Creatinine 0.80, Estim Creat Clear Calc 90.77, Est GFR (MDRD) Af Amer 120, Est GFR (MDRD) Non-Af 99, BUN/Creatinine Ratio 21.2 H, G lucose 164 H, Calcium 9.2 Radiography Diagnostic Testing: Radiology Impression Chest X-Ray 10/06/23 05:40 IMPRESSION: Worsening bilateral pneumonia or edema. Electronically Signed: Kilo Whitlock MD at 10:38 EDT , KUB X-Ray 10/06/23 09:02 IMPRESSION: Abnormally distended air-filled loops of small bowel and stomach suggestive of an obstructive process. Transition point not clearly identified. There is retained stool in ascending and transverse colon No free air Degenerative bony changes Electronically Signed: Donavon Miller MD at 10:56 EDT , KUB X-Ray 10/06/23 10:07 IMPRESSION: Feeding tube extends to the stomach. Electronically Signed: Kilo Whitlock MD at 11:58 EDT , Physical Exam Const alert, oriented x3, no apparent distress and well nourished; Negative for average body habitus or healthy appearing Constitutional Narrative: Obese, older, white male, lying in bed, patient is awake, appears slightly uncomfortable related to his nausea, nontoxic HEENT head/scalp atraumatic and moist oral mucous membranes HEENT Narrative: Dentition is poor, Mallampati is 3, no thrush, patient is markedly hard of hearing Head and Scalp: normocephalic Eyes PERRL and EOMs intact bilaterally Resp normal respiratory effort, no retractions, no use of accessory muscles and No clear to auscultation bilaterally Resp Narrative: Patient remains with scattered adventitious sounds consistent with rhonchi Auscultation: rhonchi; Negative for crackles or wheezes Cardio regular rate, regular rhythm, S1 normal heart sound, S2 normal heart sound, no rub, no gallops and no clicks; Negative for no murmurs Cardio Narrative: 3 out of 6 systolic murmur loudest at left lower sternal border GI GI Narrative: Abdomen diffusely tender, ostomy pink with serosanguineous appearing liquid in the bag but no gas in the bag or stool, bowel sounds are hypoactive, distention noted Extremity no clubbing, cyanosis or edema Extremity Narrative: Radial and pedal pulses are 2+ Skin Skin Narrative: Pale Neuro oriented x3 and no focal motor deficits Neuro Narrative: Decreased movement left side related to his MS diagnosis previously Speech: Negative for speech normal Psych Psych Narrative: Affect remains flat Assessment & Plan Assessment/Plan (1) Status post Ron procedure: (2) Wide-complex tachycardia: (3) Colon obstruction: (4) Hypoxia: (5) Leukocytosis: PLAN: Plan Colonic obstruction -Postop day 2 laparotomy with sigmoid colon resection and end colostomy -Management per primary service -Abdomen appears distended and chest x-ray shows large gastric bubble -N.p.o. but okay for meds down NG tube -Restart IV fluids at 75 cc/h with LR -Continue antiemetics and pain medication per primary service Wide-complex tachycardia -Cardiac enzymes cycled unremarkable -Echocardiogram performed and shows concentric LVH with normal LV wall motion, EF of 60% and stage I diastolic dysfunction -When I reviewed his EKG he has a chronic left bundle and to his EKG from when he was tachycardic appeared to be just his baseline QRS complex with an advanced rate highly suspect this was tachycardia with an underlying left bundle branch block Hypoxia -Patient had been diuresed with no significant change in oxygenation status despite elevated BNP -now with worsening leukocytosis -Chest x-ray showing worsening infiltrates -discontinue IV diuretics -check sputum culture if able however patient is not really coughing at this time -Meropenem and vancomycin Leukocytosis -Trended up again however all cell lines are up and suspect some component of dehydration -No fevers noted but chest x-ray looks worsening consistent with pneumonia at this point given diuresis has been performed and still worsening exam -Start meropenem and vancomycin -Obtain cultures -Check UA -Repeat CBC in a.m. Hyponatremia -Appears to be chronic and stable Hypokalemia -Replacement given -Recheck in a.m. -Check a.m. 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
--- NOTE | 2023-10-06 15:02 | PN.HOSP_ITS ---
Hospitalist Note Distribution Collection Operator was called for ventricular tachycardia however on review of telemetry strips with previous EKGs and ongoing telemetry it appears similar. He does have a left bundle branch block at baseline and I think the monitor sometimes reads this as VT. Will stop amiodarone. Talked to nursing.
[2023-10-06] MEDS: Lactated Ringers 1,000 ML 75 ML IV (16:21)
[2023-10-06] MEDS: Fluoxetine HCl 40 MG CAPSULE 80 MG GT (16:39)
[2023-10-06] MEDS: clonazePAM 0.5 MG Tablet GT ×2 (16:40→21:00)
[2023-10-06] MEDS: Atorvastatin Calcium 10 MG Tablet GT (20:59)
[2023-10-06] MEDS: QUEtiapine 25 MG Tablet GT (20:59)
[2023-10-06] MEDS: BENZOCAINE/MENTHOL 1 LOZENGE MUCOUS MEM (20:59)
[2023-10-06] MEDS: Senna Tablet 2 TABLET PO (21:00)
[2023-10-06] MEDS: cycloBENZAPRine HCl 5 MG TABLET NG (21:00)
[2023-10-06] MEDS: Vancomycin HCl 2,000 MG in 0.9% Normal Saline (500mL Bag) 500 ML 250 MG IV (22:17)
[2023-10-07] VITALS (10 sets, daily range): BP systolic 140–153; BP diastolic 73–88; PULSE 88–97; RESP 16–18; TEMP 36.2–37.1; O2SAT 95–98
[2023-10-07] MEDS: BENZOCAINE/MENTHOL 1 LOZENGE MUCOUS MEM ×3 (03:43→12:30)
[2023-10-07] MEDS: Piperacil/Tazobactam 3.375 GM in 0.9% Normal Saline (50mL MB+) 50 ML IV ×3 (05:36→21:14)
[2023-10-07 05:49] LABS: Absolute Lymphocyte Count 2.07 X10^3/uL (0.83-4.51); Absolute Neutrophil Count 11.9 X10^3/uL (2.0-7.7); Basophil# 0.02 X10^3/uL; Basophil% 0.1 % (0-1); Hematocrit 40.9 % (40-54); Hemoglobin 13.2 g/dL (13.0-16.5); Lymphocyte # 2.07 X10^3/ul (0.83-4.51); Lymphocyte % 13.6 % (19-41); Mean Corp Hgb Conc 32.3 g/dL (32-36); Mean Corpuscular Hgb 31.2 pg (27.0-32.0); Mean Corpuscular Volume 96.7 fL (80-94); Mean Platelet Vol. 9.9 fl (6.2-12.0); Monocyte# 1.21 X10^3/uL; Monocyte% 7.9 % (0-10); NRBC Flagged by Analyzer 0 % (0-5); Neutrophil # 11.88 X10^3/uL (2.7-7.7); Platelet Count 376 K/mm3 (150-450); RBC Distribution Width CV 12.5 % (11.6-14.6); RBC Distribution Width SD 44.4 fl (35.1-43.9); Red Blood Count 4.23 M/mm3 (4.6-6.2); White Blood Count 15.2 K/mm3 (4.4-11.0)
[2023-10-07 06:18] LABS: Anion Gap 7 (5-15); BUN 32 mg/dL (7-18); BUN/Creat Ratio 28.8 RATIO (10-20); Calcium,Total 8.8 mg/dL (8.5-10.1); Chloride 100 mmol/L (98-107); Creatinine, Serum 1.11 mg/dL (0.70-1.30); EST Glomerular Filtration Rate 68 mL/min (>60); Est Glom Filt Rate - Afr Amer 83 mL/min (>60); Estimated Creatinine Clearance 65.42 ml/min; Glucose 119 mg/dL (74-106); Potassium 3.8 mmol/L (3.5-5.1); Sodium Level 133 mmol/L (136-145)
[2023-10-07] MEDS: Ipratropium/Albuterol Sulfate 3 ML AMPUL.NEB INHALATION ×3 (06:57→20:21)
--- NOTE | 2023-10-07 07:42 | CPS ---
Pt unable to do pep oe SMI
--- NOTE | 2023-10-07 07:49 | RAD_ITS ---
EXAM: XR ABDOMEN, 1 VIEW CLINICAL INDICATION: ileus -- TECHNIQUE: Frontal supine view of the abdomen/pelvis. COMPARISON: No relevant prior studies available. FINDINGS: LOWER THORAX: No acute pathology. GASTROINTESTINAL TRACT: Dilated air-filled small bowel loops suggesting an ileus or small bowel obstruction. ORGANS: Unremarkable as visualized. No organomegaly. No abnormal calcifications. BONES/JOINTS: Degenerative changes in the lumbar spine. Kyphoplasty changes. SOFT TISSUES: No acute pathology. TUBES, LINES AND DEVICES: Ng tube visualized. Tip in the region of the stomach. RAD/Abdomen Single View (Portable) IMPRESSION: 1. Ng tube visualized. Tip in the region of the stomach. 2. Dilated air-filled small bowel loops suggesting an ileus or small bowel obstruction. Electronically Signed: Shailesh Morel MD at 14:11 EDT ,
--- NOTE | 2023-10-07 08:33 | NURSING ---
updated pt's daughter Kayla on patient status and plan of care. Kayla re questing the covering surgeon to call her and give her an update. Will let Dr. Worley know when making rounds.
[2023-10-07] MEDS: 0.9% Saline Lock 10 ML Syringe IV ×2 (08:46→21:15)
[2023-10-07] MEDS: Lactated Ringers 1,000 ML 75 ML IV ×2 (08:46→21:14)
--- NOTE | 2023-10-07 08:48 | PN.SURG_ITS ---
Subjective Subjective NG put out about 2 L initially on about 700 after that, 350 overnight per charting. Patient still does not really have any flatus in the colostomy bag. KUB shows dilated small bowel but the stomach is no longer distended Objective Data Objective Data Vital Signs: Vital Signs Temp Pulse Resp BP Pulse Ox O2 Del Method O2 Flow Rate 98.7 F 88 16 140/80 H 97 Nasal Cannula 2.5 10/07/23 03:35 10/07/23 06:57 10/07/23 06:57 10/07/23 03:35 10/07/23 07:20 10/07/23 07:20 10/07/23 07:20 Oxygen Flow Rate (L/min) 2.5 Oxygen Delivery Method Nasal Cannula Weight: 231 lb 3.2 oz Body Mass Index (BMI) 35.2 Intake & Output: Intake and Output for Last 24 Hours 10/05/23 10/06/23 10/07/23 23:59 23:59 23:59 Intake Total 600 / 600 1963.13 / 1963.13 1204.58 / 1204.58 Output Total 2600 / 2600 2350 / 2350 700 / 700 Balance -1999 / -2000 -386.87 / -386.87 504.58 / 504.58 Lab / Micro Data 10/07/23 04:35 10/07/23 04:35 Labs: Laboratory Results - last 24 hr 10/06/23 06:03: Differential Comment SCANNED 10/07/23 04:35: WBC 15.2 H, RBC 4.23 L, Hgb 13.2, Hct 40.9, MCV 96.7 H, MCH 31.2, MCHC 32.3, RDW Std Deviation 44.4 H, RDW Coeff of Shawn 12.5, Plt Count 376, MPV 9.9, Immature Gran % (Auto) 0.400, Neut % (Auto) 78.0 H, Lymph % (Auto) 13.6 L, [place] % (Auto) 7.9, Eos % (Auto) 0.0, Baso % (Auto) 0.1, Absolute Neuts (auto) 11.9 H, Absolute Lymphs (auto) 2.07, Nucleated RBC % 0, Sodium 133 L, Potassium 3.8, Chloride 100, Carbon Dioxide 26.0, Anion Gap 7, BUN 32 H, Creatinine 1.11, Estim Creat Clear Calc 65.42, Est GFR (MDRD) Af Amer 83, Est GFR (MDRD) Non-Af 68, BUN/Creatinine Ratio 28.8 H, Glucose 119 H, Calcium 8.8 Radiography Diagnostic Testing: Radiology Impression Chest X-Ray 10/06/23 05:40 IMPRESSION: Worsening bilateral pneumonia or edema. Electronically Signed: Kilo Whitlock MD at 10:38 EDT , KUB X-Ray 10/06/23 09:02 IMPRESSION: Abnormally distended air-filled loops of small bowel and stomach suggestive of an obstructive process. Transition point not clearly identified. There is retained stool in ascending and transverse colon No free air Degenerative bony changes Electronically Signed: Donavon Miller MD at 10:56 EDT , KUB X-Ray 10/06/23 10:07 IMPRESSION: Feeding tube extends to the stomach. Electronically Signed: Kilo Whitlock MD at 11:58 EDT , Physical Exam Const oriented x3 and no apparent distress Resp normal respiratory effort Cardio regular rate GI soft to palpation GI Narrative: tender near incision incision clean dry and intact with Steri-Strips, colostomy beefy red with only bloody drainage Assessment & Plan Assessment/Plan (1) Status post Ron procedure: PLAN: Patient still not having much function of his ostomy. Continue NG/n.p.o. except meds. KUB still showed dilated small bowel and stool throughout the colon. Patient does not start to have bowel function may benefit from irrigation of the stoma. Patient was started on Zosyn/vancomycin yesterday due to white blood count 24?worsening chest x-ray, currently is down to 15. Did talk with patient's daughter Kayla and give her an update Casandra Mata M.D. Pager: [phone] [facility] [address] [place] [address], [address] [place] [address] Office: [phone]
[2023-10-07 09:02] LABS: Bacteria 0 SEEN /hpf (None Seen); Mucous, Urine 0 SEEN /hpf (<or=2+); Red Blood Cells-Urine 0 SEEN /hpf (0-5); Squamous Epithelial Cells - UA 0 SEEN /hpf (0-5)
[2023-10-07 09:32] LABS: Color, Urine Yellow (Yellow); Glucose, Dipstick Normal (Normal); Ketone-Dipstick 5 mg/dl (Negative); Leukocyte Esterase-Dipstick 25 /ul (Negative); Nitrite-Dipstick Negative (Negative); Occult Blood-Urine 10 /ul (Negative); Protein-Dipstick 30 mg/dl (Negative); Specific Gravity, Urine 1.015 (1.002-1.030); Urine Bilirubin Dipstick Negative (Negative); Urine Clarity Turbid (Clear); Urine Urobilinogen Normal (Normal)
[2023-10-07 10:01] LABS: Amorphous Sediment 4+; White Blood Cells 0-5 SEEN /hpf (0-5)
[2023-10-07] MEDS: clonazePAM 0.5 MG Tablet GT ×2 (10:10→21:14)
--- NOTE | 2023-10-07 12:00 | PN.HOSP_ITS ---
Reason for Visit Reason for Visit: Abdominal pain/constipation Subjective Subjective Nausea is better with NG in place. No significant output or gas in ostomy bag. Patient has no significant complaints at this time. Objective Data Objective Data Vital Signs: Vital Signs Temp Pulse Resp BP Pulse Ox O2 Del Method O2 Flow Rate 98.7 F 88 16 140/80 H 97 Nasal Cannula 2 10/07/23 03:35 10/07/23 06:57 10/07/23 06:57 10/07/23 03:35 10/07/23 07:20 10/07/23 07:20 10/07/23 09:26 Oxygen Flow Rate (L/min) 2 Oxygen Delivery Method Nasal Cannula Weight: 104.871 kg Body Mass Index (BMI) 35.2 Intake & Output: Intake and Output for Last 24 Hours 10/05/23 10/06/23 10/07/23 23:59 23:59 23:59 Intake Total 600 / 600 1963.13 / 1963.13 1254.58 / 1254.58 Output Total 2600 / 2600 2350 / 2350 700 / 700 Balance -2000 / -2000 -386.87 / -386.87 554.58 / 554.58 Lab / Micro Data 10/07/23 04:35 10/07/23 04:35 Labs: Laboratory Results - last 24 hr 10/07/23 03:20: Urine Color Yellow, Urine Clarity Turbid, Urine pH 5.0, Ur Specific [place] 1.015, Urine Protein 30 H, Urine Glucose (UA) Normal, Urine Ketones 5 H, Urine Occult Blood 10 H, Urine Nitrite Negative, Urine Bilirubin Negative, Urine Urobilinogen Normal, Ur Leukocyte Esterase 25 H, Urine RBC 0 SEEN, Urine WBC 0-5 SEEN, Ur Squamous Epith Cells 0 SEEN, Amorphous Sediment 4+, Urine Bacteria 0 SEEN, Urine Mucus 0 SEEN 10/07/23 04:35: WBC 15.2 H, RBC 4.23 L, Hgb 13.2, Hct 40.9, MCV 96.7 H, MCH 31.2, MCHC 32.3, RDW Std Deviation 44.4 H, RDW Coeff of Shawn 12.5, Plt Count 376, MPV 9.9, Immature Gran % (Auto) 0.400, Neut % (Auto) 78.0 H, Lymph % (Auto) 13.6 L, [place] % (Auto) 7.9, Eos % (Auto) 0.0, Baso % (Auto) 0.1, Absolute Neuts (auto) 11.9 H, Absolute Lymphs (auto) 2.07, Nucleated RBC % 0, Sodium 133 L, Potassium 3.8, Chloride 100, Carbon Dioxide 26.0, Anion Gap 7, BUN 32 H, Creatinine 1.11, Estim Creat Clear Calc 65.42, Est GFR (MDRD) Af Amer 83, Est GFR (MDRD) Non-Af 68, BUN/Creatinine Ratio 28.8 H, Glucose 119 H, Calcium 8.8 Physical Exam Const alert, oriented x3, no apparent distress and well nourished; Negative for average body habitus or healthy appearing Constitutional Narrative: Obese, older, white male, lying in bed, patient is awake, appears comfortable, nontoxic HEENT head/scalp atraumatic and moist oral mucous membranes HEENT Narrative: NG tube in place, moderate hearing loss Head and Scalp: normocephalic Resp normal respiratory effort, no retractions, no use of accessory muscles and No clear to auscultation bilaterally Resp Narrative: Patient remains with scattered adventitious sounds consistent with rhonchi Auscultation: rhonchi; Negative for crackles or wheezes Cardio regular rate, regular rhythm, S1 normal heart sound, S2 normal heart sound, no rub, no gallops and no clicks; Negative for no murmurs Cardio Narrative: 3 out of 6 systolic murmur loudest at left lower sternal border GI GI Narrative: Mild diffuse tenderness of abdomen, postoperative incisions are clean dry and intact, ostomy with no output and no flatus in bag, no distention and abdomen is soft Extremity no clubbing, cyanosis or edema Extremity Narrative: Radial and pedal pulses are 2+ Neuro oriented x3 Neuro Narrative: Decreased movement left side related to his MS diagnosis previously, speech is normal quality however response times are slightly slow Psych Psych Narrative: Affect remains flat Assessment & Plan Assessment/Plan (1) Status post Ron procedure: (2) Wide-complex tachycardia: (3) Colon obstruction: (4) Hypoxia: (5) Leukocytosis: PLAN: Plan Colonic obstruction with postoperative ileus -Postop day 3 laparotomy with sigmoid colon resection and end colostomy -Management per primary service -Abdomen decompressed -N.p.o. but okay for meds down NG tube -Continue IV fluids at 75 cc/h with LR -Continue antiemetics and pain medication per primary service -Dr. Mata updated family Wide-complex tachycardia -When I reviewed his EKG he has a chronic left bundle and to his EKG from when he was tachycardic appeared to be just his baseline QRS complex with an advanced rate highly suspect this was tachycardia with an underlying left bundle branch block -Echocardiogram performed and shows concentric LVH with normal LV wall motion, EF of 60% and stage I diastolic dysfunction -No antiarrhythmics required Hypoxia -Patient had been diuresed with no significant change in oxygenation status despite elevated BNP -now with worsening leukocytosis -Chest x-ray showing worsening infiltrates -discontinue IV diuretics -check sputum culture if able however patient is not really coughing at this time -Meropenem and vancomycin Leukocytosis -Trending back down today -Remains afebrile but noted but chest x-ray from 10/06/2023 looks worsening consistent with pneumonia -Continue meropenem and vancomycin -Blood cultures are pending/urine culture pending however UA is not consistent with infection -UA is not consistent with infection -Repeat CBC in a.m. 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
[2023-10-07] MEDS: Fluoxetine HCl 40 MG CAPSULE 80 MG GT (12:11)
[2023-10-07] MEDS: Pantoprazole Sodium 40 MG in 0.9% Normal Saline (100mL MB+) 100 ML 330 MG IV (12:11)
[2023-10-07] MEDS: Vancomycin HCl 1,250 MG in 0.9% Normal Saline (250mL Bag) 250 ML 167 MG IV ×2 (12:29→22:50)
[2023-10-07] MEDS: Enoxaparin 40 MG/0.4 ML Syringe SC (12:30)
[2023-10-07] MEDS: QUEtiapine 25 MG Tablet GT (21:14)
[2023-10-07] MEDS: Senna Tablet 2 TABLET PO (21:14)
[2023-10-07] MEDS: cycloBENZAPRine HCl 5 MG TABLET NG (21:14)
[2023-10-07] MEDS: Atorvastatin Calcium 10 MG Tablet GT (21:15)
[2023-10-08] VITALS (13 sets, daily range): BP systolic 142–165; BP diastolic 74–89; PULSE 78–94; RESP 16–20; TEMP 36.1–37.2; O2SAT 94–99
[2023-10-08] MEDS: BENZOCAINE/MENTHOL 1 LOZENGE MUCOUS MEM (03:20)
[2023-10-08] MEDS: Piperacil/Tazobactam 3.375 GM in 0.9% Normal Saline (50mL MB+) 50 ML IV ×3 (05:24→21:35)
[2023-10-08] MEDS: 0.9% Normal Saline (250mL Bag) 250 ML 15 ML IV (05:24)
[2023-10-08 06:21] LABS: Absolute Lymphocyte Count 2.16 X10^3/uL (0.83-4.51); Basophil# 0.03 X10^3/uL; Basophil% 0.2 % (0-1); Eosinophil# 0.04 X10^3/uL; Eosinophils% 0.3 % (0-5); Hematocrit 39.8 % (40-54); Hemoglobin 12.8 g/dL (13.0-16.5); Lymphocyte # 2.16 X10^3/ul (0.83-4.51); Mean Corp Hgb Conc 32.2 g/dL (32-36); Mean Corpuscular Hgb 30.9 pg (27.0-32.0); Mean Corpuscular Volume 96.1 fL (80-94); Mean Platelet Vol. 9.7 fl (6.2-12.0); Monocyte% 8.9 % (0-10); NRBC Flagged by Analyzer 0 % (0-5); Neutrophil # 10.04 X10^3/uL (2.7-7.7); Neutrophil % 74.3 % (47-70); Platelet Count 373 K/mm3 (150-450); RBC Distribution Width CV 12.4 % (11.6-14.6); RBC Distribution Width SD 44.4 fl (35.1-43.9); Red Blood Count 4.14 M/mm3 (4.6-6.2); White Blood Count 13.5 K/mm3 (4.4-11.0)
[2023-10-08 06:41] LABS: Anion Gap 8 (5-15); BUN 24 mg/dL (7-18); BUN/Creat Ratio 29.6 RATIO (10-20); Calcium,Total 8.7 mg/dL (8.5-10.1); Chloride 103 mmol/L (98-107); Creatinine, Serum 0.81 mg/dL (0.70-1.30); EST Glomerular Filtration Rate 98 mL/min (>60); Est Glom Filt Rate - Afr Amer 119 mL/min (>60); Estimated Creatinine Clearance 89.65 ml/min; Glucose 103 mg/dL (74-106); Magnesium 2.6 mg/dL (1.6-2.6); Phosphorus 2.4 mg/dL (2.5-4.9); Potassium 3.4 mmol/L (3.5-5.1); Sodium Level 135 mmol/L (136-145)
--- NOTE | 2023-10-08 08:00 | RAD_ITS ---
STUDY: X-RAY - ABDOMEN/PELVIS REASON FOR EXAM: Male, 78 years old. Ileus TECHNIQUE: Single AP view of the abdomen / pelvis. COMPARISON: Comparison is made with prior study dated October 07, 2023. FINDINGS: The tip of the orogastric tube is in the body of the stomach. Persistent dilatation of the small bowel loops although they are slightly less distended as compared to prior study. Fecal material is seen in the left hemicolon. The visualized liver, spleen and kidneys are grossly normal in size and morphology. Normal soft tissue structures. Prior vertebral plasty of the T12-L1 vertebrae. RAD/Abdomen Single View (Portable) IMPRESSION: Persistent small bowel dilatation although there has been improvement as compared to prior study. Moderate amount of fecal material is seen in the left hemicolon. Electronically Signed: Steven Gonzalez MD at 9:47 EDT ,
--- NOTE | 2023-10-08 09:14 | WOUNDNOTE ---
Nursing states patient had a large amount of stool from the colostomy this am. will plan to change the appliance later this am. family present at bedside at this time. will monitor.
--- NOTE | 2023-10-08 09:20 | PN.HOSP_ITS ---
Reason for Visit Reason for Visit: Diagnoses Elevated white blood cell count, unspecified (10/03/23) Schizophrenia, unspecified (10/03/23) Multiple sclerosis (10/03/23) Unspecified intestinal obstruction, unspecified as to partial versus complete obstruction (10/03/23) Tachycardia, unspecified (10/03/23) Hypoxemia (10/03/23) Colostomy status (10/03/23) Subjective Subjective No new complaints. Objective Data Objective Data Vital Signs: Vital Signs Temp Pulse Resp BP Pulse Ox O2 Del Method O2 Flow Rate 37.2 C 87 18 160/85 H 95 Room Air 1 10/08/23 09:01 10/08/23 09:01 10/08/23 09:01 10/08/23 09:01 10/08/23 09:01 10/08/23 09:01 10/08/23 03:30 Oxygen Flow Rate (L/min) 1 Oxygen Delivery Method Room Air Weight: 104.871 kg Body Mass Index (BMI) 35.2 Intake & Output: Intake and Output for Last 24 Hours 10/06/23 10/07/23 10/08/23 23:59 23:59 23:59 Intake Total 1963.13 / 1963.13 2693.12 / 2693.12 510.37 / 510.37 Output Total 2350 / 2350 2550 / 2550 600 / 600 Balance -386.87 / -386.87 143.12 / 143.12 -89.63 / -89.63 Lab / Micro Data 10/08/23 05:27 10/08/23 05:27 Labs: Laboratory Results - last 24 hr 10/07/23 03:20: Urine Color Yellow, Urine Clarity Turbid, Urine pH 5.0, Ur Specific [place] 1.015, Urine Protein 30 H, Urine Glucose (UA) Normal, Urine Ketones 5 H, Urine Occult Blood 10 H, Urine Nitrite Negative, Urine Bilirubin Negative, Urine Urobilinogen Normal, Ur Leukocyte Esterase 25 H, Urine RBC 0 SEEN, Urine WBC 0-5 SEEN, Ur Squamous Epith Cells 0 SEEN, Amorphous Sediment 4+, Urine Bacteria 0 SEEN, Urine Mucus 0 SEEN 10/08/23 05:27: WBC 13.5 H, RBC 4.14 L, Hgb 12.8 L, Hct 39.8 L, MCV 96.1 H, MCH 30.9, MCHC 32.2, RDW Std Deviation 44.4 H, RDW Coeff of Shawn 12.4, Plt Count 373, MPV 9.7, Immature Gran % (Auto) 0.300, Neut % (Auto) 74.3 H, Lymph % (Auto) 16.0 L, [place] % (Auto) 8.9, Eos % (Auto) 0.3, Baso % (Auto) 0.2, Absolute Neuts (auto) 10.0 H, Absolute Lymphs (auto) 2.16, Nucleated RBC % 0, Sodium 135 L, Potassium 3.4 L, Chloride 103, Carbon Dioxide 24.0, Anion Gap 8, BUN 24 H, Creatinine 0.81, Estim Creat Clear Calc 89.65, Est GFR (MDRD) Af Amer 119, Est GFR (MDRD) Non-Af 98, BUN/Creatinine Ratio 29.6 H, Glucose 103, Calcium 8.7, Phosphorus 2.4 L, Magnesium 2.6 Micro: Microbiology 10/06/23 13:30 Blood Culture (Wb) - Right Hand Blood Culture - Preliminary Radiography Diagnostic Testing: Radiology Impression KUB X-Ray 10/07/23 07:49 IMPRESSION: 1. Ng tube visualized. Tip in the region of the stomach. 2. Dilated air-filled small bowel loops suggesting an ileus or small bowel obstruction. Electronically Signed: Shailesh Morel MD at 14:11 EDT Reading Location ID and State: [facility] / [place] , Service support , Physical Exam Const alert and no apparent distress HEENT head/scalp atraumatic and moist oral mucous membranes Neck no lymphadenopathy Resp normal respiratory effort, no retractions, no use of accessory muscles and clear to auscultation bilaterally Cardio regular rate, regular rhythm, S1 normal heart sound and S2 normal heart sound GI normal to inspection, nondistended, normoactive bowel sounds, soft to palpation, non-tender and non-distended Auscultation: hypoactive bowel sounds Neuro Sensorium / Orientation: awake and alert Assessment & Plan Assessment/Plan (1) Status post Ron procedure: (2) Wide-complex tachycardia: (3) Colon obstruction: (4) Hypoxia: (5) Leukocytosis: PLAN: Plan Colonic obstruction with postoperative ileus * Postop day 3 laparotomy with sigmoid colon resection and end colostomy * Mgmt per surgery Wide-complex tachycardia * Chronic LBBB. * Echocardiogram performed and shows concentric LVH with normal LV wall motion, EF of 60% and stage I diastolic dysfunction * No antiarrhythmics required Hypoxia * Patient had been diuresed with no significant change in oxygenation status despite elevated BNP * Chest x-ray showing worsening infiltrates * Piperacillin/tazobactam and vancomycin * PEP Hyponatremia * improving Hypokalemia * improving Bacteremia: * Likely contaminant as it is coag negative staph. * No additional workup at this time. Chronic conditions: * schizophrenia-Continue home Seroquel, clonazepam, fluoxetine * BPH with obstruction-Continue home silodosin * GERD-Continue IV Protonix until we can transition back to his home famotidine * Hyperlipidemia -Continue home atorvastatin * Multiple sclerosis-Patient with chronic left-sided hemiparesis-Continue supportive care * Obesity class II: complicates care and recovery DVT prophylaxis: LMWH CODE STATUS: DNR CCA with no intubation Charges/Coding Visit Charges Inpatient E&M: 61823 Subs Hosp L2
--- NOTE | 2023-10-08 09:59 | PN.SURG_ITS ---
Subjective Subjective Patient had an ileus over the weekend with a largely elevated white count. The patient had NG placed and 2 L were removed. Currently the patient is having a lot of bowel function. Objective Data Objective Data Vital Signs: Vital Signs Temp Pulse Resp BP Pulse Ox O2 Del Method O2 Flow Rate 99 F 87 18 160/85 H 95 Room Air 1 10/08/23 09:01 10/08/23 09:01 10/08/23 09:01 10/08/23 09:01 10/08/23 09:01 10/08/23 09:01 10/08/23 03:30 Oxygen Flow Rate (L/min) 1 Oxygen Delivery Method Room Air Weight: 231 lb 3.2 oz Body Mass Index (BMI) 35.2 Intake & Output: Intake and Output for Last 24 Hours 10/06/23 10/07/23 10/08/23 23:59 23:59 23:59 Intake Total 1963.13 / 1963.13 2693.12 / 2693.12 510.37 / 510.37 Output Total 2350 / 2350 2550 / 2550 600 / 600 Balance -386.87 / -386.87 143.12 / 143.12 -89.63 / -89.63 Lab / Micro Data 10/08/23 05:27 10/08/23 05:27 Labs: Laboratory Results - last 24 hr 10/07/23 03:20: Urine RBC 0 SEEN, Urine WBC 0-5 SEEN, Ur Squamous Epith Cells 0 SEEN, Amorphous Sediment 4+, Urine Bacteria 0 SEEN, Urine Mucus 0 SEEN 10/08/23 05:27: WBC 13.5 H, RBC 4.14 L, Hgb 12.8 L, Hct 39.8 L, MCV 96.1 H, MCH 30.9, MCHC 32.2, RDW Std Deviation 44.4 H, RDW Coeff of Shawn 12.4, Plt Count 373, MPV 9.7, Immature Gran % (Auto) 0.300, Neut % (Auto) 74.3 H, Lymph % (Auto) 16.0 L, [place] % (Auto) 8.9, Eos % (Auto) 0.3, Baso % (Auto) 0.2, Absolute Neuts (auto) 10.0 H, Absolute Lymphs (auto) 2.16, Nucleated RBC % 0, Sodium 135 L, Potassium 3.4 L, Chloride 103, Carbon Dioxide 24.0, Anion Gap 8, BUN 24 H, Creatinine 0.81, Estim Creat Clear Calc 89.65, Est GFR (MDRD) Af Amer 119, Est GFR (MDRD) Non-Af 98, BUN/Creatinine Ratio 29.6 H, Glucose 103, Calcium 8.7, Phosphorus 2.4 L, Magnesium 2.6 Micro: Microbiology 10/06/23 13:30 Blood Culture (Wb) - Right Hand Blood Culture - Preliminary Radiography Diagnostic Testing: Radiology Impression KUB X-Ray 10/07/23 07:49 IMPRESSION: 1. Ng tube visualized. Tip in the region of the stomach. 2. Dilated air-filled small bowel loops suggesting an ileus or small bowel obstruction. Electronically Signed: Shailesh Morel MD at 14:11 EDT , KUB X-Ray 10/08/23 08:00 IMPRESSION: Persistent small bowel dilatation although there has been improvement as compared to prior study. Moderate amount of fecal material is seen in the left hemicolon. Electronically Signed: Steven Gonzalez MD at 9:47 EDT , Physical Exam Const oriented x3 and no apparent distress Resp normal respiratory effort GI soft to palpation and non-tender Assessment & Plan Assessment/Plan (1) Status post Ron procedure: PLAN: The patient had markedly elevated white count over the weekend. He was started on vancomycin for possible pneumonia. His white count is downtrending. When I saw him this morning his bag was completely full of formed stool. I repeated a KUB today and replaced the potassium and phosphorus. The repeat KUB showed some improvement with a large stool burden in the left colon. I am going to remove his NG and start clear liquids and give him a few doses of MiraLAX. I believe that everything is backed up behind the stool that was in the colon proximal to the obstruction but I do not believe he is still obstructed. Andrea Parra MD Pager: [facility] [address] [place] [address], [address] [place] [address] Office:
[2023-10-08 10:04] LABS: Vancomycin, Trough Level 20.8 ug/mL (5.0-15.0)
[2023-10-08] MEDS: Fluoxetine HCl 40 MG CAPSULE 80 MG GT (10:22)
[2023-10-08] MEDS: Enoxaparin 40 MG/0.4 ML Syringe SC (10:23)
[2023-10-08] MEDS: Polyethylene Glycol 3350 17 GM PACKET PO (10:31)
--- NOTE | 2023-10-08 10:31 | WOUNDNOTE ---
Removed the ostomy appliance to assess the stoma. stoma edematous and pink. peristomal skin is intact. patient has been having a large amount of soft formed stool this am. KUB this am showed moderate stool in colon. Dr Parra had been in this am and plans to remove the NG tube and start clear liquids. plans to give patient some Miralax. cleansed the peristomal skin with warm water. pat dry. applied a new 2 piece flat Chris appliance with a small amount of stoma paste. Pt tolerated well. will monitor. pt is from [facility] and plan will be for patient to return to the [place]. currently using Holiday flange #[id number] and pouch #[id number].
[2023-10-08] MEDS: clonazePAM 0.5 MG Tablet GT (10:32)
[2023-10-08] MEDS: Pantoprazole Sodium 40 MG in 0.9% Normal Saline (100mL MB+) 100 ML 330 MG IV (10:32)
[2023-10-08] MEDS: 0.9% Saline Lock 10 ML Syringe IV ×5 (10:32→22:10)
--- NOTE | 2023-10-08 10:45 | WOUNDNOTE ---
wound/stoma photo: abdomen
[2023-10-08] MEDS: Vancomycin Trough/Random Due 1 LAB MC (10:55)
--- NOTE | 2023-10-08 11:04 | PCM.RX.CS ---
Consult Antibiotic Management Pharmacy has been consulted to manage selected antibiotic: Vancomycin Type of Intervention Type of Consult: Follow-up Suspected Infection Suspected Infection: Other Labs Labs: Sodium 135 mmol/L (136-145) L 10/08/23 05:27 Potassium 3.4 mmol/L (3.5-5.1) L 10/08/23 05:27 Chloride 103 mmol/L (98-107) 10/08/23 05:27 Carbon Dioxide 24.0 mmol/L (21.0-32.0) 10/08/23 05:27 Anion Gap 8 (5-15) 10/08/23 05:27 BUN 24 mg/dL (7-18) H 10/08/23 05:27 Creatinine 0.81 mg/dL (0.70-1.30) 10/08/23 05:27 Est GFR (MDRD) Af Amer 119 mL/min (>60) 10/08/23 05:27 Est GFR (MDRD) Non-Af 98 mL/min (>60) 10/08/23 05:27 BUN/Creatinine Ratio 29.6 RATIO (10-20) H 10/08/23 05:27 Glucose 103 mg/dL (74-106) 10/08/23 05:27 Vancomycin Trough 20.8 ug/mL (5.0-15.0) H 10/08/23 09:21 Microbiology Microbiology: Microbiology 10/06/23 13:30 Blood Culture (Wb) - Right Hand Blood Culture - Preliminary Estimated Creatinine Clearance Estimated Creatinine Clearance: 89.65 Goal Trough Goal Trough: 15-20 mcg/mL Pharmacy Plan for Drug Dosing Pharmacy Plan for Drug Dosing: VANCOMYCIN LEVEL RECEIVED Current Vancomycin Dose: 1250mg Q12H Number of Doses Received: 1250mg x2 since dose adjustment Vancomycin Level: 20.8 Hours Since Last Dose: 10.5 Renal Function: sCr 0.81 (CrCl 89.65) Renal Function Trend: improved Vancomycin Plan/Comments: Continue Vancomycin 1250mg Q12H as level likely therapeutic if drawn as scheduled and renal function has improved since previous dose adjustment Pending Level: Vancomycin trough @ 2330 10/09/23 Pharmacy Service will continue to monitor and adjust dosing as required.
[2023-10-08] MEDS: Potassium Phosphate 30 MM in 0.9% Normal Saline (250mL Bag) 250 ML 42 MM IV (11:07)
[2023-10-08] MEDS: Phenol/Sodium Phenolate 180ML 3 SPRAY MUCOUS MEM (11:08)
--- NOTE | 2023-10-08 11:08 | CASEMGMT ---
Social Work Both LW and POA for healthcare scanned into [facility], Katie De León is listed as healthcare POA. WILLARD Hull
--- NOTE | 2023-10-08 12:27 | CASEMGMT ---
Discharge Planning Updates sent to [facility] via [employer]. Princess Reddy DC Planning Asst.
[2023-10-08] MEDS: Vancomycin HCl 1,250 MG in 0.9% Normal Saline (250mL Bag) 250 ML 167 MG IV ×2 (12:51→23:51)
[2023-10-08] MEDS: Ondansetron 4 MG/2 ML Vial IV (15:01)
[2023-10-08] MEDS: hydrALAZINE 20 MG/ML Vial 10 MG IV ×2 (16:11→22:09)
[2023-10-08] MEDS: Lactated Ringers 1,000 ML 75 ML IV (16:16)
[2023-10-08] MEDS: Ipratropium/Albuterol Sulfate 3 ML AMPUL.NEB INHALATION (18:58)
[2023-10-08] MEDS: Acetaminophen 325 MG Tablet 650 MG PO (19:51)
[2023-10-08] MEDS: cycloBENZAPRine HCl 5 MG TABLET PO (22:00)
[2023-10-08] MEDS: Senna Tablet 2 TABLET PO (22:00)
[2023-10-08] MEDS: Tamsulosin HCl 0.4 MG Capsule 0.8 MG PO (22:00)
[2023-10-08] MEDS: Atorvastatin Calcium 10 MG Tablet PO (22:00)
[2023-10-08] MEDS: QUEtiapine 25 MG Tablet PO (22:00)
[2023-10-08] MEDS: clonazePAM 0.5 MG Tablet PO (22:00)
[2023-10-08] MEDS: Fluticasone 0.05% 1 SPRAY NASAL.SRY 2 SPRAY NASAL (22:01)
[2023-10-09] VITALS (13 sets, daily range): BP systolic 140–159; BP diastolic 73–80; PULSE 81–103; RESP 18–24; TEMP 36.3–37.2; O2SAT 91–97
[2023-10-09] MEDS: hydrALAZINE 20 MG/ML Vial 10 MG IV (05:30)
[2023-10-09] MEDS: Acetaminophen 325 MG Tablet 650 MG PO (05:32)
[2023-10-09] MEDS: 0.9% Saline Lock 10 ML Syringe IV (05:32)
[2023-10-09] MEDS: Piperacil/Tazobactam 3.375 GM in 0.9% Normal Saline (50mL MB+) 50 ML IV ×3 (05:34→21:34)
[2023-10-09] MEDS: Albuterol 2.5 MG/3 ML VIAL.NEB. INHALATION (07:27)
--- NOTE | 2023-10-09 07:42 | PN.HOSP_ITS ---
Reason for Visit Reason for Visit: Diagnoses Elevated white blood cell count, unspecified (10/03/23) Schizophrenia, unspecified (10/03/23) Multiple sclerosis (10/03/23) Unspecified intestinal obstruction, unspecified as to partial versus complete obstruction (10/03/23) Tachycardia, unspecified (10/03/23) Hypoxemia (10/03/23) Colostomy status (10/03/23) Objective Data Objective Data Vital Signs: Vital Signs Temp Pulse Resp BP Pulse Ox O2 Del Method O2 Flow Rate 36.6 C 81 18 159/80 H 94 Room Air 1 10/09/23 05:25 10/09/23 05:30 10/09/23 05:25 10/09/23 05:30 10/09/23 05:25 10/09/23 05:36 10/08/23 23:48 Oxygen Flow Rate (L/min) 1 Oxygen Delivery Method Room Air Weight: 104.871 kg Body Mass Index (BMI) 35.2 Intake & Output: Intake and Output for Last 24 Hours 10/07/23 10/08/23 10/09/23 23:59 23:59 23:59 Intake Total 2693.12 / 2693.12 4225.37 / 4225.37 536.25 / 536.25 Output Total 2550 / 2550 1650 / 1650 500 / 500 Balance 143.12 / 143.12 2575.37 / 2575.37 36.25 / 36.25 Lab / Micro Data 10/08/23 05:27 10/08/23 05:27 Labs: Laboratory Results - last 24 hr 10/08/23 09:21: Vancomycin Trough 20.8 H Micro: Microbiology 10/07/23 03:20 Urine, Clean Catch Urine Culture - Final Culture exhibits no growth. 10/06/23 13:30 Blood Culture (Wb) - Right Hand Bacteria Detection (PCR) - Final Coag Negative Staph 10/06/23 13:30 Blood Culture (Wb) - Right Hand Blood Culture - Preliminary Radiography Diagnostic Testing: Radiology Impression KUB X-Ray 10/08/23 08:00 IMPRESSION: Persistent small bowel dilatation although there has been improvement as compared to prior study. Moderate amount of fecal material is seen in the left hemicolon. Electronically Signed: Steven Gonzalez MD at 9:47 EDT , Assessment & Plan Assessment/Plan (1) Status post Ron procedure: (2) Wide-complex tachycardia: (3) Colon obstruction: (4) Hypoxia: (5) Leukocytosis: PLAN: Plan Colonic obstruction with postoperative ileus * / laparotomy with sigmoid colon resection and end colostomy * Mgmt per surgery Wide-complex tachycardia * Chronic LBBB. * Echocardiogram performed and shows concentric LVH with normal LV wall motion, EF of 60% and stage I diastolic dysfunction * No antiarrhythmics required Hypoxia * Patient had been diuresed with no significant change in oxygenation status despite elevated BNP * Chest x-ray showing worsening infiltrates * Piperacillin/tazobactam. DC vancomycin. * PEP Hyponatremia * improving Hypokalemia * improving Bacteremia: * Likely contaminant as it is coag negative staph. * No additional workup at this time. Chronic conditions: * schizophrenia-Continue home Seroquel, clonazepam, fluoxetine * BPH with obstruction-Continue home silodosin * GERD-Continue IV Protonix until we can transition back to his home famotidine * Hyperlipidemia -Continue home atorvastatin * Multiple sclerosis-Patient with chronic left-sided hemiparesis-Continue supportive care * Obesity class II: complicates care and recovery DVT prophylaxis: LMWH CODE STATUS: DNR CCA with no intubation
--- NOTE | 2023-10-09 07:42 | PCM.PN.HOSP ---
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 No vomiting. Objective Data Objective Data Vital Signs: Vital Signs Temp Pulse Resp BP Pulse Ox O2 Del Method O2 Flow Rate 36.6 C 81 18 159/80 H 94 Room Air 1 10/09/23 05:25 10/09/23 05:30 10/09/23 05:25 10/09/23 05:30 10/09/23 05:25 10/09/23 05:36 10/08/23 23:48 Oxygen Flow Rate (L/min) 1 Oxygen Delivery Method Room Air Weight: 104.871 kg Body Mass Index (BMI) 35.2 Intake & Output: Intake and Output for Last 24 Hours 10/07/23 10/08/23 10/09/23 23:59 23:59 23:59 Intake Total 2693.12 / 2693.12 4225.37 / 4225.37 536.25 / 536.25 Output Total 2550 / 2550 1650 / 1650 500 / 500 Balance 143.12 / 143.12 2575.37 / 2575.37 36.25 / 36.25 Lab / Micro Data 10/09/23 08:30 10/09/23 08:30 Labs: Laboratory Results - last 24 hr 10/08/23 09:21: Vancomycin Trough 20.8 H Micro: Microbiology 10/07/23 03:20 Urine, Clean Catch Urine Culture - Final Culture exhibits no growth. 10/06/23 13:30 Blood Culture (Wb) - Right Hand Bacteria Detection (PCR) - Final Coag Negative Staph 10/06/23 13:30 Blood Culture (Wb) - Right Hand Blood Culture - Preliminary Radiography Diagnostic Testing: Radiology Impression KUB X-Ray 10/08/23 08:00 IMPRESSION: Persistent small bowel dilatation although there has been improvement as compared to prior study. Moderate amount of fecal material is seen in the left hemicolon. Electronically Signed: Steven Gonzalez MD at 9:47 EDT , Physical Exam Const Constitutional Narrative: in bed. no respiratory distress. NGT removed. HEENT head/scalp atraumatic and moist oral mucous membranes Resp normal respiratory effort, no retractions and no use of accessory muscles Cardio regular rate, regular rhythm, S1 normal heart sound and S2 normal heart sound GI normal to inspection, nondistended, normoactive bowel sounds, soft to palpation, non-tender and non-distended Neuro Sensorium / Orientation: awake and alert Assessment & Plan Assessment/Plan (1) Status post Ron procedure: (2) Wide-complex tachycardia: (3) Colon obstruction: (4) Hypoxia: (5) Leukocytosis: PLAN: Plan Colonic obstruction with postoperative ileus 10/02 laparotomy with sigmoid colon resection and end colostomy Mgmt per surgery Wide-complex tachycardia Chronic LBBB. Echocardiogram performed and shows concentric LVH with normal LV wall motion, EF of 60% and stage I diastolic dysfunction No antiarrhythmics required Hypoxia Patient had been diuresed with no significant change in oxygenation status despite elevated BNP Chest x-ray showing worsening infiltrates Piperacillin/tazobactam. DC vancomycin. PEP Hyponatremia improving Hypokalemia improving Bacteremia: Likely contaminant as it is coag negative staph. No additional workup at this time. 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
--- NOTE | 2023-10-09 08:02 | RAD_ITS ---
STUDY: X-RAY - ABDOMEN/PELVIS REASON FOR EXAM: Male, 78 years old. Ileus TECHNIQUE: Single AP view of the abdomen / pelvis. COMPARISON: Comparison is made with prior study dated October 08, 2023. FINDINGS: The nasogastric tube has been removed. Gaseous distention of the stomach. Stable appearance of mildly dilated small bowel loops in the left upper and left middle quadrants. Gas is seen within the colon. There is no demonstrated free abdominal air. The visualized liver, spleen and kidneys are grossly normal in size and morphology. Normal soft tissue structures. Prior vertebroplasty of the T12 and L1 vertebrae. RAD/Abdomen Single View (Portable) IMPRESSION: Residual mild degree of gaseous distention of small bowel loops in the left upper and left mid abdomen. Gas is seen within the colon. Electronically Signed: Steven Gonzalez MD at 12:52 EDT ,
[2023-10-09 08:56] LABS: Absolute Lymphocyte Count 2.27 X10^3/uL (0.83-4.51); Absolute Neutrophil Count 8.4 X10^3/uL (2.0-7.7); Basophil# 0.03 X10^3/uL; Basophil% 0.3 % (0-1); Eosinophil# 0.08 X10^3/uL; Eosinophils% 0.7 % (0-5); Hematocrit 40.5 % (40-54); Hemoglobin 13.4 g/dL (13.0-16.5); Lymphocyte # 2.27 X10^3/ul (0.83-4.51); Lymphocyte % 18.9 % (19-41); Mean Corp Hgb Conc 33.1 g/dL (32-36); Mean Corpuscular Hgb 31.7 pg (27.0-32.0); Mean Corpuscular Volume 95.7 fL (80-94); Mean Platelet Vol. 9.4 fl (6.2-12.0); Monocyte# 1.09 X10^3/uL; Monocyte% 9.1 % (0-10); NRBC Flagged by Analyzer 0 % (0-5); Neutrophil # 8.44 X10^3/uL (2.7-7.7); Neutrophil % 70.2 % (47-70); Platelet Count 405 K/mm3 (150-450); RBC Distribution Width CV 12.5 % (11.6-14.6); RBC Distribution Width SD 44.8 fl (35.1-43.9); Red Blood Count 4.23 M/mm3 (4.6-6.2)
[2023-10-09 09:16] LABS: Anion Gap 7 (5-15); BUN 15 mg/dL (7-18); BUN/Creat Ratio 19.7 RATIO (10-20); Calcium,Total 8.8 mg/dL (8.5-10.1); Chloride 103 mmol/L (98-107); Creatinine, Serum 0.76 mg/dL (0.70-1.30); EST Glomerular Filtration Rate 105 mL/min (>60); Est Glom Filt Rate - Afr Amer 128 mL/min (>60); Estimated Creatinine Clearance 90.77 ml/min; Glucose 105 mg/dL (74-106); Phosphorus 2.9 mg/dL (2.5-4.9); Potassium 3.1 mmol/L (3.5-5.1); Sodium Level 136 mmol/L (136-145)
--- NOTE | 2023-10-09 09:28 | CT_ITS ---
STUDY: CT ABDOMEN AND PELVIS WITH CONTRAST REASON FOR EXAM: Male, 78 years old. ileus vs sbo after colectomy RADIATION DOSAGE (If Supplied By Facility): CTDIvol = ( 16.38 ) mGy, DLP = ( 1161.39 ) mGycm TECHNIQUE: Transaxial images were obtained from the dome of the diaphragm to the symphysis pubis without oral contrast. IV 100mL Isovue-300 was administered. Sagittal and coronal images were reconstructed. Individualized dose optimization techniques were used for this CT. COMPARISON: Comparison is made with prior study dated October 02, 2023. FINDINGS: Increased markings at the lung bases with areas of confluence suggestive of a bibasilar atelectasis. This has progressed as compared to prior study. Tiny left pleural effusion. Coronary artery calcification. Normal liver. Minimal amount of perihepatic fluid. The patient is status post cholecystectomy. Normal spleen. Normal pancreas. Normal bilateral adrenal glands. Normal right kidney. Stable small left renal cysts. Normal visualized stomach. Mildly distended fluid-filled loops of small bowel seen in the left upper and mid quadrants. This may represent a localized ileus pattern. A colostomy is seen in the anterior left abdominal wall. Moderate amount of fecal material is seen in the colon. There is diffuse circumferential wall thickening of the rectum. Surgical anastomosis is seen in the low rectum. There is non-visualization of the appendix. There is scattered atherosclerotic calcification of the abdominal aorta, without a demonstrated aneurysm. Normal inferior vena cava. Normal retroperitoneum. Normal urinary bladder. Normal abdominal wall. There are degenerative changes of the visualized lumbar spine. Prior vertebroplasty of the T12 and L1 vertebrae. Loss of height of the superior endplate of the L4 vertebrae. CT/Abdomen/Pelvis W IV Cont ONLY IMPRESSION: Bibasilar atelectasis. Colostomy is seen in the left anterior abdominal wall. Diffuse circumferential wall thickening of the rectum. Dilated fluid-filled small bowel loops in the left upper quadrant and mid abdomen suggestive of ileus rather than obstruction. Large amount of fecal material is seen throughout the colon. Electronically Signed: Steven Gonzalez MD at 11:23 EDT ,
--- NOTE | 2023-10-09 09:29 | PCM.PN.SRG ---
Subjective Subjective Patient reports he was nauseated yesterday after clear liquids. He denies abdominal pain or nausea currently. Objective Data Objective Data Vital Signs: Vital Signs Temp Pulse Resp BP Pulse Ox O2 Del Method O2 Flow Rate 97.8 F 81 18 159/80 H 94 Room Air 1 10/09/23 05:25 10/09/23 05:30 10/09/23 05:25 10/09/23 05:30 10/09/23 05:25 10/09/23 05:36 10/08/23 23:48 Oxygen Flow Rate (L/min) 1 Oxygen Delivery Method Room Air Weight: 231 lb 3.2 oz Body Mass Index (BMI) 35.2 Intake & Output: Intake and Output for Last 24 Hours 10/07/23 10/08/23 10/09/23 23:59 23:59 23:59 Intake Total 2693.12 / 2693.12 4225.37 / 4225.37 1003.33 / 1003.33 Output Total 2550 / 2550 1650 / 1650 500 / 500 Balance 143.12 / 143.12 2575.37 / 2575.37 503.33 / 503.33 Lab / Micro Data 10/09/23 08:30 10/09/23 08:30 Labs: Laboratory Results - last 24 hr 10/08/23 09:21: Vancomycin Trough 20.8 H 10/09/23 08:30: WBC 12.0 H, RBC 4.23 L, Hgb 13.4, Hct 40.5, MCV 95.7 H, MCH 31.7, MCHC 33.1, RDW Std Deviation 44.8 H, RDW Coeff of Shawn 12.5, Plt Count 405, MPV 9.4, Immature Gran % (Auto) 0.800, Neut % (Auto) 70.2 H, Lymph % (Auto) 18.9 L, [place] % (Auto) 9.1, Eos % (Auto) 0.7, Baso % (Auto) 0.3, Absolute Neuts (auto) 8.4 H, Absolute Lymphs (auto) 2.27, Nucleated RBC % 0, Sodium 136, Potassium 3.1 L, Chloride 103, Carbon Dioxide 26.0, Anion Gap 7, BUN 15, Creatinine 0.76, Estim Creat Clear Calc 90.77, Est GFR (MDRD) Af Amer 128, Est GFR (MDRD) Non-Af 105, BUN/Creatinine Ratio 19.7, Glucose 105, Calcium 8.8, Phosphorus 2.9 Micro: Microbiology 10/07/23 03:20 Urine, Clean Catch Urine Culture - Final Culture exhibits no growth. 10/06/23 13:30 Blood Culture (Wb) - Right Hand Bacteria Detection (PCR) - Final Coag Negative Staph 10/06/23 13:30 Blood Culture (Wb) - Right Hand Blood Culture - Preliminary Radiography Diagnostic Testing: Radiology Impression KUB X-Ray 10/08/23 08:00 IMPRESSION: Persistent small bowel dilatation although there has been improvement as compared to prior study. Moderate amount of fecal material is seen in the left hemicolon. Electronically Signed: Steven Gonzalez MD at 9:47 EDT , Physical Exam Const oriented x3 and no apparent distress Resp normal respiratory effort GI soft to palpation Inspection: abdominal distention Assessment & Plan Assessment/Plan (1) Status post Ron procedure: PLAN: The patient is status post Romero's procedure for sigmoid dilation. Pathology is pending. The patient does have stool in his bag. He tried clear liquids yesterday but said he got very nauseated so he stopped after breakfast. I ordered a KUB this morning which still shows distended small bowel and distended stomach. The patient is adamant not to have the NG back in. I will put him back to n.p.o. with sips and chips and replace his potassium. I am ordering a CT scan to evaluate the leukocytosis. His white count is slowly been improving but the cause is still unknown as his blood cultures were contaminated and urine culture was negative. Andrea Parra MD Pager: [facility] [address] [place] [address], [address] [place] [address] Office:
--- NOTE | 2023-10-09 10:24 | CASEMGMT ---
LION sent order for ostomy supplies and surgeon's note from today to [facility] ([facility]). LION also, called Alexandria at [facility] and notified her of what LION just sent. Plan: d/c back to [facility] when medically ready. Parisa Burks SEISMOGRAPH OPERATOR HELPER KIKI
[2023-10-09] MEDS: Enoxaparin 40 MG/0.4 ML Syringe SC (10:52)
[2023-10-09] MEDS: Pantoprazole Sodium 40 MG in 0.9% Normal Saline (100mL MB+) 100 ML 330 MG IV (10:53)
[2023-10-09] MEDS: Fluoxetine HCl 40 MG CAPSULE 80 MG PO (10:53)
[2023-10-09] MEDS: clonazePAM 0.5 MG Tablet PO ×2 (10:53→21:50)
[2023-10-09] MEDS: Potassium Chloride 10mEq/100mL 10 MEQ/100 ML IV.SOLN. 100 MEQ IV BOLUS ×3 (11:52→13:56)
[2023-10-09] MEDS: Lactated Ringers 1,000 ML 75 ML IV (12:54)
[2023-10-09] MEDS: Ipratropium/Albuterol Sulfate 3 ML AMPUL.NEB INHALATION ×2 (13:12→19:42)
[2023-10-09] MEDS: Atorvastatin Calcium 10 MG Tablet PO (21:51)
[2023-10-09] MEDS: Tamsulosin HCl 0.4 MG Capsule 0.8 MG PO (21:51)
[2023-10-09] MEDS: Senna Tablet 2 TABLET PO (21:51)
[2023-10-09] MEDS: QUEtiapine 25 MG Tablet PO (21:52)
[2023-10-09] MEDS: Fluticasone 0.05% 1 SPRAY NASAL.SRY 2 SPRAY NASAL (21:52)
[2023-10-09] MEDS: cycloBENZAPRine HCl 5 MG TABLET PO (21:52)
[2023-10-10] VITALS (11 sets, daily range): BP systolic 128–164; BP diastolic 59–85; PULSE 80–103; RESP 18–24; TEMP 36.4–36.9; O2SAT 92–95
[2023-10-10] MEDS: Lactated Ringers 1,000 ML 75 ML IV (02:26)
[2023-10-10] MEDS: Piperacil/Tazobactam 3.375 GM in 0.9% Normal Saline (50mL MB+) 50 ML IV ×3 (05:01→22:41)
--- NOTE | 2023-10-10 05:52 | PCM.PN.SRG ---
Subjective Subjective Patient reports he is feeling hungry. He had no nausea yesterday. He is not complaining of any abdominal pain. Objective Data Objective Data Vital Signs: Vital Signs Temp Pulse Resp BP Pulse Ox O2 Del Method O2 Flow Rate 98.2 F 102 H 24 H 140/76 H 93 Room Air 1 10/09/23 22:49 10/09/23 23:01 10/09/23 22:49 10/09/23 22:49 10/09/23 22:49 10/09/23 22:49 10/08/23 23:48 Oxygen Flow Rate (L/min) 1 Oxygen Delivery Method Room Air Weight: 231 lb 3.2 oz Body Mass Index (BMI) 35.2 Intake & Output: Intake and Output for Last 24 Hours 10/08/23 10/09/23 10/10/23 23:59 23:59 23:59 Intake Total 4225.37 / 4225.37 1573.75 / 1573.75 1050 / 1050 Output Total 1650 / 1650 1650 / 1650 Balance 2575.37 / 2575.37 -76.25 / -76.25 1050 / 1050 Lab / Micro Data 10/09/23 08:30 10/09/23 08:30 Labs: Laboratory Results - last 24 hr 10/09/23 08:30: WBC 12.0 H, RBC 4.23 L, Hgb 13.4, Hct 40.5, MCV 95.7 H, MCH 31.7, MCHC 33.1, RDW Std Deviation 44.8 H, RDW Coeff of Shawn 12.5, Plt Count 405, MPV 9.4, Immature Gran % (Auto) 0.800, Neut % (Auto) 70.2 H, Lymph % (Auto) 18.9 L, [place] % (Auto) 9.1, Eos % (Auto) 0.7, Baso % (Auto) 0.3, Absolute Neuts (auto) 8.4 H, Absolute Lymphs (auto) 2.27, Nucleated RBC % 0, Sodium 136, Potassium 3.1 L, Chloride 103, Carbon Dioxide 26.0, Anion Gap 7, BUN 15, Creatinine 0.76, Estim Creat Clear Calc 90.77, Est GFR (MDRD) Af Amer 128, Est GFR (MDRD) Non-Af 105, BUN/Creatinine Ratio 19.7, Glucose 105, Calcium 8.8, Phosphorus 2.9 Micro: Microbiology 10/06/23 13:30 Blood Culture (Wb) - Right Hand Bacteria Detection (PCR) - Final Coag Negative Staph 10/06/23 13:30 Blood Culture (Wb) - Right Hand Blood Culture - Preliminary Coag Negative Staph 10/07/23 03:20 Urine, Clean Catch Urine Culture - Final Culture exhibits no growth. Radiography Diagnostic Testing: Radiology Impression KUB X-Ray 10/09/23 08:02 IMPRESSION: Residual mild degree of gaseous distention of small bowel loops in the left upper and left mid abdomen. Gas is seen within the colon. Electronically Signed: Steven Gonzalez MD at 12:52 EDT , Abdomen/Pelvis CT 10/09/23 09:28 IMPRESSION: Bibasilar atelectasis. Colostomy is seen in the left anterior abdominal wall. Diffuse circumferential wall thickening of the rectum. Dilated fluid-filled small bowel loops in the left upper quadrant and mid abdomen suggestive of ileus rather than obstruction. Large amount of fecal material is seen throughout the colon. Electronically Signed: Steven Gonzalez MD at 11:23 EDT , Physical Exam Const oriented x3 and no apparent distress Resp normal respiratory effort Cardio Rate: tachycardic GI soft to palpation and non-tender Extremity normal to inspection Assessment & Plan Assessment/Plan (1) Status post Ron procedure: PLAN: The patient had postoperative ileus. I repeated a CT scan yesterday that did not show any abscess or signs of infection in the abdomen. It appeared to be that the patient had an ileus. Patient is still having copious output from his colostomy and his abdomen is very soft and nontender. I will attempt clear liquids today and advance as tolerated. Labs are pending. Andrea Parra MD Pager: [facility] [address] [place] [address], [address] [place] [address] Office:
[2023-10-10 05:59] LABS: Absolute Lymphocyte Count 2.16 X10^3/uL (0.83-4.51); Absolute Neutrophil Count 6.8 X10^3/uL (2.0-7.7); Basophil# 0.03 X10^3/uL; Basophil% 0.3 % (0-1); Eosinophil# 0.24 X10^3/uL; Eosinophils% 2.3 % (0-5); Hematocrit 37.4 % (40-54); Hemoglobin 12.2 g/dL (13.0-16.5); Lymphocyte # 2.16 X10^3/ul (0.83-4.51); Lymphocyte % 20.9 % (19-41); Mean Corp Hgb Conc 32.6 g/dL (32-36); Mean Corpuscular Volume 95.2 fL (80-94); Mean Platelet Vol. 9.2 fl (6.2-12.0); Monocyte# 1.06 X10^3/uL; Monocyte% 10.3 % (0-10); NRBC Flagged by Analyzer 0 % (0-5); Neutrophil # 6.81 X10^3/uL (2.7-7.7); Neutrophil % 65.8 % (47-70); Platelet Count 328 K/mm3 (150-450); RBC Distribution Width CV 12.3 % (11.6-14.6); RBC Distribution Width SD 43.4 fl (35.1-43.9); Red Blood Count 3.93 M/mm3 (4.6-6.2); White Blood Count 10.3 K/mm3 (4.4-11.0)
[2023-10-10 06:24] LABS: Anion Gap 9 (5-15); BUN 13 mg/dL (7-18); BUN/Creat Ratio 18.2 RATIO (10-20); Calcium,Total 8.5 mg/dL (8.5-10.1); Chloride 104 mmol/L (98-107); Creatinine, Serum 0.71 mg/dL (0.70-1.30); EST Glomerular Filtration Rate 114 mL/min (>60); Est Glom Filt Rate - Afr Amer 138 mL/min (>60); Estimated Creatinine Clearance 90.77 ml/min; Glucose 93 mg/dL (74-106); Phosphorus 2.8 mg/dL (2.5-4.9); Potassium 3.2 mmol/L (3.5-5.1); Sodium Level 136 mmol/L (136-145)
[2023-10-10] MEDS: hydrALAZINE 20 MG/ML Vial 10 MG IV (06:24)
[2023-10-10] MEDS: Ipratropium/Albuterol Sulfate 3 ML AMPUL.NEB INHALATION ×3 (07:20→21:15)
--- NOTE | 2023-10-10 08:35 | PCM.PN.HOSP ---
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 No abdominal pain. Objective Data Objective Data Vital Signs: Vital Signs Temp Pulse Resp BP Pulse Ox O2 Del Method O2 Flow Rate 36.9 C 99 20 H 164/85 H 92 Room Air 1 10/10/23 05:53 10/10/23 07:20 10/10/23 07:20 10/10/23 05:53 10/10/23 07:20 10/10/23 08:29 10/08/23 23:48 Oxygen Flow Rate (L/min) 1 Oxygen Delivery Method Room Air Weight: 104.871 kg Body Mass Index (BMI) 35.2 Intake & Output: Intake and Output for Last 24 Hours 10/08/23 10/09/23 10/10/23 23:59 23:59 23:59 Intake Total 4225.37 / 4225.37 1573.75 / 1573.75 1520 / 1520 Output Total 1650 / 1650 1650 / 1650 950 / 950 Balance 2575.37 / 2575.37 -76.25 / -76.25 570 / 570 Lab / Micro Data 10/10/23 05:36 10/10/23 05:36 Labs: Laboratory Results - last 24 hr 10/09/23 08:30: WBC 12.0 H, RBC 4.23 L, Hgb 13.4, Hct 40.5, MCV 95.7 H, MCH 31.7, MCHC 33.1, RDW Std Deviation 44.8 H, RDW Coeff of Shawn 12.5, Plt Count 405, MPV 9.4, Immature Gran % (Auto) 0.800, Neut % (Auto) 70.2 H, Lymph % (Auto) 18.9 L, [place] % (Auto) 9.1, Eos % (Auto) 0.7, Baso % (Auto) 0.3, Absolute Neuts (auto) 8.4 H, Absolute Lymphs (auto) 2.27, Nucleated RBC % 0, Sodium 136, Potassium 3.1 L, Chloride 103, Carbon Dioxide 26.0, Anion Gap 7, BUN 15, Creatinine 0.76, Estim Creat Clear Calc 90.77, Est GFR (MDRD) Af Amer 128, Est GFR (MDRD) Non-Af 105, BUN/Creatinine Ratio 19.7, Glucose 105, Calcium 8.8, Phosphorus 2.9 10/10/23 05:36: WBC 10.3, RBC 3.93 L, Hgb 12.2 L, Hct 37.4 L, MCV 95.2 H, MCH 31.0, MCHC 32.6, RDW Std Deviation 43.4, RDW Coeff of Shawn 12.3, Plt Count 328, MPV 9.2, Immature Gran % (Auto) 0.400, Neut % (Auto) 65.8, Lymph % (Auto) 20.9, [place] % (Auto) 10.3 H, Eos % (Auto) 2.3, Baso % (Auto) 0.3, Absolute Neuts (auto) 6.8, Absolute Lymphs (auto) 2.16, Nucleated RBC % 0, Sodium 136, Potassium 3.2 L, Chloride 104, Carbon Dioxide 23.0, Anion Gap 9, BUN 13, Creatinine 0.71, Estim Creat Clear Calc 90.77, Est GFR (MDRD) Af Amer 138, Est GFR (MDRD) Non-Af 114, BUN/Creatinine Ratio 18.2, Glucose 93, Calcium 8.5, Phosphorus 2.8 Micro: Microbiology 10/06/23 13:30 Blood Culture (Wb) - Right Hand Bacteria Detection (PCR) - Final Coag Negative Staph 10/06/23 13:30 Blood Culture (Wb) - Right Hand Blood Culture - Final Staphylococcus warneri 10/07/23 03:20 Urine, Clean Catch Urine Culture - Final Culture exhibits no growth. Radiography Diagnostic Testing: Radiology Impression KUB X-Ray 10/09/23 08:02 IMPRESSION: Residual mild degree of gaseous distention of small bowel loops in the left upper and left mid abdomen. Gas is seen within the colon. Electronically Signed: Steven Gonzalez MD at 12:52 EDT , Abdomen/Pelvis CT 10/09/23 09:28 IMPRESSION: Bibasilar atelectasis. Colostomy is seen in the left anterior abdominal wall. Diffuse circumferential wall thickening of the rectum. Dilated fluid-filled small bowel loops in the left upper quadrant and mid abdomen suggestive of ileus rather than obstruction. Large amount of fecal material is seen throughout the colon. Electronically Signed: Steven Gonzalez MD at 11:23 EDT , Physical Exam Const alert Constitutional Narrative: hard of hearing. HEENT head/scalp atraumatic and moist oral mucous membranes Resp normal respiratory effort, no retractions, no use of accessory muscles and clear to auscultation bilaterally Cardio regular rate, regular rhythm, S1 normal heart sound and S2 normal heart sound GI normal to inspection, nondistended, normoactive bowel sounds, soft to palpation, non-tender and non-distended Extremity normal to inspection and full ROM Neuro Sensorium / Orientation: awake and alert Assessment & Plan Assessment/Plan (1) Status post Ron procedure: (2) Wide-complex tachycardia: (3) Colon obstruction: (4) Hypoxia: (5) Leukocytosis: PLAN: Plan Recommendations: 1. Continue pip/tazo for now. Can change to Augmentin on discharge and continue through 10/12. 2. Continue to monitor labs. Replace Potassium. Colonic obstruction with postoperative ileus 10/02 laparotomy with sigmoid colon resection and end colostomy Mgmt per surgery Wide-complex tachycardia Chronic LBBB. Echocardiogram performed and shows concentric LVH with normal LV wall motion, EF of 60% and stage I diastolic dysfunction No antiarrhythmics required Hypoxia resolved Patient had been diuresed with no significant change in oxygenation status despite elevated BNP Chest x-ray showing worsening infiltrates Piperacillin/tazobactam. DC vancomycin. PEP Hyponatremia improving Hypokalemia improving Bacteremia: Likely contaminant as it is coag negative staph. No additional workup at this time. 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
[2023-10-10] MEDS: Potassium Phosphate 30 MM in 0.9% Normal Saline (250mL Bag) 250 ML 42 MM IV (09:20)
[2023-10-10] MEDS: clonazePAM 0.5 MG Tablet PO ×2 (09:51→23:15)
[2023-10-10] MEDS: Pantoprazole Sodium 40 MG in 0.9% Normal Saline (100mL MB+) 100 ML 330 MG IV (09:51)
[2023-10-10] MEDS: Enoxaparin 40 MG/0.4 ML Syringe SC (09:55)
[2023-10-10] MEDS: Fluoxetine HCl 40 MG CAPSULE 80 MG PO (09:57)
--- NOTE | 2023-10-10 14:14 | CASEMGMT ---
Discharge Planning Updates sent to [facility] via [facility]. Princess Reddy DC Planning Asst.
[2023-10-10] MEDS: 0.9% Saline Lock 10 ML Syringe IV (18:55)
[2023-10-10] MEDS: Ondansetron 4 MG/2 ML Vial IV (18:55)
[2023-10-10] MEDS: Fluticasone 0.05% 1 SPRAY NASAL.SRY 2 SPRAY NASAL (22:46)
[2023-10-10] MEDS: Tamsulosin HCl 0.4 MG Capsule 0.8 MG PO (22:47)
[2023-10-10] MEDS: Senna Tablet 2 TABLET PO (22:48)
[2023-10-10] MEDS: cycloBENZAPRine HCl 5 MG TABLET PO (22:48)
[2023-10-10] MEDS: QUEtiapine 25 MG Tablet PO (22:49)
[2023-10-10] MEDS: Atorvastatin Calcium 10 MG Tablet PO (22:54)
[2023-10-11] VITALS (12 sets, daily range): BP systolic 126–149; BP diastolic 65–85; PULSE 84–94; RESP 16–24; TEMP 36.3–36.9; O2SAT 92–97
[2023-10-11] MEDS: Lactated Ringers 1,000 ML 40 ML IV (04:14)
[2023-10-11] MEDS: Morphine 2 MG/ML Syringe IV (04:14)
[2023-10-11] MEDS: Piperacil/Tazobactam 3.375 GM in 0.9% Normal Saline (50mL MB+) 50 ML IV ×3 (05:51→21:07)
[2023-10-11 06:07] LABS: Absolute Lymphocyte Count 2.39 X10^3/uL (0.83-4.51); Absolute Neutrophil Count 7.6 X10^3/uL (2.0-7.7); Basophil# 0.03 X10^3/uL; Basophil% 0.3 % (0-1); Eosinophil# 0.33 X10^3/uL; Eosinophils% 2.9 % (0-5); Hematocrit 34.5 % (40-54); Hemoglobin 11.4 g/dL (13.0-16.5); Lymphocyte # 2.39 X10^3/ul (0.83-4.51); Lymphocyte % 21.1 % (19-41); Mean Corpuscular Hgb 31.4 pg (27.0-32.0); Mean Platelet Vol. 9.4 fl (6.2-12.0); Monocyte# 0.97 X10^3/uL; Monocyte% 8.6 % (0-10); NRBC Flagged by Analyzer 0 % (0-5); Neutrophil # 7.56 X10^3/uL (2.7-7.7); Neutrophil % 66.7 % (47-70); Platelet Count 340 K/mm3 (150-450); RBC Distribution Width CV 12.4 % (11.6-14.6); Red Blood Count 3.63 M/mm3 (4.6-6.2); White Blood Count 11.3 K/mm3 (4.4-11.0)
[2023-10-11 06:18] LABS: Anion Gap 6 (5-15); BUN 11 mg/dL (7-18); BUN/Creat Ratio 13.9 RATIO (10-20); Calcium,Total 8.3 mg/dL (8.5-10.1); Chloride 102 mmol/L (98-107); Creatinine, Serum 0.79 mg/dL (0.70-1.30); EST Glomerular Filtration Rate 101 mL/min (>60); Est Glom Filt Rate - Afr Amer 122 mL/min (>60); Estimated Creatinine Clearance 90.77 ml/min; Glucose 113 mg/dL (74-106); Phosphorus 3.2 mg/dL (2.5-4.9); Potassium 3.2 mmol/L (3.5-5.1); Sodium Level 132 mmol/L (136-145)
[2023-10-11] MEDS: Ipratropium/Albuterol Sulfate 3 ML AMPUL.NEB INHALATION ×3 (07:07→19:15)
--- NOTE | 2023-10-11 07:34 | PN.SURG_ITS ---
Subjective Subjective Patient is a 78 y/o M I am following s/p laparotomy with resection of sigmoid colon and end colostomy by Dr. Parra on 10/03/23. Patient tolerated the procedure well. He denies any abdominal pain/discomfort. He continues to have liquid stool output. Urine output is good. Patient is tolerating full liquid diet. Objective Data Objective Data Vital Signs: Vital Signs Temp Pulse Resp BP Pulse Ox O2 Del Method O2 Flow Rate 98.5 F 86 18 137/70 H 96 Room Air 1 10/11/23 05:57 10/11/23 07:07 10/11/23 07:07 10/11/23 05:57 10/11/23 07:07 10/11/23 07:07 10/08/23 23:48 Oxygen Flow Rate (L/min) 1 Oxygen Delivery Method Room Air Weight: 231 lb 3.2 oz Body Mass Index (BMI) 35.2 Intake & Output: Intake and Output for Last 24 Hours 10/09/23 10/10/23 10/11/23 23:59 23:59 23:59 Intake Total 1573.75 / 1573.75 2844 / 3204 1120 / 1120 Output Total 1650 / 1650 1600 / 1600 650 / 650 Balance -76.25 / -76.25 1244 / 1604 470 / 470 Lab / Micro Data 10/11/23 05:33 10/11/23 05:33 Labs: Laboratory Results - last 24 hr 10/11/23 05:33: WBC 11.3 H, RBC 3.63 L, Hgb 11.4 L, Hct 34.5 L, MCV 95.0 H, MCH 31.4, MCHC 33.0, RDW Std Deviation 44.0 H, RDW Coeff of Shawn 12.4, Plt Count 340, MPV 9.4, Immature Gran % (Auto) 0.400, Neut % (Auto) 66.7, Lymph % (Auto) 21.1, [place] % (Auto) 8.6, Eos % (Auto) 2.9, Baso % (Auto) 0.3, Absolute Neuts (auto) 7.6, Absolute Lymphs (auto) 2.39, Nucleated RBC % 0, Sodium 132 L, Potassium 3.2 L, Chloride 102, Carbon Dioxide 24.0, Anion Gap 6, BUN 11, Creatinine 0.79, Estim Creat Clear Calc 90.77, Est GFR (MDRD) Af Amer 122, Est GFR (MDRD) Non-Af 101, BUN/Creatinine Ratio 13.9, Glucose 113 H, Calcium 8.3 L, Phosphorus 3.2, Magnesium 2.0 Micro: Microbiology 10/06/23 13:30 Blood Culture (Wb) - Right Hand Bacteria Detection (PCR) - Final Coag Negative Staph 10/06/23 13:30 Blood Culture (Wb) - Right Hand Blood Culture - Final Staphylococcus warneri 10/07/23 03:20 Urine, Clean Catch Urine Culture - Final Culture exhibits no growth. Physical Exam GI GI Narrative: Abdomen- Incision c/d/i. No erythema or infection noted. LUQ stoma pink and healthy with notable liquid stool. Bowel sounds present. Assessment & Plan Assessment/Plan (1) Status post Ron procedure: (2) Colon obstruction: PLAN: Plan I am following this patient in conjunction with Dr. Proctor in Dr. Parra's absence. He has independently evaluated this patient. Labs reviewed Increase diet to transitional Will order speech therapy Replace potassium Continue with physical and occupational therapy Continue with IV antibiotics Check a CXR due to the increase in WBC Continue working with incentive spirometer Will plan to send urine for culture Labs reordered for tomorrow morning We will continue to monitor this patient Charges/Coding Visit Charges Inpatient E&M: 96998 Subs Hosp L1 (post-op)
--- NOTE | 2023-10-11 08:00 | RAD_ITS ---
STUDY: X-RAY CHEST REASON FOR EXAM: Male, 78 years old. Pneumonia -- PORTABLE TECHNIQUE: Single AP portable view of the chest. COMPARISON: Comparison is made with prior study October 06, 2023. FINDINGS: EKG electrodes are seen. Persistent infiltrates in the right hemithorax although there has been improvement as compared to prior study. Stable mild increased markings at the left lung base. There is no demonstrated pleural abnormality. Normal size heart. Normal mediastinum and aida. Normal visualized pulmonary arteries. There is atherosclerotic calcification of the aortic arch with tortuosity. There are diffuse degenerative changes of the visualized thoracic spine. Levoscoliosis. Normal visualized ribs, clavicles, and shoulders. There is no demonstrated abnormality of the visualized soft tissue structures of the upper abdomen. RAD/Chest 1 View (Portable) IMPRESSION: Residual bilateral infiltrates worse in the right hemithorax. There has been improvement Electronically Signed: Steven Gonzalez MD at 12:56 EDT ,
--- NOTE | 2023-10-11 08:47 | WOUNDNOTE ---
pt with some liquid brown stool noted in the appliance. removed the appliance. stoma remains edematous and pink. peristomal skin is intact. cleansed skin with warm water. pat dry. applied a new 2 piece Chris appliance with a small amount of stoma paste. pt tolerated well. will monitor. plan is for patient to return to the [facility] at discharge. Pt's diet was advanced today. Pt sleepy this am.
[2023-10-11] MEDS: clonazePAM 0.5 MG Tablet PO ×2 (09:41→21:04)
[2023-10-11] MEDS: Fluoxetine HCl 40 MG CAPSULE 80 MG PO (09:42)
[2023-10-11] MEDS: Enoxaparin 40 MG/0.4 ML Syringe SC (09:42)
[2023-10-11] MEDS: Potassium Chloride 10mEq/100mL 10 MEQ/100 ML IV.SOLN. 100 MEQ IV BOLUS ×4 (09:48→14:27)
[2023-10-11] MEDS: Pantoprazole Sodium 40 MG in 0.9% Normal Saline (100mL MB+) 100 ML 330 MG IV (10:43)
[2023-10-11 13:16] LABS: Bacteria 0 SEEN /hpf (None Seen); Mucous, Urine 0 SEEN /hpf (<or=2+); Red Blood Cells-Urine 0 SEEN /hpf (0-5); Squamous Epithelial Cells - UA 0 SEEN /hpf (0-5)
[2023-10-11 13:30] LABS: Color, Urine Yellow (Yellow); Glucose, Dipstick Normal (Normal); Ketone-Dipstick 5 mg/dl (Negative); Leukocyte Esterase-Dipstick 25 /ul (Negative); Nitrite-Dipstick Negative (Negative); Occult Blood-Urine Negative /ul (Negative); Protein-Dipstick 15 mg/dl (Negative); Urine Bilirubin Dipstick Negative (Negative); Urine Clarity Clear (Clear); Urine Urobilinogen Normal (Normal); Urine pH 6.5 (5.0 - 8.0)
[2023-10-11 13:38] LABS: White Blood Cells 0-5 SEEN /hpf (0-5)
--- NOTE | 2023-10-11 14:47 | PN.HOSP_ITS ---
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 Objective Data Objective Data Vital Signs: Vital Signs Temp Pulse Resp BP Pulse Ox O2 Del Method O2 Flow Rate 36.9 C 84 16 137/70 H 97 Room Air 1 10/11/23 11:17 10/11/23 13:28 10/11/23 13:28 10/11/23 11:17 10/11/23 11:17 10/11/23 11:17 10/08/23 23:48 Oxygen Flow Rate (L/min) 1 Oxygen Delivery Method Room Air Weight: 104.871 kg Body Mass Index (BMI) 35.2 Intake & Output: Intake and Output for Last 24 Hours 10/09/23 10/10/23 10/11/23 23:59 23:59 23:59 Intake Total 1573.75 / 1573.75 2844 / 3204 2162.67 / 2162.67 Output Total 1650 / 1650 1600 / 1600 1175 / 1175 Balance -76.25 / -76.25 1244 / 1604 987.67 / 987.67 Lab / Micro Data 10/11/23 05:33 10/11/23 05:33 Labs: Laboratory Results - last 24 hr 10/11/23 05:33: WBC 11.3 H, RBC 3.63 L, Hgb 11.4 L, Hct 34.5 L, MCV 95.0 H, MCH 31.4, MCHC 33.0, RDW Std Deviation 44.0 H, RDW Coeff of Shawn 12.4, Plt Count 340, MPV 9.4, Immature Gran % (Auto) 0.400, Neut % (Auto) 66.7, Lymph % (Auto) 21.1, [place] % (Auto) 8.6, Eos % (Auto) 2.9, Baso % (Auto) 0.3, Absolute Neuts (auto) 7.6, Absolute Lymphs (auto) 2.39, Nucleated RBC % 0, Sodium 132 L, Potassium 3.2 L, Chloride 102, Carbon Dioxide 24.0, Anion Gap 6, BUN 11, Creatinine 0.79, Estim Creat Clear Calc 90.77, Est GFR (MDRD) Af Amer 122, Est GFR (MDRD) Non-Af 101, BUN/Creatinine Ratio 13.9, Glucose 113 H, Calcium 8.3 L, Phosphorus 3.2, Magnesium 2.0 10/11/23 13:00: Urine Color Yellow, Urine Clarity Clear, Urine pH 6.5, Ur Specific Ray 1.010, Urine Protein 15 H, Urine Glucose (UA) Normal, Urine Ketones 5 H, Urine Occult Blood Negative, Urine Nitrite Negative, Urine Bilirubin Negative, Urine Urobilinogen Normal, Ur Leukocyte Esterase 25 H, Urine RBC 0 SEEN, Urine WBC 0-5 SEEN, Ur Squamous Epith Cells 0 SEEN, Urine Bacteria 0 SEEN, Urine Mucus 0 SEEN Micro: Microbiology 10/06/23 13:30 Blood Culture (Wb) - Right Hand Bacteria Detection (PCR) - Final Coag Negative Staph 10/06/23 13:30 Blood Culture (Wb) - Right Hand Blood Culture - Final Staphylococcus warneri 10/07/23 03:20 Urine, Clean Catch Urine Culture - Final Culture exhibits no growth. Radiography Diagnostic Testing: Radiology Impression Chest X-Ray 10/11/23 08:00 IMPRESSION: Residual bilateral infiltrates worse in the right hemithorax. There has been improvement Electronically Signed: Steven Gonzalez MD at 12:56 EDT , Physical Exam Const alert and no apparent distress HEENT head/scalp atraumatic and moist oral mucous membranes Resp normal respiratory effort, no retractions, no use of accessory muscles and clear to auscultation bilaterally Cardio regular rate, regular rhythm, S1 normal heart sound and S2 normal heart sound GI normal to inspection, nondistended, normoactive bowel sounds, soft to palpation, non-tender and non-distended Extremity normal to inspection, full ROM and no clubbing, cyanosis or edema Neuro Sensorium / Orientation: awake, alert and oriented to person Assessment & Plan Assessment/Plan (1) Status post Ron procedure: (2) Wide-complex tachycardia: (3) Colon obstruction: (4) Hypoxia: (5) Leukocytosis: PLAN: Plan Recommendations: 1. Continue pip/tazo for now. Can change to Augmentin on discharge and continue through 10/12. 2. Continue to monitor labs. Replace Potassium. Colonic obstruction with postoperative ileus * 10/02 laparotomy with sigmoid colon resection and end colostomy * Mgmt per surgery Wide-complex tachycardia * Chronic LBBB. * Echocardiogram performed and shows concentric LVH with normal LV wall motion, EF of 60% and stage I diastolic dysfunction * No antiarrhythmics required Hypoxia * resolved * Patient had been diuresed with no significant change in oxygenation status despite elevated BNP * Chest x-ray showing worsening infiltrates * Piperacillin/tazobactam. DC vancomycin. * PEP Hyponatremia * improving Hypokalemia * ongoing. Bacteremia: * Likely contaminant as it is coag negative staph. * No additional workup at this time. 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
[2023-10-11] MEDS: 0.9% Saline Lock 10 ML Syringe IV (17:08)
[2023-10-11] MEDS: Ondansetron 4 MG/2 ML Vial IV (17:08)
[2023-10-11] MEDS: Acetaminophen 325 MG Tablet 650 MG PO (20:54)
[2023-10-11] MEDS: Fluticasone 0.05% 1 SPRAY NASAL.SRY 2 SPRAY NASAL (20:56)
[2023-10-11] MEDS: Atorvastatin Calcium 10 MG Tablet PO (21:04)
[2023-10-11] MEDS: Senna Tablet 2 TABLET PO (21:04)
[2023-10-11] MEDS: Tamsulosin HCl 0.4 MG Capsule 0.8 MG PO (21:04)
[2023-10-11] MEDS: cycloBENZAPRine HCl 5 MG TABLET PO (21:05)
[2023-10-11] MEDS: QUEtiapine 25 MG Tablet PO (21:05)
[2023-10-12] VITALS (9 sets, daily range): BP systolic 150–160; BP diastolic 70–83; PULSE 81–93; RESP 16–20; TEMP 36.4–37; O2SAT 93–96
[2023-10-12] MEDS: Lactated Ringers 1,000 ML 40 ML IV (03:44)
[2023-10-12 05:13] LABS: Absolute Lymphocyte Count 3.15 X10^3/uL (0.83-4.51); Absolute Neutrophil Count 7.9 X10^3/uL (2.0-7.7); Basophil# 0.02 X10^3/uL; Basophil% 0.2 % (0-1); Eosinophil# 0.39 X10^3/uL; Eosinophils% 3.1 % (0-5); Hematocrit 33.4 % (40-54); Hemoglobin 10.8 g/dL (13.0-16.5); Lymphocyte # 3.15 X10^3/ul (0.83-4.51); Lymphocyte % 25.4 % (19-41); Mean Corp Hgb Conc 32.3 g/dL (32-36); Mean Corpuscular Hgb 30.6 pg (27.0-32.0); Mean Corpuscular Volume 94.6 fL (80-94); Mean Platelet Vol. 9.5 fl (6.2-12.0); Monocyte# 0.91 X10^3/uL; Monocyte% 7.3 % (0-10); NRBC Flagged by Analyzer 0 % (0-5); Neutrophil # 7.85 X10^3/uL (2.7-7.7); Neutrophil % 63.4 % (47-70); Platelet Count 331 K/mm3 (150-450); RBC Distribution Width CV 12.2 % (11.6-14.6); RBC Distribution Width SD 42.5 fl (35.1-43.9); Red Blood Count 3.53 M/mm3 (4.6-6.2); White Blood Count 12.4 K/mm3 (4.4-11.0)
[2023-10-12] MEDS: Piperacil/Tazobactam 3.375 GM in 0.9% Normal Saline (50mL MB+) 50 ML IV ×3 (05:27→21:05)
[2023-10-12 05:28] LABS: Anion Gap 4 (5-15); BUN 8 mg/dL (7-18); BUN/Creat Ratio 10.3 RATIO (10-20); Calcium,Total 8.2 mg/dL (8.5-10.1); Chloride 104 mmol/L (98-107); Creatinine, Serum 0.78 mg/dL (0.70-1.30); EST Glomerular Filtration Rate 102 mL/min (>60); Est Glom Filt Rate - Afr Amer 124 mL/min (>60); Estimated Creatinine Clearance 90.77 ml/min; Glucose 104 mg/dL (74-106); Magnesium 1.9 mg/dL (1.6-2.6); Phosphorus 2.9 mg/dL (2.5-4.9); Potassium 3.5 mmol/L (3.5-5.1); Sodium Level 134 mmol/L (136-145)
[2023-10-12] MEDS: Ipratropium/Albuterol Sulfate 3 ML AMPUL.NEB INHALATION ×3 (07:09→19:33)
--- NOTE | 2023-10-12 07:13 | PN.SURG_ITS ---
Subjective Subjective Patient reports tolerating transitional diet. Denies abdominal pain or nausea or vomiting. Objective Data Objective Data Vital Signs: Vital Signs Temp Pulse Resp BP Pulse Ox O2 Del Method O2 Flow Rate 97.5 F L 84 16 150/70 H 95 Room Air 1 10/12/23 03:36 10/12/23 03:36 10/12/23 03:36 10/12/23 03:36 10/12/23 03:36 10/12/23 03:46 10/08/23 23:48 Oxygen Flow Rate (L/min) 1 Oxygen Delivery Method Room Air Weight: 231 lb 3.2 oz Body Mass Index (BMI) 35.2 Intake & Output: Intake and Output for Last 24 Hours 10/10/23 10/11/23 10/12/23 23:59 23:59 23:59 Intake Total 2844 / 3204 2552.67 / 2552.67 1041.33 / 1041.33 Output Total 1600 / 1600 2125 / 2125 1150 / 1150 Balance 1244 / 1604 427.67 / 427.67 -108.67 / -108.67 Lab / Micro Data 10/12/23 04:45 10/12/23 04:45 Labs: Laboratory Results - last 24 hr 10/11/23 13:00: Urine Color Yellow, Urine Clarity Clear, Urine pH 6.5, Ur Specific [place] 1.010, Urine Protein 15 H, Urine Glucose (UA) Normal, Urine Ketones 5 H, Urine Occult Blood Negative, Urine Nitrite Negative, Urine Bilirubin Negative, Urine Urobilinogen Normal, Ur Leukocyte Esterase 25 H, Urine RBC 0 SEEN, Urine WBC 0-5 SEEN, Ur Squamous Epith Cells 0 SEEN, Urine Bacteria 0 SEEN, Urine Mucus 0 SEEN 10/12/23 04:45: WBC 12.4 H, RBC 3.53 L, Hgb 10.8 L, Hct 33.4 L, MCV 94.6 H, MCH 30.6, MCHC 32.3, RDW Std Deviation 42.5, RDW Coeff of Shawn 12.2, Plt Count 331, MPV 9.5, Immature Gran % (Auto) 0.600, Neut % (Auto) 63.4, Lymph % (Auto) 25.4, [place] % (Auto) 7.3, Eos % (Auto) 3.1, Baso % (Auto) 0.2, Absolute Neuts (auto) 7.9 H, Absolute Lymphs (auto) 3.15, Nucleated RBC % 0, Sodium 134 L, Potassium 3.5, Chloride 104, Carbon Dioxide 26.0, Anion Gap 4 L, BUN 8, Creatinine 0.78, Estim Creat Clear Calc 90.77, Est GFR (MDRD) Af Amer 124, Est GFR (MDRD) Non-Af 102, BUN/Creatinine Ratio 10.3, Glucose 104, Calcium 8.2 L, Phosphorus 2.9, Magnesium 1.9 Micro: Microbiology 10/06/23 13:30 Blood Culture (Wb) - Right Hand Bacteria Detection (PCR) - Final Coag Negative Staph 10/06/23 13:30 Blood Culture (Wb) - Right Hand Blood Culture - Final Staphylococcus warneri 10/07/23 03:20 Urine, Clean Catch Urine Culture - Final Culture exhibits no growth. Radiography Diagnostic Testing: Radiology Impression Chest X-Ray 10/11/23 08:00 IMPRESSION: Residual bilateral infiltrates worse in the right hemithorax. There has been improvement Electronically Signed: Steven Gonzalez MD at 12:56 EDT , Physical Exam Const oriented x3 and no apparent distress Resp normal respiratory effort GI soft to palpation and non-tender Assessment & Plan Assessment/Plan (1) Status post Ron procedure: PLAN: The patient's white count is slowly becoming more elevated again. Unsure as a source of infection besides pneumonia. We ordered a UA yesterday which was normal and he had a CT the day before which did not show any infective process. Patient had chest x-ray that showed infiltrates but these were improving. The patient's vancomycin was stopped and he is only on 3.375 of Zosyn. He may need higher dose for pulmonary infection. It may also benefit to switch to Levaquin for more lung coverage. Continue regular diet. Speech therapy is coming by to evaluate. Andrea Parra MD Pager: [facility] [address] [place] [address] [address] [place], [address] [place] [address] Office:
[2023-10-12] MEDS: Enoxaparin 40 MG/0.4 ML Syringe SC (09:16)
[2023-10-12] MEDS: Fluoxetine HCl 40 MG CAPSULE 80 MG PO (09:16)
[2023-10-12] MEDS: Pantoprazole Sodium 40 MG in 0.9% Normal Saline (100mL MB+) 100 ML 330 MG IV (10:04)
[2023-10-12] MEDS: 0.9% Saline Lock 10 ML Syringe IV ×2 (10:04→14:39)
[2023-10-12] MEDS: clonazePAM 0.5 MG Tablet PO ×2 (10:04→21:05)
--- NOTE | 2023-10-12 12:23 | CASEMGMT ---
Discharge Planning Updates sent via [facility] to [facility]. Princess Reddy DC Planning Asst.
--- NOTE | 2023-10-12 14:23 | PN.HOSP_ITS ---
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 Denying abdominal pain. No shortness of breath. Objective Data Objective Data Vital Signs: Vital Signs Temp Pulse Resp BP Pulse Ox O2 Del Method O2 Flow Rate 36.7 C 81 17 160/83 H 94 Room Air 1 10/12/23 09:15 10/12/23 13:15 10/12/23 13:15 10/12/23 09:15 10/12/23 09:15 10/12/23 09:15 10/08/23 23:48 Oxygen Flow Rate (L/min) 1 Oxygen Delivery Method Room Air Weight: 104.871 kg Body Mass Index (BMI) 35.2 Intake & Output: Intake and Output for Last 24 Hours 10/10/23 10/11/23 10/12/23 23:59 23:59 23:59 Intake Total 2844 / 3204 2552.67 / 2552.67 1874.66 / 1874.66 Output Total 1600 / 1600 2125 / 2125 1900 / 1900 Balance 1244 / 1604 427.67 / 427.67 -25.34 / -25.34 Lab / Micro Data 10/12/23 04:45 10/12/23 04:45 Labs: Laboratory Results - last 24 hr 10/12/23 04:45: WBC 12.4 H, RBC 3.53 L, Hgb 10.8 L, Hct 33.4 L, MCV 94.6 H, MCH 30.6, MCHC 32.3, RDW Std Deviation 42.5, RDW Coeff of Shawn 12.2, Plt Count 331, MPV 9.5, Immature Gran % (Auto) 0.600, Neut % (Auto) 63.4, Lymph % (Auto) 25.4, [place] % (Auto) 7.3, Eos % (Auto) 3.1, Baso % (Auto) 0.2, Absolute Neuts (auto) 7.9 H, Absolute Lymphs (auto) 3.15, Nucleated RBC % 0, Sodium 134 L, Potassium 3.5, Chloride 104, Carbon Dioxide 26.0, Anion Gap 4 L, BUN 8, Creatinine 0.78, Estim Creat Clear Calc 90.77, Est GFR (MDRD) Af Amer 124, Est GFR (MDRD) Non-Af 102, BUN/Creatinine Ratio 10.3, Glucose 104, Calcium 8.2 L, Phosphorus 2.9, Magnesium 1.9 Micro: Microbiology 10/06/23 13:30 Blood Culture (Wb) - Right Hand Bacteria Detection (PCR) - Final Coag Negative Staph 10/06/23 13:30 Blood Culture (Wb) - Right Hand Blood Culture - Final Staphylococcus warneri 10/07/23 03:20 Urine, Clean Catch Urine Culture - Final Culture exhibits no growth. Physical Exam Const Constitutional Narrative: More alert and interactive today. HEENT head/scalp atraumatic and moist oral mucous membranes Resp normal respiratory effort and no retractions Resp Narrative: Coarse breath sounds bilaterally Cardio regular rate, regular rhythm, S1 normal heart sound and S2 normal heart sound GI soft to palpation and non-tender Assessment & Plan Assessment/Plan (1) Status post Ron procedure: (2) Wide-complex tachycardia: (3) Colon obstruction: (4) Hypoxia: (5) Leukocytosis: PLAN: Plan Recommendations: 1. Continue pip/tazo for now. Can change to Augmentin on discharge and continue through 10/12. Despite increasing white count, his clinical status is and unchanged and his chest x-ray does show improvement of the large infiltrate that he has on his right side. Colonic obstruction with postoperative ileus * 10/02 laparotomy with sigmoid colon resection and end colostomy * Mgmt per surgery Wide-complex tachycardia * Chronic LBBB. * Echocardiogram performed and shows concentric LVH with normal LV wall motion, EF of 60% and stage I diastolic dysfunction * No antiarrhythmics required Suspected gram-negative pneumonia * On pip-tazo. Continue antibiotics through the . Hyponatremia * improving Hypokalemia * ongoing. Bacteremia: * Likely contaminant as it is coag negative staph. * No additional workup at this time. 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
[2023-10-12] MEDS: Fluticasone 0.05% 1 SPRAY NASAL.SRY 2 SPRAY NASAL (21:05)
[2023-10-12] MEDS: Senna Tablet 2 TABLET PO (21:06)
[2023-10-12] MEDS: Atorvastatin Calcium 10 MG Tablet PO (21:06)
[2023-10-12] MEDS: cycloBENZAPRine HCl 5 MG TABLET PO (21:06)
[2023-10-12] MEDS: Tamsulosin HCl 0.4 MG Capsule 0.8 MG PO (21:06)
[2023-10-12] MEDS: QUEtiapine 25 MG Tablet PO (21:06)
[2023-10-13] VITALS (7 sets, daily range): BP systolic 152–158; BP diastolic 72–81; PULSE 82–88; RESP 16–24; TEMP 36–36.6; O2SAT 94–95
--- NOTE | 2023-10-13 04:27 | EKG12_ITS ---
Test Reason : Blood Pressure : / mmHG Vent. Rate : 082 BPM Atrial Rate : 082 BPM P-R Int : 264 ms QRS Dur : 132 ms QT Int : 418 ms P-R-T Axes : 054 -40 093 degrees QTc Int : 488 ms Sinus rhythm with 1st degree A-V block Left axis deviation Left bundle branch block Abnormal ECG When compared with ECG of 12-OCT-2023 14:58, MANUAL COMPARISON REQUIRED, DATA IS UNCONFIRMED Confirmed by MAGDA MCCRARY, SHAWN ([id number]), clinical editor TALAT ROLLE ([id number]) on 10/17/2023 10:06:10 AM Referred By: MELINDA Confirmed By:ELOINA MAN MD
[2023-10-13 05:56] LABS: Hematocrit 36.2 % (40-54); Hemoglobin 11.7 g/dL (13.0-16.5); Mean Corp Hgb Conc 32.3 g/dL (32-36); Mean Corpuscular Hgb 30.6 pg (27.0-32.0); Mean Corpuscular Volume 94.8 fL (80-94); Mean Platelet Vol. 9.8 fl (6.2-12.0); POSITIVE MORPHOLOGY YES; Platelet Count 380 K/mm3 (150-450); RBC Distribution Width CV 12.2 % (11.6-14.6); RBC Distribution Width SD 42.6 fl (35.1-43.9); Red Blood Count 3.82 M/mm3 (4.6-6.2); White Blood Count 12.7 K/mm3 (4.4-11.0)
[2023-10-13] MEDS: Piperacil/Tazobactam 3.375 GM in 0.9% Normal Saline (50mL MB+) 50 ML IV ×2 (06:02→13:43)
[2023-10-13] MEDS: Lactated Ringers 1,000 ML 40 ML IV (06:02)
[2023-10-13 06:43] LABS: Anion Gap 7 (5-15); BUN 7 mg/dL (7-18); BUN/Creat Ratio 9.7 RATIO (10-20); Calcium,Total 8.4 mg/dL (8.5-10.1); Chloride 104 mmol/L (98-107); Creatinine, Serum 0.72 mg/dL (0.70-1.30); EST Glomerular Filtration Rate 113 mL/min (>60); Est Glom Filt Rate - Afr Amer 136 mL/min (>60); Estimated Creatinine Clearance 90.77 ml/min; Glucose 115 mg/dL (74-106); Potassium 3.4 mmol/L (3.5-5.1); Sodium Level 134 mmol/L (136-145)
--- NOTE | 2023-10-13 08:43 | EKG12_ITS ---
Test Reason : Blood Pressure : / mmHG Vent. Rate : 093 BPM Atrial Rate : 093 BPM P-R Int : 248 ms QRS Dur : 130 ms QT Int : 400 ms P-R-T Axes : 052 -41 102 degrees QTc Int : 497 ms Sinus rhythm with 1st degree A-V block Left axis deviation Left bundle branch block Abnormal ECG When compared with ECG of 06-OCT-2023 05:24, [place] interval has increased T wave amplitude has decreased in Anterior leads Confirmed by MAGDA MCCRARY, SHAWN ([id number]), news assignment editor TALAT ROLLE ([id number]) on 10/17/2023 10:05:29 AM Referred By: CHASE Confirmed By:ELOINA MAN MD
--- NOTE | 2023-10-13 08:55 | PN.SURG_ITS ---
Subjective Subjective The patient is complaining of new left chest pain which started some point overnight. He denies nausea or vomiting and says he tolerated regular diet and denies any abdominal pain. Objective Data Objective Data Vital Signs: Vital Signs Temp Pulse Resp BP Pulse Ox O2 Del Method O2 Flow Rate 97.6 F L 84 24 H 158/81 H 95 Room Air 1 10/13/23 04:10/13/23 04:10/13/23 04:10/13/23 04:10/13/23 04:10/13/23 04:10/08/23 23:48 Oxygen Flow Rate (L/min) 1 Oxygen Delivery Method Room Air Weight: 231 lb 3.2 oz Body Mass Index (BMI) 35.2 Intake & Output: Intake and Output for Last 24 Hours 10/11/23 10/12/23 10/13/23 23:59 23:59 23:59 Intake Total 2552.67 / 2552.67 2404.66 / 2404.66 1606.00 / 1606.00 Output Total 2125 / 2125 2650 / 2650 1050 / 1050 Balance 427.67 / 427.67 -245.34 / -245.34 556.00 / 556.00 Lab / Micro Data 10/13/23 05:09 10/13/23 05:09 Labs: Laboratory Results - last 24 hr 10/13/23 05:09: WBC 12.7 H, RBC 3.82 L, Hgb 11.7 L, Hct 36.2 L, MCV 94.8 H, MCH 30.6, MCHC 32.3, RDW Std Deviation 42.6, RDW Coeff of Shawn 12.2, Plt Count 380, MPV 9.8, Neut % (Auto) Not Reportable, Sodium 134 L, Potassium 3.4 L, Chloride 104, Carbon Dioxide 23.0, Anion Gap 7, BUN 7, Creatinine 0.72, Estim Creat Clear Calc 90.77, Est GFR (MDRD) Af Amer 136, Est GFR (MDRD) Non-Af 113, B UN/Creatinine Ratio 9.7 L, Glucose 115 H, Calcium 8.4 L Micro: Microbiology 10/06/23 13:30 Blood Culture (Wb) - Right Hand Bacteria Detection (PCR) - Final Coag Negative Staph 10/06/23 13:30 Blood Culture (Wb) - Right Hand Blood Culture - Final Staphylococcus warneri 10/07/23 03:20 Urine, Clean Catch Urine Culture - Final Culture exhibits no growth. Physical Exam Const oriented x3 and no apparent distress Resp normal respiratory effort Cardio regular rate and regular rhythm GI soft to palpation and non-tender Inspection: Negative for abdominal distention Assessment & Plan Assessment/Plan (1) Status post Ron procedure: PLAN: Patient is tolerating diet with stool in his colostomy bag. His abdomen is soft and nontender. He is complaining of some left chest pain this morning. I am ordering a twelve-lead EKG and troponins to check. Andrea Parra MD Pager: [facility] [address] [place] [address], [address] [place] [address] Office:
[2023-10-13 09:26] LABS: Troponin-I HS 14 pg/mL (3.0-78.0)
[2023-10-13 09:39] LABS: Basophil% 0.2 % (0-1); Differential Indicated SCAN CRITERIA MET; Eosinophils% 2.2 % (0-5); Lymphocyte % 23.7 % (19-41); Monocyte% 6.9 % (0-10); Neutrophil # 8.47 X10^3/uL (2.7-7.7); Neutrophil % 66.6 % (47-70)
[2023-10-13 09:40] LABS: Absolute Neutrophil Count 8.5 X10^3/uL (2.0-7.7); Basophil# 0.02 X10^3/uL; Eosinophil# 0.28 X10^3/uL; Monocyte# 0.88 X10^3/uL
[2023-10-13 09:42] LABS: Atypical Lymphocyte 1+ %; Differential Comment SCANNED; Reactive Lymphocyte 1+
[2023-10-13] MEDS: Enoxaparin 40 MG/0.4 ML Syringe SC (09:53)
[2023-10-13] MEDS: clonazePAM 0.5 MG Tablet PO (09:53)
[2023-10-13] MEDS: Pantoprazole Sodium 40 MG in 0.9% Normal Saline (100mL MB+) 100 ML 330 MG IV (09:53)
[2023-10-13] MEDS: 0.9% Saline Lock 10 ML Syringe IV (09:54)
[2023-10-13] MEDS: Fluoxetine HCl 40 MG CAPSULE 80 MG PO (09:54)
[2023-10-13] MEDS: Acetaminophen 325 MG Tablet 650 MG PO ×2 (09:55→15:50)
--- NOTE | 2023-10-13 12:43 | PN.HOSP_ITS ---
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 Feeling better though at this time. Denies abdominal pain. No shortness of breath. Objective Data Objective Data Vital Signs: Vital Signs Temp Pulse Resp BP Pulse Ox O2 Del Method O2 Flow Rate 36.0 C L 88 18 152/74 H 94 Room Air 1 10/13/23 08:30 10/13/23 08:30 10/13/23 08:30 10/13/23 08:30 10/13/23 08:30 10/13/23 08:35 10/08/23 23:48 Oxygen Flow Rate (L/min) 1 Oxygen Delivery Method Room Air Weight: 104.871 kg Body Mass Index (BMI) 35.2 Intake & Output: Intake and Output for Last 24 Hours 10/11/23 10/12/23 10/13/23 23:59 23:59 23:59 Intake Total 2552.67 / 2552.67 2404.66 / 2404.66 1766.00 / 1766.00 Output Total 2125 / 2125 2650 / 2650 1050 / 1050 Balance 427.67 / 427.67 -245.34 / -245.34 716.00 / 716.00 Lab / Micro Data 10/13/23 05:09 10/13/23 05:09 Labs: Laboratory Results - last 24 hr 10/13/23 05:09: WBC 12.7 H, RBC 3.82 L, Hgb 11.7 L, Hct 36.2 L, MCV 94.8 H, MCH 30.6, MCHC 32.3, RDW Std Deviation 42.6, RDW Coeff of Shawn 12.2, Plt Count 380, MPV 9.8, Immature Gran % (Auto) 0.400, Neut % (Auto) 66.6, Lymph % (Auto) 23.7, [place] % (Auto) 6.9, Eos % (Auto) 2.2, Baso % (Auto) 0.2, Absolute Neuts (auto) 8.5 H, Absolute Lymphs (auto) 3.00, Differential Comment SCANNED, Atypical Lymphocytes 1+, Reactive Lymphocytes 1+, Sodium 134 L, Potassium 3.4 L, Chloride 104, Carbon Dioxide 23.0, Anion Gap 7, BUN 7, Creatinine 0.72, Estim Creat Clear Calc 90.77, Est GFR (MDRD) Af Amer 136, Est GFR (MDRD) Non-Af 113, B UN/Creatinine Ratio 9.7 L, Glucose 115 H, Calcium 8.4 L 10/13/23 09:03: Troponin I High Sens 14 Micro: Microbiology 10/06/23 13:30 Blood Culture (Wb) - Right Hand Bacteria Detection (PCR) - Final Coag Negative Staph 10/06/23 13:30 Blood Culture (Wb) - Right Hand Blood Culture - Final Staphylococcus warneri 10/07/23 03:20 Urine, Clean Catch Urine Culture - Final Culture exhibits no growth. Physical Exam Const alert and no apparent distress HEENT head/scalp atraumatic and moist oral mucous membranes Resp normal respiratory effort and no retractions Cardio regular rate, regular rhythm and S1 normal heart sound Cardio Narrative: Reproducible left anterior chest wall pain. Assessment & Plan Assessment/Plan (1) Status post Ron procedure: (2) Wide-complex tachycardia: (3) Colon obstruction: (4) Hypoxia: (5) Leukocytosis: PLAN: Plan Recommendations: 1. Continue pip/tazo for now. Can change to Augmentin on discharge and continue through 10/12. Despite increasing white count, his clinical status is and unchanged and his chest x-ray does show improvement of the large infiltrate that he has on his right side. 2. No additional workup for the chest pain. I feel it is costochondritis. 3. Medically stable for discharge. Dr. Parra notified. Chest pain * EKG reviewed and showed normal sinus rhythm acute changes. Troponin x 1 is negative. Pain is reproducible on exam. Chest pain is noncardiac and likely costochondritis versus musculoskeletal strain. No additional workup from my standpoint. colonic obstruction with postoperative ileus * 10/02 laparotomy with sigmoid colon resection and end colostomy * Mgmt per surgery Wide-complex tachycardia * Chronic LBBB. * Echocardiogram performed and shows concentric LVH with normal LV wall motion, EF of 60% and stage I diastolic dysfunction * No antiarrhythmics required Suspected gram-negative pneumonia * On pip-tazo. Continue antibiotics through the . Hyponatremia * improving Hypokalemia * ongoing. Bacteremia: * Likely contaminant as it is coag negative staph. * No additional workup at this time. 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
--- NOTE | 2023-10-13 15:01 | DS.PCM_ITS ---
Providers Date of Admission: 10/03/23 Primary Care Physician: Dr. 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 His abdomen is soft and nontender. He is complaining of some left chest pain this morning. I am ordering a twelve-lead EKG and troponins to check. Andrea Parra MD Pager: [facility] [address] [place] [address], [address] [place] [address] Office: (2) Wide-complex tachycardia: Status: Acute Code(s): R00.0 - Tachycardia, unspecified (3) Colon obstruction: Status: Acute Code(s): K56.609 - Unspecified intestinal obstruction, unspecified as to partial versus complete obstruction (4) Hypoxia: Status: Acute Code(s): R09.02 - Hypoxemia (5) Leukocytosis: Status: Acute Code(s): D72.829 - Elevated white blood cell count, unspecified Medications at Discharge Home Medications atorvastatin 10 mg tablet 10 mg PO QHS CHOLESTEROL 03/31/16 fluticasone propionate 50 mcg/actuation nasal spray,suspension 2 spray NASAL QHS ALLERGIES 03/31/16 quetiapine 25 mg tablet 25 mg PO QHS PSYCHOSIS 03/31/16 sennosides 8.6 mg tablet 2 tab PO QHS STOOL SOFTENER 03/31/16 clonazepam 0.5 mg tablet 0.5 mg PO BID ANXIETY #20 tabs 11/27/16 ondansetron HCl 4 mg tablet 4 mg PO Q6H PRN NAUSEA/VOMITING 12/30/18 calcium carbonate 500 mg-vitamin D3 10 mcg (400 unit) chewable tablet 2 ea PO DAILY ANTACID 05/06/20 famotidine 40 mg tablet 40 mg PO DAILY GI DISTRESS 05/06/20 silodosin 8 mg capsule 8 mg PO QHS PROSTATE 05/06/20 simethicone 180 mg capsule 180 mg PO DAILY PRN GAS 05/06/20 cyclobenzaprine 5 mg tablet 5 mg PO QHS MUSCLE SPASMS 08/13/23 melatonin 3 mg capsule 3 mg PO QHS INSOMNIA 08/13/23 quetiapine 50 mg tablet (Seroquel) 50 mg PO QHS PSYCHOSIS 08/13/23 polyethylene glycol 3350 17 gram/dose oral powder (Miralax) 17 g PO DAILY CONSTIPATION #510 grams 08/16/23 fluoxetine 40 mg capsule 80 mg PO DAILY DEPRESSION 09/25/23 tramadol 50 mg tablet 50 mg PO Q8H PRN PAIN 09/25/23 acetaminophen 500 mg tablet (Acetaminophen Extra Strength) 1,000 mg PO BID LEG PAIN 10/02/23 amino acids-protein hydrolysate 16 gram-100 kcal/30 mL oral liquid (Liquacel) 30 ml PO DAILY SUPPLEMENT 10/02/23 cranberry conc-vit D-oitpwwe-BPY-bromelain 3,875 mg/30 mL oral liquid (UTI-Stat) 30 ml PO DAILY UTI PREVENTION 10/02/23 cranberry extract 200 mg capsule 400 mg PO BID SUPPLEMENT 10/02/23 magnesium hydroxide 400 mg/5 mL oral suspension (Milk of Magnesia) 60 ml PO DAILY PRN CONSTIPATION 10/02/23 multivitamin (Daily-Lai tablet) 1 tab PO DAILY HEALTH MAINTENANCE 10/02/23 amoxicillin 500 mg-potassium clavulanate 125 mg tablet (Augmentin) 1 tab PO BID 5 days #10 tabs 10/13/23 Hospital Course Operations colectomy Summary of Care Provided Hospital Course: Patient was admitted following delay of transfer for obstructed colon. 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 Patient was taken for laparotomy and found to have a very dilated sigmoid. Sigmoid was resected and patient had Ron procedure with colostomy. Pt went into tachycardia and was moved to the PCU after surgery. He developed an ileus and took several days and an NG tube to resolve this. He was also started on abx for pneumonia as the cause of ileus. Pt slowly started a diet. Pt had some left chest pain and this was worked up with cardiac enzymes and EKG. both were normal. Patient being discharged back to long-term with oral abx. Physical Exam Const oriented x3 and no apparent distress Resp normal respiratory effort GI soft to palpation and non-tender Weight / BMI Weight Weight: 231 lb 3.2 oz Body Mass Index (BMI) 35.2 ABG / Lab / Microbiology Data 10/13/23 05:09 10/13/23 05:09 Laboratory: Laboratory Results - last 24 hr 10/13/23 05:09: WBC 12.7 H, RBC 3.82 L, Hgb 11.7 L, Hct 36.2 L, MCV 94.8 H, MCH 30.6, MCHC 32.3, RDW Std Deviation 42.6, RDW Coeff of Shawn 12.2, Plt Count 380, MPV 9.8, Immature Gran % (Auto) 0.400, Neut % (Auto) 66.6, Lymph % (Auto) 23.7, Liberty % (Auto) 6.9, Eos % (Auto) 2.2, Baso % (Auto) 0.2, Absolute Neuts (auto) 8.5 H, Absolute Lymphs (auto) 3.00, Differential Comment SCANNED, Atypical Lymphocytes 1+, Reactive Lymphocytes 1+, Sodium 134 L, Potassium 3.4 L, Chloride 104, Carbon Dioxide 23.0, Anion Gap 7, BUN 7, Creatinine 0.72, Estim Creat Clear Calc 90.77, Est GFR (MDRD) Af Amer 136, Est GFR (MDRD) Non-Af 113, B UN/Creatinine Ratio 9.7 L, Glucose 115 H, Calcium 8.4 L 10/13/23 09:03: Troponin I High Sens 14 Microbiology: Microbiology 10/06/23 13:30 Blood Culture (Wb) - Right Hand Bacteria Detection (PCR) - Final Coag Negative Staph 10/06/23 13:30 Blood Culture (Wb) - Right Hand Blood Culture - Final Staphylococcus warneri 10/07/23 03:20 Urine, Clean Catch Urine Culture - Final Culture exhibits no growth. D/C Instructions Discharge Diet: No restrictions Discharge Activity: May Shower Lifting Restrictions: 15 lbs for 4 weeks Call your doctor if your incision/area has: Continuous Slow Oozing, Sudden Increased Bleeding, Increased Pain/ Swelling, Increased Redness, Foul Smelling Discharge and Swelling at the incision site Call your doctor if you observe: Fever of 101 or Higher Change Dressing in: 1 day Cleanse incision/area with: Soap & Water Please Follow Up With: Andrea Parra MD When: Call to make 2 week follow up appt [phone] Meaningful Use Info Meaningful Use Meaningful Use Diagnoses (Choose all that apply): None applicable Ischemic Stroke Statin Dosing Therapy Reference: STATIN DOSE THERAPY REFERENCE: * Patients > 75 years receive moderate or high dose statin therapy. * Patients 75 years or YOUNGER should receive HIGH intensity statin dose unless contraindicated. You will be required to document reason for non-treatment if statin daily dose does not meet guidelines. HIGH DOSE STATIN THERAPY DAILY Atorvastatin > than or = to 40 mg Rosuvastatin > than or = to 20 mg Amlodipine + Atorvastatin > than or = to 2.5/40 mg Ezetimibe + Simvastatin 10/80 mg Simvastatin 80mg Discharge Plan Admission Admit Date/Time: 10/03/23 14:36 Attending Provider: Braulio Pereira Primary Care Provider: Doroteo Peñaloza,Scott Consulting Providers: Karen Altamirano; Alize Montes; Andrea Parra Discharge Orders/Prescriptions Prescriptions: New amoxicillin-pot clavulanate [Augmentin] 500-125 mg tablet 1 tab PO BID 5 Days Qty: 10 0RF Continued quetiapine 25 MG tablet 25 mg PO QHS sennosides 1 TABLET tablet 2 tab PO QHS atorvastatin 10 MG tablet 10 mg PO QHS Patient Comments: PER MAY, ON HOLD FROM 09/18/23 - 10/01/23 fluticasone propionate 1 SPRAY spray,suspension 2 spray NASAL QHS clonazepam 0.5 MG tablet 0.5 mg PO BID Qty: 20 0RF ondansetron HCl 4 MG tablet 4 mg PO Q6H PRN (Reason: NAUSEA/VOMITING ) simethicone 180 MG capsule 180 mg PO DAILY PRN (Reason: GAS) famotidine 40 MG tablet 40 mg PO DAILY calcium carbonate-vitamin D3 1 EACH tablet,chewable 2 ea PO DAILY silodosin 8 MG capsule 8 mg PO QHS multivitamin [Daily-Lai] Tablet 1 tab PO DAILY Liquacel 16-100 gram-kcal/30 mL liquid 30 ml PO DAILY UTI-Stat 3,875 mg/30 mL liquid 30 ml PO DAILY cranberry extract 200 mg capsule 400 mg PO BID acetaminophen [Acetaminophen Extra Strength] 500 mg tablet 1,000 mg PO BID magnesium hydroxide [Milk of Magnesia] 400 mg/5 mL suspension 60 ml PO DAILY PRN (Reason: CONSTIPATION ) cyclobenzaprine 5 mg tablet 5 mg PO QHS melatonin 3 mg capsule 3 mg PO QHS quetiapine [Seroquel] 50 mg tablet 50 mg PO QHS polyethylene glycol 3350 [Miralax] 17 gram/dose powder 17 g PO DAILY Qty: 510 0RF tramadol 50 mg tablet 50 mg PO Q8H PRN (Reason: PAIN ) fluoxetine 40 mg Capsule 80 mg PO DAILY Referrals / Follow Up: Doroteo Peñaloza,DO Scott [Primary Care Provider] - Disposition Disposition (needs filled in before D/C Order can be placed): Assisted Living
--- NOTE | 2023-10-13 15:15 | PCM.TXEXTCAR ---
Diet Diet Order/Speech Therapy: 10/11/23 07:34 Diet: Transitional Is pt able to select menu?: No Routine Orders/Code Status O2 Frequency: PRN Wound(s) ABDOMEN: Wound Type: Surgical Incision Dressing Change: dry dressing OSTOMY: Wound Type: Surgical Incision Therapies Weight Bearing: Weight bearing as tolerated Physical Therapy: Eval and Treat Occupational Therapy: Eval and Treat Speech Therapy: Eval and Treat Problem/Diagnosis (1) Status post Ron procedure: Status: Acute Code(s): Z93.3 - Colostomy status Plan: Patient is tolerating diet with stool in his colostomy bag. His abdomen is soft and nontender. He is complaining of some left chest pain this morning. I am ordering a twelve-lead EKG and troponins to check. Andrea Parra MD Pager: [facility] [address] [place] [address], [address] [place] [phone] Office: (2) Wide-complex tachycardia: Status: Acute Code(s): R00.0 - Tachycardia, unspecified (3) Colon obstruction: Status: Acute Code(s): K56.609 - Unspecified intestinal obstruction, unspecified as to partial versus complete obstruction (4) Hypoxia: Status: Acute Code(s): R09.02 - Hypoxemia (5) Leukocytosis: Status: Acute Code(s): D72.829 - Elevated white blood cell count, unspecified Allergies/Procedures Done in Hospital Allergies Phenothiazines Allergy (Verified 10/02/23 14:13) Unknown prochlorperazine (From Compazine) Allergy (Verified 10/02/23 14:13) Unknown Sulfa (Sulfonamide Antibiotics) Allergy (Verified 10/02/23 14:13) Unknown Type of Care/Length of Stay Estimated LOS: More Than 30 Days Type of Care Needed: Skilled Rehab Potential: Good Prognosis: Good Additional Orders/Day of Discharge Day of Discharge: 10/13/23 Dietary and Speech Recommendations Dietitian Recommendations/Changes: Continue Transitional diet with goal of Regular diet as tolerated; texture/consistency per [employer] d/t hx dysphagia. Will continue 118mL Ensure Compact TID with medpass to provide supplemental energy. [employer] consult as needed for texture/consistency adjustment as diet advanced to solid food. Current weight as able to better assess nutrition status. Follow Up Care Please Follow Up With: Andrea Parra MD When: Call for 2 week appt [phone] Discharge Plan Admission Admit Date/Time: 10/03/23 14:36 Attending Provider: Braulio Pereira Primary Care Provider: Scott Sadler Sr. Consulting Providers: Karen Altamirano; Alize Montes; Andrea Parra Discharge Orders/Prescriptions Prescriptions: New amoxicillin-pot clavulanate [Augmentin] 500-125 mg tablet 1 tab PO BID 5 Days Qty: 10 0RF Continued quetiapine 25 MG tablet 25 mg PO QHS sennosides 1 TABLET tablet 2 tab PO QHS atorvastatin 10 MG tablet 10 mg PO QHS Patient Comments: PER MAY, ON HOLD FROM 09/18/23 - 10/01/23 fluticasone propionate 1 SPRAY spray,suspension 2 spray NASAL QHS clonazepam 0.5 MG tablet 0.5 mg PO BID Qty: 20 0RF ondansetron HCl 4 MG tablet 4 mg PO Q6H PRN (Reason: NAUSEA/VOMITING ) simethicone 180 MG capsule 180 mg PO DAILY PRN (Reason: GAS) famotidine 40 MG tablet 40 mg PO DAILY calcium carbonate-vitamin D3 1 EACH tablet,chewable 2 ea PO DAILY silodosin 8 MG capsule 8 mg PO QHS multivitamin [Daily-Lai] Tablet 1 tab PO DAILY Liquacel 16-100 gram-kcal/30 mL liquid 30 ml PO DAILY UTI-Stat 3,875 mg/30 mL liquid 30 ml PO DAILY cranberry extract 200 mg capsule 400 mg PO BID acetaminophen [Acetaminophen Extra Strength] 500 mg tablet 1,000 mg PO BID magnesium hydroxide [Milk of Magnesia] 400 mg/5 mL suspension 60 ml PO DAILY PRN (Reason: CONSTIPATION ) cyclobenzaprine 5 mg tablet 5 mg PO QHS melatonin 3 mg capsule 3 mg PO QHS quetiapine [Seroquel] 50 mg tablet 50 mg PO QHS polyethylene glycol 3350 [Miralax] 17 gram/dose powder 17 g PO DAILY Qty: 510 0RF tramadol 50 mg tablet 50 mg PO Q8H PRN (Reason: PAIN ) fluoxetine 40 mg Capsule 80 mg PO DAILY Referrals / Follow Up: Scott Sadler Sr., DO [Primary Care Provider] - Disposition Disposition (needs filled in before D/C Order can be placed): Assisted Living
== END 2023-10-13 17:15 | disposition home or self-care (01) | DRG 329 ==
LOC: ED 10-03 07:36 → SDC 10-03 07:50 → ACINP 10-03 07:51 → MS3 10-03 13:59 → SDC 10-03 14:40 → MS3 10-03 14:40 → PCU 10-03 19:41
PROVIDERS: Internal Medicine; Physician Assistant; Admitting Provider Surgery; Emergency Provider Emergency Medicine; PCP Internal Medicine
PROC: 0D1E0Z4 Bypass Large Intestine to Cutaneous, Open Approach (ICD-10-PCS; CPT 49000; principal; 2023-10-03 11:40)
DX: K56.609 Unspecified intestinal obstruction, unspecified as to partial versus complete obstruction (principal); J18.9 Pneumonia, unspecified organism; R78.81 Bacteremia; G81.94 Hemiplegia, unspecified affecting left nondominant side; E87.1 Hypo-osmolality and hyponatremia; N13.8 Other obstructive and reflux uropathy; K91.89 Other postprocedural complications and disorders of digestive system; G35 Multiple sclerosis; F20.9 Schizophrenia, unspecified; Z93.3 Colostomy status; K56.7 Ileus, unspecified; E78.5 Hyperlipidemia, unspecified; I44.7 Left bundle-branch block, unspecified; K21.9 Gastro-esophageal reflux disease without esophagitis; E87.6 Hypokalemia; K63.89 Other specified diseases of intestine; Z87.891 Personal history of nicotine dependence; Z86.16 Personal history of COVID-19; Z66 Do not resuscitate; N40.1 Benign prostatic hyperplasia with lower urinary tract symptoms; Z79.01 Long term (current) use of anticoagulants; B95.7 Other staphylococcus as the cause of diseases classified elsewhere; Z90.49 Acquired absence of other specified parts of digestive tract; R00.0 Tachycardia, unspecified
CPT/HCPCS: 31720; 36415; 71045; 74018; 74177; 80048; 80053; 80202; 81001; 83605; 83735; 83880; 84100; 84484; 85025; 87040; 87086; 87149; 87186; 87811; 88307; 92526; 92610; 93005; 93306; 94640; 94668; 97110; 97150; 97163; 97166; 97530; 97535; 99284; J7030; J7040; J7050; J7120; Q9957; Q9967; A4216; C8929; J1940; J2405

== ENCOUNTER → 2024-04-29 04:00 | Outpatient (REF) | payer MEDICARE, OTHER, MEDICAID, SELFPAY ==
[2024-04-29 10:11] LABS: Hematocrit 38.7 % (40-54); Hemoglobin 12.8 g/dL (13.0-16.5); Mean Corp Hgb Conc 33.1 g/dL (32-36); Mean Corpuscular Hgb 31.1 pg (27.0-32.0); Mean Corpuscular Volume 93.9 fL (80-94); Mean Platelet Vol. 9.9 fl (6.2-12.0); Platelet Count 358 K/mm3 (150-450); RBC Distribution Width CV 13.1 % (11.6-14.6); RBC Distribution Width SD 45.1 fl (35.1-43.9); Red Blood Count 4.12 M/mm3 (4.6-6.2); White Blood Count 8.4 K/mm3 (4.4-11.0)
[2024-04-29 10:31] LABS: Anion Gap 9 (5-15); BUN 14 mg/dL (7-18); BUN/Creat Ratio 11.9 RATIO (10-20); Calcium,Total 8.9 mg/dL (8.5-10.1); Chloride 99 mmol/L (98-107); Creatinine, Serum 1.18 mg/dL (0.70-1.30); EST Glomerular Filtration Rate 63 mL/min (>60); Est Glom Filt Rate - Afr Amer 77 mL/min (>60); Glucose 113 mg/dL (74-106); Sodium Level 132 mmol/L (136-145)
== END ==
LOC: OLS.ACH 04:00
PROVIDERS: PCP Internal Medicine; Referring Provider Internal Medicine; Visit Provider Internal Medicine
DX: E78.00 Pure hypercholesterolemia, unspecified (principal); G35 Multiple sclerosis; E55.9 Vitamin D deficiency, unspecified
CPT/HCPCS: 36415; 80048; 85027